=== PATIENT | male | born 1955 | race Caucasian/White ===

== ENCOUNTER 2017-12-07 13:27 | Inpatient (IN) | payer OTHER ==
[~2017-12-07] VITALS: Ht 175.3 cm; Wt 84.4 kg
[~2017-12-07 13:27] MED LIST changes: -ASCO500T2 PO; -INSU100I11 SQ; -INSU100I13 SQ; -MULT1TAB90 PO; -OXYC5TAB95 PO; -PANT20TA2 PO
[2017-12-07 15:00] VITALS: BP 117/64
[2017-12-07] MEDS ORDERED: traMADol 50 MG TABLET PO PRN (15:15)
[2017-12-07] MEDS ORDERED: PROCHLORPERAZINE 10 MG/2 ML VIAL. IV PRN (15:15)
[2017-12-07] MEDS ORDERED: ACETAMINOPHEN 325 MG TABLET. PO PRN (15:15)
[2017-12-07] MEDS ORDERED: MAG HYDROX/ALUMINUM HYD/SIMETH 30 ML ORAL.SUSP PO PRN (15:15)
[2017-12-07] MEDS ORDERED: DEXTROSE 50% 25 GM / 50ML DISP.SYRIN. IV PRN (15:15)
[2017-12-07] MEDS ORDERED: fentaNYL PF VIAL 100 MCG/2 ML VIAL IV PRN (15:15)
[2017-12-07] MEDS ORDERED: CALCIUM CARBONATE 500 MG TAB.CHEW PO PRN (15:15)
[2017-12-07] MEDS ORDERED: PROCHLORPERAZINE 25 MG SUPP.RECT. PR PRN (15:15)
[2017-12-07] MEDS ORDERED: ONDANSETRON PF 4 MG/2 ML VIAL. IV PRN (15:15)
[2017-12-07] MEDS ORDERED: LACTULOSE 20 GM/30 ML SOLUTION. PO PRN (15:15)
[2017-12-07] MEDS ORDERED: MAGNESIUM HYDROXIDE 2,400 MG/30 ML ORAL.SUSP. PO PRN (15:15)
[2017-12-07] MEDS ORDERED: IBUPROFEN 400 MG TABLET. PO PRN (15:15)
--- NOTE | 2017-12-07 15:28 | PDOC2 ---
CONSULT Date of Consult Date of Consult DATE: 12/07/17 TIME: 15:10 Reason for Consult Reason for Consult: Infected diabetic foot ulcer Referring Physician Referring Physician: Basim Source Source: Patient History of Present Illness Reason for Visit: Pt was sent here by PCP and wound care center for right heel infected diabetic foot ulcer. He just recently arrived on floor as direct admit with little information in chart. The wound has been present for about a year, however became more painful and odorous about 2 weeks ago. He has been seeing wound care for this. He denies pain currently. He has a significant cardiac history with history of CABG. We were asked to evaluate to the patient for potential surgical debridement. He has a history of right 2nd and 5th toe amputations for infection in the past. He denies hx of PAD. Past Medical History Cardiovascular: CAD, HTN, Hyperlipidemia, Other GI: GERD Endocrine: Diabetes Past Surgical History Past Surgical History Right 2nd and 5th toe amputations. Past Surgical History: CABG Family History Family History: Heart Disease, Hypertension Social History ALCOHOL: none Drugs: None Lives: with Family Current Medications Current Medications Active Scripts Active Reported Ranexa (Ranolazine) 500 Mg Tab.er.12h 1 Tab PO BID Isosorbide Mononitrate Er (Isosorbide Mononitrate) 60 Mg Tab.er.24h 1 Tab PO DAILY Clopidogrel (Clopidogrel Bisulfate) 75 Mg Tablet 1 Tab PO DAILY Metoprolol Tartrate 50 Mg Tablet 100 Mg PO BID NEXT DOSE: 01/19/15 PM Aspir 81 (Aspirin) 81 Mg Tablet.dr 81 Mg PO DAILY NEXT DOSE: 01/20/15 AM Omeprazole 40 Mg Capsule.dr 40 Mg PO DAILY NEXT DOSE: 01/20/15 AM Allopurinol 300 Mg Tablet 300 Mg PO DAILY NEXT DOSE: 01/20/15 AM Lisinopril 40 Mg Tablet 40 Mg PO DAILY NEXT DOSE: 01/20/15 AM Allergies Allergies: Coded Allergies: morphine (Verified Allergy, Intermediate, Hives, itching, 07/29/15) ROS General: No: Chills, Other (fever) HEENT: No: Heacaches Hematological and Lymphatic: No: Bleeding Problems, Blood Clots ENDOCRINE: YES: Skin Changes Respiratory: No: Cough, Shortness of breath Cardiovascular: No Chest Pain Gastrointestinal: No Nausea, No Vomiting, No Diarrhea Musculoskeletal: Yes Gait Disturbance Physical Exam General: Alert, Oriented X3, Cooperative HEENT: Atraumatic Lungs: Normal air movement Heart: Regular rate Extremities: Other (BL mild edema, left worse than right. Unable to appreciate pedal pulses on either foot, likely due to swelling. Left foot with several scabbed punctate areas ) Skin: Other (Ulcer to right heel with necrotic tissue surrounding. No pustular drainage. Ulcer does have some tracking proximally a few cm with necrotic tissue covered by intact epithelial layer. ) Neuro: Normal speech, Normal tone Psych/Mental Status: Mental status NL, Mood NL Labs Labs Laboratory Tests Test 12/07/17 14:42 Glucose (Fingerstick) 177 mg/dL (70-99) Laboratory Tests Test 12/07/17 14:42 Glucose (Fingerstick) 177 mg/dL (70-99) Assessment/Plan Assessment/Plan Pt with infected diabetic ulcer to right heel reportedly with osteomyelitis from xray at previous location. He will benefit from surgical debridement, however will get arterial US first to better assess right leg circulation. Pt is stable otherwise and surgical debridement is non-emergent. 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 They exhibited understanding and agreed to said plan. All questions were answered to satisfaction. We will review arterial study tomorrow and determine appropriate timing for surgery. We recommend initiate abx per ID and wound care in the meantime. Also pt is to be non-weight bearing on right heel. Will order Prafo boot for pt to use post operatively. JANN CASILLAS Dec 07, 2017 15:28
[2017-12-07] MEDS ORDERED: LABETALOL 20 MG/4 ML DISP.SYRIN. IVP PRN (15:30)
--- NOTE | 2017-12-07 15:43 | PDOC1 ---
History and Physical Date of Admission Date of Admission DATE: 12/07/17 TIME: 15:39 Identification/Chief Complaint Chief Complaint Sent in by wound care clinic for right heel wound in a diabetic Source Source: Caregiver, Chart review, Patient History of Present Illness History of Present Illness 62-year-old male, diabetic type I for the past 43 years,hemoglobin a1C is 13 some 2 months ago, sent in by wound care clinic because of right heel wound and need for IV antibiotics. No fevers at home, sister at bedside says patient is stubborn, there was some oozing or drainage earlier this week and was advised to come earlier but pt did not want to. He has history of CAD with CABG 2016 here at [facility], COPD. Nonsmoker nondrinker. Also history of hypertension, dyslipidemia. Right heel is tender to touch but currently dry, he can bear weight on it if needed. Admitted and is being followed by vascular surgery hence wound care recommends vasc surgery and infectious disease consults. I ordered a sedimentation rate. Hemoglobin A1c, basic labs. He takes 50 units Lantus in the morning and 25 units at night he told the RN. But he told me 40 units at night. No fast acting insulin during mealtimes. We'll do some sliding scale. Past Medical History Cardiovascular: CAD, HTN, Hyperlipidemia, Other GI: GERD Endocrine: Diabetes Past Surgical History Past Surgical History: CABG Family History Family History: Heart Disease, Hypertension Social History Smoke: No ALCOHOL: none Drugs: None Current Medications Current Medications Current Medications Ondansetron HCl (Zofran) 4 mg PRN Q6HRS PRN IV NAUSEA/VOMITING; Start at 15:15 Prochlorperazine Edisylate (Compazine) 10 mg PRN Q6HRS PRN IV NAUSEA/VOMITING; Start 12/07/17 at 15:15 Prochlorperazine (Compazine) 25 mg PRN Q12HR PRN VA NAUSEA/VOMITING; Start at 15:15 Al Hydroxide/Mg Hydroxide (Mylanta Plus Xs) 30 ml PRN Q3HRS PRN PO HEARTBURN / GAS; Start 12/07/17 at 15:15 Calcium Carbonate/ Glycine (Tums) 500 mg PRN Q3HRS PRN PO UPSET STOMACH; Start 12/07/17 at 15:15 Zolpidem Tartrate (Ambien) 5 mg PRN QHS PRN PO INSOMNIA, MAY REPEAT IN 1HR; Start 12/07/17 at 15:15 Oxycodone HCl (Roxicodone) 5 mg PRN Q3HRS PRN PO BREAKTHROUGH PAIN; Start at 15:15 Acetaminophen (Tylenol) 650 mg PRN Q6HRS PRN PO Headaches, Temp > 101.5F; Start 12/07/17 at 15:15 Ibuprofen (Motrin) 400 mg PRN Q6HRS PRN PO MILD PAIN; Start 12/07/17 at 15:15 Magnesium Hydroxide (Milk Of Magnesia) 2,400 mg PRN Q12HR PRN PO CONSTIPATION; Start 12/07/17 at 15:15 Lactulose (Lactulose) 20 gm PRN Q12HR PRN PO CONSTIPATION; Start 12/07/17 at 15:15 Insulin Human Lispro (HumaLOG) 0-9 UNITS TIDWMEALS SQ ; Start 12/07/17 at 17:00 Dextrose (Dextrose 50%-Water Syringe) 12.5 gm PRN Q15MIN PRN IV SEE COMMENTS; Start 12/07/17 at 15:15 Fentanyl Citrate (Fentanyl 2ml Vial) 50 mcg PRN Q2HR PRN IV PAIN; Start at 15:15 Tramadol HCl (Ultram) 50 mg PRN Q6HRS PRN PO MILD PAIN; Start 12/07/17 at 15: 15 Allopurinol (Zyloprim) 300 mg DAILY PO ; Start 12/07/17 at 16:00 Lisinopril (Prinivil) 40 mg DAILY PO ; Start 12/07/17 at 16:00 Metoprolol Tartrate (Lopressor) 100 mg BID PO ; Start 12/07/17 at 21:00 Ranolazine (Ranexa) 500 mg BID PO ; Start 12/07/17 at 21:00 Isosorbide Mononitrate (Imdur) 60 mg DAILY PO ; Start 12/08/17 at 09:00 Pantoprazole Sodium (Protonix) 40 mg DAILYAC PO ; Start 12/07/17 at 16:30 Labetalol HCl (Normodyne Iv Push) 10 mg PRN Q2HR PRN IVP HYPERTENSION, SEE COMMENTS; Start 12/07/17 at 15:30 Active Scripts Active Reported Ranexa (Ranolazine) 500 Mg Tab.er.12h 1 Tab PO BID Isosorbide Mononitrate Er (Isosorbide Mononitrate) 60 Mg Tab.er.24h 1 Tab PO DAILY Clopidogrel (Clopidogrel Bisulfate) 75 Mg Tablet 1 Tab PO DAILY Metoprolol Tartrate 50 Mg Tablet 100 Mg PO BID NEXT DOSE: 01/19/15 PM Aspir 81 (Aspirin) 81 Mg Tablet.dr 81 Mg PO DAILY NEXT DOSE: 01/20/15 AM Omeprazole 40 Mg Capsule.dr 40 Mg PO DAILY NEXT DOSE: 01/20/15 AM Allopurinol 300 Mg Tablet 300 Mg PO DAILY NEXT DOSE: 01/20/15 AM Lisinopril 40 Mg Tablet 40 Mg PO DAILY NEXT DOSE: 01/20/15 AM Allergies Allergies: Coded Allergies: morphine (Verified Allergy, Intermediate, Hives, itching, 07/29/15) ROS Review of System As per history of present illness, the rest of ROS 14 point negative Physical Exam General: Alert, Oriented X3, Cooperative, No acute distress HEENT: Atraumatic, PERRLA, EOMI Lungs: Clear to auscultation, Normal air movement Heart: S1S2, RRR, no thrills, no rubs, no gallops, no murmurs Cardiovascular: S1, S2 Abdomen: Normal bowel sounds, Soft, No tenderness, No hepatosplenomegaly, No masses Male Genitals Exam: normal genitalia, normal prostate Extremities: No clubbing, No cyanosis, Normal pulses Skin: Other (rt heel wound, dry, some redness around the area, tender to touch , no oozing currently) Neuro: Normal gait, Normal speech, Strength at 5/5 X4 ext, Normal tone, Sensation intact, Cranial nerves 3-12 NL, Reflexes 2+ Labs Labs Laboratory Tests Test 12/07/17 14:42 Glucose (Fingerstick) 177 mg/dL (70-99) Laboratory Tests Test 12/07/17 14:42 Glucose (Fingerstick) 177 mg/dL (70-99) VTE Prophylaxis Ordered VTE Prophylaxis Devices: Yes VTE Pharmacological Prophylaxi: Yes Assessment/Plan Assessment/Plan Right heel wound in a diabetic Diabetes type 1, hemoglobin A1c is 13 some 2 months ago Hypertension, CAD, CABG 2016, dyslipidemia-chronic stable Plan: Vascular surgery and ID consults Check hemoglobin A1c CBC BMP sedimentation rate Resume home regimen insulin and sliding scale insulin Local wound care and wound care consult Discussed with sister at bedside and RN 2 MN admit SHAD CARRANZA MD Dec 07, 2017 15:43
[2017-12-07] MEDS: ALLOPURINOL 300 MG TABLET. PO SCH (16:00)
[2017-12-07] MEDS: LISINOPRIL 20 MG TABLET PO SCH (16:00)
[2017-12-07 16:15] LABS: BASO % 0 % (0-3); EOS # 0.1 x10^3/uL (0.0-0.7); EOS % 1 % (0-3); HEMATOCRIT 34.1 % (39.0-53.0); LYMPH # 1.3 x10^3/uL (1.0-4.8); LYMPH % 13 % (24-48); MEAN CORPUSCULAR HEMOGLOBIN 34 pg (25-35); MEAN CORPUSCULAR HGB CONC 35 g/dL (31-37); MEAN CORPUSCULAR VOLUME 95 fL (79-100); MONO # 0.9 x10^3/uL (0.0-1.1); MONO % 9 % (0-9); NEUT # 7.7 x10^3uL (1.8-7.7); NEUT % 77 % (31-73); PLATELET COUNT 348 x10^3/uL (140-400); RED BLOOD COUNT 3.59 x10^6/uL (4.30-5.70)
[2017-12-07 16:20] LABS: PROTHROMBIN TIME PATIENT 14.2 SEC (11.7-14.0)
[2017-12-07] MEDS: PANTOPRAZOLE 40 MG TABLET.DR. PO SCH (16:30)
[2017-12-07 16:33] LABS: ALBUMIN 3.1 g/dL (3.4-5.0); ALBUMIN/GLOBULIN RATIO 0.7 (1.0-1.7); CALCIUM 9.5 mg/dL (8.5-10.1); CREATININE 1.2 mg/dL (0.7-1.3); GFR 61.8; POTASSIUM 4.5 mmol/L (3.5-5.1); TOTAL BILIRUBIN 0.6 mg/dL (0.2-1.0); TOTAL PROTEIN 7.7 g/dL (6.4-8.2)
[2017-12-07] MEDS ORDERED: INSULIN LISPRO 300 UNITS/3 ML INSULN.PEN. SQ SCH (17:00)
[2017-12-07 19:00] VITALS: BP 98/44
[2017-12-07] MEDS: METOPROLOL TART IMMED RELEASE 50 MG TABLET. PO SCH (21:00)
[2017-12-07] MEDS ORDERED: INSULIN GLARGINE 300 UNITS/3 ML INSULN.PEN. SQ SCH ×2 (21:00)
[2017-12-07] MEDS ORDERED: IV NORMAL SALINE 1000ML BAG 1,000 ML IV ONE (21:30)
[2017-12-07] MEDS: RANOLAZINE 500 MG TAB.ER.12H PO SCH (21:31)
[2017-12-07] MEDS: IV NORMAL SALINE 1000ML BAG 1,000 ML IV SCH (21:37)
[2017-12-07 23:00] VITALS: BP 101/50
[2017-12-08 00:11] LABS: HEMOGLOBIN A1C 13.1 % (4.8-5.6)
[2017-12-08 03:00] VITALS: BP 105/49
[2017-12-08 05:06] LABS: BASO % 0 % (0-3); EOS # 0.1 x10^3/uL (0.0-0.7); EOS % 1 % (0-3); HEMATOCRIT 30.7 % (39.0-53.0); HEMOGLOBIN 10.8 g/dL (13.0-17.5); LYMPH # 1.4 x10^3/uL (1.0-4.8); LYMPH % 17 % (24-48); MEAN CORPUSCULAR HEMOGLOBIN 33 pg (25-35); MEAN CORPUSCULAR HGB CONC 35 g/dL (31-37); MEAN CORPUSCULAR VOLUME 94 fL (79-100); MONO # 0.7 x10^3/uL (0.0-1.1); MONO % 9 % (0-9); NEUT # 5.9 x10^3uL (1.8-7.7); NEUT % 73 % (31-73); PLATELET COUNT 314 x10^3/uL (140-400); RED BLOOD COUNT 3.26 x10^6/uL (4.30-5.70); RED CELL DISTRIBUTION WIDTH 14.5 % (11.5-14.5); WHITE BLOOD COUNT 8.1 x10^3/uL (4.0-11.0)
[2017-12-08 05:16] LABS: CALCIUM 8.9 mg/dL (8.5-10.1); CREATININE 1.3 mg/dL (0.7-1.3); GFR 56.3; POTASSIUM 4.1 mmol/L (3.5-5.1)
[2017-12-08 07:00] VITALS: BP 111/70
[2017-12-08] MEDS ORDERED: DEXTROSE 50% 25 GM / 50ML DISP.SYRIN. IV PRN (08:30)
[2017-12-08] MEDS ORDERED: INSULIN GLARGINE 300 UNITS/3 ML INSULN.PEN. SQ SCH (09:00)
[2017-12-08] MEDS: IV NORMAL SALINE 1000ML BAG 1,000 ML IV SCH ×2 (09:16→19:16)
[2017-12-08] MEDS: RANOLAZINE 500 MG TAB.ER.12H PO SCH ×2 (09:17→20:44)
[2017-12-08] MEDS: ISOSORBIDE MONONITRATE ER 30 MG TAB.ER.24H PO SCH (09:18)
[2017-12-08] MEDS: LISINOPRIL 20 MG TABLET PO SCH (09:18)
[2017-12-08] MEDS: METOPROLOL TART IMMED RELEASE 50 MG TABLET. PO SCH ×2 (09:19→20:44)
[2017-12-08] MEDS: ALLOPURINOL 300 MG TABLET. PO SCH (09:19)
[2017-12-08] MEDS: PANTOPRAZOLE 40 MG TABLET.DR. PO SCH (09:19)
[2017-12-08] MEDS: INSULIN NPH/REG INSULIN 70/30 300 UNITS/3 ML INSULN.PEN. SQ SCH ×2 (09:26→16:23)
--- NOTE | 2017-12-08 09:59 | RAD ---
Examination: ARTERIAL STUDY LOWER EXT RIGHT History: NON HEALING RT HEEL WOUND, DIABETIC

REACTIVE LYMPH NODES IN RT GROIN, LARGEST 3.5 X 3.4 X 1.5 CM
MILD TO MOD PLAQUE THROUGHOUT LEG - NO ELEVATED VELOCITIES
CALF ARTS MONO FLOW Comparison/Correlation: None Findings: Right lower extremity arterial ultrasound exam was performed. Grayscale, color Doppler Doppler, and spectral Doppler imaging was performed. Mild to moderate plaque is noted throughout the right direction of the arterial vasculature. No significant stenotic lesion identified. Triphasic waveforms identified involving the common femoral artery and superficial femoral artery. Peak systolic velocities of the right lower extremity arterial vasculature were obtained. Right proximal common femoral artery velocity of 114 cm/s is seen. Superficial femoral artery velocity of 88 cm/s noted proximally, 89 cm/s at the midportion, and 80 cm/s the distal aspect. Deep femoral artery velocity of 77 cm/s identified. Biphasic waveform. Popliteal artery has 60 cm/s velocity with biphasic waveform. Proximal posterior tibial artery velocity of 62 cm/s is present with monophasic waveform. More distally, velocity 76 cm/s. Peroneal artery is not identified. Proximal anterior tibial artery has 41 cm/s velocity with biphasic waveform. The dorsalis pedis artery has 31 cm/s velocity and monophasic waveform. Right groin lymph nodes are present and presumably reactive with the largest of these measuring 2.5 cm x 1.5 cm. Impression: No evidence of significant right lower extremity arterial stenosis. Electronically signed by: Jose Fierro MD (12/08/2017 9:56 AM) [facility]
--- NOTE | 2017-12-08 10:07 | PDOC ---
PROGRESS NOTES Chief Complaint Chief Complaint Right heel wound in a diabetic Diabetes type 1, hemoglobin A1c is 13 Hypertension, CAD, CABG 2016, dyslipidemia-chronic stable History of Present Illness History of Present Illness He has no complaints ESR is 105 Blood sugars are running high Now we're able to clarify that he is on intermediate acting insulin NPH 70/30, and in the morning and 40 units at night Tentative plans for possible I&D by vascular surgery on Sunday Plan: Add sliding scale insulin high-dose before meals at bedtime Hemoglobin A1c is 13 Continue IV antibiotic for ID Continue local wound care He was a direct admit from wound care clinic Dr[facility] Nothing by mouth post midnight on Sunday for tentative plans of I and D by vascular surgery Vitals Vitals Vital Signs Date Time Temp Pulse Resp B/P (MAP) Pulse Ox O2 Delivery O2 Flow Rate FiO2 12/08/17 09:19 109 111/70 12/08/17 07:00 97.7 18 99 Room Air 97.7 Physical Exam General: Alert, Oriented X3, Cooperative, No acute distress Heart: Regular rate, Normal S1, Normal S2 Lungs: Clear Abdomen: Normal bowel sounds, Soft, No tenderness, No hepatosplenomegaly, No masses Extremities: No clubbing, No cyanosis, Normal pulses Skin: Other (rt heel wound, dry, some redness around the area, tender to touch , no oozing currently) Labs LABS Laboratory Tests Test 12/07/17 14:42 12/07/17 15:50 12/07/17 17:30 12/07/17 20:54 Glucose (Fingerstick) 177 mg/dL (70-99) 222 mg/dL (70-99) 220 mg/dL (70-99) White Blood Count 10.0 x10^3/uL (4.0-11.0) Red Blood Count 3.59 x10^6/uL (4.30-5.70) Hemoglobin 12.0 g/dL (13.0-17.5) Hematocrit 34.1 % (39.0-53.0) Mean Corpuscular Volume 95 fL (79-100) Mean Corpuscular Hemoglobin 34 pg (25-35) Mean Corpuscular Hemoglobin Concent 35 g/dL (31-37) Red Cell Distribution Width 14.0 % (11.5-14.5) Platelet Count 348 x10^3/uL (140-400) Neutrophils (%) (Auto) 77 % (31-73) Lymphocytes (%) (Auto) 13 % (24-48) Monocytes (%) (Auto) 9 % (0-9) Eosinophils (%) (Auto) 1 % (0-3) Basophils (%) (Auto) 0 % (0-3) Neutrophils # (Auto) 7.7 x10^3uL (1.8-7.7) Lymphocytes # (Auto) 1.3 x10^3/uL (1.0-4.8) Monocytes # (Auto) 0.9 x10^3/uL (0.0-1.1) Eosinophils # (Auto) 0.1 x10^3/uL (0.0-0.7) Basophils # (Auto) 0.0 x10^3/uL (0.0-0.2) Erythrocyte Sedimentation Rate 105 (0-15) Prothrombin Time 14.2 SEC (11.7-14.0) Prothromb Time International Ratio 1.2 (0.8-1.1) Sodium Level 136 mmol/L (136-145) Potassium Level 4.5 mmol/L (3.5-5.1) Chloride Level 98 mmol/L (98-107) Carbon Dioxide Level 28 mmol/L (21-32) Anion Gap 10 (6-14) Blood Urea Nitrogen 17 mg/dL (8-26) Creatinine 1.2 mg/dL (0.7-1.3) Estimated GFR (Cockcroft-Gault) 61.8 BUN/Creatinine Ratio 14 (6-20) Glucose Level 226 mg/dL (70-99) Hemoglobin A1c 13.1 % (4.8-5.6) Calcium Level 9.5 mg/dL (8.5-10.1) Total Bilirubin 0.6 mg/dL (0.2-1.0) Aspartate Amino Transf (AST/SGOT) 13 U/L (15-37) Alanine Aminotransferase (ALT/SGPT) 19 U/L (16-63) Alkaline Phosphatase 94 U/L (46-116) Total Protein 7.7 g/dL (6.4-8.2) Albumin 3.1 g/dL (3.4-5.0) Albumin/Globulin Ratio 0.7 (1.0-1.7) Test 10/27/18 03:30 12/08/17 08:24 White Blood Count 8.1 x10^3/uL (4.0-11.0) Red Blood Count 3.26 x10^6/uL (4.30-5.70) Hemoglobin 10.8 g/dL (13.0-17.5) Hematocrit 30.7 % (39.0-53.0) Mean Corpuscular Volume 94 fL (79-100) Mean Corpuscular Hemoglobin 33 pg (25-35) Mean Corpuscular Hemoglobin Concent 35 g/dL (31-37) Red Cell Distribution Width 14.5 % (11.5-14.5) Platelet Count 314 x10^3/uL (140-400) Neutrophils (%) (Auto) 73 % (31-73) Lymphocytes (%) (Auto) 17 % (24-48) Monocytes (%) (Auto) 9 % (0-9) Eosinophils (%) (Auto) 1 % (0-3) Basophils (%) (Auto) 0 % (0-3) Neutrophils # (Auto) 5.9 x10^3uL (1.8-7.7) Lymphocytes # (Auto) 1.4 x10^3/uL (1.0-4.8) Monocytes # (Auto) 0.7 x10^3/uL (0.0-1.1) Eosinophils # (Auto) 0.1 x10^3/uL (0.0-0.7) Basophils # (Auto) 0.0 x10^3/uL (0.0-0.2) Sodium Level 137 mmol/L (136-145) Potassium Level 4.1 mmol/L (3.5-5.1) Chloride Level 102 mmol/L (98-107) Carbon Dioxide Level 25 mmol/L (21-32) Anion Gap 10 (6-14) Blood Urea Nitrogen 18 mg/dL (8-26) Creatinine 1.3 mg/dL (0.7-1.3) Estimated GFR (Cockcroft-Gault) 56.3 Glucose Level 244 mg/dL (70-99) Calcium Level 8.9 mg/dL (8.5-10.1) Glucose (Fingerstick) 355 mg/dL (70-99) Review of Systems Review of Systems A 14 point ROS was completed with the following noted as positive: Other systems reviewed and negative. \CONSTITUTIONAL: No fever or chills EYES: No recent changes SKIN: No rash or itching CARDIOVASCULAR: No chest pain, syncope, palpitations, or edema RESPIRATORY: No SOB or cough GASTROINTESTINAL: No nausea, vomiting or abdominal pain NEUROLOGICAL: No headaches or weakness ENDOCRINE: No cold or heat intolerance GENITOURINARY: No urgency or frequency of urination MUSCULOSKELETAL: No back pain or joint pain LYMPHATICS: No enlarged lymph nodes PSYCHIATRIC: No anxiety or depression Comment Review of Relevant I have reviewed the following items joana (where applicable) has been applied. Labs Laboratory Tests Test 12/07/17 14:42 12/07/17 15:50 12/07/17 17:30 12/07/17 20:54 Glucose (Fingerstick) 177 mg/dL (70-99) 222 mg/dL (70-99) 220 mg/dL (70-99) White Blood Count 10.0 x10^3/uL (4.0-11.0) Red Blood Count 3.59 x10^6/uL (4.30-5.70) Hemoglobin 12.0 g/dL (13.0-17.5) Hematocrit 34.1 % (39.0-53.0) Mean Corpuscular Volume 95 fL (79-100) Mean Corpuscular Hemoglobin 34 pg (25-35) Mean Corpuscular Hemoglobin Concent 35 g/dL (31-37) Red Cell Distribution Width 14.0 % (11.5-14.5) Platelet Count 348 x10^3/uL (140-400) Neutrophils (%) (Auto) 77 % (31-73) Lymphocytes (%) (Auto) 13 % (24-48) Monocytes (%) (Auto) 9 % (0-9) Eosinophils (%) (Auto) 1 % (0-3) Basophils (%) (Auto) 0 % (0-3) Neutrophils # (Auto) 7.7 x10^3uL (1.8-7.7) Lymphocytes # (Auto) 1.3 x10^3/uL (1.0-4.8) Monocytes # (Auto) 0.9 x10^3/uL (0.0-1.1) Eosinophils # (Auto) 0.1 x10^3/uL (0.0-0.7) Basophils # (Auto) 0.0 x10^3/uL (0.0-0.2) Erythrocyte Sedimentation Rate 105 (0-15) Prothrombin Time 14.2 SEC (11.7-14.0) Prothromb Time International Ratio 1.2 (0.8-1.1) Sodium Level 136 mmol/L (136-145) Potassium Level 4.5 mmol/L (3.5-5.1) Chloride Level 98 mmol/L (98-107) Carbon Dioxide Level 28 mmol/L (21-32) Anion Gap 10 (6-14) Blood Urea Nitrogen 17 mg/dL (8-26) Creatinine 1.2 mg/dL (0.7-1.3) Estimated GFR (Cockcroft-Gault) 61.8 BUN/Creatinine Ratio 14 (6-20) Glucose Level 226 mg/dL (70-99) Hemoglobin A1c 13.1 % (4.8-5.6) Calcium Level 9.5 mg/dL (8.5-10.1) Total Bilirubin 0.6 mg/dL (0.2-1.0) Aspartate Amino Transf (AST/SGOT) 13 U/L (15-37) Alanine Aminotransferase (ALT/SGPT) 19 U/L (16-63) Alkaline Phosphatase 94 U/L (46-116) Total Protein 7.7 g/dL (6.4-8.2) Albumin 3.1 g/dL (3.4-5.0) Albumin/Globulin Ratio 0.7 (1.0-1.7) Test 12/08/17 03:30 12/08/17 08:24 White Blood Count 8.1 x10^3/uL (4.0-11.0) Red Blood Count 3.26 x10^6/uL (4.30-5.70) Hemoglobin 10.8 g/dL (13.0-17.5) Hematocrit 30.7 % (39.0-53.0) Mean Corpuscular Volume 94 fL (79-100) Mean Corpuscular Hemoglobin 33 pg (25-35) Mean Corpuscular Hemoglobin Concent 35 g/dL (31-37) Red Cell Distribution Width 14.5 % (11.5-14.5) Platelet Count 314 x10^3/uL (140-400) Neutrophils (%) (Auto) 73 % (31-73) Lymphocytes (%) (Auto) 17 % (24-48) Monocytes (%) (Auto) 9 % (0-9) Eosinophils (%) (Auto) 1 % (0-3) Basophils (%) (Auto) 0 % (0-3) Neutrophils # (Auto) 5.9 x10^3uL (1.8-7.7) Lymphocytes # (Auto) 1.4 x10^3/uL (1.0-4.8) Monocytes # (Auto) 0.7 x10^3/uL (0.0-1.1) Eosinophils # (Auto) 0.1 x10^3/uL (0.0-0.7) Basophils # (Auto) 0.0 x10^3/uL (0.0-0.2) Sodium Level 137 mmol/L (136-145) Potassium Level 4.1 mmol/L (3.5-5.1) Chloride Level 102 mmol/L (98-107) Carbon Dioxide Level 25 mmol/L (21-32) Anion Gap 10 (6-14) Blood Urea Nitrogen 18 mg/dL (8-26) Creatinine 1.3 mg/dL (0.7-1.3) Estimated GFR (Cockcroft-Gault) 56.3 Glucose Level 244 mg/dL (70-99) Calcium Level 8.9 mg/dL (8.5-10.1) Glucose (Fingerstick) 355 mg/dL (70-99) Laboratory Tests Test 12/07/17 14:42 12/07/17 15:50 12/07/17 17:30 12/07/17 20:54 Glucose (Fingerstick) 177 mg/dL (70-99) 222 mg/dL (70-99) 220 mg/dL (70-99) White Blood Count 10.0 x10^3/uL (4.0-11.0) Red Blood Count 3.59 x10^6/uL (4.30-5.70) Hemoglobin 12.0 g/dL (13.0-17.5) Hematocrit 34.1 % (39.0-53.0) Mean Corpuscular Volume 95 fL (79-100) Mean Corpuscular Hemoglobin 34 pg (25-35) Mean Corpuscular Hemoglobin Concent 35 g/dL (31-37) Red Cell Distribution Width 14.0 % (11.5-14.5) Platelet Count 348 x10^3/uL (140-400) Neutrophils (%) (Auto) 77 % (31-73) Lymphocytes (%) (Auto) 13 % (24-48) Monocytes (%) (Auto) 9 % (0-9) Eosinophils (%) (Auto) 1 % (0-3) Basophils (%) (Auto) 0 % (0-3) Neutrophils # (Auto) 7.7 x10^3uL (1.8-7.7) Lymphocytes # (Auto) 1.3 x10^3/uL (1.0-4.8) Monocytes # (Auto) 0.9 x10^3/uL (0.0-1.1) Eosinophils # (Auto) 0.1 x10^3/uL (0.0-0.7) Basophils # (Auto) 0.0 x10^3/uL (0.0-0.2) Erythrocyte Sedimentation Rate 105 (0-15) Prothrombin Time 14.2 SEC (11.7-14.0) Prothromb Time International Ratio 1.2 (0.8-1.1) Sodium Level 136 mmol/L (136-145) Potassium Level 4.5 mmol/L (3.5-5.1) Chloride Level 98 mmol/L (98-107) Carbon Dioxide Level 28 mmol/L (21-32) Anion Gap 10 (6-14) Blood Urea Nitrogen 17 mg/dL (8-26) Creatinine 1.2 mg/dL (0.7-1.3) Estimated GFR (Cockcroft-Gault) 61.8 BUN/Creatinine Ratio 14 (6-20) Glucose Level 226 mg/dL (70-99) Hemoglobin A1c 13.1 % (4.8-5.6) Calcium Level 9.5 mg/dL (8.5-10.1) Total Bilirubin 0.6 mg/dL (0.2-1.0) Aspartate Amino Transf (AST/SGOT) 13 U/L (15-37) Alanine Aminotransferase (ALT/SGPT) 19 U/L (16-63) Alkaline Phosphatase 94 U/L (46-116) Total Protein 7.7 g/dL (6.4-8.2) Albumin 3.1 g/dL (3.4-5.0) Albumin/Globulin Ratio 0.7 (1.0-1.7) Test 12/08/17 03:30 12/08/17 08:24 White Blood Count 8.1 x10^3/uL (4.0-11.0) Red Blood Count 3.26 x10^6/uL (4.30-5.70) Hemoglobin 10.8 g/dL (13.0-17.5) Hematocrit 30.7 % (39.0-53.0) Mean Corpuscular Volume 94 fL (79-100) Mean Corpuscular Hemoglobin 33 pg (25-35) Mean Corpuscular Hemoglobin Concent 35 g/dL (31-37) Red Cell Distribution Width 14.5 % (11.5-14.5) Platelet Count 314 x10^3/uL (140-400) Neutrophils (%) (Auto) 73 % (31-73) Lymphocytes (%) (Auto) 17 % (24-48) Monocytes (%) (Auto) 9 % (0-9) Eosinophils (%) (Auto) 1 % (0-3) Basophils (%) (Auto) 0 % (0-3) Neutrophils # (Auto) 5.9 x10^3uL (1.8-7.7) Lymphocytes # (Auto) 1.4 x10^3/uL (1.0-4.8) Monocytes # (Auto) 0.7 x10^3/uL (0.0-1.1) Eosinophils # (Auto) 0.1 x10^3/uL (0.0-0.7) Basophils # (Auto) 0.0 x10^3/uL (0.0-0.2) Sodium Level 137 mmol/L (136-145) Potassium Level 4.1 mmol/L (3.5-5.1) Chloride Level 102 mmol/L (98-107) Carbon Dioxide Level 25 mmol/L (21-32) Anion Gap 10 (6-14) Blood Urea Nitrogen 18 mg/dL (8-26) Creatinine 1.3 mg/dL (0.7-1.3) Estimated GFR (Cockcroft-Gault) 56.3 Glucose Level 244 mg/dL (70-99) Calcium Level 8.9 mg/dL (8.5-10.1) Glucose (Fingerstick) 355 mg/dL (70-99) Medications Current Medications Ondansetron HCl (Zofran) 4 mg PRN Q6HRS PRN IV NAUSEA/VOMITING; Start at 15:15 Prochlorperazine Edisylate (Compazine) 10 mg PRN Q6HRS PRN IV NAUSEA/VOMITING; Start 12/07/17 at 15:15 Prochlorperazine (Compazine) 25 mg PRN Q12HR PRN MD NAUSEA/VOMITING; Start at 15:15 Al Hydroxide/Mg Hydroxide (Mylanta Plus Xs) 30 ml PRN Q3HRS PRN PO HEARTBURN / GAS; Start 12/07/17 at 15:15 Calcium Carbonate/ Glycine (Tums) 500 mg PRN Q3HRS PRN PO UPSET STOMACH; Start 12/07/17 at 15:15 Zolpidem Tartrate (Ambien) 5 mg PRN QHS PRN PO INSOMNIA, MAY REPEAT IN 1HR; Start 12/07/17 at 15:15 Oxycodone HCl (Roxicodone) 5 mg PRN Q3HRS PRN PO BREAKTHROUGH PAIN; Start at 15:15 Acetaminophen (Tylenol) 650 mg PRN Q6HRS PRN PO Headaches, Temp > 101.5F; Start 12/07/17 at 15:15 Ibuprofen (Motrin) 400 mg PRN Q6HRS PRN PO MILD PAIN; Start 12/07/17 at 15:15 Magnesium Hydroxide (Milk Of Magnesia) 2,400 mg PRN Q12HR PRN PO CONSTIPATION; Start 12/07/17 at 15:15 Lactulose (Lactulose) 20 gm PRN Q12HR PRN PO CONSTIPATION; Start 12/07/17 at 15:15 Insulin Human Lispro (HumaLOG) 0-9 UNITS TIDWMEALS SQ ; Start 12/07/17 at 17:00 ; Stop 12/07/17 at 18:50; Status DC Dextrose (Dextrose 50%-Water Syringe) 12.5 gm PRN Q15MIN PRN IV SEE COMMENTS; Start 12/07/17 at 15:15 Fentanyl Citrate (Fentanyl 2ml Vial) 50 mcg PRN Q2HR PRN IV PAIN; Start at 15:15 Tramadol HCl (Ultram) 50 mg PRN Q6HRS PRN PO MILD PAIN; Start 12/07/17 at 15: 15 Allopurinol (Zyloprim) 300 mg DAILY PO Last administered on 12/08/17at 09:19; Start 12/07/17 at 16:00 Lisinopril (Prinivil) 40 mg DAILY PO Last administered on 12/08/17at 09:18; Start 12/07/17 at 16:00 Metoprolol Tartrate (Lopressor) 100 mg BID PO Last administered on 12/08/17at 09:19; Start 12/07/17 at 21:00 Ranolazine (Ranexa) 500 mg BID PO Last administered on 12/08/17at 09:17; Start 12/07/17 at 21:00 Isosorbide Mononitrate (Imdur) 60 mg DAILY PO Last administered on 12/08/17at 09:18; Start 12/08/17 at 09:00 Pantoprazole Sodium (Protonix) 40 mg DAILYAC PO Last administered on at 09:19; Start 12/07/17 at 16:30 Labetalol HCl (Normodyne Iv Push) 10 mg PRN Q2HR PRN IVP HYPERTENSION, SEE COMMENTS; Start 12/07/17 at 15:30 Insulin Glargine (Lantus) 25 units QHS SQ ; Start 12/07/17 at 21:00; Stop at 21:00; Status DC Insulin Glargine (Lantus) 50 units DAILY SQ ; Start 12/08/17 at 09:00; Status Cancel Insulin Glargine (Lantus) 40 units QHS SQ ; Start 12/07/17 at 21:00; Status Cancel Insulin Human Isoph/Insulin Regular (HumuLIN 70/30) 50 units DAILY07 SQ Last administered on 12/08/17at 09:26; Start 12/08/17 at 07:00 Insulin Human Isoph/Insulin Regular (HumuLIN 70/30) 40 units DAILY16 SQ ; Start 12/08/17 at 16:00 Sodium Chloride 1,000 ml @ 1,000 mls/hr 1X ONCE IV Last administered on 12/07at 21:36; Start 12/07/17 at 21:30; Stop 12/07/17 at 22:29; Status DC Sodium Chloride 1,000 ml @ 100 mls/hr Q10H IV Last administered on 12/08/17at 09:16; Start 12/07/17 at 22:30 Insulin Human Lispro (HumaLOG) 0-9 UNITS TIDWMEALS SQ ; Start 12/08/17 at 12:00 Dextrose (Dextrose 50%-Water Syringe) 12.5 gm PRN Q15MIN PRN IV SEE COMMENTS; Start 12/08/17 at 08:30; Status UNV Active Scripts Active Reported Ranexa (Ranolazine) 500 Mg Tab.er.12h 1 Tab PO BID Isosorbide Mononitrate Er (Isosorbide Mononitrate) 60 Mg Tab.er.24h 1 Tab PO DAILY Clopidogrel (Clopidogrel Bisulfate) 75 Mg Tablet 1 Tab PO DAILY Metoprolol Tartrate 50 Mg Tablet 100 Mg PO BID NEXT DOSE: 01/19/15 PM Aspir 81 (Aspirin) 81 Mg Tablet.dr 81 Mg PO DAILY NEXT DOSE: 01/20/15 AM Omeprazole 40 Mg Capsule.dr 40 Mg PO DAILY NEXT DOSE: 01/20/15 AM Allopurinol 300 Mg Tablet 300 Mg PO DAILY NEXT DOSE: 01/20/15 AM Lisinopril 40 Mg Tablet 40 Mg PO DAILY NEXT DOSE: 01/20/15 AM Vitals/I & O Vital Sign - Last 24 Hours 12/07/17 12/07/17 12/07/17 12/07/17 15:00 19:00 21:00 21:31 Temp 99.0 98.4 99.0 98.4 Pulse 95 80 99 99 Resp 20 18 B/P (MAP) 117/64 (81) 98/44 (62) 96/43 96/43 Pulse Ox 99 93 O2 Delivery Room Air Room Air 12/07/17 12/08/17 12/08/17 12/08/17 23:00 03:00 07:00 09:17 Temp 98.1 98.0 97.7 98.1 98.0 97.7 Pulse 73 69 109 109 Resp 18 18 18 B/P (MAP) 101/50 (67) 105/49 (67) 111/70 (84) 111/70 Pulse Ox 98 97 99 O2 Delivery Room Air Room Air Room Air 12/08/17 12/08/17 12/08/17 09:18 09:18 09:19 Pulse 109 109 109 B/P (MAP) 111/70 111/70 111/70 Intake and Output 12/07/17 12/07/17 12/08/17 15:00 23:00 07:00 Intake Total 860 ml 230 ml Output Total 100 ml Balance 860 ml 130 ml SHAD CARRANZA MD Dec 08, 2017 10:07
[2017-12-08 11:00] VITALS: BP 89/50
[2017-12-08] MEDS: INSULIN LISPRO 300 UNITS/3 ML INSULN.PEN. SQ SCH ×2 (12:09→17:27)
--- NOTE | 2017-12-08 13:56 | PDOC ---
Infectious Disease Note Vital Sign Vital Signs Vital Signs Date Time Temp Pulse Resp B/P (MAP) Pulse Ox O2 Delivery O2 Flow Rate FiO2 12/08/17 11:00 98.5 88 18 89/50 (63) 97 Room Air 98.5 Labs Lab Laboratory Tests Test 12/07/17 14:42 12/07/17 15:50 12/07/17 17:30 12/07/17 20:54 Glucose (Fingerstick) 177 mg/dL (70-99) 222 mg/dL (70-99) 220 mg/dL (70-99) White Blood Count 10.0 x10^3/uL (4.0-11.0) Red Blood Count 3.59 x10^6/uL (4.30-5.70) Hemoglobin 12.0 g/dL (13.0-17.5) Hematocrit 34.1 % (39.0-53.0) Mean Corpuscular Volume 95 fL (79-100) Mean Corpuscular Hemoglobin 34 pg (25-35) Mean Corpuscular Hemoglobin Concent 35 g/dL (31-37) Red Cell Distribution Width 14.0 % (11.5-14.5) Platelet Count 348 x10^3/uL (140-400) Neutrophils (%) (Auto) 77 % (31-73) Lymphocytes (%) (Auto) 13 % (24-48) Monocytes (%) (Auto) 9 % (0-9) Eosinophils (%) (Auto) 1 % (0-3) Basophils (%) (Auto) 0 % (0-3) Neutrophils # (Auto) 7.7 x10^3uL (1.8-7.7) Lymphocytes # (Auto) 1.3 x10^3/uL (1.0-4.8) Monocytes # (Auto) 0.9 x10^3/uL (0.0-1.1) Eosinophils # (Auto) 0.1 x10^3/uL (0.0-0.7) Basophils # (Auto) 0.0 x10^3/uL (0.0-0.2) Erythrocyte Sedimentation Rate 105 (0-15) Prothrombin Time 14.2 SEC (11.7-14.0) Prothromb Time International Ratio 1.2 (0.8-1.1) Sodium Level 136 mmol/L (136-145) Potassium Level 4.5 mmol/L (3.5-5.1) Chloride Level 98 mmol/L (98-107) Carbon Dioxide Level 28 mmol/L (21-32) Anion Gap 10 (6-14) Blood Urea Nitrogen 17 mg/dL (8-26) Creatinine 1.2 mg/dL (0.7-1.3) Estimated GFR (Cockcroft-Gault) 61.8 BUN/Creatinine Ratio 14 (6-20) Glucose Level 226 mg/dL (70-99) Hemoglobin A1c 13.1 % (4.8-5.6) Calcium Level 9.5 mg/dL (8.5-10.1) Total Bilirubin 0.6 mg/dL (0.2-1.0) Aspartate Amino Transf (AST/SGOT) 13 U/L (15-37) Alanine Aminotransferase (ALT/SGPT) 19 U/L (16-63) Alkaline Phosphatase 94 U/L (46-116) Total Protein 7.7 g/dL (6.4-8.2) Albumin 3.1 g/dL (3.4-5.0) Albumin/Globulin Ratio 0.7 (1.0-1.7) Test 12/08/17 03:30 12/08/17 08:24 12/08/17 11:56 White Blood Count 8.1 x10^3/uL (4.0-11.0) Red Blood Count 3.26 x10^6/uL (4.30-5.70) Hemoglobin 10.8 g/dL (13.0-17.5) Hematocrit 30.7 % (39.0-53.0) Mean Corpuscular Volume 94 fL (79-100) Mean Corpuscular Hemoglobin 33 pg (25-35) Mean Corpuscular Hemoglobin Concent 35 g/dL (31-37) Red Cell Distribution Width 14.5 % (11.5-14.5) Platelet Count 314 x10^3/uL (140-400) Neutrophils (%) (Auto) 73 % (31-73) Lymphocytes (%) (Auto) 17 % (24-48) Monocytes (%) (Auto) 9 % (0-9) Eosinophils (%) (Auto) 1 % (0-3) Basophils (%) (Auto) 0 % (0-3) Neutrophils # (Auto) 5.9 x10^3uL (1.8-7.7) Lymphocytes # (Auto) 1.4 x10^3/uL (1.0-4.8) Monocytes # (Auto) 0.7 x10^3/uL (0.0-1.1) Eosinophils # (Auto) 0.1 x10^3/uL (0.0-0.7) Basophils # (Auto) 0.0 x10^3/uL (0.0-0.2) Sodium Level 137 mmol/L (136-145) Potassium Level 4.1 mmol/L (3.5-5.1) Chloride Level 102 mmol/L (98-107) Carbon Dioxide Level 25 mmol/L (21-32) Anion Gap 10 (6-14) Blood Urea Nitrogen 18 mg/dL (8-26) Creatinine 1.3 mg/dL (0.7-1.3) Estimated GFR (Cockcroft-Gault) 56.3 Glucose Level 244 mg/dL (70-99) Calcium Level 8.9 mg/dL (8.5-10.1) Glucose (Fingerstick) 355 mg/dL (70-99) 333 mg/dL (70-99) Objective Assessment Necrotic diabetic ulcer right heel Diabetes with neuropathy, poorly controlled CAD h/o MSSA toes s/p amp Plan Plan of Care Needs debridement, awaiting vascular eval MRI BC Anaerobic/aerobic culture right heel Dose vanc and Zosyn Monitor labs/temp/renal function closely Glycemic control D/w sister D/w RN D/w Dr. Adair Thank you [phone] Patient seen and examined. Chart reviewed in detail. Case discussed with [employer] EDGE OPERATOR> Agree with above plan. STELLA DALAL APRN Dec 08, 2017 13:56 ROHINI ADAIR MD Dec 08, 2017 22:59
[2017-12-08] MEDS: PIPERACILLIN/TAZOBACTAM 3.375 GM in IV NORMAL SALINE 50ML 50 ML IV SCH ×3 (14:26→22:58)
[2017-12-08] MEDS ORDERED: VANCOMYCIN 2 GM in IV NORMAL SALINE 500ML BAG 500 ML IV ONE (14:30)
[2017-12-08 15:00] VITALS: BP 110/65
--- NOTE | 2017-12-08 15:12 | PDOC ---
Provider Note Provider Note Please see my addendum to the original Vasc consult left yesterday. Would recommend debridement of the right heel wound. Procedure planned in the OR tomorrow due to tenderness on the foot. Will also get an MRI of the foot to better determine if there is underlying osteomyelitis. If so, he will need prolonged abx coverage. RASHEL SHARMA MD Dec 08, 2017 15:12
[2017-12-08] MEDS: VANCOMYCIN PER PHARMACY MC PRN (17:18)
[2017-12-08] MEDS: oxyCODONE IR 5 MG TABLET PO PRN (17:20)
--- NOTE | 2017-12-08 17:59 | RAD ---
History: Screening for orbital foreign body. Pre-MRI. Comparison: None. Findings: Vargas view of the orbits were obtained with gaze up and gaze down. Left lateral radiographs of the orbits were obtained with gaze up and gaze down. 4 total images. No metallic foreign body is seen projecting over either orbit. Visualized paranasal sinuses appear clear. Patient is edentulous. Impression: No evidence of orbital metallic foreign body. Orbits are clear for MRI. Electronically signed by: Luis Alberto Patel MD (12/08/2017 5:56 PM) [facility]
[2017-12-08] MEDS ORDERED: PIPERACILLIN/TAZOBACTAM 3.375 GM in IV NORMAL SALINE 50ML 50 ML IV SCH (18:00)
[2017-12-08 19:40] VITALS: BP 126/71
[2017-12-08] MEDS: ZOLPIDEM 5 MG TABLET. PO PRN (20:44)
[2017-12-08 23:35] VITALS: BP 121/66
[2017-12-09] MEDS: VANCOMYCIN 1.25 GM in IV NORMAL SALINE 250ML 250 ML IV SCH ×2 (02:15→16:06)
[2017-12-09] MEDS: IV NORMAL SALINE 1000ML BAG 1,000 ML IV SCH (02:16)
[2017-12-09 03:45] VITALS: BP 121/69
[2017-12-09 04:26] VITALS: BP 121/69
[2017-12-09] MEDS: PIPERACILLIN/TAZOBACTAM 3.375 GM in IV NORMAL SALINE 50ML 50 ML IV SCH ×4 (05:10→23:04)
[2017-12-09 05:37] LABS: CALCIUM 8.1 mg/dL (8.5-10.1); CREATININE 1.3 mg/dL (0.7-1.3); GFR 56.3; POTASSIUM 3.6 mmol/L (3.5-5.1)
[2017-12-09] MEDS ORDERED: silver sulfADIAZINE 1% CREAM 25GM TUBE. TP ONE (06:11)
[2017-12-09] MEDS ORDERED: LIDOCAINE 1% 20 ML VIAL. ONE (06:11)
--- NOTE | 2017-12-09 06:11 | CONS ---
DATE OF CONSULTATION: 12/08/2017 REFERRING PHYSICIAN: Mateo Mosse MD REASON FOR CONSULTATION: Infected diabetic foot ulcer with probable gangrene. HISTORY OF PRESENT ILLNESS: This patient is a 62-year-old male with a 47-year history of diabetes, poorly controlled with an A1c of 13.1. For about a year now, he has had an ulcer on his right heel. He says it started out as a small hole that would open and close. However, over the last several weeks, the hole has remained open, increased in size with development of redness, odor and drainage. He denies self-treatments with [id number] or home remedies. He denies antibiotic use within the last several months. He has a history of previous Staph infections involving two of his right toes requiring amputation. He has loss of sensation from his mid calves down. He normally wears boots to walk in. He denies fevers, chills, sweats or body aches. PAST MEDICAL HISTORY: MSSA infection of second right toe. Diabetes mellitus, poorly controlled. Peripheral neuropathy, coronary artery disease, chronic obstructive pulmonary disease, hypertension, hyperlipidemia, gastroesophageal reflux, diabetic vascular disease. PAST SURGICAL HISTORY: Amputation, right second and fifth toe, coronary artery bypass graft. FAMILY HISTORY: Positive for heart disease and hypertension. SOCIAL HISTORY: The patient lives at home. Nonsmoker. ALLERGIES: MORPHINE. MEDICATIONS: Reviewed on the APR. He is currently not on any antibiotics. REVIEW OF SYSTEMS: Per HPI, otherwise all other review of systems are negative. PHYSICAL EXAMINATION: GENERAL: The patient is sitting on the side of the bed, alert, smiling. VITAL SIGNS: Temperature is 98.5, blood pressure 89/50, heart rate 88, respiratory rate 18, pulse oximetry is 97% on room air. BMI 27. HEENT: Normal conjunctivae. Oral cavity: Pharynx pink. SKIN: No lesions. NECK: Supple. LUNGS: Clear to auscultation. HEART: S1 and S2. ABDOMEN: Nondistended. Bowel sounds active, soft, nontender. EXTREMITIES: Unremarkable except right lower extremity 1+ edema. He has a necrotic-appearing ulcer, right heel, with strong malodor and drainage along with undermining. Depth undetermined. SKIN: Warm without rash. NEUROLOGIC: Alert and oriented times 3. LABORATORY DATA: Today's WBC 8.1, hemoglobin 10.8, platelet count 314,000. Sed rate 105. Electrolytes are unremarkable. Creatinine 1.3, BUN 18, glucose 244, total bilirubin 0.6, AST 13, ALT 19, albumin 3.1. IMAGING DATA: Lower extremity ultrasound done showed no evidence of significant right lower extremity arterial stenosis. Right groin lymph nodes present and presumably reactive with the largest of these measuring 2.5 cm x 1.5 cm. IMPRESSION: 1. Necrotic diabetic ulcer of right heel. 2. Diabetes with neuropathy, poorly controlled. 3. Coronary artery disease. 4. History of Methicillin-sensitive Staphylococcus infection. PLAN: The patient will need debridement. Awaiting vascular evaluation. Meanwhile, we will obtain an MRI to rule out osteomyelitis. Also, we will obtain a set of blood cultures and an anaerobic/aerobic culture of the right heel. Infected diabetic ulcers are usually polymicrobial. We will dose with vancomycin and Zosyn. Further antibiotic modifications pending culture results. Continue to monitor laboratory values, temperature, and renal function closely. Needs glycemic control and routine foot care. Discussed with his sister. Thank you, Dr. Moses, for asking us to participate in this patient's care. Should you have further questions or concerns, please call. ROHINI MCCULLOUGH MD DR: JUDSON/ortega JOB#: [id number] / [id number] SHERRIE
[2017-12-09] MEDS: INSULIN NPH/REG INSULIN 70/30 300 UNITS/3 ML INSULN.PEN. SQ SCH ×2 (07:00→16:15)
[2017-12-09] MEDS: INSULIN LISPRO 300 UNITS/3 ML INSULN.PEN. SQ SCH ×3 (08:00→17:44)
--- NOTE | 2017-12-09 08:00 | PDOC ---
Provider Note Provider Note No changes overnight. Plan right foot debridement. RASHEL SHARMA MD Dec 09, 2017 07:59
[2017-12-09] MEDS ORDERED: LIDOCAINE 2% PF Vial for OR 5 ML VIAL. ONE (08:23)
[2017-12-09] MEDS ORDERED: PROPOFOL 20 ML IV ONE (08:23)
[2017-12-09] MEDS ORDERED: SEVOFLURANE 31 TO 60 MINUTES. IH ONE (08:23)
[2017-12-09] MEDS ORDERED: PHENYLEPHRINE in 0.9% NACL PF 1 MG/10 ML SYRINGE. IV ONE (08:23)
[2017-12-09] MEDS ORDERED: ONDANSETRON PF 4 MG/2 ML VIAL. ONE (08:23)
[2017-12-09] MEDS ORDERED: DEXAMETHASONE SOD PHOS 20 MG/5 ML VIAL. ONE (08:23)
--- NOTE | 2017-12-09 08:42 | PDOC ---
BRIEF OPERATIVE NOTE Pre-Op Diagnosis Right heel abscess DM Peripheral neuropathy Post-Op Diagnosis same Procedure Performed Excisional debridement of the right posterior heel wound Surgeon Ronni Anesthesia Type: General Specimens Obtained Culture right heel Findings Wound debrided to viable tissue Complications none RASHEL SHARMA MD Dec 09, 2017 08:41
--- NOTE | 2017-12-09 08:45 | RAD ---
Examination: LOWER EXT NON JOINT WO RT History: NECROTIC ULCER RT HEEL R/O OSTEO. DIFFICULTY HOLDING STILL DUE TO PAIN Comparison/Correlation: 07/29/2013 right foot 3 view x-ray exam Findings: Multiplanar, collections images of the right foot were obtained without contrast. Motion is noted on multiple series limiting evaluation. There is edema at the posterior calcaneal region is present with soft tissue wound defect. High signal intensity of the adjacent calcaneus is evident. Advanced degenerative changes of first metatarsophalangeal joint are present. Edema at the dorsal aspect of the foot is noted. Flexor and extensor tendons about the foot are unremarkable. Impression: Wound defect involving the posterior calcaneal region soft tissues with signal irregularity of the calcaneus. 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 No abscess collection. Subcutaneous edema the dorsal aspect of the forefoot. Electronically signed by: Jose Fierro MD (12/09/2017 8:41 AM) [facility]
[2017-12-09] MEDS ORDERED: INSULIN LISPRO 100 UNIT/ML 3ML VIAL. SQ ONE ×2 (09:00→09:30)
[2017-12-09] MEDS: ISOSORBIDE MONONITRATE ER 30 MG TAB.ER.24H PO SCH (09:00)
--- NOTE | 2017-12-09 09:31 | OP ---
DATE OF SURGERY: 12/09/2017 PREOPERATIVE DIAGNOSES: 1. Right posterior heel abscess. 2. Diabetes. 3. Coronary artery disease. 4. Hypertension. 5. Hyperlipidemia. 6. Peripheral neuropathy. POSTOPERATIVE DIAGNOSES: 1. Right posterior heel abscess. 2. Diabetes. 3. Coronary artery disease. 4. Hypertension. 5. Hyperlipidemia. 6. Peripheral neuropathy. PROCEDURE: Excisional debridement of right heel wound including skin and subcutaneous tissue (approximately 10 square cm). SURGEON: Олег Sharma MD ANESTHESIA: General. INDICATIONS: The patient is a 62-year-old male with diabetes and peripheral neuropathy, who presents with an abscess on his right posterior heel. He presents for surgical debridement. FINDINGS: There are gangrenous changes in the right heel with sloughing skin. This was completely unroofed. The underlying tissue had significant huffman pallor consistent with soft tissue infection. Cultures were taken from the tissue, as well as swab. This did not appear to extend all the way down to the bone. The wound was extensively debrided with surface area measuring approximately 5 cm x 2 cm x 1 cm depth. DESCRIPTION OF PROCEDURE: The patient was taken to the operating room and placed on the hospital bed. He underwent general anesthetic. His right foot and lower leg were prepped and draped in normal sterile fashion. Sharp dissection using forceps and scissors were used to unroof the area of necrotic skin. A scalpel and forceps were then used to excise all nonviable tissue. There was some almost purulent appearance to the subcutaneous tissue, but no obvious pocket of pus. After cultures were obtained and wound debrided, the wound was copiously irrigated with saline irrigation. Moistened Aquacel Ag was placed into the wound followed by 4 x 4s, Kerlix, and an Jonathan wrap. The patient tolerated procedure well and there were no complications. ESTIMATED BLOOD LOSS: 1 mL. SPECIMEN: Culture. ОЛЕГ SHARMA MD DR: JYOTHI/ortega JOB#: [id number] / [id number] MD, VERRA MD
--- NOTE | 2017-12-09 09:55 | PDOC ---
PROGRESS NOTES Chief Complaint Chief Complaint Right heel wound in a diabetic Diabetes type 1, hemoglobin A1c is 13 Hypertension, CAD, CABG 2016, dyslipidemia-chronic stable History of Present Illness History of Present Illness He has no complaints ESR is 105 Blood sugars are better since my adjustments of insulin Sunday Now having I and D by vascular surgery Plan: Continue current insulin regimen Hemoglobin A1c is 13 Continue IV antibiotic for ID Continue local wound care Follow Postop course/labs He was a direct admit from wound care clinic Dr[facility] Vitals Vitals Vital Signs Date Time Temp Pulse Resp B/P (MAP) Pulse Ox O2 Delivery O2 Flow Rate FiO2 12/09/17 09:15 99.6 96 16 130/70 99 Room Air 99.6 12/09/17 08:45 10 Physical Exam General: Alert, Oriented X3, Cooperative, No acute distress Heart: Regular rate, Normal S1, Normal S2 Lungs: Clear Abdomen: Normal bowel sounds, Soft, No tenderness, No hepatosplenomegaly, No masses Extremities: No clubbing, No cyanosis, Normal pulses Skin: Other (rt heel wound, dry, some redness around the area, tender to touch , no oozing currently) Labs LABS Laboratory Tests Test 12/08/17 11:56 12/08/17 16:20 12/08/17 17:14 12/08/17 22:05 Glucose (Fingerstick) 333 mg/dL (70-99) 192 mg/dL (70-99) 145 mg/dL (70-99) 80 mg/dL (70-99) Test 12/09/17 04:30 12/09/17 08:52 Sodium Level 140 mmol/L (136-145) Potassium Level 3.6 mmol/L (3.5-5.1) Chloride Level 105 mmol/L (98-107) Carbon Dioxide Level 24 mmol/L (21-32) Anion Gap 11 (6-14) Blood Urea Nitrogen 16 mg/dL (8-26) Creatinine 1.3 mg/dL (0.7-1.3) Estimated GFR (Cockcroft-Gault) 56.3 Glucose Level 117 mg/dL (70-99) Calcium Level 8.1 mg/dL (8.5-10.1) Glucose (Fingerstick) 231 mg/dL (70-99) Review of Systems Review of Systems Out having I and D by vascular surgery Comment Review of Relevant I have reviewed the following items joana (where applicable) has been applied. Labs Laboratory Tests Test 12/07/17 14:42 12/07/17 15:50 12/07/17 17:30 12/07/17 20:54 Glucose (Fingerstick) 177 mg/dL (70-99) 222 mg/dL (70-99) 220 mg/dL (70-99) White Blood Count 10.0 x10^3/uL (4.0-11.0) Red Blood Count 3.59 x10^6/uL (4.30-5.70) Hemoglobin 12.0 g/dL (13.0-17.5) Hematocrit 34.1 % (39.0-53.0) Mean Corpuscular Volume 95 fL (79-100) Mean Corpuscular Hemoglobin 34 pg (25-35) Mean Corpuscular Hemoglobin Concent 35 g/dL (31-37) Red Cell Distribution Width 14.0 % (11.5-14.5) Platelet Count 348 x10^3/uL (140-400) Neutrophils (%) (Auto) 77 % (31-73) Lymphocytes (%) (Auto) 13 % (24-48) Monocytes (%) (Auto) 9 % (0-9) Eosinophils (%) (Auto) 1 % (0-3) Basophils (%) (Auto) 0 % (0-3) Neutrophils # (Auto) 7.7 x10^3uL (1.8-7.7) Lymphocytes # (Auto) 1.3 x10^3/uL (1.0-4.8) Monocytes # (Auto) 0.9 x10^3/uL (0.0-1.1) Eosinophils # (Auto) 0.1 x10^3/uL (0.0-0.7) Basophils # (Auto) 0.0 x10^3/uL (0.0-0.2) Erythrocyte Sedimentation Rate 105 (0-15) Prothrombin Time 14.2 SEC (11.7-14.0) Prothromb Time International Ratio 1.2 (0.8-1.1) Sodium Level 136 mmol/L (136-145) Potassium Level 4.5 mmol/L (3.5-5.1) Chloride Level 98 mmol/L (98-107) Carbon Dioxide Level 28 mmol/L (21-32) Anion Gap 10 (6-14) Blood Urea Nitrogen 17 mg/dL (8-26) Creatinine 1.2 mg/dL (0.7-1.3) Estimated GFR (Cockcroft-Gault) 61.8 BUN/Creatinine Ratio 14 (6-20) Glucose Level 226 mg/dL (70-99) Hemoglobin A1c 13.1 % (4.8-5.6) Calcium Level 9.5 mg/dL (8.5-10.1) Total Bilirubin 0.6 mg/dL (0.2-1.0) Aspartate Amino Transf (AST/SGOT) 13 U/L (15-37) Alanine Aminotransferase (ALT/SGPT) 19 U/L (16-63) Alkaline Phosphatase 94 U/L (46-116) Total Protein 7.7 g/dL (6.4-8.2) Albumin 3.1 g/dL (3.4-5.0) Albumin/Globulin Ratio 0.7 (1.0-1.7) Test 12/08/17 03:30 12/08/17 08:24 12/08/17 11:56 12/08/17 16:20 White Blood Count 8.1 x10^3/uL (4.0-11.0) Red Blood Count 3.26 x10^6/uL (4.30-5.70) Hemoglobin 10.8 g/dL (13.0-17.5) Hematocrit 30.7 % (39.0-53.0) Mean Corpuscular Volume 94 fL (79-100) Mean Corpuscular Hemoglobin 33 pg (25-35) Mean Corpuscular Hemoglobin Concent 35 g/dL (31-37) Red Cell Distribution Width 14.5 % (11.5-14.5) Platelet Count 314 x10^3/uL (140-400) Neutrophils (%) (Auto) 73 % (31-73) Lymphocytes (%) (Auto) 17 % (24-48) Monocytes (%) (Auto) 9 % (0-9) Eosinophils (%) (Auto) 1 % (0-3) Basophils (%) (Auto) 0 % (0-3) Neutrophils # (Auto) 5.9 x10^3uL (1.8-7.7) Lymphocytes # (Auto) 1.4 x10^3/uL (1.0-4.8) Monocytes # (Auto) 0.7 x10^3/uL (0.0-1.1) Eosinophils # (Auto) 0.1 x10^3/uL (0.0-0.7) Basophils # (Auto) 0.0 x10^3/uL (0.0-0.2) Sodium Level 137 mmol/L (136-145) Potassium Level 4.1 mmol/L (3.5-5.1) Chloride Level 102 mmol/L (98-107) Carbon Dioxide Level 25 mmol/L (21-32) Anion Gap 10 (6-14) Blood Urea Nitrogen 18 mg/dL (8-26) Creatinine 1.3 mg/dL (0.7-1.3) Estimated GFR (Cockcroft-Gault) 56.3 Glucose Level 244 mg/dL (70-99) Calcium Level 8.9 mg/dL (8.5-10.1) Glucose (Fingerstick) 355 mg/dL (70-99) 333 mg/dL (70-99) 192 mg/dL (70-99) Test 12/08/17 17:14 12/08/17 22:05 12/09/17 04:30 12/09/17 08:52 Glucose (Fingerstick) 145 mg/dL (70-99) 80 mg/dL (70-99) 231 mg/dL (70-99) Sodium Level 140 mmol/L (136-145) Potassium Level 3.6 mmol/L (3.5-5.1) Chloride Level 105 mmol/L (98-107) Carbon Dioxide Level 24 mmol/L (21-32) Anion Gap 11 (6-14) Blood Urea Nitrogen 16 mg/dL (8-26) Creatinine 1.3 mg/dL (0.7-1.3) Estimated GFR (Cockcroft-Gault) 56.3 Glucose Level 117 mg/dL (70-99) Calcium Level 8.1 mg/dL (8.5-10.1) Laboratory Tests Test 12/08/17 11:56 12/08/17 16:20 12/08/17 17:14 12/08/17 22:05 Glucose (Fingerstick) 333 mg/dL (70-99) 192 mg/dL (70-99) 145 mg/dL (70-99) 80 mg/dL (70-99) Test 12/09/17 04:30 12/09/17 08:52 Sodium Level 140 mmol/L (136-145) Potassium Level 3.6 mmol/L (3.5-5.1) Chloride Level 105 mmol/L (98-107) Carbon Dioxide Level 24 mmol/L (21-32) Anion Gap 11 (6-14) Blood Urea Nitrogen 16 mg/dL (8-26) Creatinine 1.3 mg/dL (0.7-1.3) Estimated GFR (Cockcroft-Gault) 56.3 Glucose Level 117 mg/dL (70-99) Calcium Level 8.1 mg/dL (8.5-10.1) Glucose (Fingerstick) 231 mg/dL (70-99) Medications Current Medications Ondansetron HCl (Zofran) 4 mg PRN Q6HRS PRN IV NAUSEA/VOMITING; Start at 15:15 Prochlorperazine Edisylate (Compazine) 10 mg PRN Q6HRS PRN IV NAUSEA/VOMITING; Start 12/07/17 at 15:15 Prochlorperazine (Compazine) 25 mg PRN Q12HR PRN [place] NAUSEA/VOMITING; Start at 15:15 Al Hydroxide/Mg Hydroxide (Mylanta Plus Xs) 30 ml PRN Q3HRS PRN PO HEARTBURN / GAS; Start 12/07/17 at 15:15 Calcium Carbonate/ Glycine (Tums) 500 mg PRN Q3HRS PRN PO UPSET STOMACH; Start 12/07/17 at 15:15 Zolpidem Tartrate (Ambien) 5 mg PRN QHS PRN PO INSOMNIA, MAY REPEAT IN 1HR Last administered on 12/08/17at 20:44; Start 12/07/17 at 15:15 Oxycodone HCl (Roxicodone) 5 mg PRN Q3HRS PRN PO BREAKTHROUGH PAIN Last administered on 12/08/17at 17:20; Start 12/07/17 at 15:15 Acetaminophen (Tylenol) 650 mg PRN Q6HRS PRN PO Headaches, Temp > 101.5F; Start 12/07/17 at 15:15 Ibuprofen (Motrin) 400 mg PRN Q6HRS PRN PO MILD PAIN; Start 12/07/17 at 15:15 Magnesium Hydroxide (Milk Of Magnesia) 2,400 mg PRN Q12HR PRN PO CONSTIPATION; Start 12/07/17 at 15:15 Lactulose (Lactulose) 20 gm PRN Q12HR PRN PO CONSTIPATION; Start 12/07/17 at 15:15 Insulin Human Lispro (HumaLOG) 0-9 UNITS TIDWMEALS SQ ; Start 12/07/17 at 17:00 ; Stop 12/07/17 at 18:50; Status DC Dextrose (Dextrose 50%-Water Syringe) 12.5 gm PRN Q15MIN PRN IV SEE COMMENTS; Start 12/07/17 at 15:15 Fentanyl Citrate (Fentanyl 2ml Vial) 50 mcg PRN Q2HR PRN IV PAIN; Start at 15:15 Tramadol HCl (Ultram) 50 mg PRN Q6HRS PRN PO MILD PAIN; Start 12/07/17 at 15: 15 Allopurinol (Zyloprim) 300 mg DAILY PO Last administered on 12/08/17at 09:19; Start 12/07/17 at 16:00 Lisinopril (Prinivil) 40 mg DAILY PO Last administered on 12/08/17at 09:18; Start 12/07/17 at 16:00 Metoprolol Tartrate (Lopressor) 100 mg BID PO Last administered on 12/08/17at 20:44; Start 12/07/17 at 21:00 Ranolazine (Ranexa) 500 mg BID PO Last administered on 12/08/17at 20:44; Start 12/07/17 at 21:00 Isosorbide Mononitrate (Imdur) 60 mg DAILY PO Last administered on 12/08/17at 09:18; Start 12/08/17 at 09:00 Pantoprazole Sodium (Protonix) 40 mg DAILYAC PO Last administered on at 09:19; Start 12/07/17 at 16:30 Labetalol HCl (Normodyne Iv Push) 10 mg PRN Q2HR PRN IVP HYPERTENSION, SEE COMMENTS; Start 12/07/17 at 15:30 Insulin Glargine (Lantus) 25 units QHS SQ ; Start 12/07/17 at 21:00; Stop at 21:00; Status DC Insulin Glargine (Lantus) 50 units DAILY SQ ; Start 12/08/17 at 09:00; Status Cancel Insulin Glargine (Lantus) 40 units QHS SQ ; Start 12/07/17 at 21:00; Status Cancel Insulin Human Isoph/Insulin Regular (HumuLIN 70/30) 50 units DAILY07 SQ Last administered on 12/08/17at 09:26; Start 12/08/17 at 07:00 Insulin Human Isoph/Insulin Regular (HumuLIN 70/30) 40 units DAILY16 SQ Last administered on 12/08/17at 16:23; Start 12/08/17 at 16:00 Sodium Chloride 1,000 ml @ 1,000 mls/hr 1X ONCE IV Last administered on 12/07at 21:36; Start 12/07/17 at 21:30; Stop 12/07/17 at 22:29; Status DC Sodium Chloride 1,000 ml @ 100 mls/hr Q10H IV Last administered on 12/09/17at 02:16; Start 12/07/17 at 22:30; Stop 12/09/17 at 08:18; Status DC Insulin Human Lispro (HumaLOG) 0-9 UNITS TIDWMEALS SQ Last administered on at 17:27; Start 12/08/17 at 12:00 Dextrose (Dextrose 50%-Water Syringe) 12.5 gm PRN Q15MIN PRN IV SEE COMMENTS; Start 12/08/17 at 08:30; Status UNV Vancomycin HCl (Vanco Per Pharmacy) 1 each PRN DAILY PRN MC SEE COMMENTS Last administered on 12/08/17at 17:18; Start 12/08/17 at 13:45 Piperacillin Sod/ Tazobactam Sod 3.375 gm/Sodium Chloride 50 ml @ 100 mls/hr Q6HRS IV ; Start 12/08/17 at 18:00; Status UNV Piperacillin Sod/ Tazobactam Sod 3.375 gm/Sodium Chloride 50 ml @ 100 mls/hr Q6HRS IV Last administered on 12/09/17at 05:10; Start 12/08/17 at 14:00 Vancomycin HCl 2 gm/Sodium Chloride 500 ml @ 250 mls/hr 1X ONCE IV Last administered on 12/08/17at 15:30; Start 12/08/17 at 14:30; Stop 12/08/17 at 16 :29; Status DC Vancomycin HCl 1.25 gm/Sodium Chloride 250 ml @ 167 mls/hr Q12H IV Last administered on 12/09/17at 02:15; Start 12/09/17 at 03:30 Vancomycin HCl (Vancomycin Trough Level) 1 each 1X ONCE MC ; Start 12/10/17 at 03:00; Stop 12/10/17 at 03:01 Lidocaine HCl 20 ml STK-MED ONCE .ROUTE ; Start 12/09/17 at 06:11; Stop at 07:11; Status DC Silver Sulfadiazine (Silvadene) 25 deb STK-MED ONCE TP ; Start 12/09/17 at 06: 11; Stop 12/09/17 at 07:11; Status DC Phenylephrine HCl (PHENYLEPHRINE in 0.9% NACL PF) 1 mg STK-MED ONCE IV ; Start 12/09/17 at 08:23; Stop 12/09/17 at 08:24; Status DC Dexamethasone Sodium Phosphate (Decadron) 20 mg STK-MED ONCE .ROUTE ; Start at 08:23; Stop 12/09/17 at 08:24; Status DC Ondansetron HCl (Zofran) 4 mg STK-MED ONCE .ROUTE ; Start 12/09/17 at 08:23; Stop 12/09/17 at 08:24; Status DC Lidocaine HCl (Lidocaine Pf 2% Vial) 5 ml STK-MED ONCE .ROUTE ; Start 12/09/17 at 08:23; Stop 12/09/17 at 08:24; Status DC Propofol 20 ml @ As Directed STK-MED ONCE IV ; Start 12/09/17 at 08:23; Stop 12/09/17 at 08:24; Status DC Sevoflurane (Ultane) 30 ml STK-MED ONCE IH ; Start 12/09/17 at 08:23; Stop at 08:24; Status DC Insulin Human Lispro (HumaLOG VIAL) 6 unit 1X ONCE SQ ; Start 12/09/17 at 09: 00; Stop 12/09/17 at 09:01; Status Cancel Insulin Human Lispro (HumaLOG VIAL) 4 unit 1X ONCE SQ Last administered on at 09:25; Start 12/09/17 at 09:30; Stop 12/09/17 at 09:31; Status DC Active Scripts Active Reported Ranexa (Ranolazine) 500 Mg Tab.er.12h 1 Tab PO BID Isosorbide Mononitrate Er (Isosorbide Mononitrate) 60 Mg Tab.er.24h 1 Tab PO DAILY Clopidogrel (Clopidogrel Bisulfate) 75 Mg Tablet 1 Tab PO DAILY Metoprolol Tartrate 50 Mg Tablet 100 Mg PO BID NEXT DOSE: 01/19/15 PM Aspir 81 (Aspirin) 81 Mg Tablet.dr 81 Mg PO DAILY NEXT DOSE: 01/20/15 AM Omeprazole 40 Mg Capsule.dr 40 Mg PO DAILY NEXT DOSE: 01/20/15 AM Allopurinol 300 Mg Tablet 300 Mg PO DAILY NEXT DOSE: 01/20/15 AM Lisinopril 40 Mg Tablet 40 Mg PO DAILY NEXT DOSE: 01/20/15 AM Vitals/I & O Vital Sign - Last 24 Hours 12/08/17 12/08/17 12/08/17 12/08/17 11:00 15:00 17:20 18:20 Temp 98.5 98.9 98.5 98.9 Pulse 88 99 Resp 18 18 18 18 B/P (MAP) 89/50 (63) 110/65 (80) Pulse Ox 97 97 97 97 O2 Delivery Room Air Room Air Room Air Room Air 12/08/17 12/08/17 12/08/17 12/08/17 19:40 20:00 20:44 20:44 Temp 98.9 98.9 Pulse 101 101 101 Resp 20 B/P (MAP) 126/71 (89) 126/71 126/71 Pulse Ox 98 O2 Delivery Room Air Room Air 12/08/17 12/09/17 12/09/17 12/09/17 23:35 03:45 08:45 09:00 Temp 98.5 98.1 100.9 98.5 98.1 100.9 Pulse 79 96 96 100 Resp 18 20 16 16 B/P (MAP) 121/66 (84) 121/69 (86) 108/62 124/68 Pulse Ox 98 95 100 94 O2 Delivery Room Air Room Air Simple Mask Room Air O2 Flow Rate 12/09/17 09:15 Temp 99.6 99.6 Pulse 96 Resp 16 B/P (MAP) 130/70 Pulse Ox 99 O2 Delivery Room Air Intake and Output 12/08/17 12/08/17 12/09/17 15:00 23:00 07:00 Intake Total 250 ml 150 ml Balance 250 ml 150 ml SHAD CARRANZA MD Dec 09, 2017 09:55
--- NOTE | 2017-12-09 10:21 | PDOC ---
Infectious Disease Note Subjective Subjective Just returned from surgery Some pain Denies N/V/SOA Fever 100.9 ROS ROS per HPI otherwise neg Vital Sign Vital Signs Vital Signs Date Time Temp Pulse Resp B/P (MAP) Pulse Ox O2 Delivery O2 Flow Rate FiO2 12/09/17 09:15 99.6 96 16 130/70 99 Room Air 99.6 12/09/17 08:45 10 Physical Exam PHYSICAL EXAM GENERAL: Propped up in bed, smiling, joking HEENT: Oral cavity: Pharynx pink. NECK: Supple. LUNGS: Clear to auscultation. HEART: S1 and S2. ABDOMEN: Nondistended. Bowel sounds active, soft, nontender. EXTREMITIES: Post-op dressing right foot dry. BLE edema. No cyanosis SKIN: Warm without rash. NEUROLOGIC: Alert and oriented times 3. Labs Lab Laboratory Tests Test 12/08/17 11:56 12/08/17 16:20 12/08/17 17:14 12/08/17 22:05 Glucose (Fingerstick) 333 mg/dL (70-99) 192 mg/dL (70-99) 145 mg/dL (70-99) 80 mg/dL (70-99) Test 12/09/17 04:30 12/09/17 08:52 Sodium Level 140 mmol/L (136-145) Potassium Level 3.6 mmol/L (3.5-5.1) Chloride Level 105 mmol/L (98-107) Carbon Dioxide Level 24 mmol/L (21-32) Anion Gap 11 (6-14) Blood Urea Nitrogen 16 mg/dL (8-26) Creatinine 1.3 mg/dL (0.7-1.3) Estimated GFR (Cockcroft-Gault) 56.3 Glucose Level 117 mg/dL (70-99) Calcium Level 8.1 mg/dL (8.5-10.1) Glucose (Fingerstick) 231 mg/dL (70-99) MRI Impression: Wound defect involving the posterior calcaneal region soft tissues with signal irregularity of the calcaneus. 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 No abscess collection. Subcutaneous edema the dorsal aspect of the forefoot. Objective Assessment Fever Necrotic diabetic ulcer right heel. MRI + osteo. s/p debridement 12/[address] Rudolph. Intra-op cultures pending -ESR 105. Diabetes with neuropathy, poorly controlled CAD h/o MSSA toes s/p amp Plan Plan of Care BC in process Anaerobic/aerobic culture right heel - pending Continue vanc and Zosyn Monitor labs/temp/renal function closely Glycemic control D/w sister D/w RN Patient seen and examined. Chart reviewed in detail. Case discussed with HEAVY EQUIPMENT TECHNICIAN. Agree with above Plan. STELLA DALAL APRN Dec 09, 2017 10:21 ROHINI MCCULLOUGH MD Dec 09, 2017 19:26
[2017-12-09 10:31] VITALS: BP 145/86
[2017-12-09] MEDS: VANCOMYCIN PER PHARMACY MC PRN (10:48)
[2017-12-09] MEDS: PANTOPRAZOLE 40 MG TABLET.DR. PO SCH (12:47)
[2017-12-09] MEDS: RANOLAZINE 500 MG TAB.ER.12H PO SCH ×2 (12:47→21:22)
[2017-12-09] MEDS: LISINOPRIL 20 MG TABLET PO SCH (12:48)
[2017-12-09] MEDS: METOPROLOL TART IMMED RELEASE 50 MG TABLET. PO SCH ×2 (12:49→21:23)
[2017-12-09] MEDS: ALLOPURINOL 300 MG TABLET. PO SCH (12:50)
[2017-12-09 15:13] VITALS: BP 122/60
[2017-12-09] MEDS ORDERED: INSULIN LISPRO 300 UNITS/3 ML INSULN.PEN. SQ ONE (18:00)
[2017-12-09 19:00] VITALS: BP 138/75
[2017-12-09] MEDS: LACTOBACILLUS RHAMNOSUS GG 1 CAPSULE. PO SCH (21:32)
[2017-12-09 23:00] VITALS: BP 120/68
[2017-12-10 03:00] VITALS: BP 136/75
[2017-12-10 04:04] LABS: BASO % 0 % (0-3); EOS % 0 % (0-3); HEMATOCRIT 31.5 % (39.0-53.0); HEMOGLOBIN 11.1 g/dL (13.0-17.5); LYMPH # 0.9 x10^3/uL (1.0-4.8); LYMPH % 11 % (24-48); MEAN CORPUSCULAR HEMOGLOBIN 34 pg (25-35); MEAN CORPUSCULAR HGB CONC 35 g/dL (31-37); MEAN CORPUSCULAR VOLUME 95 fL (79-100); MONO # 0.6 x10^3/uL (0.0-1.1); MONO % 7 % (0-9); NEUT # 7.3 x10^3uL (1.8-7.7); NEUT % 83 % (31-73); PLATELET COUNT 345 x10^3/uL (140-400); RED BLOOD COUNT 3.31 x10^6/uL (4.30-5.70); RED CELL DISTRIBUTION WIDTH 14.4 % (11.5-14.5); WHITE BLOOD COUNT 8.8 x10^3/uL (4.0-11.0)
[2017-12-10 04:28] LABS: CREATININE 1.1 mg/dL (0.7-1.3); GFR 68.3
[2017-12-10 04:35] LABS: VANC TR 20.2 mcg/mL (10.0-20.0)
[2017-12-10] MEDS: PIPERACILLIN/TAZOBACTAM 3.375 GM in IV NORMAL SALINE 50ML 50 ML IV SCH ×4 (04:53→23:27)
[2017-12-10] MEDS: VANCOMYCIN 1 GM in IV NORMAL SALINE 250ML 250 ML IV SCH ×2 (04:54→16:59)
[2017-12-10] MEDS: VANCOMYCIN PER PHARMACY MC PRN ×2 (04:56→13:52)
[2017-12-10 07:00] VITALS: BP 115/63
[2017-12-10] MEDS: INSULIN LISPRO 300 UNITS/3 ML INSULN.PEN. SQ SCH ×3 (08:00→17:00)
[2017-12-10] MEDS: ALLOPURINOL 300 MG TABLET. PO SCH (08:48)
[2017-12-10] MEDS: RANOLAZINE 500 MG TAB.ER.12H PO SCH ×2 (08:49→20:17)
[2017-12-10] MEDS: LISINOPRIL 20 MG TABLET PO SCH (08:50)
[2017-12-10] MEDS: PANTOPRAZOLE 40 MG TABLET.DR. PO SCH (08:50)
[2017-12-10] MEDS: LACTOBACILLUS RHAMNOSUS GG 1 CAPSULE. PO SCH ×2 (08:51→20:16)
[2017-12-10] MEDS: ISOSORBIDE MONONITRATE ER 30 MG TAB.ER.24H PO SCH (09:00)
[2017-12-10] MEDS: INSULIN NPH/REG INSULIN 70/30 300 UNITS/3 ML INSULN.PEN. SQ SCH ×2 (09:01→16:00)
[2017-12-10 11:00] VITALS: BP 140/85
--- NOTE | 2017-12-10 12:14 | PDOC ---
Infectious Disease Note Subjective: Subjective Pt says is ok Some pain but is under control Denies N/V/SOA no fevers ROS: ROS Negative except for above. Vital Signs: Vital Signs Vital Signs Date Time Temp Pulse Resp B/P (MAP) Pulse Ox O2 Delivery O2 Flow Rate FiO2 12/10/17 11:00 97.6 83 18 140/85 (103) 98 Room Air 97.6 12/09/17 08:45 10 Physical Exam: PHYSICAL EXAM GENERAL: Propped up in bed, smiling, joking HEENT: Oral cavity: Pharynx pink. NECK: Supple. LUNGS: Clear to auscultation. HEART: S1 and S2. ABDOMEN: Nondistended. Bowel sounds active, soft, nontender. EXTREMITIES: Post-op dressing right foot dry. BLE edema. No cyanosis SKIN: Warm without rash. NEUROLOGIC: Alert and oriented times 3. Medications: Inpatient Meds: Current Medications Medications (Trade) Dose Ordered Sig/Inna Start Time Stop Time Status Last Admin Dose Admin Acetaminophen (Tylenol) 650 mg PRN Q6HRS PRN 12/07/17 15:15 Al Hydroxide/Mg Hydroxide (Mylanta Plus Xs) 30 ml PRN Q3HRS PRN 12/07/17 15:15 Allopurinol (Zyloprim) 300 mg DAILY 12/07/17 16:00 12/10/17 08:48 300 MG Calcium Carbonate/ Glycine (Tums) 500 mg PRN Q3HRS PRN 12/07/17 15:15 Dexamethasone Sodium Phosphate (Decadron) 20 mg STK-MED ONCE 12/09/17 08:23 12/09/17 08:24 DC Dextrose (Dextrose 50%-Water Syringe) 12.5 gm PRN Q15MIN PRN 12/08/17 08:30 UNV Fentanyl Citrate (Fentanyl 2ml Vial) 50 mcg PRN Q2HR PRN 12/07/17 15:15 Ibuprofen (Motrin) 400 mg PRN Q6HRS PRN 12/07/17 15:15 Insulin Glargine (Lantus) 40 units QHS 12/07/17 21:00 Cancel Insulin Human Isoph/Insulin Regular (HumuLIN 70/30) 50 units DAILYWBKFT 12/10/17 08:00 12/10/17 09:01 50 UNITS Insulin Human Lispro (HumaLOG VIAL) 4 unit 1X ONCE 12/09/17 09:30 12/09/17 09:31 DC 12/09/17 09:25 4 UNIT Insulin Human Lispro (HumaLOG) 6 units 1X ONCE 12/09/17 18:00 12/09/17 18:20 DC 12/09/17 18:43 6 UNITS Isosorbide Mononitrate (Imdur) 60 mg DAILY 12/08/17 09:00 12/08/17 09:18 60 MG Labetalol HCl (Normodyne Iv Push) 10 mg PRN Q2HR PRN 12/07/17 15:30 Lactobacillus Rhamnosus (Culturelle) 1 cap BID 12/09/17 21:00 12/10/17 08:51 1 CAP Lactulose (Lactulose) 20 gm PRN Q12HR PRN 12/07/17 15:15 Lidocaine HCl (Lidocaine Pf 2% Vial) 5 ml STK-MED ONCE 12/09/17 08:23 12/09/17 08:24 DC Lisinopril (Prinivil) 40 mg DAILY 12/07/17 16:00 12/10/17 08:50 40 MG Magnesium Hydroxide (Milk Of Magnesia) 2,400 mg PRN Q12HR PRN 12/07/17 15:15 Metoprolol Tartrate (Lopressor) 100 mg BID 12/07/17 21:00 12/09/17 21:23 100 MG Ondansetron HCl (Zofran) 4 mg STK-MED ONCE 12/09/17 08:23 12/09/17 08:24 DC Oxycodone HCl (Roxicodone) 5 mg PRN Q3HRS PRN 12/07/17 15:15 12/08/17 17:20 5 MG Pantoprazole Sodium (Protonix) 40 mg DAILYAC 12/07/17 16:30 12/10/17 08:50 40 MG Phenylephrine HCl (PHENYLEPHRINE in 0.9% NACL PF) 1 mg STK-MED ONCE 12/09/17 08:23 12/09/17 08:24 DC Piperacillin Sod/ Tazobactam Sod 3.375 gm/Sodium Chloride 50 ml @ 100 mls/hr Q6HRS 12/08/17 14:00 12/10/17 04:53 100 MLS/HR Prochlorperazine (Compazine) 25 mg PRN Q12HR PRN 12/07/17 15:15 Prochlorperazine Edisylate (Compazine) 10 mg PRN Q6HRS PRN 12/07/17 15:15 Propofol 20 ml @ As Directed STK-MED ONCE 12/09/17 08:23 12/09/17 08:24 DC Ranolazine (Ranexa) 500 mg BID 12/07/17 21:00 12/10/17 08:49 500 MG Sevoflurane (Ultane) 30 ml STK-MED ONCE 12/09/17 08:23 12/09/17 08:24 DC Silver Sulfadiazine (Silvadene) 25 deb STK-MED ONCE 12/09/17 06:11 12/09/17 07:11 DC Sodium Chloride 1,000 ml @ 100 mls/hr Q10H 12/07/17 22:30 12/09/17 08:18 DC 12/09/17 02:16 100 MLS/HR Tramadol HCl (Ultram) 50 mg PRN Q6HRS PRN 12/07/17 15:15 Vancomycin HCl (Vanco Per Pharmacy) 1 each PRN DAILY PRN 12/08/17 13:45 12/10/17 04:56 1 EACH Vancomycin HCl (Vancomycin Trough Level) 1 each 1X ONCE 12/11/17 16:30 12/11/17 16:31 Vancomycin HCl 1.25 gm/Sodium Chloride 250 ml @ 167 mls/hr Q12H 12/09/17 03:30 12/10/17 04:45 DC 12/09/17 16:06 167 MLS/HR Vancomycin HCl 1 gm/Sodium Chloride 250 ml @ 250 mls/hr Q12H 12/10/17 05:00 12/10/17 04:54 250 MLS/HR Vancomycin HCl 2 gm/Sodium Chloride 500 ml @ 250 mls/hr 1X ONCE 12/08/17 14:30 12/08/17 16:29 DC 12/08/17 15:30 250 MLS/HR Zolpidem Tartrate (Ambien) 5 mg PRN QHS PRN 12/07/17 15:15 12/08/17 20:44 5 MG Labs: Lab Laboratory Tests Test 12/09/17 16:11 12/09/17 17:40 12/09/17 21:29 12/10/17 03:00 Glucose (Fingerstick) 401 mg/dL (70-99) 368 mg/dL (70-99) 275 mg/dL (70-99) White Blood Count 8.8 x10^3/uL (4.0-11.0) Red Blood Count 3.31 x10^6/uL (4.30-5.70) Hemoglobin 11.1 g/dL (13.0-17.5) Hematocrit 31.5 % (39.0-53.0) Mean Corpuscular Volume 95 fL (79-100) Mean Corpuscular Hemoglobin 34 pg (25-35) Mean Corpuscular Hemoglobin Concent 35 g/dL (31-37) Red Cell Distribution Width 14.4 % (11.5-14.5) Platelet Count 345 x10^3/uL (140-400) Neutrophils (%) (Auto) 83 % (31-73) Lymphocytes (%) (Auto) 11 % (24-48) Monocytes (%) (Auto) 7 % (0-9) Eosinophils (%) (Auto) 0 % (0-3) Basophils (%) (Auto) 0 % (0-3) Neutrophils # (Auto) 7.3 x10^3uL (1.8-7.7) Lymphocytes # (Auto) 0.9 x10^3/uL (1.0-4.8) Monocytes # (Auto) 0.6 x10^3/uL (0.0-1.1) Eosinophils # (Auto) 0.0 x10^3/uL (0.0-0.7) Basophils # (Auto) 0.0 x10^3/uL (0.0-0.2) Creatinine 1.1 mg/dL (0.7-1.3) Estimated GFR (Cockcroft-Gault) 68.3 Vancomycin Level Trough 20.2 mcg/mL (10.0-20.0) Vancomycin Last Dose Date Vancomycin Last Dose Time Test 12/10/17 07:55 12/10/17 11:02 Glucose (Fingerstick) 134 mg/dL (70-99) 147 mg/dL (70-99) Objective: Assessment: Fever improving Necrotic diabetic ulcer right heel. MRI + osteo. s/p debridement 12/[address] Ronni. -Intra-op culturesGNR,GPC,ID and ELISABETH pending -ESR 105. Diabetes with neuropathy, poorly controlled CAD h/o MSSA toes s/p amputation Plan: Plan of Care BC in process vanc dose dec to 1 gm iv q12 as vanc trough 20.2 Anaerobic/aerobic culture right heel - pending Continue vanc and Zosyn Monitor labs/temp/renal function closely f/u cults ANA YANG MD Dec 10, 2017 12:14
[2017-12-10] MEDS: METOPROLOL TART IMMED RELEASE 50 MG TABLET. PO SCH ×2 (12:45→20:16)
--- NOTE | 2017-12-10 14:59 | PDOC ---
PROGRESS NOTES Subjective Subjective Patient seen and examined in room. Patient without complaints. at bedside Objective Objective Vital Signs Date Time Temp Pulse Resp B/P (MAP) Pulse Ox O2 Delivery O2 Flow Rate FiO2 12/10/17 12:45 83 140/85 12/10/17 11:00 97.6 18 98 Room Air 97.6 12/09/17 08:45 10 Intake and Output 12/10/17 07:00 Intake Total 4300 ml Output Total 1200 ml Balance 3100 ml Intake Oral 2900 ml IV Total 1400 ml Output Urine Total 1200 ml Physical Exam Physical Exam Awake and alert right heel dressing removed, wound bed with slough, no drainage, less swelling and erythema Assessment Assessment Right heel ulcer. Postop day 1 right heel debridement. 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 Plan Plan of Care Continue with wound VAC therapy. Continue antibiotic therapy, cultures pending. Continue to offload heel with [place] splint. We'll Patient may be toe touch for transfers discuss results of MRI with Dr. Aquino and make additional recommendations as needed. Comment Review of Relevant I have reviewed the following items joana (where applicable) has been applied. Labs Laboratory Tests Test 12/08/17 16:20 12/08/17 17:14 12/08/17 22:05 12/09/17 04:30 Glucose (Fingerstick) 192 mg/dL (70-99) 145 mg/dL (70-99) 80 mg/dL (70-99) Sodium Level 140 mmol/L (136-145) Potassium Level 3.6 mmol/L (3.5-5.1) Chloride Level 105 mmol/L (98-107) Carbon Dioxide Level 24 mmol/L (21-32) Anion Gap 11 (6-14) Blood Urea Nitrogen 16 mg/dL (8-26) Creatinine 1.3 mg/dL (0.7-1.3) Estimated GFR (Cockcroft-Gault) 56.3 Glucose Level 117 mg/dL (70-99) Calcium Level 8.1 mg/dL (8.5-10.1) Test 12/09/17 08:52 12/09/17 11:32 12/09/17 16:11 12/09/17 17:40 Glucose (Fingerstick) 231 mg/dL (70-99) 189 mg/dL (70-99) 401 mg/dL (70-99) 368 mg/dL (70-99) Test 12/09/17 21:29 12/10/17 03:00 12/10/17 07:55 12/10/17 11:02 Glucose (Fingerstick) 275 mg/dL (70-99) 134 mg/dL (70-99) 147 mg/dL (70-99) White Blood Count 8.8 x10^3/uL (4.0-11.0) Red Blood Count 3.31 x10^6/uL (4.30-5.70) Hemoglobin 11.1 g/dL (13.0-17.5) Hematocrit 31.5 % (39.0-53.0) Mean Corpuscular Volume 95 fL (79-100) Mean Corpuscular Hemoglobin 34 pg (25-35) Mean Corpuscular Hemoglobin Concent 35 g/dL (31-37) Red Cell Distribution Width 14.4 % (11.5-14.5) Platelet Count 345 x10^3/uL (140-400) Neutrophils (%) (Auto) 83 % (31-73) Lymphocytes (%) (Auto) 11 % (24-48) Monocytes (%) (Auto) 7 % (0-9) Eosinophils (%) (Auto) 0 % (0-3) Basophils (%) (Auto) 0 % (0-3) Neutrophils # (Auto) 7.3 x10^3uL (1.8-7.7) Lymphocytes # (Auto) 0.9 x10^3/uL (1.0-4.8) Monocytes # (Auto) 0.6 x10^3/uL (0.0-1.1) Eosinophils # (Auto) 0.0 x10^3/uL (0.0-0.7) Basophils # (Auto) 0.0 x10^3/uL (0.0-0.2) Creatinine 1.1 mg/dL (0.7-1.3) Estimated GFR (Cockcroft-Gault) 68.3 Vancomycin Level Trough 20.2 mcg/mL (10.0-20.0) Vancomycin Last Dose Date Vancomycin Last Dose Time Laboratory Tests Test 12/09/17 16:11 12/09/17 17:40 12/09/17 21:29 12/10/17 03:00 Glucose (Fingerstick) 401 mg/dL (70-99) 368 mg/dL (70-99) 275 mg/dL (70-99) White Blood Count 8.8 x10^3/uL (4.0-11.0) Red Blood Count 3.31 x10^6/uL (4.30-5.70) Hemoglobin 11.1 g/dL (13.0-17.5) Hematocrit 31.5 % (39.0-53.0) Mean Corpuscular Volume 95 fL (79-100) Mean Corpuscular Hemoglobin 34 pg (25-35) Mean Corpuscular Hemoglobin Concent 35 g/dL (31-37) Red Cell Distribution Width 14.4 % (11.5-14.5) Platelet Count 345 x10^3/uL (140-400) Neutrophils (%) (Auto) 83 % (31-73) Lymphocytes (%) (Auto) 11 % (24-48) Monocytes (%) (Auto) 7 % (0-9) Eosinophils (%) (Auto) 0 % (0-3) Basophils (%) (Auto) 0 % (0-3) Neutrophils # (Auto) 7.3 x10^3uL (1.8-7.7) Lymphocytes # (Auto) 0.9 x10^3/uL (1.0-4.8) Monocytes # (Auto) 0.6 x10^3/uL (0.0-1.1) Eosinophils # (Auto) 0.0 x10^3/uL (0.0-0.7) Basophils # (Auto) 0.0 x10^3/uL (0.0-0.2) Creatinine 1.1 mg/dL (0.7-1.3) Estimated GFR (Cockcroft-Gault) 68.3 Vancomycin Level Trough 20.2 mcg/mL (10.0-20.0) Vancomycin Last Dose Date Vancomycin Last Dose Time Test 12/10/17 07:55 12/10/17 11:02 Glucose (Fingerstick) 134 mg/dL (70-99) 147 mg/dL (70-99) Microbiology 12/08/17 Blood Culture - Preliminary, Resulted NO GROWTH AFTER 1 DAY 12/09/17 Anaerobic/Aerobic Culture, Resulted Pending 12/09/17 Anaerobic Culture Result 1 (ELISABETH), Resulted Pending 12/09/17 Aerobic Culture, Resulted Pending 12/09/17 Aerobic Culture Result 1 (ELISABETH), Resulted Pending 12/09/17 Gram Stain - Final, Resulted 12/09/17 Gram Stain Result 1 (ELISABETH) - Final, Resulted 12/09/17 Gram Stain Result 2 (ELISABETH) - Final, Resulted 12/09/17 Gram Stain Result 3 (ELISABETH) - Final, Resulted Medications Current Medications Ondansetron HCl (Zofran) 4 mg PRN Q6HRS PRN IV NAUSEA/VOMITING; Start at 15:15 Prochlorperazine Edisylate (Compazine) 10 mg PRN Q6HRS PRN IV NAUSEA/VOMITING; Start 12/07/17 at 15:15 Prochlorperazine (Compazine) 25 mg PRN Q12HR PRN SC NAUSEA/VOMITING; Start at 15:15 Al Hydroxide/Mg Hydroxide (Mylanta Plus Xs) 30 ml PRN Q3HRS PRN PO HEARTBURN / GAS; Start 12/07/17 at 15:15 Calcium Carbonate/ Glycine (Tums) 500 mg PRN Q3HRS PRN PO UPSET STOMACH; Start 12/07/17 at 15:15 Zolpidem Tartrate (Ambien) 5 mg PRN QHS PRN PO INSOMNIA, MAY REPEAT IN 1HR Last administered on 12/08/17at 20:44; Start 12/07/17 at 15:15 Oxycodone HCl (Roxicodone) 5 mg PRN Q3HRS PRN PO BREAKTHROUGH PAIN Last administered on 12/08/17at 17:20; Start 12/07/17 at 15:15 Acetaminophen (Tylenol) 650 mg PRN Q6HRS PRN PO Headaches, Temp > 101.5F; Start 12/07/17 at 15:15 Ibuprofen (Motrin) 400 mg PRN Q6HRS PRN PO MILD PAIN; Start 12/07/17 at 15:15 Magnesium Hydroxide (Milk Of Magnesia) 2,400 mg PRN Q12HR PRN PO CONSTIPATION; Start 12/07/17 at 15:15 Lactulose (Lactulose) 20 gm PRN Q12HR PRN PO CONSTIPATION; Start 12/07/17 at 15:15 Insulin Human Lispro (HumaLOG) 0-9 UNITS TIDWMEALS SQ ; Start 12/07/17 at 17:00 ; Stop 12/07/17 at 18:50; Status DC Dextrose (Dextrose 50%-Water Syringe) 12.5 gm PRN Q15MIN PRN IV SEE COMMENTS; Start 12/07/17 at 15:15 Fentanyl Citrate (Fentanyl 2ml Vial) 50 mcg PRN Q2HR PRN IV PAIN; Start at 15:15 Tramadol HCl (Ultram) 50 mg PRN Q6HRS PRN PO MOD TO SEVERE PAIN; Start at 15:15 Allopurinol (Zyloprim) 300 mg DAILY PO Last administered on 12/10/17at 08:48; Start 12/07/17 at 16:00 Lisinopril (Prinivil) 40 mg DAILY PO Last administered on 12/10/17at 08:50; Start 12/07/17 at 16:00 Metoprolol Tartrate (Lopressor) 100 mg BID PO Last administered on 12/10/17at 12:45; Start 12/07/17 at 21:00 Ranolazine (Ranexa) 500 mg BID PO Last administered on 12/10/17at 08:49; Start 12/07/17 at 21:00 Isosorbide Mononitrate (Imdur) 60 mg DAILY PO Last administered on 12/08/17at 09:18; Start 12/08/17 at 09:00 Pantoprazole Sodium (Protonix) 40 mg DAILYAC PO Last administered on at 08:50; Start 12/07/17 at 16:30 Labetalol HCl (Normodyne Iv Push) 10 mg PRN Q2HR PRN IVP HYPERTENSION, SEE COMMENTS; Start 12/07/17 at 15:30 Insulin Glargine (Lantus) 25 units QHS SQ ; Start 12/07/17 at 21:00; Stop at 21:00; Status DC Insulin Glargine (Lantus) 50 units DAILY SQ ; Start 12/08/17 at 09:00; Status Cancel Insulin Glargine (Lantus) 40 units QHS SQ ; Start 12/07/17 at 21:00; Status Cancel Insulin Human Isoph/Insulin Regular (HumuLIN 70/30) 50 units DAILY07 SQ Last administered on 12/08/17at 09:26; Start 12/08/17 at 07:00; Stop 12/10/17 at 04 :59; Status DC Insulin Human Isoph/Insulin Regular (HumuLIN 70/30) 40 units DAILY16 SQ Last administered on 12/09/17at 16:15; Start 12/08/17 at 16:00; Stop 12/09/17 at 18 :00; Status DC Sodium Chloride 1,000 ml @ 1,000 mls/hr 1X ONCE IV Last administered on 12/07at 21:36; Start 12/07/17 at 21:30; Stop 12/07/17 at 22:29; Status DC Sodium Chloride 1,000 ml @ 100 mls/hr Q10H IV Last administered on 12/09/17at 02:16; Start 12/07/17 at 22:30; Stop 12/09/17 at 08:18; Status DC Insulin Human Lispro (HumaLOG) 0-9 UNITS TIDWMEALS SQ Last administered on at 17:44; Start 12/08/17 at 12:00 Dextrose (Dextrose 50%-Water Syringe) 12.5 gm PRN Q15MIN PRN IV SEE COMMENTS; Start 12/08/17 at 08:30; Status UNV Vancomycin HCl (Vanco Per Pharmacy) 1 each PRN DAILY PRN MC SEE COMMENTS Last administered on 12/10/17at 13:52; Start 12/08/17 at 13:45 Piperacillin Sod/ Tazobactam Sod 3.375 gm/Sodium Chloride 50 ml @ 100 mls/hr Q6HRS IV ; Start 12/08/17 at 18:00; Status UNV Piperacillin Sod/ Tazobactam Sod 3.375 gm/Sodium Chloride 50 ml @ 100 mls/hr Q6HRS IV Last administered on 12/10/17at 12:39; Start 12/08/17 at 14:00 Vancomycin HCl 2 gm/Sodium Chloride 500 ml @ 250 mls/hr 1X ONCE IV Last administered on 12/08/17at 15:30; Start 12/08/17 at 14:30; Stop 12/08/17 at 16 :29; Status DC Vancomycin HCl 1.25 gm/Sodium Chloride 250 ml @ 167 mls/hr Q12H IV Last administered on 12/09/17at 16:06; Start 12/09/17 at 03:30; Stop 12/10/17 at 04 :45; Status DC Vancomycin HCl (Vancomycin Trough Level) 1 each 1X ONCE MC Last administered on 12/10/17at 03:00; Start 12/10/17 at 03:00; Stop 12/10/17 at 03:01; Status DC Lidocaine HCl 20 ml STK-MED ONCE .ROUTE ; Start 12/09/17 at 06:11; Stop at 07:11; Status DC Silver Sulfadiazine (Silvadene) 25 deb STK-MED ONCE TP ; Start 12/09/17 at 06: 11; Stop 12/09/17 at 07:11; Status DC Phenylephrine HCl (PHENYLEPHRINE in 0.9% NACL PF) 1 mg STK-MED ONCE IV ; Start 12/09/17 at 08:23; Stop 12/09/17 at 08:24; Status DC Dexamethasone Sodium Phosphate (Decadron) 20 mg STK-MED ONCE .ROUTE ; Start at 08:23; Stop 12/09/17 at 08:24; Status DC Ondansetron HCl (Zofran) 4 mg STK-MED ONCE .ROUTE ; Start 12/09/17 at 08:23; Stop 12/09/17 at 08:24; Status DC Lidocaine HCl (Lidocaine Pf 2% Vial) 5 ml STK-MED ONCE .ROUTE ; Start 12/09/17 at 08:23; Stop 12/09/17 at 08:24; Status DC Propofol 20 ml @ As Directed STK-MED ONCE IV ; Start 12/09/17 at 08:23; Stop 12/09/17 at 08:24; Status DC Sevoflurane (Ultane) 30 ml STK-MED ONCE IH ; Start 12/09/17 at 08:23; Stop at 08:24; Status DC Insulin Human Lispro (HumaLOG VIAL) 6 unit 1X ONCE SQ ; Start 12/09/17 at 09: 00; Stop 12/09/17 at 09:01; Status Cancel Insulin Human Lispro (HumaLOG VIAL) 4 unit 1X ONCE SQ Last administered on at 09:25; Start 12/09/17 at 09:30; Stop 12/09/17 at 09:31; Status DC Lactobacillus Rhamnosus (Culturelle) 1 cap BID PO Last administered on at 08:51; Start 12/09/17 at 21:00 Insulin Human Isoph/Insulin Regular (HumuLIN 70/30) 50 units DAILY16 SQ ; Start 12/10/17 at 16:00 Insulin Human Lispro (HumaLOG) 6 units 1X ONCE SQ Last administered on at 18:43; Start 12/09/17 at 18:00; Stop 12/09/17 at 18:20; Status DC Vancomycin HCl 1 gm/Sodium Chloride 250 ml @ 250 mls/hr Q12H IV Last administered on 12/10/17at 04:54; Start 12/10/17 at 05:00 Vancomycin HCl (Vancomycin Trough Level) 1 each 1X ONCE MC ; Start 12/11/17 at 16:30; Stop 12/11/17 at 16:31 Insulin Human Isoph/Insulin Regular (HumuLIN 70/30) 50 units DAILYWBKFT SQ Last administered on 12/10/17at 09:01; Start 12/10/17 at 08:00 Active Scripts Active Reported Ranexa (Ranolazine) 500 Mg Tab.er.12h 1 Tab PO BID Isosorbide Mononitrate Er (Isosorbide Mononitrate) 60 Mg Tab.er.24h 1 Tab PO DAILY Clopidogrel (Clopidogrel Bisulfate) 75 Mg Tablet 1 Tab PO DAILY Metoprolol Tartrate 50 Mg Tablet 100 Mg PO BID NEXT DOSE: 01/19/15 PM Aspir 81 (Aspirin) 81 Mg Tablet.dr 81 Mg PO DAILY NEXT DOSE: 01/20/15 AM Omeprazole 40 Mg Capsule.dr 40 Mg PO DAILY NEXT DOSE: 01/20/15 AM Allopurinol 300 Mg Tablet 300 Mg PO DAILY NEXT DOSE: 01/20/15 AM Lisinopril 40 Mg Tablet 40 Mg PO DAILY NEXT DOSE: 01/20/15 AM Vitals/I & O Vital Sign - Last 24 Hours 12/09/17 12/09/17 12/09/17 12/09/17 15:13 19:00 20:00 21:22 Temp 98.7 96.9 98.7 96.9 Pulse 97 90 97 Resp 18 18 B/P (MAP) 122/60 (80) 138/75 (96) 122/60 Pulse Ox 97 97 O2 Delivery Room Air Room Air Room Air 12/09/17 12/09/17 12/10/17 12/10/17 21:23 23:00 03:00 07:00 Temp 98.3 97.9 98.1 98.3 97.9 98.1 Pulse 97 87 84 66 Resp 18 18 20 B/P (MAP) 122/60 120/68 (85) 136/75 (95) 115/63 (80) Pulse Ox 98 94 96 O2 Delivery Room Air Room Air Room Air 12/10/17 12/10/17 12/10/17 12/10/17 08:00 08:49 08:50 11:00 Temp 97.6 97.6 Pulse 65 65 83 Resp 18 B/P (MAP) 115/63 115/63 140/85 (103) Pulse Ox 98 O2 Delivery Room Air Room Air 12/10/17 12:45 Pulse 83 B/P (MAP) 140/85 Intake and Output 12/09/17 12/09/17 12/10/17 15:00 23:00 07:00 Intake Total 50 ml 3100 ml 1150 ml Output Total 1200 ml Balance 50 ml 3100 ml -50 ml OLEG FUNES APRN Dec 10, 2017 14:59
[2017-12-10 15:00] VITALS: BP 123/77
--- NOTE | 2017-12-10 15:31 | PDOC ---
PROGRESS NOTES Chief Complaint Chief Complaint Right heel wound in a diabetic s/p i and d on 12/07 wound vac Diabetes type 1, hemoglobin A1c is 13 Hypertension, h/o CAD, CABG 2016, dyslipidemia-chronic stable plan: fu with id, vascular to see if need more sx now on wound vac cont brenda jones, fu wound cx now gram + and neg colt on NPH insulin bid, ssi dvt ppx add vitc, multiple vitamin for wound care talked to sister at bedside. History of Present Illness History of Present Illness He has no complaints ESR is 105 Blood sugars are better since adjustments of insulin Sunday Now having I and D by vascular surgery Vitals Vitals Vital Signs Date Time Temp Pulse Resp B/P (MAP) Pulse Ox O2 Delivery O2 Flow Rate FiO2 12/10/17 12:45 83 140/85 12/10/17 11:00 97.6 18 98 Room Air 97.6 12/09/17 08:45 10 Physical Exam Physical Exam GENERAL: Propped up in bed, smiling, joking HEENT: Oral cavity: Pharynx pink. NECK: Supple. LUNGS: Clear to auscultation. HEART: S1 and S2. ABDOMEN: Nondistended. Bowel sounds active, soft, nontender. EXTREMITIES: Post-op dressing right foot dry. BLE edema. No cyanosis SKIN: Warm without rash. NEUROLOGIC: Alert and oriented times 3. General: Alert, Oriented X3, Cooperative, No acute distress Heart: Regular rate, Normal S1, Normal S2 Lungs: Clear Abdomen: Normal bowel sounds, Soft, No tenderness, No hepatosplenomegaly, No masses Extremities: No clubbing, No cyanosis, Normal pulses Skin: Other (rt heel wound, dry, some redness around the area, tender to touch , no oozing currently) Labs LABS Laboratory Tests Test 12/09/17 16:11 12/09/17 17:40 12/09/17 21:29 12/10/17 03:00 Glucose (Fingerstick) 401 mg/dL (70-99) 368 mg/dL (70-99) 275 mg/dL (70-99) White Blood Count 8.8 x10^3/uL (4.0-11.0) Red Blood Count 3.31 x10^6/uL (4.30-5.70) Hemoglobin 11.1 g/dL (13.0-17.5) Hematocrit 31.5 % (39.0-53.0) Mean Corpuscular Volume 95 fL (79-100) Mean Corpuscular Hemoglobin 34 pg (25-35) Mean Corpuscular Hemoglobin Concent 35 g/dL (31-37) Red Cell Distribution Width 14.4 % (11.5-14.5) Platelet Count 345 x10^3/uL (140-400) Neutrophils (%) (Auto) 83 % (31-73) Lymphocytes (%) (Auto) 11 % (24-48) Monocytes (%) (Auto) 7 % (0-9) Eosinophils (%) (Auto) 0 % (0-3) Basophils (%) (Auto) 0 % (0-3) Neutrophils # (Auto) 7.3 x10^3uL (1.8-7.7) Lymphocytes # (Auto) 0.9 x10^3/uL (1.0-4.8) Monocytes # (Auto) 0.6 x10^3/uL (0.0-1.1) Eosinophils # (Auto) 0.0 x10^3/uL (0.0-0.7) Basophils # (Auto) 0.0 x10^3/uL (0.0-0.2) Creatinine 1.1 mg/dL (0.7-1.3) Estimated GFR (Cockcroft-Gault) 68.3 Vancomycin Level Trough 20.2 mcg/mL (10.0-20.0) Vancomycin Last Dose Date Vancomycin Last Dose Time Test 12/10/17 07:55 12/10/17 11:02 Glucose (Fingerstick) 134 mg/dL (70-99) 147 mg/dL (70-99) Comment Review of Relevant I have reviewed the following items joana (where applicable) has been applied. Labs Laboratory Tests Test 12/08/17 16:20 12/08/17 17:14 12/08/17 22:05 12/09/17 04:30 Glucose (Fingerstick) 192 mg/dL (70-99) 145 mg/dL (70-99) 80 mg/dL (70-99) Sodium Level 140 mmol/L (136-145) Potassium Level 3.6 mmol/L (3.5-5.1) Chloride Level 105 mmol/L (98-107) Carbon Dioxide Level 24 mmol/L (21-32) Anion Gap 11 (6-14) Blood Urea Nitrogen 16 mg/dL (8-26) Creatinine 1.3 mg/dL (0.7-1.3) Estimated GFR (Cockcroft-Gault) 56.3 Glucose Level 117 mg/dL (70-99) Calcium Level 8.1 mg/dL (8.5-10.1) Test 12/09/17 08:52 12/09/17 11:32 12/09/17 16:11 12/09/17 17:40 Glucose (Fingerstick) 231 mg/dL (70-99) 189 mg/dL (70-99) 401 mg/dL (70-99) 368 mg/dL (70-99) Test 12/09/17 21:29 12/10/17 03:00 12/10/17 07:55 12/10/17 11:02 Glucose (Fingerstick) 275 mg/dL (70-99) 134 mg/dL (70-99) 147 mg/dL (70-99) White Blood Count 8.8 x10^3/uL (4.0-11.0) Red Blood Count 3.31 x10^6/uL (4.30-5.70) Hemoglobin 11.1 g/dL (13.0-17.5) Hematocrit 31.5 % (39.0-53.0) Mean Corpuscular Volume 95 fL (79-100) Mean Corpuscular Hemoglobin 34 pg (25-35) Mean Corpuscular Hemoglobin Concent 35 g/dL (31-37) Red Cell Distribution Width 14.4 % (11.5-14.5) Platelet Count 345 x10^3/uL (140-400) Neutrophils (%) (Auto) 83 % (31-73) Lymphocytes (%) (Auto) 11 % (24-48) Monocytes (%) (Auto) 7 % (0-9) Eosinophils (%) (Auto) 0 % (0-3) Basophils (%) (Auto) 0 % (0-3) Neutrophils # (Auto) 7.3 x10^3uL (1.8-7.7) Lymphocytes # (Auto) 0.9 x10^3/uL (1.0-4.8) Monocytes # (Auto) 0.6 x10^3/uL (0.0-1.1) Eosinophils # (Auto) 0.0 x10^3/uL (0.0-0.7) Basophils # (Auto) 0.0 x10^3/uL (0.0-0.2) Creatinine 1.1 mg/dL (0.7-1.3) Estimated GFR (Cockcroft-Gault) 68.3 Vancomycin Level Trough 20.2 mcg/mL (10.0-20.0) Vancomycin Last Dose Date Vancomycin Last Dose Time Laboratory Tests Test 12/09/17 16:11 12/09/17 17:40 12/09/17 21:29 12/10/17 03:00 Glucose (Fingerstick) 401 mg/dL (70-99) 368 mg/dL (70-99) 275 mg/dL (70-99) White Blood Count 8.8 x10^3/uL (4.0-11.0) Red Blood Count 3.31 x10^6/uL (4.30-5.70) Hemoglobin 11.1 g/dL (13.0-17.5) Hematocrit 31.5 % (39.0-53.0) Mean Corpuscular Volume 95 fL (79-100) Mean Corpuscular Hemoglobin 34 pg (25-35) Mean Corpuscular Hemoglobin Concent 35 g/dL (31-37) Red Cell Distribution Width 14.4 % (11.5-14.5) Platelet Count 345 x10^3/uL (140-400) Neutrophils (%) (Auto) 83 % (31-73) Lymphocytes (%) (Auto) 11 % (24-48) Monocytes (%) (Auto) 7 % (0-9) Eosinophils (%) (Auto) 0 % (0-3) Basophils (%) (Auto) 0 % (0-3) Neutrophils # (Auto) 7.3 x10^3uL (1.8-7.7) Lymphocytes # (Auto) 0.9 x10^3/uL (1.0-4.8) Monocytes # (Auto) 0.6 x10^3/uL (0.0-1.1) Eosinophils # (Auto) 0.0 x10^3/uL (0.0-0.7) Basophils # (Auto) 0.0 x10^3/uL (0.0-0.2) Creatinine 1.1 mg/dL (0.7-1.3) Estimated GFR (Cockcroft-Gault) 68.3 Vancomycin Level Trough 20.2 mcg/mL (10.0-20.0) Vancomycin Last Dose Date Vancomycin Last Dose Time Test 12/10/17 07:55 12/10/17 11:02 Glucose (Fingerstick) 134 mg/dL (70-99) 147 mg/dL (70-99) Microbiology 12/08/17 Blood Culture - Preliminary, Resulted NO GROWTH AFTER 2 DAYS 12/09/17 Anaerobic/Aerobic Culture, Resulted Pending 12/09/17 Anaerobic Culture Result 1 (ELISABETH), Resulted Pending 12/09/17 Aerobic Culture, Resulted Pending 12/09/17 Aerobic Culture Result 1 (ELISABETH), Resulted Pending 12/09/17 Gram Stain - Final, Resulted 12/09/17 Gram Stain Result 1 (ELISABETH) - Final, Resulted 12/09/17 Gram Stain Result 2 (ELISABETH) - Final, Resulted 12/09/17 Gram Stain Result 3 (ELISABETH) - Final, Resulted Medications Current Medications Ondansetron HCl (Zofran) 4 mg PRN Q6HRS PRN IV NAUSEA/VOMITING; Start at 15:15 Prochlorperazine Edisylate (Compazine) 10 mg PRN Q6HRS PRN IV NAUSEA/VOMITING; Start 12/07/17 at 15:15 Prochlorperazine (Compazine) 25 mg PRN Q12HR PRN [place] NAUSEA/VOMITING; Start at 15:15 Al Hydroxide/Mg Hydroxide (Mylanta Plus Xs) 30 ml PRN Q3HRS PRN PO HEARTBURN / GAS; Start 12/07/17 at 15:15 Calcium Carbonate/ Glycine (Tums) 500 mg PRN Q3HRS PRN PO UPSET STOMACH; Start 12/07/17 at 15:15 Zolpidem Tartrate (Ambien) 5 mg PRN QHS PRN PO INSOMNIA, MAY REPEAT IN 1HR Last administered on 12/08/17at 20:44; Start 12/07/17 at 15:15 Oxycodone HCl (Roxicodone) 5 mg PRN Q3HRS PRN PO BREAKTHROUGH PAIN Last administered on 12/08/17at 17:20; Start 12/07/17 at 15:15 Acetaminophen (Tylenol) 650 mg PRN Q6HRS PRN PO Headaches, Temp > 101.5F; Start 12/07/17 at 15:15 Ibuprofen (Motrin) 400 mg PRN Q6HRS PRN PO MILD PAIN; Start 12/07/17 at 15:15 Magnesium Hydroxide (Milk Of Magnesia) 2,400 mg PRN Q12HR PRN PO CONSTIPATION; Start 12/07/17 at 15:15 Lactulose (Lactulose) 20 gm PRN Q12HR PRN PO CONSTIPATION; Start 12/07/17 at 15:15 Insulin Human Lispro (HumaLOG) 0-9 UNITS TIDWMEALS SQ ; Start 12/07/17 at 17:00 ; Stop 12/07/17 at 18:50; Status DC Dextrose (Dextrose 50%-Water Syringe) 12.5 gm PRN Q15MIN PRN IV SEE COMMENTS; Start 12/07/17 at 15:15 Fentanyl Citrate (Fentanyl 2ml Vial) 50 mcg PRN Q2HR PRN IV PAIN; Start at 15:15 Tramadol HCl (Ultram) 50 mg PRN Q6HRS PRN PO MOD TO SEVERE PAIN; Start at 15:15 Allopurinol (Zyloprim) 300 mg DAILY PO Last administered on 12/10/17at 08:48; Start 12/07/17 at 16:00 Lisinopril (Prinivil) 40 mg DAILY PO Last administered on 12/10/17at 08:50; Start 12/07/17 at 16:00 Metoprolol Tartrate (Lopressor) 100 mg BID PO Last administered on 12/10/17at 12:45; Start 12/07/17 at 21:00 Ranolazine (Ranexa) 500 mg BID PO Last administered on 12/10/17at 08:49; Start 12/07/17 at 21:00 Isosorbide Mononitrate (Imdur) 60 mg DAILY PO Last administered on 12/08/17at 09:18; Start 12/08/17 at 09:00 Pantoprazole Sodium (Protonix) 40 mg DAILYAC PO Last administered on at 08:50; Start 12/07/17 at 16:30 Labetalol HCl (Normodyne Iv Push) 10 mg PRN Q2HR PRN IVP HYPERTENSION, SEE COMMENTS; Start 12/07/17 at 15:30 Insulin Glargine (Lantus) 25 units QHS SQ ; Start 12/07/17 at 21:00; Stop at 21:00; Status DC Insulin Glargine (Lantus) 50 units DAILY SQ ; Start 12/08/17 at 09:00; Status Cancel Insulin Glargine (Lantus) 40 units QHS SQ ; Start 12/07/17 at 21:00; Status Cancel Insulin Human Isoph/Insulin Regular (HumuLIN 70/30) 50 units DAILY07 SQ Last administered on 12/08/17at 09:26; Start 12/08/17 at 07:00; Stop 12/10/17 at 04 :59; Status DC Insulin Human Isoph/Insulin Regular (HumuLIN 70/30) 40 units DAILY16 SQ Last administered on 12/09/17at 16:15; Start 12/08/17 at 16:00; Stop 12/09/17 at 18 :00; Status DC Sodium Chloride 1,000 ml @ 1,000 mls/hr 1X ONCE IV Last administered on 12/07at 21:36; Start 12/07/17 at 21:30; Stop 12/07/17 at 22:29; Status DC Sodium Chloride 1,000 ml @ 100 mls/hr Q10H IV Last administered on 12/09/17at 02:16; Start 12/07/17 at 22:30; Stop 12/09/17 at 08:18; Status DC Insulin Human Lispro (HumaLOG) 0-9 UNITS TIDWMEALS SQ Last administered on at 17:44; Start 12/08/17 at 12:00 Dextrose (Dextrose 50%-Water Syringe) 12.5 gm PRN Q15MIN PRN IV SEE COMMENTS; Start 12/08/17 at 08:30; Status UNV Vancomycin HCl (Vanco Per Pharmacy) 1 each PRN DAILY PRN MC SEE COMMENTS Last administered on 12/10/17at 13:52; Start 12/08/17 at 13:45 Piperacillin Sod/ Tazobactam Sod 3.375 gm/Sodium Chloride 50 ml @ 100 mls/hr Q6HRS IV ; Start 12/08/17 at 18:00; Status UNV Piperacillin Sod/ Tazobactam Sod 3.375 gm/Sodium Chloride 50 ml @ 100 mls/hr Q6HRS IV Last administered on 12/10/17at 12:39; Start 12/08/17 at 14:00 Vancomycin HCl 2 gm/Sodium Chloride 500 ml @ 250 mls/hr 1X ONCE IV Last administered on 12/08/17at 15:30; Start 12/08/17 at 14:30; Stop 12/08/17 at 16 :29; Status DC Vancomycin HCl 1.25 gm/Sodium Chloride 250 ml @ 167 mls/hr Q12H IV Last administered on 12/09/17at 16:06; Start 12/09/17 at 03:30; Stop 12/10/17 at 04 :45; Status DC Vancomycin HCl (Vancomycin Trough Level) 1 each 1X ONCE MC Last administered on 12/10/17at 03:00; Start 12/10/17 at 03:00; Stop 12/10/17 at 03:01; Status DC Lidocaine HCl 20 ml STK-MED ONCE .ROUTE ; Start 12/09/17 at 06:11; Stop at 07:11; Status DC Silver Sulfadiazine (Silvadene) 25 deb STK-MED ONCE TP ; Start 12/09/17 at 06: 11; Stop 12/09/17 at 07:11; Status DC Phenylephrine HCl (PHENYLEPHRINE in 0.9% NACL PF) 1 mg STK-MED ONCE IV ; Start 12/09/17 at 08:23; Stop 12/09/17 at 08:24; Status DC Dexamethasone Sodium Phosphate (Decadron) 20 mg STK-MED ONCE .ROUTE ; Start at 08:23; Stop 12/09/17 at 08:24; Status DC Ondansetron HCl (Zofran) 4 mg STK-MED ONCE .ROUTE ; Start 12/09/17 at 08:23; Stop 12/09/17 at 08:24; Status DC Lidocaine HCl (Lidocaine Pf 2% Vial) 5 ml STK-MED ONCE .ROUTE ; Start 12/09/17 at 08:23; Stop 12/09/17 at 08:24; Status DC Propofol 20 ml @ As Directed STK-MED ONCE IV ; Start 12/09/17 at 08:23; Stop 12/09/17 at 08:24; Status DC Sevoflurane (Ultane) 30 ml STK-MED ONCE IH ; Start 12/09/17 at 08:23; Stop at 08:24; Status DC Insulin Human Lispro (HumaLOG VIAL) 6 unit 1X ONCE SQ ; Start 12/09/17 at 09: 00; Stop 12/09/17 at 09:01; Status Cancel Insulin Human Lispro (HumaLOG VIAL) 4 unit 1X ONCE SQ Last administered on at 09:25; Start 12/09/17 at 09:30; Stop 12/09/17 at 09:31; Status DC Lactobacillus Rhamnosus (Culturelle) 1 cap BID PO Last administered on at 08:51; Start 12/09/17 at 21:00 Insulin Human Isoph/Insulin Regular (HumuLIN 70/30) 50 units DAILY16 SQ ; Start 12/10/17 at 16:00 Insulin Human Lispro (HumaLOG) 6 units 1X ONCE SQ Last administered on at 18:43; Start 12/09/17 at 18:00; Stop 12/09/17 at 18:20; Status DC Vancomycin HCl 1 gm/Sodium Chloride 250 ml @ 250 mls/hr Q12H IV Last administered on 12/10/17at 04:54; Start 12/10/17 at 05:00 Vancomycin HCl (Vancomycin Trough Level) 1 each 1X ONCE MC ; Start 12/11/17 at 16:30; Stop 12/11/17 at 16:31 Insulin Human Isoph/Insulin Regular (HumuLIN 70/30) 50 units [id number] SQ Last administered on 12/10/17at 09:01; Start 12/10/17 at 08:00 Active Scripts Active Reported Ranexa (Ranolazine) 500 Mg Tab.er.12h 1 Tab PO BID Isosorbide Mononitrate Er (Isosorbide Mononitrate) 60 Mg Tab.er.24h 1 Tab PO DAILY Clopidogrel (Clopidogrel Bisulfate) 75 Mg Tablet 1 Tab PO DAILY Metoprolol Tartrate 50 Mg Tablet 100 Mg PO BID NEXT DOSE: 01/19/15 PM Aspir 81 (Aspirin) 81 Mg Tablet.dr 81 Mg PO DAILY NEXT DOSE: 01/20/15 AM Omeprazole 40 Mg Capsule.dr 40 Mg PO DAILY NEXT DOSE: 01/20/15 AM Allopurinol 300 Mg Tablet 300 Mg PO DAILY NEXT DOSE: 01/20/15 AM Lisinopril 40 Mg Tablet 40 Mg PO DAILY NEXT DOSE: 01/20/15 AM Vitals/I & O Vital Sign - Last 24 Hours 12/09/17 12/09/17 12/09/17 12/09/17 19:00 20:00 21:22 21:23 Temp 96.9 96.9 Pulse 90 97 97 Resp 18 B/P (MAP) 138/75 (96) 122/60 122/60 Pulse Ox 97 O2 Delivery Room Air Room Air 12/09/17 12/10/17 12/10/17 12/10/17 23:00 03:00 07:00 08:00 Temp 98.3 97.9 98.1 98.3 97.9 98.1 Pulse 87 84 66 Resp 18 18 20 B/P (MAP) 120/68 (85) 136/75 (95) 115/63 (80) Pulse Ox 98 94 96 O2 Delivery Room Air Room Air Room Air Room Air 12/10/17 12/10/17 12/10/17 12/10/17 08:49 08:50 11:00 12:45 Temp 97.6 97.6 Pulse 65 65 83 83 Resp 18 B/P (MAP) 115/63 115/63 140/85 (103) 140/85 Pulse Ox 98 O2 Delivery Room Air Intake and Output 12/09/17 12/09/17 12/10/17 15:00 23:00 07:00 Intake Total 50 ml 3100 ml 1150 ml Output Total 1200 ml Balance 50 ml 3100 ml -50 ml CARLOS MANUEL MARTINES MD Dec 10, 2017 15:31
[2017-12-10 19:00] VITALS: BP 137/80
[2017-12-10 23:00] VITALS: BP 140/79
[2017-12-11 03:00] VITALS: BP 135/81
[2017-12-11 04:46] LABS: BASO % 0 % (0-3); EOS # 0.2 x10^3/uL (0.0-0.7); EOS % 3 % (0-3); HEMATOCRIT 31.3 % (39.0-53.0); HEMOGLOBIN 10.8 g/dL (13.0-17.5); LYMPH # 1.5 x10^3/uL (1.0-4.8); LYMPH % 19 % (24-48); MEAN CORPUSCULAR HEMOGLOBIN 33 pg (25-35); MEAN CORPUSCULAR HGB CONC 35 g/dL (31-37); MEAN CORPUSCULAR VOLUME 95 fL (79-100); MONO # 0.5 x10^3/uL (0.0-1.1); MONO % 7 % (0-9); NEUT # 5.6 x10^3uL (1.8-7.7); NEUT % 72 % (31-73); PLATELET COUNT 349 x10^3/uL (140-400); RED BLOOD COUNT 3.28 x10^6/uL (4.30-5.70); RED CELL DISTRIBUTION WIDTH 14.7 % (11.5-14.5); WHITE BLOOD COUNT 7.8 x10^3/uL (4.0-11.0)
[2017-12-11 04:54] LABS: CALCIUM 8.7 mg/dL (8.5-10.1); CREATININE 1.1 mg/dL (0.7-1.3); GFR 68.3; POTASSIUM 4.1 mmol/L (3.5-5.1)
[2017-12-11] MEDS: VANCOMYCIN 1 GM in IV NORMAL SALINE 250ML 250 ML IV SCH ×2 (05:08→17:59)
[2017-12-11] MEDS: PIPERACILLIN/TAZOBACTAM 3.375 GM in IV NORMAL SALINE 50ML 50 ML IV SCH ×4 (05:08→22:48)
[2017-12-11 07:00] VITALS: BP 141/84
[2017-12-11] MEDS: ISOSORBIDE MONONITRATE ER 30 MG TAB.ER.24H PO SCH (09:14)
[2017-12-11] MEDS: LISINOPRIL 20 MG TABLET PO SCH (09:15)
[2017-12-11] MEDS: METOPROLOL TART IMMED RELEASE 50 MG TABLET. PO SCH ×2 (09:15→20:40)
[2017-12-11] MEDS: PANTOPRAZOLE 40 MG TABLET.DR. PO SCH ×2 (09:16→11:05)
[2017-12-11] MEDS: RANOLAZINE 500 MG TAB.ER.12H PO SCH ×2 (09:16→20:44)
[2017-12-11] MEDS: ASCORBIC ACID 500 MG TABLET PO SCH ×2 (09:17→11:06)
[2017-12-11] MEDS: LACTOBACILLUS RHAMNOSUS GG 1 CAPSULE. PO SCH ×3 (09:17→20:41)
[2017-12-11] MEDS: MULTIVITAMIN with MINERAL TABLET. PO SCH ×2 (09:17→11:06)
[2017-12-11] MEDS: ALLOPURINOL 300 MG TABLET. PO SCH ×2 (09:17→11:06)
[2017-12-11] MEDS: INSULIN NPH/REG INSULIN 70/30 300 UNITS/3 ML INSULN.PEN. SQ SCH ×3 (09:18→17:21)
[2017-12-11] MEDS: INSULIN LISPRO 300 UNITS/3 ML INSULN.PEN. SQ SCH ×3 (09:26→16:57)
--- NOTE | 2017-12-11 09:52 | PDOC ---
PROGRESS NOTES Subjective Subjective "My foot doesn't hurt but I really can't feel them anyway." Objective Objective Vascular Surgery - POD#2 Excisional debridement of right heel wound including skin and subcutaneous tissue (approximately 10 square cm). O: Sitting comfortably in bed. Right Foot: Wound vac dressing intact to right heel. Surrounding tissue continues to have erythema and warmth. Heel is rounded. No drainage present in wound vac collection chamber. Examination: LOWER EXT NON JOINT WO RT History: NECROTIC ULCER RT HEEL R/O OSTEO. DIFFICULTY HOLDING STILL DUE TO PAIN Findings: There is edema at the posterior calcaneal region is present with soft tissue wound defect. High signal intensity of the adjacent calcaneus is evident. Edema at the dorsal aspect of the foot is noted. Flexor and extensor tendons about the foot are unremarkable. Impression: Wound defect involving the posterior calcaneal region soft tissues with signal irregularity of the calcaneus. 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 No abscess collection. Subcutaneous edema the dorsal aspect of the forefoot. Assessment Right heel ulcer. Postop day #2 right heel debridement. Wound vac dressing intact. 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 Right heel continues to have erythema and warmth. Plan Plan of Care Continue with wound VAC therapy. Continue antibiotic therapy, cultures appear to have both Gram + and - bacteria ? Antibiotic selection per ID. WBC's normal. Continue to offload heel with [place] splint. Patient may be toe touch for transfers. Patient has been scheduled for further right heel debridement tomorrow in the OR to include calcaneal debridement. OR at [address] Rudolph. Preop orders completed. I have spoke with the patient and his sister, Nakita, regarding this plan and their questions have been answered. Vital Signs Date Time Temp Pulse Resp B/P (MAP) Pulse Ox O2 Delivery O2 Flow Rate FiO2 12/11/17 09:16 83 141/84 12/11/17 07:00 98.1 20 96 Room Air 98.1 12/09/17 08:45 10 Intake and Output 12/11/17 07:00 Intake Total 1080 ml Output Total 1200 ml Balance -120 ml Intake Oral 1080 ml Output Urine Total 1200 ml Comment Review of Relevant I have reviewed the following items joana (where applicable) has been applied. Labs Laboratory Tests Test 12/09/17 11:32 12/09/17 16:11 12/09/17 17:40 12/09/17 21:29 Glucose (Fingerstick) 189 mg/dL (70-99) 401 mg/dL (70-99) 368 mg/dL (70-99) 275 mg/dL (70-99) Test 12/10/17 03:00 12/10/17 07:55 12/10/17 11:02 12/10/17 17:04 White Blood Count 8.8 x10^3/uL (4.0-11.0) Red Blood Count 3.31 x10^6/uL (4.30-5.70) Hemoglobin 11.1 g/dL (13.0-17.5) Hematocrit 31.5 % (39.0-53.0) Mean Corpuscular Volume 95 fL (79-100) Mean Corpuscular Hemoglobin 34 pg (25-35) Mean Corpuscular Hemoglobin Concent 35 g/dL (31-37) Red Cell Distribution Width 14.4 % (11.5-14.5) Platelet Count 345 x10^3/uL (140-400) Neutrophils (%) (Auto) 83 % (31-73) Lymphocytes (%) (Auto) 11 % (24-48) Monocytes (%) (Auto) 7 % (0-9) Eosinophils (%) (Auto) 0 % (0-3) Basophils (%) (Auto) 0 % (0-3) Neutrophils # (Auto) 7.3 x10^3uL (1.8-7.7) Lymphocytes # (Auto) 0.9 x10^3/uL (1.0-4.8) Monocytes # (Auto) 0.6 x10^3/uL (0.0-1.1) Eosinophils # (Auto) 0.0 x10^3/uL (0.0-0.7) Basophils # (Auto) 0.0 x10^3/uL (0.0-0.2) Creatinine 1.1 mg/dL (0.7-1.3) Estimated GFR (Cockcroft-Gault) 68.3 Vancomycin Level Trough 20.2 mcg/mL (10.0-20.0) Vancomycin Last Dose Date Vancomycin Last Dose Time Glucose (Fingerstick) 134 mg/dL (70-99) 147 mg/dL (70-99) 112 mg/dL (70-99) Test 12/10/17 19:59 12/11/17 03:40 12/11/17 07:55 Glucose (Fingerstick) 145 mg/dL (70-99) 289 mg/dL (70-99) White Blood Count 7.8 x10^3/uL (4.0-11.0) Red Blood Count 3.28 x10^6/uL (4.30-5.70) Hemoglobin 10.8 g/dL (13.0-17.5) Hematocrit 31.3 % (39.0-53.0) Mean Corpuscular Volume 95 fL (79-100) Mean Corpuscular Hemoglobin 33 pg (25-35) Mean Corpuscular Hemoglobin Concent 35 g/dL (31-37) Red Cell Distribution Width 14.7 % (11.5-14.5) Platelet Count 349 x10^3/uL (140-400) Neutrophils (%) (Auto) 72 % (31-73) Lymphocytes (%) (Auto) 19 % (24-48) Monocytes (%) (Auto) 7 % (0-9) Eosinophils (%) (Auto) 3 % (0-3) Basophils (%) (Auto) 0 % (0-3) Neutrophils # (Auto) 5.6 x10^3uL (1.8-7.7) Lymphocytes # (Auto) 1.5 x10^3/uL (1.0-4.8) Monocytes # (Auto) 0.5 x10^3/uL (0.0-1.1) Eosinophils # (Auto) 0.2 x10^3/uL (0.0-0.7) Basophils # (Auto) 0.0 x10^3/uL (0.0-0.2) Sodium Level 139 mmol/L (136-145) Potassium Level 4.1 mmol/L (3.5-5.1) Chloride Level 105 mmol/L (98-107) Carbon Dioxide Level 25 mmol/L (21-32) Anion Gap 9 (6-14) Blood Urea Nitrogen 14 mg/dL (8-26) Creatinine 1.1 mg/dL (0.7-1.3) Estimated GFR (Cockcroft-Gault) 68.3 Glucose Level 225 mg/dL (70-99) Calcium Level 8.7 mg/dL (8.5-10.1) Laboratory Tests Test 12/10/17 11:02 12/10/17 17:04 12/10/17 19:59 12/11/17 03:40 Glucose (Fingerstick) 147 mg/dL (70-99) 112 mg/dL (70-99) 145 mg/dL (70-99) White Blood Count 7.8 x10^3/uL (4.0-11.0) Red Blood Count 3.28 x10^6/uL (4.30-5.70) Hemoglobin 10.8 g/dL (13.0-17.5) Hematocrit 31.3 % (39.0-53.0) Mean Corpuscular Volume 95 fL (79-100) Mean Corpuscular Hemoglobin 33 pg (25-35) Mean Corpuscular Hemoglobin Concent 35 g/dL (31-37) Red Cell Distribution Width 14.7 % (11.5-14.5) Platelet Count 349 x10^3/uL (140-400) Neutrophils (%) (Auto) 72 % (31-73) Lymphocytes (%) (Auto) 19 % (24-48) Monocytes (%) (Auto) 7 % (0-9) Eosinophils (%) (Auto) 3 % (0-3) Basophils (%) (Auto) 0 % (0-3) Neutrophils # (Auto) 5.6 x10^3uL (1.8-7.7) Lymphocytes # (Auto) 1.5 x10^3/uL (1.0-4.8) Monocytes # (Auto) 0.5 x10^3/uL (0.0-1.1) Eosinophils # (Auto) 0.2 x10^3/uL (0.0-0.7) Basophils # (Auto) 0.0 x10^3/uL (0.0-0.2) Sodium Level 139 mmol/L (136-145) Potassium Level 4.1 mmol/L (3.5-5.1) Chloride Level 105 mmol/L (98-107) Carbon Dioxide Level 25 mmol/L (21-32) Anion Gap 9 (6-14) Blood Urea Nitrogen 14 mg/dL (8-26) Creatinine 1.1 mg/dL (0.7-1.3) Estimated GFR (Cockcroft-Gault) 68.3 Glucose Level 225 mg/dL (70-99) Calcium Level 8.7 mg/dL (8.5-10.1) Test 12/11/17 07:55 Glucose (Fingerstick) 289 mg/dL (70-99) Microbiology 12/08/17 Blood Culture - Preliminary, Resulted NO GROWTH AFTER 2 DAYS 12/09/17 Anaerobic/Aerobic Culture, Resulted Pending 12/09/17 Anaerobic Culture Result 1 (ELISABETH), Resulted Pending 12/09/17 Aerobic Culture, Resulted Pending 12/09/17 Aerobic Culture Result 1 (ELISABETH), Resulted Pending 12/09/17 Gram Stain - Final, Resulted 12/09/17 Gram Stain Result 1 (ELISABETH) - Final, Resulted 12/09/17 Gram Stain Result 2 (ELISABETH) - Final, Resulted 12/09/17 Gram Stain Result 3 (ELISABETH) - Final, Resulted Medications Current Medications Ondansetron HCl (Zofran) 4 mg PRN Q6HRS PRN IV NAUSEA/VOMITING, 1ST CHOICE; Start 12/07/17 at 15:15 Prochlorperazine Edisylate (Compazine) 10 mg PRN Q6HRS PRN IV NAUSEA/VOMITING, 2ND CHOICE; Start 12/07/17 at 15:15 Prochlorperazine (Compazine) 25 mg PRN Q12HR PRN [place] NAUSEA/VOMITING; Start at 15:15 Al Hydroxide/Mg Hydroxide (Mylanta Plus Xs) 30 ml PRN Q3HRS PRN PO HEARTBURN / GAS; Start 12/07/17 at 15:15 Calcium Carbonate/ Glycine (Tums) 500 mg PRN Q3HRS PRN PO UPSET STOMACH; Start 12/07/17 at 15:15 Zolpidem Tartrate (Ambien) 5 mg PRN QHS PRN PO INSOMNIA, MAY REPEAT IN 1HR Last administered on 12/08/17at 20:44; Start 12/07/17 at 15:15 Oxycodone HCl (Roxicodone) 5 mg PRN Q3HRS PRN PO BREAKTHROUGH PAIN Last administered on 12/08/17at 17:20; Start 12/07/17 at 15:15 Acetaminophen (Tylenol) 650 mg PRN Q6HRS PRN PO Headaches, Temp > 101.5F; Start 12/07/17 at 15:15 Ibuprofen (Motrin) 400 mg PRN Q6HRS PRN PO MILD PAIN; Start 12/07/17 at 15:15 Magnesium Hydroxide (Milk Of Magnesia) 2,400 mg PRN Q12HR PRN PO CONSTIPATION, 1ST CHOICE; Start 12/07/17 at 15:15 Lactulose (Lactulose) 20 gm PRN Q12HR PRN PO CONSTIPATION, 2ND CHOICE; Start 12/07/17 at 15:15 Insulin Human Lispro (HumaLOG) 0-9 UNITS TIDWMEALS SQ ; Start 12/07/17 at 17:00 ; Stop 12/07/17 at 18:50; Status DC Dextrose (Dextrose 50%-Water Syringe) 12.5 gm PRN Q15MIN PRN IV SEE COMMENTS; Start 12/07/17 at 15:15 Fentanyl Citrate (Fentanyl 2ml Vial) 50 mcg PRN Q2HR PRN IV PAIN; Start at 15:15 Tramadol HCl (Ultram) 50 mg PRN Q6HRS PRN PO MOD TO SEVERE PAIN; Start at 15:15 Allopurinol (Zyloprim) 300 mg DAILY PO Last administered on 12/10/17at 08:48; Start 12/07/17 at 16:00 Lisinopril (Prinivil) 40 mg DAILY PO Last administered on 12/11/17at 09:15; Start 12/07/17 at 16:00 Metoprolol Tartrate (Lopressor) 100 mg BID PO Last administered on 12/11/17at 09:15; Start 12/07/17 at 21:00 Ranolazine (Ranexa) 500 mg BID PO Last administered on 12/11/17at 09:16; Start 12/07/17 at 21:00 Isosorbide Mononitrate (Imdur) 60 mg DAILY PO Last administered on 12/11/17at 09:14; Start 12/08/17 at 09:00 Pantoprazole Sodium (Protonix) 40 mg DAILYAC PO Last administered on at 08:50; Start 12/07/17 at 16:30 Labetalol HCl (Normodyne Iv Push) 10 mg PRN Q2HR PRN IVP HYPERTENSION, SEE COMMENTS; Start 12/07/17 at 15:30 Insulin Glargine (Lantus) 25 units QHS SQ ; Start 12/07/17 at 21:00; Stop at 21:00; Status DC Insulin Glargine (Lantus) 50 units DAILY SQ ; Start 12/08/17 at 09:00; Status Cancel Insulin Glargine (Lantus) 40 units QHS SQ ; Start 12/07/17 at 21:00; Status Cancel Insulin Human Isoph/Insulin Regular (HumuLIN 70/30) 50 units DAILY07 SQ Last administered on 12/08/17at 09:26; Start 12/08/17 at 07:00; Stop 12/10/17 at 04 :59; Status DC Insulin Human Isoph/Insulin Regular (HumuLIN 70/30) 40 units DAILY16 SQ Last administered on 12/09/17at 16:15; Start 12/08/17 at 16:00; Stop 12/09/17 at 18 :00; Status DC Sodium Chloride 1,000 ml @ 1,000 mls/hr 1X ONCE IV Last administered on 12/07at 21:36; Start 12/07/17 at 21:30; Stop 12/07/17 at 22:29; Status DC Sodium Chloride 1,000 ml @ 100 mls/hr Q10H IV Last administered on 12/09/17at 02:16; Start 12/07/17 at 22:30; Stop 12/09/17 at 08:18; Status DC Insulin Human Lispro (HumaLOG) 0-9 UNITS TIDWMEALS SQ Last administered on at 09:26; Start 12/08/17 at 12:00 Dextrose (Dextrose 50%-Water Syringe) 12.5 gm PRN Q15MIN PRN IV SEE COMMENTS; Start 12/08/17 at 08:30; Status UNV Vancomycin HCl (Vanco Per Pharmacy) 1 each PRN DAILY PRN MC SEE COMMENTS Last administered on 12/10/17at 13:52; Start 12/08/17 at 13:45 Piperacillin Sod/ Tazobactam Sod 3.375 gm/Sodium Chloride 50 ml @ 100 mls/hr Q6HRS IV ; Start 12/08/17 at 18:00; Status UNV Piperacillin Sod/ Tazobactam Sod 3.375 gm/Sodium Chloride 50 ml @ 100 mls/hr Q6HRS IV Last administered on 12/11/17at 05:08; Start 12/08/17 at 14:00 Vancomycin HCl 2 gm/Sodium Chloride 500 ml @ 250 mls/hr 1X ONCE IV Last administered on 12/08/17at 15:30; Start 12/08/17 at 14:30; Stop 12/08/17 at 16 :29; Status DC Vancomycin HCl 1.25 gm/Sodium Chloride 250 ml @ 167 mls/hr Q12H IV Last administered on 12/09/17at 16:06; Start 12/09/17 at 03:30; Stop 12/10/17 at 04 :45; Status DC Vancomycin HCl (Vancomycin Trough Level) 1 each 1X ONCE MC Last administered on 12/10/17at 03:00; Start 12/10/17 at 03:00; Stop 12/10/17 at 03:01; Status DC Lidocaine HCl 20 ml STK-MED ONCE .ROUTE ; Start 12/09/17 at 06:11; Stop at 07:11; Status DC Silver Sulfadiazine (Silvadene) 25 deb STK-MED ONCE TP ; Start 12/09/17 at 06: 11; Stop 12/09/17 at 07:11; Status DC Phenylephrine HCl (PHENYLEPHRINE in 0.9% NACL PF) 1 mg STK-MED ONCE IV ; Start 12/09/17 at 08:23; Stop 12/09/17 at 08:24; Status DC Dexamethasone Sodium Phosphate (Decadron) 20 mg STK-MED ONCE .ROUTE ; Start at 08:23; Stop 12/09/17 at 08:24; Status DC Ondansetron HCl (Zofran) 4 mg STK-MED ONCE .ROUTE ; Start 12/09/17 at 08:23; Stop 12/09/17 at 08:24; Status DC Lidocaine HCl (Lidocaine Pf 2% Vial) 5 ml STK-MED ONCE .ROUTE ; Start 12/09/17 at 08:23; Stop 12/09/17 at 08:24; Status DC Propofol 20 ml @ As Directed STK-MED ONCE IV ; Start 12/09/17 at 08:23; Stop 12/09/17 at 08:24; Status DC Sevoflurane (Ultane) 30 ml STK-MED ONCE IH ; Start 12/09/17 at 08:23; Stop at 08:24; Status DC Insulin Human Lispro (HumaLOG VIAL) 6 unit 1X ONCE SQ ; Start 12/09/17 at 09: 00; Stop 12/09/17 at 09:01; Status Cancel Insulin Human Lispro (HumaLOG VIAL) 4 unit 1X ONCE SQ Last administered on at 09:25; Start 12/09/17 at 09:30; Stop 12/09/17 at 09:31; Status DC Lactobacillus Rhamnosus (Culturelle) 1 cap BID PO Last administered on at 20:16; Start 12/09/17 at 21:00 Insulin Human Isoph/Insulin Regular (HumuLIN 70/30) 50 units DAILY16 SQ ; Start 12/10/17 at 16:00 Insulin Human Lispro (HumaLOG) 6 units 1X ONCE SQ Last administered on at 18:43; Start 12/09/17 at 18:00; Stop 12/09/17 at 18:20; Status DC Vancomycin HCl 1 gm/Sodium Chloride 250 ml @ 250 mls/hr Q12H IV Last administered on 12/11/17at 05:08; Start 12/10/17 at 05:00 Vancomycin HCl (Vancomycin Trough Level) 1 each 1X ONCE MC ; Start 12/11/17 at 16:30; Stop 12/11/17 at 16:31 Insulin Human Isoph/Insulin Regular (HumuLIN 70/30) 50 units DAILYWBKFT SQ Last administered on 12/10/17at 09:01; Start 12/10/17 at 08:00 Ascorbic Acid (Vitamin C) 500 mg DAILY PO ; Start 12/11/17 at 09:00 Multivitamins (Thera M Plus) 1 tab DAILY PO ; Start 12/11/17 at 09:00 Active Scripts Active Reported Ranexa (Ranolazine) 500 Mg Tab.er.12h 1 Tab PO BID Isosorbide Mononitrate Er (Isosorbide Mononitrate) 60 Mg Tab.er.24h 1 Tab PO DAILY Clopidogrel (Clopidogrel Bisulfate) 75 Mg Tablet 1 Tab PO DAILY Metoprolol Tartrate 50 Mg Tablet 100 Mg PO BID NEXT DOSE: 01/19/15 PM Aspir 81 (Aspirin) 81 Mg Tablet.dr 81 Mg PO DAILY NEXT DOSE: 01/20/15 AM Omeprazole 40 Mg Capsule.dr 40 Mg PO DAILY NEXT DOSE: 01/20/15 AM Allopurinol 300 Mg Tablet 300 Mg PO DAILY NEXT DOSE: 01/20/15 AM Lisinopril 40 Mg Tablet 40 Mg PO DAILY NEXT DOSE: 01/20/15 AM Vitals/I & O Vital Sign - Last 24 Hours 12/10/17 12/10/17 12/10/17 12/10/17 11:00 12:45 15:00 19:00 Temp 97.6 97.5 98.4 97.6 97.5 98.4 Pulse 83 83 89 85 Resp 18 20 18 B/P (MAP) 140/85 (103) 140/85 123/77 (92) 137/80 (99) Pulse Ox 98 96 95 O2 Delivery Room Air Room Air Room Air 12/10/17 12/10/17 12/10/17 12/10/17 20:00 20:16 20:17 23:00 Temp 97.9 97.9 Pulse 88 88 79 Resp 18 B/P (MAP) 133/69 133/69 140/79 (99) Pulse Ox 93 O2 Delivery Room Air Room Air 12/11/17 12/11/17 12/11/17 12/11/17 03:00 07:00 09:14 09:15 Temp 98.2 98.1 98.2 98.1 Pulse 81 83 83 83 Resp 18 20 B/P (MAP) 135/81 (99) 141/84 (103) 141/84 141/84 Pulse Ox 93 96 O2 Delivery Room Air Room Air 12/11/17 12/11/17 09:15 09:16 Pulse 83 83 B/P (MAP) 141/84 141/84 Intake and Output 12/10/17 12/10/17 12/11/17 15:00 23:00 07:00 Intake Total 480 ml 600 ml Output Total 400 ml 800 ml Balance 80 ml -200 ml CUONG PALACIOS APRN Dec 11, 2017 09:52
--- NOTE | 2017-12-11 10:21 | PDOC ---
Infectious Disease Note Subjective: Subjective Pt says is ok Some pain but is under control Denies N/V/SOA no fevers ROS: ROS Negative except for above. Vital Signs: Vital Signs Vital Signs Date Time Temp Pulse Resp B/P (MAP) Pulse Ox O2 Delivery O2 Flow Rate FiO2 12/11/17 09:16 83 141/84 12/11/17 07:00 98.1 20 96 Room Air 98.1 Physical Exam: PHYSICAL EXAM GENERAL: Propped up in bed, smiling, joking HEENT: Oral cavity: Pharynx pink. NECK: Supple. LUNGS: Clear to auscultation. HEART: S1 and S2. ABDOMEN: Nondistended. Bowel sounds active, soft, nontender. EXTREMITIES: wound vac in place rt foot some erythema around wound, BLE edema. No cyanosis SKIN: Warm without rash. NEUROLOGIC: Alert and oriented times 3. Medications: Inpatient Meds: Current Medications Medications (Trade) Dose Ordered Sig/Inna Start Time Stop Time Status Last Admin Dose Admin Acetaminophen (Tylenol) 650 mg PRN Q6HRS PRN 12/07/17 15:15 Al Hydroxide/Mg Hydroxide (Mylanta Plus Xs) 30 ml PRN Q3HRS PRN 12/07/17 15:15 Allopurinol (Zyloprim) 300 mg DAILY 12/07/17 16:00 12/10/17 08:48 300 MG Ascorbic Acid (Vitamin C) 500 mg DAILY 12/11/17 09:00 Calcium Carbonate/ Glycine (Tums) 500 mg PRN Q3HRS PRN 12/07/17 15:15 Dexamethasone Sodium Phosphate (Decadron) 20 mg STK-MED ONCE 12/09/17 08:23 12/09/17 08:24 DC Dextrose (Dextrose 50%-Water Syringe) 12.5 gm PRN Q15MIN PRN 12/08/17 08:30 UNV Fentanyl Citrate (Fentanyl 2ml Vial) 50 mcg PRN Q2HR PRN 12/07/17 15:15 Ibuprofen (Motrin) 400 mg PRN Q6HRS PRN 12/07/17 15:15 Insulin Glargine (Lantus) 40 units QHS 12/07/17 21:00 Cancel Insulin Human Isoph/Insulin Regular (HumuLIN 70/30) 50 units DAILYWBKFT 12/10/17 08:00 12/11/17 09:57 50 UNITS Insulin Human Lispro (HumaLOG VIAL) 4 unit 1X ONCE 12/09/17 09:30 12/09/17 09:31 DC 12/09/17 09:25 4 UNIT Insulin Human Lispro (HumaLOG) 6 units 1X ONCE 12/09/17 18:00 12/09/17 18:20 DC 12/09/17 18:43 6 UNITS Isosorbide Mononitrate (Imdur) 60 mg DAILY 12/08/17 09:00 12/11/17 09:14 60 MG Labetalol HCl (Normodyne Iv Push) 10 mg PRN Q2HR PRN 12/07/17 15:30 Lactobacillus Rhamnosus (Culturelle) 1 cap BID 12/09/17 21:00 12/10/17 20:16 1 CAP Lactulose (Lactulose) 20 gm PRN Q12HR PRN 12/07/17 15:15 Lidocaine HCl (Lidocaine Pf 2% Vial) 5 ml STK-MED ONCE 12/09/17 08:23 12/09/17 08:24 DC Lisinopril (Prinivil) 40 mg DAILY 12/07/17 16:00 12/11/17 09:15 40 MG Magnesium Hydroxide (Milk Of Magnesia) 2,400 mg PRN Q12HR PRN 12/07/17 15:15 Metoprolol Tartrate (Lopressor) 100 mg BID 12/07/17 21:00 12/11/17 09:15 100 MG Multivitamins (Thera M Plus) 1 tab DAILY 12/11/17 09:00 Ondansetron HCl (Zofran) 4 mg STK-MED ONCE 12/09/17 08:23 12/09/17 08:24 DC Oxycodone HCl (Roxicodone) 5 mg PRN Q3HRS PRN 12/07/17 15:15 12/08/17 17:20 5 MG Pantoprazole Sodium (Protonix) 40 mg DAILYAC 12/07/17 16:30 12/10/17 08:50 40 MG Phenylephrine HCl (PHENYLEPHRINE in 0.9% NACL PF) 1 mg STK-MED ONCE 12/09/17 08:23 12/09/17 08:24 DC Piperacillin Sod/ Tazobactam Sod 3.375 gm/Sodium Chloride 50 ml @ 100 mls/hr Q6HRS 12/08/17 14:00 12/11/17 05:08 100 MLS/HR Prochlorperazine (Compazine) 25 mg PRN Q12HR PRN 12/07/17 15:15 Prochlorperazine Edisylate (Compazine) 10 mg PRN Q6HRS PRN 12/07/17 15:15 Propofol 20 ml @ As Directed STK-MED ONCE 12/09/17 08:23 12/09/17 08:24 DC Ranolazine (Ranexa) 500 mg BID 12/07/17 21:00 12/11/17 09:16 500 MG Sevoflurane (Ultane) 30 ml STK-MED ONCE 12/09/17 08:23 12/09/17 08:24 DC Silver Sulfadiazine (Silvadene) 25 deb STK-MED ONCE 12/09/17 06:11 12/09/17 07:11 DC Sodium Chloride 1,000 ml @ 100 mls/hr Q10H 12/07/17 22:30 12/09/17 08:18 DC 12/09/17 02:16 100 MLS/HR Tramadol HCl (Ultram) 50 mg PRN Q6HRS PRN 12/07/17 15:15 Vancomycin HCl (Vanco Per Pharmacy) 1 each PRN DAILY PRN 12/08/17 13:45 12/10/17 13:52 1 EACH Vancomycin HCl (Vancomycin Trough Level) 1 each 1X ONCE 12/11/17 16:30 12/11/17 16:31 Vancomycin HCl 1.25 gm/Sodium Chloride 250 ml @ 167 mls/hr Q12H 12/09/17 03:30 12/10/17 04:45 DC 12/09/17 16:06 167 MLS/HR Vancomycin HCl 1 gm/Sodium Chloride 250 ml @ 250 mls/hr Q12H 12/10/17 05:00 12/11/17 05:08 250 MLS/HR Vancomycin HCl 2 gm/Sodium Chloride 500 ml @ 250 mls/hr 1X ONCE 12/08/17 14:30 12/08/17 16:29 DC 12/08/17 15:30 250 MLS/HR Zolpidem Tartrate (Ambien) 5 mg PRN QHS PRN 12/07/17 15:15 12/08/17 20:44 5 MG Labs: Lab Laboratory Tests Test 12/10/17 11:02 12/10/17 17:04 12/10/17 19:59 12/11/17 03:40 Glucose (Fingerstick) 147 mg/dL (70-99) 112 mg/dL (70-99) 145 mg/dL (70-99) White Blood Count 7.8 x10^3/uL (4.0-11.0) Red Blood Count 3.28 x10^6/uL (4.30-5.70) Hemoglobin 10.8 g/dL (13.0-17.5) Hematocrit 31.3 % (39.0-53.0) Mean Corpuscular Volume 95 fL (79-100) Mean Corpuscular Hemoglobin 33 pg (25-35) Mean Corpuscular Hemoglobin Concent 35 g/dL (31-37) Red Cell Distribution Width 14.7 % (11.5-14.5) Platelet Count 349 x10^3/uL (140-400) Neutrophils (%) (Auto) 72 % (31-73) Lymphocytes (%) (Auto) 19 % (24-48) Monocytes (%) (Auto) 7 % (0-9) Eosinophils (%) (Auto) 3 % (0-3) Basophils (%) (Auto) 0 % (0-3) Neutrophils # (Auto) 5.6 x10^3uL (1.8-7.7) Lymphocytes # (Auto) 1.5 x10^3/uL (1.0-4.8) Monocytes # (Auto) 0.5 x10^3/uL (0.0-1.1) Eosinophils # (Auto) 0.2 x10^3/uL (0.0-0.7) Basophils # (Auto) 0.0 x10^3/uL (0.0-0.2) Sodium Level 139 mmol/L (136-145) Potassium Level 4.1 mmol/L (3.5-5.1) Chloride Level 105 mmol/L (98-107) Carbon Dioxide Level 25 mmol/L (21-32) Anion Gap 9 (6-14) Blood Urea Nitrogen 14 mg/dL (8-26) Creatinine 1.1 mg/dL (0.7-1.3) Estimated GFR (Cockcroft-Gault) 68.3 Glucose Level 225 mg/dL (70-99) Calcium Level 8.7 mg/dL (8.5-10.1) Test 12/11/17 07:55 Glucose (Fingerstick) 289 mg/dL (70-99) Micro RUN DATE: 12/10/17 PAGE 1 RUN TIME: 612 [facility] [address] [place] [address] Arian Donato M.D., [employer] PATIENT: FACUNDO GRIFFIN ACCT: [id number] LOC: [address] [place] [address] U : [id number] AGE/SX: 62/M ROOM: [facility] REG : 12/07/[address]: SHAD CARRANZA MD : [id number] BED: 1 DIS : STATUS: ADM IN TLOC: SPEC #: [id number] ADDY: 12/09/17 STATUS: RES REQ #: [id number] RECD: 12/09/[address]: SHAD CARRANZA MD SOURCE: FOOT ENTR: 12/09/[address]: RICARDO ESCALANTE MD [facility]: ESTEFANÍA MAXWELL MD, JAROD J PA ORDERED: ANAER/AERCRISTINA/VINAY Procedure Result ANAEROBIC-AEROBIC CULTURE PENDING ANAEROBIC RES 1 PENDING AEROBIC CULT PENDING AEROBIC RES 1 PENDING GRAM STAIN Final Final report GRAM STAIN RES 1 Final Comment No white blood cells seen. GRAM STAIN RES 2 Final Comment Gram positive cocci in pairs and chains. Moderate seen GRAM STAIN RES 3 Final Comment Rare gram negative rods. Performed at: - [facility] [address] [place] [address] [address], [place], [place] [id number] [employer] Operator: LAINA Han MD, Phone: [phone] Objective: Assessment: Fever resolved Necrotic diabetic ulcer right heel. - MRI + osteo. - s/p debridement 12/[address] Rudolph. -Intra-op culturesGNR,GPC,ID and ELISABETH pending -ESR 105. Rt foot cellulitis Diabetes with neuropathy, poorly controlled CAD h/o MSSA toes s/p amputation Plan: Plan of Care Continue vanc and Zosyn Monitor labs/temp/renal function closely f/u cults vanc dose dec to 1 gm iv q12 as vanc trough 20.2 Anaerobic/aerobic culture right heel - pending cont local wound care with wound vac awaiting repeat I and D tomorrow ANA YANG MD Dec 11, 2017 10:21
[2017-12-11 11:00] VITALS: BP 126/77
--- NOTE | 2017-12-11 13:54 | PDOC ---
PROGRESS NOTES Chief Complaint Chief Complaint Right heel wound in a diabetic s/p i and d on 12/07 wound vac Diabetes type 1, hemoglobin A1c is 13 Hypertension, h/o CAD, CABG 2016, dyslipidemia-chronic stable plan: fu with id, vascular another i and tmr now on wound vac cont zosyn, vanco, fu wound cx now gram + and neg colt on NPH insulin bid, ssi dvt ppx add vitc, multiple vitamin for wound care talked to sister at bedside. History of Present Illness History of Present Illness He has no complaints ESR is 105 Blood sugars are better since adjustments of insulin Sunday I and D 12/10, 12/12 Vitals Vitals Vital Signs Date Time Temp Pulse Resp B/P (MAP) Pulse Ox O2 Delivery O2 Flow Rate FiO2 12/11/17 11:00 98.1 73 20 126/77 (93) 94 Room Air 98.1 Physical Exam Physical Exam GENERAL: Propped up in bed, smiling, joking HEENT: Oral cavity: Pharynx pink. NECK: Supple. LUNGS: Clear to auscultation. HEART: S1 and S2. ABDOMEN: Nondistended. Bowel sounds active, soft, nontender. EXTREMITIES: wound vac in place rt foot some erythema around wound, BLE edema. No cyanosis SKIN: Warm without rash. NEUROLOGIC: Alert and oriented times 3. General: Alert, Oriented X3, Cooperative, No acute distress Heart: Regular rate, Normal S1, Normal S2 Lungs: Clear Abdomen: Normal bowel sounds, Soft, No tenderness, No hepatosplenomegaly, No masses Extremities: No clubbing, No cyanosis, Normal pulses Skin: Other (rt heel wound, dry, some redness around the area, tender to touch , no oozing currently) Labs LABS Laboratory Tests Test 12/10/17 17:04 12/10/17 19:59 12/11/17 03:40 12/11/17 07:55 Glucose (Fingerstick) 112 mg/dL (70-99) 145 mg/dL (70-99) 289 mg/dL (70-99) White Blood Count 7.8 x10^3/uL (4.0-11.0) Red Blood Count 3.28 x10^6/uL (4.30-5.70) Hemoglobin 10.8 g/dL (13.0-17.5) Hematocrit 31.3 % (39.0-53.0) Mean Corpuscular Volume 95 fL (79-100) Mean Corpuscular Hemoglobin 33 pg (25-35) Mean Corpuscular Hemoglobin Concent 35 g/dL (31-37) Red Cell Distribution Width 14.7 % (11.5-14.5) Platelet Count 349 x10^3/uL (140-400) Neutrophils (%) (Auto) 72 % (31-73) Lymphocytes (%) (Auto) 19 % (24-48) Monocytes (%) (Auto) 7 % (0-9) Eosinophils (%) (Auto) 3 % (0-3) Basophils (%) (Auto) 0 % (0-3) Neutrophils # (Auto) 5.6 x10^3uL (1.8-7.7) Lymphocytes # (Auto) 1.5 x10^3/uL (1.0-4.8) Monocytes # (Auto) 0.5 x10^3/uL (0.0-1.1) Eosinophils # (Auto) 0.2 x10^3/uL (0.0-0.7) Basophils # (Auto) 0.0 x10^3/uL (0.0-0.2) Sodium Level 139 mmol/L (136-145) Potassium Level 4.1 mmol/L (3.5-5.1) Chloride Level 105 mmol/L (98-107) Carbon Dioxide Level 25 mmol/L (21-32) Anion Gap 9 (6-14) Blood Urea Nitrogen 14 mg/dL (8-26) Creatinine 1.1 mg/dL (0.7-1.3) Estimated GFR (Cockcroft-Gault) 68.3 Glucose Level 225 mg/dL (70-99) Calcium Level 8.7 mg/dL (8.5-10.1) Test 12/11/17 12:02 Glucose (Fingerstick) 230 mg/dL (70-99) Comment Review of Relevant I have reviewed the following items joana (where applicable) has been applied. Labs Laboratory Tests Test 12/09/17 16:11 12/09/17 17:40 12/09/17 21:29 12/10/17 03:00 Glucose (Fingerstick) 401 mg/dL (70-99) 368 mg/dL (70-99) 275 mg/dL (70-99) White Blood Count 8.8 x10^3/uL (4.0-11.0) Red Blood Count 3.31 x10^6/uL (4.30-5.70) Hemoglobin 11.1 g/dL (13.0-17.5) Hematocrit 31.5 % (39.0-53.0) Mean Corpuscular Volume 95 fL (79-100) Mean Corpuscular Hemoglobin 34 pg (25-35) Mean Corpuscular Hemoglobin Concent 35 g/dL (31-37) Red Cell Distribution Width 14.4 % (11.5-14.5) Platelet Count 345 x10^3/uL (140-400) Neutrophils (%) (Auto) 83 % (31-73) Lymphocytes (%) (Auto) 11 % (24-48) Monocytes (%) (Auto) 7 % (0-9) Eosinophils (%) (Auto) 0 % (0-3) Basophils (%) (Auto) 0 % (0-3) Neutrophils # (Auto) 7.3 x10^3uL (1.8-7.7) Lymphocytes # (Auto) 0.9 x10^3/uL (1.0-4.8) Monocytes # (Auto) 0.6 x10^3/uL (0.0-1.1) Eosinophils # (Auto) 0.0 x10^3/uL (0.0-0.7) Basophils # (Auto) 0.0 x10^3/uL (0.0-0.2) Creatinine 1.1 mg/dL (0.7-1.3) Estimated GFR (Cockcroft-Gault) 68.3 Vancomycin Level Trough 20.2 mcg/mL (10.0-20.0) Vancomycin Last Dose Date Vancomycin Last Dose Time Test 12/10/17 07:55 12/10/17 11:02 12/10/17 17:04 12/10/17 19:59 Glucose (Fingerstick) 134 mg/dL (70-99) 147 mg/dL (70-99) 112 mg/dL (70-99) 145 mg/dL (70-99) Test 12/11/17 03:40 12/11/17 07:55 12/11/17 12:02 White Blood Count 7.8 x10^3/uL (4.0-11.0) Red Blood Count 3.28 x10^6/uL (4.30-5.70) Hemoglobin 10.8 g/dL (13.0-17.5) Hematocrit 31.3 % (39.0-53.0) Mean Corpuscular Volume 95 fL (79-100) Mean Corpuscular Hemoglobin 33 pg (25-35) Mean Corpuscular Hemoglobin Concent 35 g/dL (31-37) Red Cell Distribution Width 14.7 % (11.5-14.5) Platelet Count 349 x10^3/uL (140-400) Neutrophils (%) (Auto) 72 % (31-73) Lymphocytes (%) (Auto) 19 % (24-48) Monocytes (%) (Auto) 7 % (0-9) Eosinophils (%) (Auto) 3 % (0-3) Basophils (%) (Auto) 0 % (0-3) Neutrophils # (Auto) 5.6 x10^3uL (1.8-7.7) Lymphocytes # (Auto) 1.5 x10^3/uL (1.0-4.8) Monocytes # (Auto) 0.5 x10^3/uL (0.0-1.1) Eosinophils # (Auto) 0.2 x10^3/uL (0.0-0.7) Basophils # (Auto) 0.0 x10^3/uL (0.0-0.2) Sodium Level 139 mmol/L (136-145) Potassium Level 4.1 mmol/L (3.5-5.1) Chloride Level 105 mmol/L (98-107) Carbon Dioxide Level 25 mmol/L (21-32) Anion Gap 9 (6-14) Blood Urea Nitrogen 14 mg/dL (8-26) Creatinine 1.1 mg/dL (0.7-1.3) Estimated GFR (Cockcroft-Gault) 68.3 Glucose Level 225 mg/dL (70-99) Calcium Level 8.7 mg/dL (8.5-10.1) Glucose (Fingerstick) 289 mg/dL (70-99) 230 mg/dL (70-99) Laboratory Tests Test 12/10/17 17:04 12/10/17 19:59 12/11/17 03:40 12/11/17 07:55 Glucose (Fingerstick) 112 mg/dL (70-99) 145 mg/dL (70-99) 289 mg/dL (70-99) White Blood Count 7.8 x10^3/uL (4.0-11.0) Red Blood Count 3.28 x10^6/uL (4.30-5.70) Hemoglobin 10.8 g/dL (13.0-17.5) Hematocrit 31.3 % (39.0-53.0) Mean Corpuscular Volume 95 fL (79-100) Mean Corpuscular Hemoglobin 33 pg (25-35) Mean Corpuscular Hemoglobin Concent 35 g/dL (31-37) Red Cell Distribution Width 14.7 % (11.5-14.5) Platelet Count 349 x10^3/uL (140-400) Neutrophils (%) (Auto) 72 % (31-73) Lymphocytes (%) (Auto) 19 % (24-48) Monocytes (%) (Auto) 7 % (0-9) Eosinophils (%) (Auto) 3 % (0-3) Basophils (%) (Auto) 0 % (0-3) Neutrophils # (Auto) 5.6 x10^3uL (1.8-7.7) Lymphocytes # (Auto) 1.5 x10^3/uL (1.0-4.8) Monocytes # (Auto) 0.5 x10^3/uL (0.0-1.1) Eosinophils # (Auto) 0.2 x10^3/uL (0.0-0.7) Basophils # (Auto) 0.0 x10^3/uL (0.0-0.2) Sodium Level 139 mmol/L (136-145) Potassium Level 4.1 mmol/L (3.5-5.1) Chloride Level 105 mmol/L (98-107) Carbon Dioxide Level 25 mmol/L (21-32) Anion Gap 9 (6-14) Blood Urea Nitrogen 14 mg/dL (8-26) Creatinine 1.1 mg/dL (0.7-1.3) Estimated GFR (Cockcroft-Gault) 68.3 Glucose Level 225 mg/dL (70-99) Calcium Level 8.7 mg/dL (8.5-10.1) Test 12/11/17 12:02 Glucose (Fingerstick) 230 mg/dL (70-99) Microbiology 12/08/17 Blood Culture - Preliminary, Resulted NO GROWTH AFTER 2 DAYS 12/09/17 Anaerobic/Aerobic Culture - Preliminary, Resulted 12/09/17 Anaerobic Culture Result 1 (ELISABETH) - Preliminary, Resulted 12/09/17 Aerobic Culture, Resulted Pending 12/09/17 Aerobic Culture Result 1 (ELISABETH), Resulted Pending 12/09/17 Gram Stain - Final, Resulted 12/09/17 Gram Stain Result 1 (ELISABETH) - Final, Resulted 12/09/17 Gram Stain Result 2 (ELISABETH) - Final, Resulted 12/09/17 Gram Stain Result 3 (ELISABETH) - Final, Resulted Medications Current Medications Ondansetron HCl (Zofran) 4 mg PRN Q6HRS PRN IV NAUSEA/VOMITING, 1ST CHOICE; Start 12/07/17 at 15:15 Prochlorperazine Edisylate (Compazine) 10 mg PRN Q6HRS PRN IV NAUSEA/VOMITING, 2ND CHOICE; Start 12/07/17 at 15:15 Prochlorperazine (Compazine) 25 mg PRN Q12HR PRN VT NAUSEA/VOMITING; Start at 15:15 Al Hydroxide/Mg Hydroxide (Mylanta Plus Xs) 30 ml PRN Q3HRS PRN PO HEARTBURN / GAS; Start 12/07/17 at 15:15 Calcium Carbonate/ Glycine (Tums) 500 mg PRN Q3HRS PRN PO UPSET STOMACH; Start 12/07/17 at 15:15 Zolpidem Tartrate (Ambien) 5 mg PRN QHS PRN PO INSOMNIA, MAY REPEAT IN 1HR Last administered on 12/08/17at 20:44; Start 12/07/17 at 15:15 Oxycodone HCl (Roxicodone) 5 mg PRN Q3HRS PRN PO BREAKTHROUGH PAIN Last administered on 12/08/17at 17:20; Start 12/07/17 at 15:15 Acetaminophen (Tylenol) 650 mg PRN Q6HRS PRN PO Headaches, Temp > 101.5F; Start 12/07/17 at 15:15 Ibuprofen (Motrin) 400 mg PRN Q6HRS PRN PO MILD PAIN; Start 12/07/17 at 15:15 Magnesium Hydroxide (Milk Of Magnesia) 2,400 mg PRN Q12HR PRN PO CONSTIPATION, 1ST CHOICE; Start 12/07/17 at 15:15 Lactulose (Lactulose) 20 gm PRN Q12HR PRN PO CONSTIPATION, 2ND CHOICE; Start 12/07/17 at 15:15 Insulin Human Lispro (HumaLOG) 0-9 UNITS TIDWMEALS SQ ; Start 12/07/17 at 17:00 ; Stop 12/07/17 at 18:50; Status DC Dextrose (Dextrose 50%-Water Syringe) 12.5 gm PRN Q15MIN PRN IV SEE COMMENTS; Start 12/07/17 at 15:15 Fentanyl Citrate (Fentanyl 2ml Vial) 50 mcg PRN Q2HR PRN IV PAIN; Start at 15:15 Tramadol HCl (Ultram) 50 mg PRN Q6HRS PRN PO MOD TO SEVERE PAIN; Start at 15:15 Allopurinol (Zyloprim) 300 mg DAILY PO Last administered on 12/11/17at 11:06; Start 12/07/17 at 16:00 Lisinopril (Prinivil) 40 mg DAILY PO Last administered on 12/11/17at 09:15; Start 12/07/17 at 16:00 Metoprolol Tartrate (Lopressor) 100 mg BID PO Last administered on 12/11/17at 09:15; Start 12/07/17 at 21:00 Ranolazine (Ranexa) 500 mg BID PO Last administered on 12/11/17at 09:16; Start 12/07/17 at 21:00 Isosorbide Mononitrate (Imdur) 60 mg DAILY PO Last administered on 12/11/17at 09:14; Start 12/08/17 at 09:00 Pantoprazole Sodium (Protonix) 40 mg DAILYAC PO Last administered on at 11:05; Start 12/07/17 at 16:30 Labetalol HCl (Normodyne Iv Push) 10 mg PRN Q2HR PRN IVP HYPERTENSION, SEE COMMENTS; Start 12/07/17 at 15:30 Insulin Glargine (Lantus) 25 units QHS SQ ; Start 12/07/17 at 21:00; Stop at 21:00; Status DC Insulin Glargine (Lantus) 50 units DAILY SQ ; Start 12/08/17 at 09:00; Status Cancel Insulin Glargine (Lantus) 40 units QHS SQ ; Start 12/07/17 at 21:00; Status Cancel Insulin Human Isoph/Insulin Regular (HumuLIN 70/30) 50 units DAILY07 SQ Last administered on 12/08/17at 09:26; Start 12/08/17 at 07:00; Stop 12/10/17 at 04 :59; Status DC Insulin Human Isoph/Insulin Regular (HumuLIN 70/30) 40 units DAILY16 SQ Last administered on 12/09/17at 16:15; Start 12/08/17 at 16:00; Stop 12/09/17 at 18 :00; Status DC Sodium Chloride 1,000 ml @ 1,000 mls/hr 1X ONCE IV Last administered on 12/07at 21:36; Start 12/07/17 at 21:30; Stop 12/07/17 at 22:29; Status DC Sodium Chloride 1,000 ml @ 100 mls/hr Q10H IV Last administered on 12/09/17at 02:16; Start 12/07/17 at 22:30; Stop 12/09/17 at 08:18; Status DC Insulin Human Lispro (HumaLOG) 0-9 UNITS TIDWMEALS SQ Last administered on at 12:14; Start 12/08/17 at 12:00 Dextrose (Dextrose 50%-Water Syringe) 12.5 gm PRN Q15MIN PRN IV SEE COMMENTS; Start 12/08/17 at 08:30; Status UNV Vancomycin HCl (Vanco Per Pharmacy) 1 each PRN DAILY PRN MC SEE COMMENTS Last administered on 12/10/17at 13:52; Start 12/08/17 at 13:45 Piperacillin Sod/ Tazobactam Sod 3.375 gm/Sodium Chloride 50 ml @ 100 mls/hr Q6HRS IV ; Start 12/08/17 at 18:00; Status UNV Piperacillin Sod/ Tazobactam Sod 3.375 gm/Sodium Chloride 50 ml @ 100 mls/hr Q6HRS IV Last administered on 12/11/17at 11:07; Start 12/08/17 at 14:00 Vancomycin HCl 2 gm/Sodium Chloride 500 ml @ 250 mls/hr 1X ONCE IV Last administered on 12/08/17at 15:30; Start 12/08/17 at 14:30; Stop 12/08/17 at 16 :29; Status DC Vancomycin HCl 1.25 gm/Sodium Chloride 250 ml @ 167 mls/hr Q12H IV Last administered on 12/09/17at 16:06; Start 12/09/17 at 03:30; Stop 12/10/17 at 04 :45; Status DC Vancomycin HCl (Vancomycin Trough Level) 1 each 1X ONCE MC Last administered on 12/10/17at 03:00; Start 12/10/17 at 03:00; Stop 12/10/17 at 03:01; Status DC Lidocaine HCl 20 ml STK-MED ONCE .ROUTE ; Start 12/09/17 at 06:11; Stop at 07:11; Status DC Silver Sulfadiazine (Silvadene) 25 deb STK-MED ONCE TP ; Start 12/09/17 at 06: 11; Stop 12/09/17 at 07:11; Status DC Phenylephrine HCl (PHENYLEPHRINE in 0.9% NACL PF) 1 mg STK-MED ONCE IV ; Start 12/09/17 at 08:23; Stop 12/09/17 at 08:24; Status DC Dexamethasone Sodium Phosphate (Decadron) 20 mg STK-MED ONCE .ROUTE ; Start at 08:23; Stop 12/09/17 at 08:24; Status DC Ondansetron HCl (Zofran) 4 mg STK-MED ONCE .ROUTE ; Start 12/09/17 at 08:23; Stop 12/09/17 at 08:24; Status DC Lidocaine HCl (Lidocaine Pf 2% Vial) 5 ml STK-MED ONCE .ROUTE ; Start 12/09/17 at 08:23; Stop 12/09/17 at 08:24; Status DC Propofol 20 ml @ As Directed STK-MED ONCE IV ; Start 12/09/17 at 08:23; Stop 12/09/17 at 08:24; Status DC Sevoflurane (Ultane) 30 ml STK-MED ONCE IH ; Start 12/09/17 at 08:23; Stop at 08:24; Status DC Insulin Human Lispro (HumaLOG VIAL) 6 unit 1X ONCE SQ ; Start 12/09/17 at 09: 00; Stop 12/09/17 at 09:01; Status Cancel Insulin Human Lispro (HumaLOG VIAL) 4 unit 1X ONCE SQ Last administered on at 09:25; Start 12/09/17 at 09:30; Stop 12/09/17 at 09:31; Status DC Lactobacillus Rhamnosus (Culturelle) 1 cap BID PO Last administered on at 11:05; Start 12/09/17 at 21:00 Insulin Human Isoph/Insulin Regular (HumuLIN 70/30) 50 units DAILY16 SQ ; Start 12/10/17 at 16:00 Insulin Human Lispro (HumaLOG) 6 units 1X ONCE SQ Last administered on at 18:43; Start 12/09/17 at 18:00; Stop 12/09/17 at 18:20; Status DC Vancomycin HCl 1 gm/Sodium Chloride 250 ml @ 250 mls/hr Q12H IV Last administered on 12/11/17at 05:08; Start 12/10/17 at 05:00 Vancomycin HCl (Vancomycin Trough Level) 1 each 1X ONCE MC ; Start 12/11/17 at 16:30; Stop 12/11/17 at 16:31 Insulin Human Isoph/Insulin Regular (HumuLIN 70/30) 50 units DAILYWBKFT SQ Last administered on 12/11/17at 09:57; Start 12/10/17 at 08:00 Ascorbic Acid (Vitamin C) 500 mg DAILY PO Last administered on 12/11/17at 11:06 ; Start 12/11/17 at 09:00 Multivitamins (Thera M Plus) 1 tab DAILY PO Last administered on 12/11/17at 11: 06; Start 12/11/17 at 09:00 Active Scripts Active Reported Ranexa (Ranolazine) 500 Mg Tab.er.12h 1 Tab PO BID Isosorbide Mononitrate Er (Isosorbide Mononitrate) 60 Mg Tab.er.24h 1 Tab PO DAILY Clopidogrel (Clopidogrel Bisulfate) 75 Mg Tablet 1 Tab PO DAILY Metoprolol Tartrate 50 Mg Tablet 100 Mg PO BID NEXT DOSE: 01/19/15 PM Aspir 81 (Aspirin) 81 Mg Tablet.dr 81 Mg PO DAILY NEXT DOSE: 01/20/15 AM Omeprazole 40 Mg Capsule.dr 40 Mg PO DAILY NEXT DOSE: 01/20/15 AM Allopurinol 300 Mg Tablet 300 Mg PO DAILY NEXT DOSE: 01/20/15 AM Lisinopril 40 Mg Tablet 40 Mg PO DAILY NEXT DOSE: 01/20/15 AM Vitals/I & O Vital Sign - Last 24 Hours 12/10/17 12/10/17 12/10/17 12/10/17 15:00 19:00 20:00 20:16 Temp 97.5 98.4 97.5 98.4 Pulse 89 85 88 Resp 20 18 B/P (MAP) 123/77 (92) 137/80 (99) 133/69 Pulse Ox 96 95 O2 Delivery Room Air Room Air Room Air 12/10/17 12/10/17 12/11/17 12/11/17 20:17 23:00 03:00 07:00 Temp 97.9 98.2 98.1 97.9 98.2 98.1 Pulse 88 79 81 83 Resp 18 18 20 B/P (MAP) 133/69 140/79 (99) 135/81 (99) 141/84 (103) Pulse Ox 93 93 96 O2 Delivery Room Air Room Air Room Air 12/11/17 12/11/17 12/11/17 12/11/17 09:14 09:15 09:15 09:16 Pulse 83 83 83 83 B/P (MAP) 141/84 141/84 141/84 141/84 12/11/17 11:00 Temp 98.1 98.1 Pulse 73 Resp 20 B/P (MAP) 126/77 (93) Pulse Ox 94 O2 Delivery Room Air Intake and Output 12/10/17 12/10/17 12/11/17 15:00 23:00 07:00 Intake Total 480 ml 600 ml Output Total 400 ml 800 ml Balance 80 ml -200 ml CARLOS MANUEL MARTINES MD Dec 11, 2017 13:54
[2017-12-11 15:00] VITALS: BP 101/54
[2017-12-11 16:55] LABS: VANC TR 19.2 mcg/mL (10.0-20.0)
[2017-12-11 19:00] VITALS: BP 135/80
[2017-12-11] MEDS: VANCOMYCIN PER PHARMACY MC PRN (19:09)
[2017-12-11] MEDS: ZOLPIDEM 5 MG TABLET. PO PRN (20:40)
[2017-12-11] MEDS: oxyCODONE IR 5 MG TABLET PO PRN (20:41)
[2017-12-11 23:00] VITALS: BP 102/56
[2017-12-12] VITALS (10 sets, daily range): BP systolic 107–149; BP diastolic 59–89
[2017-12-12] MEDS: VANCOMYCIN 1 GM in IV NORMAL SALINE 250ML 250 ML IV SCH (04:17)
[2017-12-12] MEDS: PIPERACILLIN/TAZOBACTAM 3.375 GM in IV NORMAL SALINE 50ML 50 ML IV SCH ×3 (05:30→18:06)
[2017-12-12 06:18] LABS: BASO % 0 % (0-3); EOS # 0.2 x10^3/uL (0.0-0.7); EOS % 2 % (0-3); HEMATOCRIT 30.9 % (39.0-53.0); HEMOGLOBIN 10.7 g/dL (13.0-17.5); LYMPH # 1.2 x10^3/uL (1.0-4.8); LYMPH % 14 % (24-48); MEAN CORPUSCULAR HEMOGLOBIN 33 pg (25-35); MEAN CORPUSCULAR HGB CONC 35 g/dL (31-37); MEAN CORPUSCULAR VOLUME 95 fL (79-100); MONO # 0.7 x10^3/uL (0.0-1.1); MONO % 8 % (0-9); NEUT # 6.4 x10^3uL (1.8-7.7); NEUT % 75 % (31-73); PLATELET COUNT 355 x10^3/uL (140-400); RED BLOOD COUNT 3.25 x10^6/uL (4.30-5.70); RED CELL DISTRIBUTION WIDTH 14.4 % (11.5-14.5); WHITE BLOOD COUNT 8.5 x10^3/uL (4.0-11.0)
[2017-12-12 06:35] LABS: CALCIUM 8.5 mg/dL (8.5-10.1); CREATININE 1.4 mg/dL (0.7-1.3); GFR 51.7
[2017-12-12] MEDS ORDERED: LIDOCAINE 1% PF 2 ML VIAL. ID PRN (07:00)
[2017-12-12] MEDS ORDERED: fentaNYL PF VIAL 100 MCG/2 ML VIAL IV PRN ×2 (07:00)
[2017-12-12] MEDS ORDERED: PROCHLORPERAZINE 10 MG/2 ML VIAL. IV PRN (07:00)
[2017-12-12] MEDS ORDERED: ONDANSETRON PF 4 MG/2 ML VIAL. IV PRN (07:00)
[2017-12-12] MEDS ORDERED: IV RINGERS,LACTATED 1000ML 1,000 ML IV SCH (07:00)
[2017-12-12] MEDS: PANTOPRAZOLE 40 MG TABLET.DR. PO SCH (07:30)
[2017-12-12] MEDS: INSULIN NPH/REG INSULIN 70/30 300 UNITS/3 ML INSULN.PEN. SQ SCH ×2 (08:00→18:16)
[2017-12-12] MEDS: LACTOBACILLUS RHAMNOSUS GG 1 CAPSULE. PO SCH ×2 (08:36→21:42)
[2017-12-12] MEDS: ASCORBIC ACID 500 MG TABLET PO SCH (08:36)
[2017-12-12] MEDS: MULTIVITAMIN with MINERAL TABLET. PO SCH (08:36)
[2017-12-12] MEDS: ALLOPURINOL 300 MG TABLET. PO SCH (08:37)
[2017-12-12] MEDS: ISOSORBIDE MONONITRATE ER 30 MG TAB.ER.24H PO SCH (08:39)
[2017-12-12] MEDS: METOPROLOL TART IMMED RELEASE 50 MG TABLET. PO SCH ×2 (08:40→21:43)
[2017-12-12] MEDS: LISINOPRIL 20 MG TABLET PO SCH (08:41)
[2017-12-12] MEDS: RANOLAZINE 500 MG TAB.ER.12H PO SCH ×2 (08:42→21:42)
[2017-12-12] MEDS: INSULIN LISPRO 300 UNITS/3 ML INSULN.PEN. SQ SCH ×3 (08:50→18:17)
--- NOTE | 2017-12-12 10:26 | PDOC ---
Infectious Disease Note Subjective: Subjective Pt says is ok has more redness of the RT heel area today awaiting repeat I and D Some pain but is under control Denies N/V/SOA/D no fevers ROS: ROS Negative except for above. Vital Signs: Vital Signs Vital Signs Date Time Temp Pulse Resp B/P (MAP) Pulse Ox O2 Delivery O2 Flow Rate FiO2 12/12/17 08:42 89 125/76 12/12/17 07:00 98.8 20 96 Room Air 98.8 12/11/17 21:43 10.0 Physical Exam: PHYSICAL EXAM GENERAL: Propped up in bed, smiling, joking HEENT: Oral cavity: Pharynx pink. NECK: Supple. LUNGS: Clear to auscultation. HEART: S1 and S2. ABDOMEN: Nondistended. Bowel sounds active, soft, nontender. EXTREMITIES: wound vac in place rt foot some erythema around wound, BLE edema. No cyanosis SKIN: Warm without rash. NEUROLOGIC: Alert and oriented times 3. Medications: Inpatient Meds: Current Medications Medications (Trade) Dose Ordered Sig/Inna Start Time Stop Time Status Last Admin Dose Admin Acetaminophen (Tylenol) 650 mg PRN Q6HRS PRN 12/07/17 15:15 Al Hydroxide/Mg Hydroxide (Mylanta Plus Xs) 30 ml PRN Q3HRS PRN 12/07/17 15:15 Allopurinol (Zyloprim) 300 mg DAILY 12/07/17 16:00 12/11/17 11:06 300 MG Ascorbic Acid (Vitamin C) 500 mg DAILY 12/11/17 09:00 12/11/17 11:06 500 MG Calcium Carbonate/ Glycine (Tums) 500 mg PRN Q3HRS PRN 12/07/17 15:15 Dexamethasone Sodium Phosphate (Decadron) 20 mg STK-MED ONCE 12/09/17 08:23 12/09/17 08:24 DC Dextrose (Dextrose 50%-Water Syringe) 12.5 gm PRN Q15MIN PRN 12/08/17 08:30 UNV Fentanyl Citrate (Fentanyl 2ml Vial) 50 mcg PRN Q5MIN PRN 12/12/17 07:00 12/13/17 06:59 Ibuprofen (Motrin) 400 mg PRN Q6HRS PRN 12/07/17 15:15 Insulin Glargine (Lantus) 40 units QHS 10/26/18 21:00 Cancel Insulin Human Isoph/Insulin Regular (HumuLIN 70/30) 50 units DAILYWBKFT 12/10/17 08:00 12/11/17 09:57 50 UNITS Insulin Human Lispro (HumaLOG VIAL) 4 unit 1X ONCE 12/09/17 09:30 12/09/17 09:31 DC 12/09/17 09:25 4 UNIT Insulin Human Lispro (HumaLOG) 6 units 1X ONCE 12/09/17 18:00 12/09/17 18:20 DC 12/09/17 18:43 6 UNITS Isosorbide Mononitrate (Imdur) 60 mg DAILY 12/08/17 09:00 12/12/17 08:39 60 MG Labetalol HCl (Normodyne Iv Push) 10 mg PRN Q2HR PRN 12/07/17 15:30 Lactobacillus Rhamnosus (Culturelle) 1 cap BID 12/09/17 21:00 12/11/17 20:41 1 CAP Lactulose (Lactulose) 20 gm PRN Q12HR PRN 12/07/17 15:15 Lidocaine HCl (Lidocaine Pf 2% Vial) 5 ml STK-MED ONCE 12/09/17 08:23 12/09/17 08:24 DC Lidocaine HCl (Xylocaine-Mpf 1% 2ml Vial) 2 ml PRN 1X PRN 12/12/17 07:00 12/13/17 06:59 Lisinopril (Prinivil) 40 mg DAILY 12/07/17 16:00 12/12/17 08:41 40 MG Magnesium Hydroxide (Milk Of Magnesia) 2,400 mg PRN Q12HR PRN 12/07/17 15:15 Metoprolol Tartrate (Lopressor) 100 mg BID 12/07/17 21:00 12/12/17 08:40 100 MG Multivitamins (Thera M Plus) 1 tab DAILY 12/11/17 09:00 12/11/17 11:06 1 TAB Ondansetron HCl (Zofran) 4 mg PRN Q6HRS PRN 12/12/17 07:00 12/13/17 06:59 Oxycodone HCl (Roxicodone) 5 mg PRN Q3HRS PRN 12/07/17 15:15 12/11/17 20:41 5 MG Pantoprazole Sodium (Protonix) 40 mg DAILYAC 12/07/17 16:30 12/11/17 11:05 40 MG Phenylephrine HCl (PHENYLEPHRINE in 0.9% NACL PF) 1 mg STK-MED ONCE 12/09/17 08:23 12/09/17 08:24 DC Piperacillin Sod/ Tazobactam Sod 3.375 gm/Sodium Chloride 50 ml @ 100 mls/hr Q6HRS 12/08/17 14:00 12/12/17 05:30 100 MLS/HR Prochlorperazine (Compazine) 25 mg PRN Q12HR PRN 12/07/17 15:15 Prochlorperazine Edisylate (Compazine) 5 mg PACU PRN PRN 12/12/17 07:00 12/13/17 06:59 Propofol 20 ml @ As Directed STK-MED ONCE 12/09/17 08:23 12/09/17 08:24 DC Ranolazine (Ranexa) 500 mg BID 12/07/17 21:00 12/12/17 08:42 500 MG Ringer's Solution 1,000 ml @ 30 mls/hr Q24H 12/12/17 07:00 12/12/17 18:59 Sevoflurane (Ultane) 30 ml STK-MED ONCE 12/09/17 08:23 12/09/17 08:24 DC Silver Sulfadiazine (Silvadene) 25 deb STK-MED ONCE 12/09/17 06:11 12/09/17 07:11 DC Sodium Chloride 1,000 ml @ 100 mls/hr Q10H 12/07/17 22:30 12/09/17 08:18 DC 12/09/17 02:16 100 MLS/HR Tramadol HCl (Ultram) 50 mg PRN Q6HRS PRN 12/07/17 15:15 Vancomycin HCl (Vanco Per Pharmacy) 1 each PRN DAILY PRN 12/08/17 13:45 12/11/17 19:09 1 EACH Vancomycin HCl (Vancomycin Trough Level) 1 each 1X ONCE 12/11/17 16:30 12/11/17 16:31 DC Vancomycin HCl 1.25 gm/Sodium Chloride 250 ml @ 167 mls/hr Q12H 12/09/17 03:30 12/10/17 04:45 DC 12/09/17 16:06 167 MLS/HR Vancomycin HCl 1 gm/Sodium Chloride 250 ml @ 250 mls/hr Q12H 12/10/17 05:00 12/12/17 04:17 250 MLS/HR Vancomycin HCl 2 gm/Sodium Chloride 500 ml @ 250 mls/hr 1X ONCE 12/08/17 14:30 12/08/17 16:29 DC 12/08/17 15:30 250 MLS/HR Zolpidem Tartrate (Ambien) 5 mg PRN QHS PRN 12/07/17 15:15 12/11/17 20:40 5 MG Labs: Lab Laboratory Tests Test 12/11/17 12:02 12/11/17 16:25 12/11/17 16:47 12/11/17 20:46 Glucose (Fingerstick) 230 mg/dL (70-99) 128 mg/dL (70-99) 68 mg/dL (70-99) Vancomycin Level Trough 19.2 mcg/mL (10.0-20.0) Vancomycin Last Dose Date 12/11/17 Vancomycin Last Dose Time 0500 Test 12/11/17 22:03 12/12/17 05:00 12/12/17 08:37 Glucose (Fingerstick) 106 mg/dL (70-99) 255 mg/dL (70-99) White Blood Count 8.5 x10^3/uL (4.0-11.0) Red Blood Count 3.25 x10^6/uL (4.30-5.70) Hemoglobin 10.7 g/dL (13.0-17.5) Hematocrit 30.9 % (39.0-53.0) Mean Corpuscular Volume 95 fL (79-100) Mean Corpuscular Hemoglobin 33 pg (25-35) Mean Corpuscular Hemoglobin Concent 35 g/dL (31-37) Red Cell Distribution Width 14.4 % (11.5-14.5) Platelet Count 355 x10^3/uL (140-400) Neutrophils (%) (Auto) 75 % (31-73) Lymphocytes (%) (Auto) 14 % (24-48) Monocytes (%) (Auto) 8 % (0-9) Eosinophils (%) (Auto) 2 % (0-3) Basophils (%) (Auto) 0 % (0-3) Neutrophils # (Auto) 6.4 x10^3uL (1.8-7.7) Lymphocytes # (Auto) 1.2 x10^3/uL (1.0-4.8) Monocytes # (Auto) 0.7 x10^3/uL (0.0-1.1) Eosinophils # (Auto) 0.2 x10^3/uL (0.0-0.7) Basophils # (Auto) 0.0 x10^3/uL (0.0-0.2) Sodium Level 142 mmol/L (136-145) Potassium Level 4.0 mmol/L (3.5-5.1) Chloride Level 106 mmol/L (98-107) Carbon Dioxide Level 26 mmol/L (21-32) Anion Gap 10 (6-14) Blood Urea Nitrogen 16 mg/dL (8-26) Creatinine 1.4 mg/dL (0.7-1.3) Estimated GFR (Cockcroft-Gault) 51.7 Glucose Level 168 mg/dL (70-99) Calcium Level 8.5 mg/dL (8.5-10.1) Micro RUN DATE: 12/12/17 PAGE 1 RUN TIME: 928 [facility] [address] [place] [address] Arian Donato M.D., [employer] PATIENT: FACUNDO GRIFFIN ACCT: [id number] LOC: [address] [place] [address] U : [id number] AGE/SX: 62/M ROOM: 519 REG : 12/07/[address]: SHAD CARRANZA MD : 1955 BED: 1 DIS : STATUS: ADM IN TLOC: SPEC #: [id number] ADDY: 12/09/17 STATUS: RES REQ #: [id number] RECD: 12/09/[address] [facility] [address]: SHAD CARRANZA MD SOURCE: FOOT ENTR: 12/09/[address] [facility] [address]: RICARDO ESCALANTE MD [facility]: ESTEFANÍA MAXWELL MD, JAROD J PA ORDERED: ANAER/AEROB/GS Procedure Result ANAEROBIC-AEROBIC CULTURE Preliminary Preliminary report ANAEROBIC RES 1 Preliminary Comment No anaerobes recovered in 24 hours. AEROBIC CULT Final Final report AEROBIC RES 1 Final Klebsiella pneumoniae 4+ REFER SENSITIVITY FROM [phone] AEROBIC RES 2 Final Enterococcus faecalis 4+ AEROBIC RES 3 Final Escherichia coli 4+ GRAM STAIN Final Final report GRAM STAIN RES 1 Final Comment No white blood cells seen. CONTINUED ON NEXT PAGE RUN DATE: 12/12/17 PAGE 2 RUN TIME: 928 [facility] [address] [place] [address] Arian Donato M.D., [employer] SPEC: [id number] PATIENT: FACUNDO GRIFFIN [id number] ( Continued) Procedure Result GRAM STAIN RES 2 Final Comment Gram positive cocci in pairs and chains. Moderate seen GRAM STAIN RES 3 Final Comment Rare gram negative rods. Performed at: - [address], [place], [place] [id number] [employer] Instructor: LAINA Han MD, Phone: [phone] RUN DATE: 12/12/17 PAGE 1 RUN TIME: 928 [facility] [address] [place] [address] Arian Donato M.D., [employer] PATIENT: FACUNDO GRIFFIN ACCT: [id number] LOC: [address] [place] [address] U : [id number] AGE/SX: 62/M ROOM: [facility] REG : 12/07/[address]: SHAD CARRANZA MD : 1955 BED: 1 DIS : STATUS: ADM IN TLOC: SPEC #: [id number] ADDY: 12/08/17 STATUS: RES REQ #: [id number] RECD: 12/08/[address]: STELLA DALAL APRN SOURCE: FOOT ENTR: 12/08/[address]: RICARDO ESCALANTE MD [facility]: ESTEFANÍA RENNER MD, JAROD J PA TERMULO, CHERRIE Y MD ORDERED: ANAER/AERCRISTINA/GS Procedure Result ANAEROBIC-AEROBIC CULTURE Preliminary Preliminary report ANAEROBIC RES 1 Preliminary Comment No anaerobes recovered in 24 hours. AEROBIC CULT Final Final report AEROBIC RES 1 Final Klebsiella pneumoniae 4+ AEROBIC RES 2 Final Enterococcus faecalis 4+ AEROBIC RES 3 Final Escherichia coli 4+ Susceptibility profile is consistent with a probable ESBL. ANTIMICROBIAL SUSCEPTIBILITY Final Comment S = Susceptible; I = Intermediate; R = Resistant P = Positive; N = Negative MICS are expressed in micrograms per mL Antibiotic RSLT#1 RSLT#2 RSLT#3 RSLT#4 Amoxicillin/Clavulanic Acid S<=2 S<=2 Ampicillin R>=32 S =4 Cefepime S<=0.12 I =4 CONTINUED ON NEXT PAGE RUN DATE: 12/12/17 PAGE 2 RUN TIME: 928 [facility] [address] [place] [address] Arian Donato M.D., [employer] SPEC: [id number] PATIENT: FACUNDO GRIFFIN [id number] ( Continued) Procedure Result ANTIMICROBIAL SUSCEPTIBILITY Final (continued) Ceftriaxone S<=0.25 R =8 Cefuroxime S =2 S =4 Ciprofloxacin S<=0.25 S<=0.25 Ertapenem S<=0.12 Gentamicin S<=1 S<=1 Imipenem S<=0.25 S<=0.25 Levofloxacin S<=0.12 S =0.5 Meropenem S<=0.25 S =1 Penicillin S =2 Piperacillin/Tazobactam S<=4 S<=4 Tetracycline S<=1 S<=1 Tobramycin S<=1 S<=1 Trimethoprim/Sulfa S<=20 S<=20 Vancomycin S =1 GRAM STAIN Final Final report GRAM STAIN RES 1 Final Comment No white blood cells seen. GRAM STAIN RES 2 Final Comment Many gram positive cocci in pairs GRAM STAIN RES 3 Final Comment Rare gram negative rods. Performed at: - [facility], [place], [place] [id number] [employer] In[employer]: LAINA Han MD, Phone: [phone] Objective: Assessment: Fever resolved Necrotic diabetic ulcer right heel. - MRI + osteo. - s/p debridement 12/[address] Rudolph. -Intra-op cultures e coli, klebsiella, enterococcus amp sensitive -ESR 105. Rt foot cellulitis Diabetes with neuropathy, poorly controlled CAD h/o MSSA toes s/p amputation THERESA creat is 1.4 today,Vanc trough 19 Plan: Plan of Care Concern is for erythema around foot nerissa the heel Continue Zosyn DC IV Vanc Zyvox for a couple of days Monitor labs/temp/renal function closely awaiting I and D today cont local wound care with wound vac Heel OM are ususally difficult to treat, d/w pt D/W Sister at bedside ANA YANG MD Dec 12, 2017 10:26
[2017-12-12] MEDS ORDERED: silver sulfADIAZINE 1% CREAM 25GM TUBE. TP ONE (12:09)
[2017-12-12] MEDS ORDERED: LIDOCAINE 1% 20 ML VIAL. ONE (12:09)
--- NOTE | 2017-12-12 13:22 | PDOC ---
Provider Note Provider Note He has persistent erythema of the right heel with open ulcer. Plan to return to the OR today for further debridement including possible debridement of the calcaneous. Discussed risks and benefits with him. He acknowledged and elects to proceed. RASHEL SHARMA MD Dec 12, 2017 13:22
[2017-12-12] MEDS ORDERED: PROPOFOL 20 ML IV ONE (13:35)
[2017-12-12] MEDS ORDERED: fentaNYL PF VIAL 100 MCG/2 ML VIAL ONE (13:36)
[2017-12-12] MEDS ORDERED: MIDAZOLAM HCL/PF 2 MG/2 ML VIAL. ONE (13:36)
[2017-12-12] MEDS ORDERED: KETAMINE HCL 50 MG/5 ML SYRINGE ONE (13:36)
--- NOTE | 2017-12-12 14:03 | PDOC ---
PROGRESS NOTES Chief Complaint Chief Complaint Right heel wound in a diabetic s/p i and d on 12/07 wound vac. i and d 12/12 Diabetes type 1, hemoglobin A1c is 13 Hypertension, h/o CAD, CABG 2016, dyslipidemia-chronic stable plan: fu with id, vascular another i and D today now on wound vac cont zosyn, dc vanco, on zyvox today fu wound cx + multiple bacteria on NPH insulin bid, ssi dvt ppx add vitc, multiple vitamin for wound care talked to sister at bedside. History of Present Illness History of Present Illness He has no complaints ESR is 105 Blood sugars are better since adjustments of insulin Sunday I and D 12/10, 12/12. more redness today around the heel wound Vitals Vitals Vital Signs Date Time Temp Pulse Resp B/P (MAP) Pulse Ox O2 Delivery O2 Flow Rate FiO2 12/12/17 12:46 98.5 82 15 143/76 95 Room Air 98.5 12/11/17 21:43 10.0 Physical Exam Physical Exam GENERAL: Propped up in bed, smiling, joking HEENT: Oral cavity: Pharynx pink. NECK: Supple. LUNGS: Clear to auscultation. HEART: S1 and S2. ABDOMEN: Nondistended. Bowel sounds active, soft, nontender. EXTREMITIES: wound vac in place rt foot some erythema around wound, BLE edema. No cyanosis SKIN: Warm without rash. NEUROLOGIC: Alert and oriented times 3. General: Alert, Oriented X3, Cooperative, No acute distress Heart: Regular rate, Normal S1, Normal S2 Lungs: Clear Abdomen: Normal bowel sounds, Soft, No tenderness, No hepatosplenomegaly, No masses Extremities: No clubbing, No cyanosis, Normal pulses Skin: Other (rt heel wound, dry, some redness around the area, tender to touch , no oozing currently) Labs LABS Laboratory Tests Test 12/11/17 16:25 12/11/17 16:47 12/11/17 20:46 12/11/17 22:03 Vancomycin Level Trough 19.2 mcg/mL (10.0-20.0) Vancomycin Last Dose Date 12/11/17 Vancomycin Last Dose Time 0500 Glucose (Fingerstick) 128 mg/dL (70-99) 68 mg/dL (70-99) 106 mg/dL (70-99) Test 12/12/17 05:00 12/12/17 08:37 12/12/17 10:59 White Blood Count 8.5 x10^3/uL (4.0-11.0) Red Blood Count 3.25 x10^6/uL (4.30-5.70) Hemoglobin 10.7 g/dL (13.0-17.5) Hematocrit 30.9 % (39.0-53.0) Mean Corpuscular Volume 95 fL (79-100) Mean Corpuscular Hemoglobin 33 pg (25-35) Mean Corpuscular Hemoglobin Concent 35 g/dL (31-37) Red Cell Distribution Width 14.4 % (11.5-14.5) Platelet Count 355 x10^3/uL (140-400) Neutrophils (%) (Auto) 75 % (31-73) Lymphocytes (%) (Auto) 14 % (24-48) Monocytes (%) (Auto) 8 % (0-9) Eosinophils (%) (Auto) 2 % (0-3) Basophils (%) (Auto) 0 % (0-3) Neutrophils # (Auto) 6.4 x10^3uL (1.8-7.7) Lymphocytes # (Auto) 1.2 x10^3/uL (1.0-4.8) Monocytes # (Auto) 0.7 x10^3/uL (0.0-1.1) Eosinophils # (Auto) 0.2 x10^3/uL (0.0-0.7) Basophils # (Auto) 0.0 x10^3/uL (0.0-0.2) Sodium Level 142 mmol/L (136-145) Potassium Level 4.0 mmol/L (3.5-5.1) Chloride Level 106 mmol/L (98-107) Carbon Dioxide Level 26 mmol/L (21-32) Anion Gap 10 (6-14) Blood Urea Nitrogen 16 mg/dL (8-26) Creatinine 1.4 mg/dL (0.7-1.3) Estimated GFR (Cockcroft-Gault) 51.7 Glucose Level 168 mg/dL (70-99) Calcium Level 8.5 mg/dL (8.5-10.1) Glucose (Fingerstick) 255 mg/dL (70-99) 230 mg/dL (70-99) Comment Review of Relevant I have reviewed the following items joana (where applicable) has been applied. Labs Laboratory Tests Test 12/10/17 17:04 12/10/17 19:59 12/11/17 03:40 12/11/17 07:55 Glucose (Fingerstick) 112 mg/dL (70-99) 145 mg/dL (70-99) 289 mg/dL (70-99) White Blood Count 7.8 x10^3/uL (4.0-11.0) Red Blood Count 3.28 x10^6/uL (4.30-5.70) Hemoglobin 10.8 g/dL (13.0-17.5) Hematocrit 31.3 % (39.0-53.0) Mean Corpuscular Volume 95 fL (79-100) Mean Corpuscular Hemoglobin 33 pg (25-35) Mean Corpuscular Hemoglobin Concent 35 g/dL (31-37) Red Cell Distribution Width 14.7 % (11.5-14.5) Platelet Count 349 x10^3/uL (140-400) Neutrophils (%) (Auto) 72 % (31-73) Lymphocytes (%) (Auto) 19 % (24-48) Monocytes (%) (Auto) 7 % (0-9) Eosinophils (%) (Auto) 3 % (0-3) Basophils (%) (Auto) 0 % (0-3) Neutrophils # (Auto) 5.6 x10^3uL (1.8-7.7) Lymphocytes # (Auto) 1.5 x10^3/uL (1.0-4.8) Monocytes # (Auto) 0.5 x10^3/uL (0.0-1.1) Eosinophils # (Auto) 0.2 x10^3/uL (0.0-0.7) Basophils # (Auto) 0.0 x10^3/uL (0.0-0.2) Sodium Level 139 mmol/L (136-145) Potassium Level 4.1 mmol/L (3.5-5.1) Chloride Level 105 mmol/L (98-107) Carbon Dioxide Level 25 mmol/L (21-32) Anion Gap 9 (6-14) Blood Urea Nitrogen 14 mg/dL (8-26) Creatinine 1.1 mg/dL (0.7-1.3) Estimated GFR (Cockcroft-Gault) 68.3 Glucose Level 225 mg/dL (70-99) Calcium Level 8.7 mg/dL (8.5-10.1) Test 12/11/17 12:02 12/11/17 16:25 12/11/17 16:47 12/11/17 20:46 Glucose (Fingerstick) 230 mg/dL (70-99) 128 mg/dL (70-99) 68 mg/dL (70-99) Vancomycin Level Trough 19.2 mcg/mL (10.0-20.0) Vancomycin Last Dose Date 12/11/17 Vancomycin Last Dose Time 0500 Test 12/11/17 22:03 12/12/17 05:00 12/12/17 08:37 12/12/17 10:59 Glucose (Fingerstick) 106 mg/dL (70-99) 255 mg/dL (70-99) 230 mg/dL (70-99) White Blood Count 8.5 x10^3/uL (4.0-11.0) Red Blood Count 3.25 x10^6/uL (4.30-5.70) Hemoglobin 10.7 g/dL (13.0-17.5) Hematocrit 30.9 % (39.0-53.0) Mean Corpuscular Volume 95 fL (79-100) Mean Corpuscular Hemoglobin 33 pg (25-35) Mean Corpuscular Hemoglobin Concent 35 g/dL (31-37) Red Cell Distribution Width 14.4 % (11.5-14.5) Platelet Count 355 x10^3/uL (140-400) Neutrophils (%) (Auto) 75 % (31-73) Lymphocytes (%) (Auto) 14 % (24-48) Monocytes (%) (Auto) 8 % (0-9) Eosinophils (%) (Auto) 2 % (0-3) Basophils (%) (Auto) 0 % (0-3) Neutrophils # (Auto) 6.4 x10^3uL (1.8-7.7) Lymphocytes # (Auto) 1.2 x10^3/uL (1.0-4.8) Monocytes # (Auto) 0.7 x10^3/uL (0.0-1.1) Eosinophils # (Auto) 0.2 x10^3/uL (0.0-0.7) Basophils # (Auto) 0.0 x10^3/uL (0.0-0.2) Sodium Level 142 mmol/L (136-145) Potassium Level 4.0 mmol/L (3.5-5.1) Chloride Level 106 mmol/L (98-107) Carbon Dioxide Level 26 mmol/L (21-32) Anion Gap 10 (6-14) Blood Urea Nitrogen 16 mg/dL (8-26) Creatinine 1.4 mg/dL (0.7-1.3) Estimated GFR (Cockcroft-Gault) 51.7 Glucose Level 168 mg/dL (70-99) Calcium Level 8.5 mg/dL (8.5-10.1) Laboratory Tests Test 12/11/17 16:25 12/11/17 16:47 12/11/17 20:46 12/11/17 22:03 Vancomycin Level Trough 19.2 mcg/mL (10.0-20.0) Vancomycin Last Dose Date 12/11/17 Vancomycin Last Dose Time 0500 Glucose (Fingerstick) 128 mg/dL (70-99) 68 mg/dL (70-99) 106 mg/dL (70-99) Test 12/12/17 05:00 12/12/17 08:37 12/12/17 10:59 White Blood Count 8.5 x10^3/uL (4.0-11.0) Red Blood Count 3.25 x10^6/uL (4.30-5.70) Hemoglobin 10.7 g/dL (13.0-17.5) Hematocrit 30.9 % (39.0-53.0) Mean Corpuscular Volume 95 fL (79-100) Mean Corpuscular Hemoglobin 33 pg (25-35) Mean Corpuscular Hemoglobin Concent 35 g/dL (31-37) Red Cell Distribution Width 14.4 % (11.5-14.5) Platelet Count 355 x10^3/uL (140-400) Neutrophils (%) (Auto) 75 % (31-73) Lymphocytes (%) (Auto) 14 % (24-48) Monocytes (%) (Auto) 8 % (0-9) Eosinophils (%) (Auto) 2 % (0-3) Basophils (%) (Auto) 0 % (0-3) Neutrophils # (Auto) 6.4 x10^3uL (1.8-7.7) Lymphocytes # (Auto) 1.2 x10^3/uL (1.0-4.8) Monocytes # (Auto) 0.7 x10^3/uL (0.0-1.1) Eosinophils # (Auto) 0.2 x10^3/uL (0.0-0.7) Basophils # (Auto) 0.0 x10^3/uL (0.0-0.2) Sodium Level 142 mmol/L (136-145) Potassium Level 4.0 mmol/L (3.5-5.1) Chloride Level 106 mmol/L (98-107) Carbon Dioxide Level 26 mmol/L (21-32) Anion Gap 10 (6-14) Blood Urea Nitrogen 16 mg/dL (8-26) Creatinine 1.4 mg/dL (0.7-1.3) Estimated GFR (Cockcroft-Gault) 51.7 Glucose Level 168 mg/dL (70-99) Calcium Level 8.5 mg/dL (8.5-10.1) Glucose (Fingerstick) 255 mg/dL (70-99) 230 mg/dL (70-99) Microbiology 12/08/17 Blood Culture - Preliminary, Resulted NO GROWTH AFTER 3 DAYS 12/09/17 Anaerobic/Aerobic Culture - Preliminary, Resulted 12/09/17 Anaerobic Culture Result 1 (ELISABETH) - Preliminary, Resulted 12/09/17 Aerobic Culture - Final, Resulted 12/09/17 Aerobic Culture Result 1 (ELISABETH) - Final, Resulted 12/09/17 Aerobic Culture Result 2 (ELISABETH) - Final, Resulted 12/09/17 Aerobic Culture Result 3 (ELISABETH) - Final, Resulted 12/09/17 Gram Stain - Final, Resulted 12/09/17 Gram Stain Result 1 (ELISABETH) - Final, Resulted 12/09/17 Gram Stain Result 2 (ELISABETH) - Final, Resulted 12/09/17 Gram Stain Result 3 (ELISABETH) - Final, Resulted Medications Current Medications Ondansetron HCl (Zofran) 4 mg PRN Q6HRS PRN IV NAUSEA/VOMITING, 1ST CHOICE; Start 12/07/17 at 15:15 Prochlorperazine Edisylate (Compazine) 10 mg PRN Q6HRS PRN IV NAUSEA/VOMITING, 2ND CHOICE; Start 12/07/17 at 15:15 Prochlorperazine (Compazine) 25 mg PRN Q12HR PRN NC NAUSEA/VOMITING; Start at 15:15 Al Hydroxide/Mg Hydroxide (Mylanta Plus Xs) 30 ml PRN Q3HRS PRN PO HEARTBURN / GAS; Start 12/07/17 at 15:15 Calcium Carbonate/ Glycine (Tums) 500 mg PRN Q3HRS PRN PO UPSET STOMACH; Start 12/07/17 at 15:15 Zolpidem Tartrate (Ambien) 5 mg PRN QHS PRN PO INSOMNIA, MAY REPEAT IN 1HR Last administered on 12/11/17at 20:40; Start 12/07/17 at 15:15 Oxycodone HCl (Roxicodone) 5 mg PRN Q3HRS PRN PO BREAKTHROUGH PAIN Last administered on 12/11/17at 20:41; Start 12/07/17 at 15:15 Acetaminophen (Tylenol) 650 mg PRN Q6HRS PRN PO Headaches, Temp > 101.5F; Start 12/07/17 at 15:15 Ibuprofen (Motrin) 400 mg PRN Q6HRS PRN PO MILD PAIN; Start 12/07/17 at 15:15 Magnesium Hydroxide (Milk Of Magnesia) 2,400 mg PRN Q12HR PRN PO CONSTIPATION, 1ST CHOICE; Start 12/07/17 at 15:15 Lactulose (Lactulose) 20 gm PRN Q12HR PRN PO CONSTIPATION, 2ND CHOICE; Start 12/07/17 at 15:15 Insulin Human Lispro (HumaLOG) 0-9 UNITS TIDWMEALS SQ ; Start 12/07/17 at 17:00 ; Stop 12/07/17 at 18:50; Status DC Dextrose (Dextrose 50%-Water Syringe) 12.5 gm PRN Q15MIN PRN IV SEE COMMENTS; Start 12/07/17 at 15:15 Fentanyl Citrate (Fentanyl 2ml Vial) 50 mcg PRN Q2HR PRN IV PAIN; Start at 15:15 Tramadol HCl (Ultram) 50 mg PRN Q6HRS PRN PO MOD TO SEVERE PAIN; Start at 15:15 Allopurinol (Zyloprim) 300 mg DAILY PO Last administered on 12/11/17at 11:06; Start 12/07/17 at 16:00 Lisinopril (Prinivil) 40 mg DAILY PO Last administered on 12/12/17at 08:41; Start 12/07/17 at 16:00 Metoprolol Tartrate (Lopressor) 100 mg BID PO Last administered on 12/12/17at 08:40; Start 12/07/17 at 21:00 Ranolazine (Ranexa) 500 mg BID PO Last administered on 12/12/17at 08:42; Start 12/07/17 at 21:00 Isosorbide Mononitrate (Imdur) 60 mg DAILY PO Last administered on 12/12/17at 08:39; Start 12/08/17 at 09:00 Pantoprazole Sodium (Protonix) 40 mg DAILYAC PO Last administered on at 11:05; Start 12/07/17 at 16:30 Labetalol HCl (Normodyne Iv Push) 10 mg PRN Q2HR PRN IVP HYPERTENSION, SEE COMMENTS; Start 12/07/17 at 15:30 Insulin Glargine (Lantus) 25 units QHS SQ ; Start 12/07/17 at 21:00; Stop at 21:00; Status DC Insulin Glargine (Lantus) 50 units DAILY SQ ; Start 12/08/17 at 09:00; Status Cancel Insulin Glargine (Lantus) 40 units QHS SQ ; Start 12/07/17 at 21:00; Status Cancel Insulin Human Isoph/Insulin Regular (HumuLIN 70/30) 50 units DAILY07 SQ Last administered on 12/08/17at 09:26; Start 12/08/17 at 07:00; Stop 12/10/17 at 04 :59; Status DC Insulin Human Isoph/Insulin Regular (HumuLIN 70/30) 40 units DAILY16 SQ Last administered on 12/09/17at 16:15; Start 12/08/17 at 16:00; Stop 12/09/17 at 18 :00; Status DC Sodium Chloride 1,000 ml @ 1,000 mls/hr 1X ONCE IV Last administered on 12/07at 21:36; Start 12/07/17 at 21:30; Stop 12/07/17 at 22:29; Status DC Sodium Chloride 1,000 ml @ 100 mls/hr Q10H IV Last administered on 12/09/17at 02:16; Start 12/07/17 at 22:30; Stop 12/09/17 at 08:18; Status DC Insulin Human Lispro (HumaLOG) 0-9 UNITS TIDWMEALS SQ Last administered on at 08:50; Start 12/08/17 at 12:00 Dextrose (Dextrose 50%-Water Syringe) 12.5 gm PRN Q15MIN PRN IV SEE COMMENTS; Start 12/08/17 at 08:30; Status UNV Vancomycin HCl (Vanco Per Pharmacy) 1 each PRN DAILY PRN MC SEE COMMENTS Last administered on 12/11/17at 19:09; Start 12/08/17 at 13:45; Stop 12/12/17 at 10 :58; Status DC Piperacillin Sod/ Tazobactam Sod 3.375 gm/Sodium Chloride 50 ml @ 100 mls/hr Q6HRS IV ; Start 12/08/17 at 18:00; Status UNV Piperacillin Sod/ Tazobactam Sod 3.375 gm/Sodium Chloride 50 ml @ 100 mls/hr Q6HRS IV Last administered on 12/12/17at 11:29; Start 12/08/17 at 14:00 Vancomycin HCl 2 gm/Sodium Chloride 500 ml @ 250 mls/hr 1X ONCE IV Last administered on 12/08/17at 15:30; Start 12/08/17 at 14:30; Stop 12/08/17 at 16 :29; Status DC Vancomycin HCl 1.25 gm/Sodium Chloride 250 ml @ 167 mls/hr Q12H IV Last administered on 12/09/17at 16:06; Start 12/09/17 at 03:30; Stop 12/10/17 at 04 :45; Status DC Vancomycin HCl (Vancomycin Trough Level) 1 each 1X ONCE MC Last administered on 12/10/17at 03:00; Start 12/10/17 at 03:00; Stop 12/10/17 at 03:01; Status DC Lidocaine HCl 20 ml STK-MED ONCE .ROUTE ; Start 12/09/17 at 06:11; Stop at 07:11; Status DC Silver Sulfadiazine (Silvadene) 25 deb STK-MED ONCE TP ; Start 12/09/17 at 06: 11; Stop 12/09/17 at 07:11; Status DC Phenylephrine HCl (PHENYLEPHRINE in 0.9% NACL PF) 1 mg STK-MED ONCE IV ; Start 12/09/17 at 08:23; Stop 12/09/17 at 08:24; Status DC Dexamethasone Sodium Phosphate (Decadron) 20 mg STK-MED ONCE .ROUTE ; Start at 08:23; Stop 12/09/17 at 08:24; Status DC Ondansetron HCl (Zofran) 4 mg STK-MED ONCE .ROUTE ; Start 12/09/17 at 08:23; Stop 12/09/17 at 08:24; Status DC Lidocaine HCl (Lidocaine Pf 2% Vial) 5 ml STK-MED ONCE .ROUTE ; Start 12/09/17 at 08:23; Stop 12/09/17 at 08:24; Status DC Propofol 20 ml @ As Directed STK-MED ONCE IV ; Start 12/09/17 at 08:23; Stop 12/09/17 at 08:24; Status DC Sevoflurane (Ultane) 30 ml STK-MED ONCE IH ; Start 12/09/17 at 08:23; Stop at 08:24; Status DC Insulin Human Lispro (HumaLOG VIAL) 6 unit 1X ONCE SQ ; Start 12/09/17 at 09: 00; Stop 12/09/17 at 09:01; Status Cancel Insulin Human Lispro (HumaLOG VIAL) 4 unit 1X ONCE SQ Last administered on at 09:25; Start 12/09/17 at 09:30; Stop 12/09/17 at 09:31; Status DC Lactobacillus Rhamnosus (Culturelle) 1 cap BID PO Last administered on at 20:41; Start 12/09/17 at 21:00 Insulin Human Isoph/Insulin Regular (HumuLIN 70/30) 50 units DAILY16 SQ Last administered on 12/11/17at 17:21; Start 12/10/17 at 16:00 Insulin Human Lispro (HumaLOG) 6 units 1X ONCE SQ Last administered on at 18:43; Start 12/09/17 at 18:00; Stop 12/09/17 at 18:20; Status DC Vancomycin HCl 1 gm/Sodium Chloride 250 ml @ 250 mls/hr Q12H IV Last administered on 12/12/17at 04:17; Start 12/10/17 at 05:00; Stop 12/12/17 at 10 :58; Status DC Vancomycin HCl (Vancomycin Trough Level) 1 each 1X ONCE MC ; Start 12/11/17 at 16:30; Stop 12/11/17 at 16:31; Status DC Insulin Human Isoph/Insulin Regular (HumuLIN 70/30) 50 units DAILYWBKFT SQ Last administered on 12/11/17at 09:57; Start 12/10/17 at 08:00 Ascorbic Acid (Vitamin C) 500 mg DAILY PO Last administered on 12/11/17at 11:06 ; Start 12/11/17 at 09:00 Multivitamins (Thera M Plus) 1 tab DAILY PO Last administered on 12/11/17at 11: 06; Start 12/11/17 at 09:00 Ondansetron HCl (Zofran) 4 mg PRN Q6HRS PRN IV NAUSEA/VOMITING; Start at 07:00; Stop 12/13/17 at 06:59 Fentanyl Citrate (Fentanyl 2ml Vial) 25 mcg PRN Q5MIN PRN IV MILD PAIN; Start 12/12/17 at 07:00; Stop 12/13/17 at 06:59 Fentanyl Citrate (Fentanyl 2ml Vial) 50 mcg PRN Q5MIN PRN IV MODERATE TO SEVERE PAIN; Start 12/12/17 at 07:00; Stop 12/13/17 at 06:59 Ringer's Solution 1,000 ml @ 30 mls/hr Q24H IV Last administered on at 12:51; Start 12/12/17 at 07:00; Stop 12/12/17 at 18:59 Lidocaine HCl (Xylocaine-Mpf 1% 2ml Vial) 2 ml PRN 1X PRN ID PRIOR TO IV START ; Start 12/12/17 at 07:00; Stop 12/13/17 at 06:59 Prochlorperazine Edisylate (Compazine) 5 mg PACU PRN PRN IV NAUSEA, MRX1; Start 12/12/17 at 07:00; Stop 12/13/17 at 06:59 Linezolid/Dextrose 300 ml @ 300 mls/hr Q12HR IV Last administered on at 12:00; Start 12/12/17 at 12:00 Lidocaine HCl 20 ml STK-MED ONCE .ROUTE ; Start 12/12/17 at 12:09; Stop at 13:10; Status DC Silver Sulfadiazine (Silvadene) 25 deb STK-MED ONCE TP ; Start 12/12/17 at 12: 09; Stop 12/12/17 at 13:10; Status DC Propofol 20 ml @ As Directed STK-MED ONCE IV ; Start 12/12/17 at 13:35; Stop 12/12/17 at 13:36; Status DC Ketamine HCl (Ketamine) 50 mg STK-MED ONCE .ROUTE ; Start 12/12/17 at 13:36; Stop 12/12/17 at 13:37; Status DC Fentanyl Citrate (Fentanyl 2ml Vial) 100 mcg STK-MED ONCE .ROUTE ; Start at 13:36; Stop 12/12/17 at 13:37; Status DC Midazolam HCl (Versed) 2 mg STK-MED ONCE .ROUTE ; Start 12/12/17 at 13:36; Stop 12/12/17 at 13:37; Status DC Active Scripts Active Reported Ranexa (Ranolazine) 500 Mg Tab.er.12h 1 Tab PO BID Isosorbide Mononitrate Er (Isosorbide Mononitrate) 60 Mg Tab.er.24h 1 Tab PO DAILY Clopidogrel (Clopidogrel Bisulfate) 75 Mg Tablet 1 Tab PO DAILY Metoprolol Tartrate 50 Mg Tablet 100 Mg PO BID NEXT DOSE: 01/19/15 PM Aspir 81 (Aspirin) 81 Mg Tablet.dr 81 Mg PO DAILY NEXT DOSE: 01/20/15 AM Omeprazole 40 Mg Capsule.dr 40 Mg PO DAILY NEXT DOSE: 01/20/15 AM Allopurinol 300 Mg Tablet 300 Mg PO DAILY NEXT DOSE: 01/20/15 AM Lisinopril 40 Mg Tablet 40 Mg PO DAILY NEXT DOSE: 01/20/15 AM Vitals/I & O Vital Sign - Last 24 Hours 12/11/17 12/11/17 12/11/17 12/11/17 15:00 19:00 19:50 20:40 Temp 98.5 98.4 98.5 98.4 Pulse 83 92 80 Resp 20 20 B/P (MAP) 101/54 (70) 135/80 (98) 131/63 Pulse Ox 97 95 O2 Delivery Room Air Room Air Room Air 12/11/17 12/11/17 12/11/17 12/11/17 20:41 20:44 21:43 23:00 Temp 98.4 98.4 Pulse 80 93 Resp 18 18 20 B/P (MAP) 131/63 102/56 (71) Pulse Ox 97 97 96 O2 Delivery Room Air Room Air Room Air O2 Flow Rate 10.0 10.0 12/12/17 12/12/17 12/12/17 12/12/17 03:00 07:00 08:39 08:40 Temp 98.4 98.8 98.4 98.8 Pulse 78 89 89 89 Resp 20 20 B/P (MAP) 107/59 (75) 125/70 (88) 125/76 125/76 Pulse Ox 98 96 O2 Delivery Room Air Room Air 12/12/17 12/12/17 12/12/17 12/12/17 08:41 08:42 11:00 12:46 Temp 98.5 98.5 98.5 98.5 Pulse 89 89 89 82 Resp 20 15 B/P (MAP) 125/76 125/76 149/85 (106) 143/76 Pulse Ox 97 95 O2 Delivery Room Air Room Air Intake and Output 12/11/17 12/11/17 12/12/17 15:00 23:00 07:00 Intake Total 0 ml 1040 ml 360 ml Output Total 400 ml 800 ml Balance 0 ml 640 ml -440 ml CARLOS MANUEL MARTINES MD Dec 12, 2017 14:03
--- NOTE | 2017-12-12 14:27 | PDOC ---
BRIEF OPERATIVE NOTE Pre-Op Diagnosis Right heel wound Osteomyelitis DM Post-Op Diagnosis same Procedure Performed Right heel debridement including skin, subcut, and bone Wound Vac placement Surgeon Ronni Anesthesia Type: MAC Findings 4.5cm x 2cm x 1.5cm depth right heel wound extending to calcaneus maceration of the surrounding skin (unclear if it was due to Veraflow Vac or underlying disease (conventional vac applied) Complications none RASHEL SHARMA MD Dec 12, 2017 14:27
[2017-12-12] MEDS ORDERED: INSULIN LISPRO 100 UNIT/ML 3ML VIAL. SQ ONE (14:45)
--- NOTE | 2017-12-12 14:56 | OP ---
DATE OF SURGERY: 12/12/2017 PREOPERATIVE DIAGNOSES: 1. Right posterior heel ulcer. 2. Osteomyelitis of the calcaneus. 3. Diabetes. 4. Peripheral neuropathy. POSTOPERATIVE DIAGNOSES: 1. Right posterior heel ulcer. 2. Osteomyelitis of the calcaneus. 3. Diabetes. 4. Peripheral neuropathy. PROCEDURE: 1. Right heel debridement including skin, subcutaneous tissue and bone. 2. Wound VAC placement to the right heel. SURGEON: Олег Sharma MD ANESTHESIA: Monitored anesthesia care. INDICATIONS: The patient presents with right posterior heel abscess. This was surgically drained 4 days ago. He presents back to the operating room for further debridement. MRI showed evidence of osteomyelitis involving the calcaneus. FINDINGS: There was maceration of the surrounding skin as well as significant necrotic tissue in the base of the right foot wound. All necrotic tissue was excised. The bone was also sized at this level. There was good bleeding from the underlying bone tissue. The patient previously had a dressing in place; however, this was changed to a conventional VAC using Silver GranuFoam. The wound measured 4.5 cm x 2 cm x 1.5 cm depth. DESCRIPTION OF OPERATION: The patient was taken to the operating room and placed in left lateral decubitus and on the hospital bed. He was given IV sedation. His right foot and lower leg were prepped and draped in normal sterile fashion. Forceps and scissors were used to excise the nonviable skin as well as nonviable subcutaneous tissue. This extended down to the fascia over the calcaneus. There is some compressibility of the calcaneus. A rongeur was used to remove the calcaneus back to relatively healthy feeling bone. The wound was irrigated and a new wound VAC was applied using Silver GranuFoam only. This was placed to 125 mmHg continuous suction. This patient tolerated the procedure well and there were no complications. ESTIMATED BLOOD LOSS: 2 mL. SPECIMEN: None. ОЛЕГ SHARMA MD DR: [email or web address] JOB#: [id number] / [id number]
[2017-12-13] MEDS: PIPERACILLIN/TAZOBACTAM 3.375 GM in IV NORMAL SALINE 50ML 50 ML IV SCH ×4 (00:05→17:46)
[2017-12-13 03:00] VITALS: BP 128/80
[2017-12-13 06:00] LABS: EOS % 2 % (0-3); HEMATOCRIT 29.3 % (39.0-53.0); HEMOGLOBIN 10.2 g/dL (13.0-17.5); LYMPH % 18 % (24-48); MEAN CORPUSCULAR HEMOGLOBIN 33 pg (25-35); MEAN CORPUSCULAR HGB CONC 35 g/dL (31-37); MEAN CORPUSCULAR VOLUME 95 fL (79-100); MONO % 8 % (0-9); NEUT % 72 % (31-73); PLATELET COUNT 355 x10^3/uL (140-400); RED BLOOD COUNT 3.07 x10^6/uL (4.30-5.70); RED CELL DISTRIBUTION WIDTH 14.8 % (11.5-14.5); WHITE BLOOD COUNT 8.5 x10^3/uL (4.0-11.0)
[2017-12-13 06:01] LABS: BASO % 0 % (0-3); EOS # 0.2 x10^3/uL (0.0-0.7); LYMPH # 1.5 x10^3/uL (1.0-4.8); MONO # 0.7 x10^3/uL (0.0-1.1); NEUT # 6.1 x10^3uL (1.8-7.7)
[2017-12-13 06:05] LABS: CALCIUM 8.2 mg/dL (8.5-10.1); CREATININE 1.1 mg/dL (0.7-1.3); GFR 68.3; POTASSIUM 3.4 mmol/L (3.5-5.1)
[2017-12-13 07:00] VITALS: BP 152/83
[2017-12-13] MEDS: PANTOPRAZOLE 40 MG TABLET.DR. PO SCH (07:44)
[2017-12-13] MEDS: INSULIN LISPRO 300 UNITS/3 ML INSULN.PEN. SQ SCH ×3 (08:00→17:00)
--- NOTE | 2017-12-13 08:05 | PDOC ---
PROGRESS NOTES Chief Complaint Chief Complaint Right heel wound in a diabetic s/p i and d on 12/07 wound vac. i and d 12/12 Diabetes type 1, hemoglobin A1c is 13 Hypertension, h/o CAD, CABG 2015, dyslipidemia-chronic stable History of Present Illness History of Present Illness Admitted with cellulitic right heel wound s/p I&D with bone biopsy and wound vac. I and D 12/10, 12/12. more redness today around the heel wound He has no complaints, worried a little about the cold hands and feet he always experiences. Blood sugars are better since adjustments of insulin Sunday Wound is polymicrobial, enterococcus is ampicillin sensitive. Zyvox added by ID. A/p: Right heel wound in a diabetic s/p i and d on 12/07 wound vac. i and d 12/12 Diabetes type 1, hemoglobin A1c is 13 Hypertension, h/o CAD, CABG 2015, dyslipidemia-chronic stable plan: fu with id, vascular another i and D today now on wound vac cont elvin jones vanco, on zyvox today fu wound cx + multiple bacteria on NPH insulin bid, ssi dvt ppx add vitc, multiple vitamin for wound care talked to sister at bedside about plan to d/c with wound center follow up, will d/w surgery and ID in the next day Vitals Vitals Vital Signs Date Time Temp Pulse Resp B/P (MAP) Pulse Ox O2 Delivery O2 Flow Rate FiO2 12/13/17 03:00 98.2 89 18 128/80 (96) 95 Room Air 98.2 12/12/17 23:00 10.0 Physical Exam Physical Exam GENERAL: Propped up in bed, smiling, joking HEENT: Oral cavity: Pharynx pink. NECK: Supple. LUNGS: Clear to auscultation. HEART: S1 and S2. ABDOMEN: Nondistended. Bowel sounds active, soft, nontender. EXTREMITIES: wound vac in place rt foot some erythema around wound, BLE edema. No cyanosis SKIN: Warm without rash. NEUROLOGIC: Alert and oriented times 3. General: Alert, Oriented X3, Cooperative, No acute distress Heart: Regular rate, Normal S1, Normal S2 Lungs: Clear Abdomen: Normal bowel sounds, Soft, No tenderness, No hepatosplenomegaly, No masses Extremities: No clubbing, No cyanosis, Normal pulses Skin: Other (rt heel wound, dry, some redness around the area, tender to touch , no oozing currently) Labs LABS Laboratory Tests Test 12/12/17 08:37 12/12/17 10:59 12/12/17 14:36 12/12/17 16:49 Glucose (Fingerstick) 255 mg/dL (70-99) 230 mg/dL (70-99) 310 mg/dL (70-99) 220 mg/dL (70-99) Test 12/13/17 04:25 12/13/17 07:42 White Blood Count 8.5 x10^3/uL (4.0-11.0) Red Blood Count 3.07 x10^6/uL (4.30-5.70) Hemoglobin 10.2 g/dL (13.0-17.5) Hematocrit 29.3 % (39.0-53.0) Mean Corpuscular Volume 95 fL (79-100) Mean Corpuscular Hemoglobin 33 pg (25-35) Mean Corpuscular Hemoglobin Concent 35 g/dL (31-37) Red Cell Distribution Width 14.8 % (11.5-14.5) Platelet Count 355 x10^3/uL (140-400) Neutrophils (%) (Auto) 72 % (31-73) Lymphocytes (%) (Auto) 18 % (24-48) Monocytes (%) (Auto) 8 % (0-9) Eosinophils (%) (Auto) 2 % (0-3) Basophils (%) (Auto) 0 % (0-3) Neutrophils # (Auto) 6.1 x10^3uL (1.8-7.7) Lymphocytes # (Auto) 1.5 x10^3/uL (1.0-4.8) Monocytes # (Auto) 0.7 x10^3/uL (0.0-1.1) Eosinophils # (Auto) 0.2 x10^3/uL (0.0-0.7) Basophils # (Auto) 0.0 x10^3/uL (0.0-0.2) Sodium Level 142 mmol/L (136-145) Potassium Level 3.4 mmol/L (3.5-5.1) Chloride Level 105 mmol/L (98-107) Carbon Dioxide Level 26 mmol/L (21-32) Anion Gap 11 (6-14) Blood Urea Nitrogen 14 mg/dL (8-26) Creatinine 1.1 mg/dL (0.7-1.3) Estimated GFR (Cockcroft-Gault) 68.3 Glucose Level 54 mg/dL (70-99) Calcium Level 8.2 mg/dL (8.5-10.1) Glucose (Fingerstick) 81 mg/dL (70-99) Comment Review of Relevant I have reviewed the following items joana (where applicable) has been applied. Labs Laboratory Tests Test 12/11/17 12:02 12/11/17 16:25 12/11/17 16:47 12/11/17 20:46 Glucose (Fingerstick) 230 mg/dL (70-99) 128 mg/dL (70-99) 68 mg/dL (70-99) Vancomycin Level Trough 19.2 mcg/mL (10.0-20.0) Vancomycin Last Dose Date 12/11/17 Vancomycin Last Dose Time 0500 Test 12/11/17 22:03 12/12/17 05:00 12/12/17 08:37 12/12/17 10:59 Glucose (Fingerstick) 106 mg/dL (70-99) 255 mg/dL (70-99) 230 mg/dL (70-99) White Blood Count 8.5 x10^3/uL (4.0-11.0) Red Blood Count 3.25 x10^6/uL (4.30-5.70) Hemoglobin 10.7 g/dL (13.0-17.5) Hematocrit 30.9 % (39.0-53.0) Mean Corpuscular Volume 95 fL (79-100) Mean Corpuscular Hemoglobin 33 pg (25-35) Mean Corpuscular Hemoglobin Concent 35 g/dL (31-37) Red Cell Distribution Width 14.4 % (11.5-14.5) Platelet Count 355 x10^3/uL (140-400) Neutrophils (%) (Auto) 75 % (31-73) Lymphocytes (%) (Auto) 14 % (24-48) Monocytes (%) (Auto) 8 % (0-9) Eosinophils (%) (Auto) 2 % (0-3) Basophils (%) (Auto) 0 % (0-3) Neutrophils # (Auto) 6.4 x10^3uL (1.8-7.7) Lymphocytes # (Auto) 1.2 x10^3/uL (1.0-4.8) Monocytes # (Auto) 0.7 x10^3/uL (0.0-1.1) Eosinophils # (Auto) 0.2 x10^3/uL (0.0-0.7) Basophils # (Auto) 0.0 x10^3/uL (0.0-0.2) Sodium Level 142 mmol/L (136-145) Potassium Level 4.0 mmol/L (3.5-5.1) Chloride Level 106 mmol/L (98-107) Carbon Dioxide Level 26 mmol/L (21-32) Anion Gap 10 (6-14) Blood Urea Nitrogen 16 mg/dL (8-26) Creatinine 1.4 mg/dL (0.7-1.3) Estimated GFR (Cockcroft-Gault) 51.7 Glucose Level 168 mg/dL (70-99) Calcium Level 8.5 mg/dL (8.5-10.1) Test 12/12/17 14:36 12/12/17 16:49 12/13/17 04:25 12/13/17 07:42 Glucose (Fingerstick) 310 mg/dL (70-99) 220 mg/dL (70-99) 81 mg/dL (70-99) White Blood Count 8.5 x10^3/uL (4.0-11.0) Red Blood Count 3.07 x10^6/uL (4.30-5.70) Hemoglobin 10.2 g/dL (13.0-17.5) Hematocrit 29.3 % (39.0-53.0) Mean Corpuscular Volume 95 fL (79-100) Mean Corpuscular Hemoglobin 33 pg (25-35) Mean Corpuscular Hemoglobin Concent 35 g/dL (31-37) Red Cell Distribution Width 14.8 % (11.5-14.5) Platelet Count 355 x10^3/uL (140-400) Neutrophils (%) (Auto) 72 % (31-73) Lymphocytes (%) (Auto) 18 % (24-48) Monocytes (%) (Auto) 8 % (0-9) Eosinophils (%) (Auto) 2 % (0-3) Basophils (%) (Auto) 0 % (0-3) Neutrophils # (Auto) 6.1 x10^3uL (1.8-7.7) Lymphocytes # (Auto) 1.5 x10^3/uL (1.0-4.8) Monocytes # (Auto) 0.7 x10^3/uL (0.0-1.1) Eosinophils # (Auto) 0.2 x10^3/uL (0.0-0.7) Basophils # (Auto) 0.0 x10^3/uL (0.0-0.2) Sodium Level 142 mmol/L (136-145) Potassium Level 3.4 mmol/L (3.5-5.1) Chloride Level 105 mmol/L (98-107) Carbon Dioxide Level 26 mmol/L (21-32) Anion Gap 11 (6-14) Blood Urea Nitrogen 14 mg/dL (8-26) Creatinine 1.1 mg/dL (0.7-1.3) Estimated GFR (Cockcroft-Gault) 68.3 Glucose Level 54 mg/dL (70-99) Calcium Level 8.2 mg/dL (8.5-10.1) Laboratory Tests Test 12/12/17 08:37 12/12/17 10:59 12/12/17 14:36 12/12/17 16:49 Glucose (Fingerstick) 255 mg/dL (70-99) 230 mg/dL (70-99) 310 mg/dL (70-99) 220 mg/dL (70-99) Test 12/13/17 04:25 12/13/17 07:42 White Blood Count 8.5 x10^3/uL (4.0-11.0) Red Blood Count 3.07 x10^6/uL (4.30-5.70) Hemoglobin 10.2 g/dL (13.0-17.5) Hematocrit 29.3 % (39.0-53.0) Mean Corpuscular Volume 95 fL (79-100) Mean Corpuscular Hemoglobin 33 pg (25-35) Mean Corpuscular Hemoglobin Concent 35 g/dL (31-37) Red Cell Distribution Width 14.8 % (11.5-14.5) Platelet Count 355 x10^3/uL (140-400) Neutrophils (%) (Auto) 72 % (31-73) Lymphocytes (%) (Auto) 18 % (24-48) Monocytes (%) (Auto) 8 % (0-9) Eosinophils (%) (Auto) 2 % (0-3) Basophils (%) (Auto) 0 % (0-3) Neutrophils # (Auto) 6.1 x10^3uL (1.8-7.7) Lymphocytes # (Auto) 1.5 x10^3/uL (1.0-4.8) Monocytes # (Auto) 0.7 x10^3/uL (0.0-1.1) Eosinophils # (Auto) 0.2 x10^3/uL (0.0-0.7) Basophils # (Auto) 0.0 x10^3/uL (0.0-0.2) Sodium Level 142 mmol/L (136-145) Potassium Level 3.4 mmol/L (3.5-5.1) Chloride Level 105 mmol/L (98-107) Carbon Dioxide Level 26 mmol/L (21-32) Anion Gap 11 (6-14) Blood Urea Nitrogen 14 mg/dL (8-26) Creatinine 1.1 mg/dL (0.7-1.3) Estimated GFR (Cockcroft-Gault) 68.3 Glucose Level 54 mg/dL (70-99) Calcium Level 8.2 mg/dL (8.5-10.1) Glucose (Fingerstick) 81 mg/dL (70-99) Microbiology 12/08/17 Blood Culture - Preliminary, Resulted NO GROWTH AFTER 4 DAYS 12/09/17 Anaerobic/Aerobic Culture - Preliminary, Resulted 12/09/17 Anaerobic Culture Result 1 (ELISABETH) - Preliminary, Resulted 12/09/17 Aerobic Culture - Final, Resulted 12/09/17 Aerobic Culture Result 1 (ELISABETH) - Final, Resulted 12/09/17 Aerobic Culture Result 2 (ELISABETH) - Final, Resulted 12/09/17 Aerobic Culture Result 3 (ELISABETH) - Final, Resulted 12/09/17 Gram Stain - Final, Resulted 12/09/17 Gram Stain Result 1 (ELISABETH) - Final, Resulted 12/09/17 Gram Stain Result 2 (ELISABETH) - Final, Resulted 12/09/17 Gram Stain Result 3 (ELISABETH) - Final, Resulted Medications Current Medications Ondansetron HCl (Zofran) 4 mg PRN Q6HRS PRN IV NAUSEA/VOMITING, 1ST CHOICE; Start 12/07/17 at 15:15 Prochlorperazine Edisylate (Compazine) 10 mg PRN Q6HRS PRN IV NAUSEA/VOMITING, 2ND CHOICE; Start 12/07/17 at 15:15 Prochlorperazine (Compazine) 25 mg PRN Q12HR PRN SC NAUSEA/VOMITING; Start at 15:15 Al Hydroxide/Mg Hydroxide (Mylanta Plus Xs) 30 ml PRN Q3HRS PRN PO HEARTBURN / GAS; Start 12/07/17 at 15:15 Calcium Carbonate/ Glycine (Tums) 500 mg PRN Q3HRS PRN PO UPSET STOMACH; Start 12/07/17 at 15:15 Zolpidem Tartrate (Ambien) 5 mg PRN QHS PRN PO INSOMNIA, MAY REPEAT IN 1HR Last administered on 12/11/17at 20:40; Start 12/07/17 at 15:15 Oxycodone HCl (Roxicodone) 5 mg PRN Q3HRS PRN PO BREAKTHROUGH PAIN Last administered on 12/11/17at 20:41; Start 12/07/17 at 15:15 Acetaminophen (Tylenol) 650 mg PRN Q6HRS PRN PO Headaches, Temp > 101.5F; Start 12/07/17 at 15:15 Ibuprofen (Motrin) 400 mg PRN Q6HRS PRN PO MILD PAIN; Start 12/07/17 at 15:15 Magnesium Hydroxide (Milk Of Magnesia) 2,400 mg PRN Q12HR PRN PO CONSTIPATION, 1ST CHOICE; Start 12/07/17 at 15:15 Lactulose (Lactulose) 20 gm PRN Q12HR PRN PO CONSTIPATION, 2ND CHOICE; Start 12/07/17 at 15:15 Insulin Human Lispro (HumaLOG) 0-9 UNITS TIDWMEALS SQ ; Start 12/07/17 at 17:00 ; Stop 12/07/17 at 18:50; Status DC Dextrose (Dextrose 50%-Water Syringe) 12.5 gm PRN Q15MIN PRN IV SEE COMMENTS; Start 12/07/17 at 15:15 Fentanyl Citrate (Fentanyl 2ml Vial) 50 mcg PRN Q2HR PRN IV PAIN; Start at 15:15 Tramadol HCl (Ultram) 50 mg PRN Q6HRS PRN PO MOD TO SEVERE PAIN; Start at 15:15 Allopurinol (Zyloprim) 300 mg DAILY PO Last administered on 12/11/17at 11:06; Start 12/07/17 at 16:00 Lisinopril (Prinivil) 40 mg DAILY PO Last administered on 12/12/17at 08:41; Start 12/07/17 at 16:00 Metoprolol Tartrate (Lopressor) 100 mg BID PO Last administered on 12/12/17at 21:43; Start 12/07/17 at 21:00 Ranolazine (Ranexa) 500 mg BID PO Last administered on 12/12/17at 21:42; Start 12/07/17 at 21:00 Isosorbide Mononitrate (Imdur) 60 mg DAILY PO Last administered on 12/12/17at 08:39; Start 12/08/17 at 09:00 Pantoprazole Sodium (Protonix) 40 mg DAILYAC PO Last administered on 12/13/17at 07:44; Start 12/07/17 at 16:30 Labetalol HCl (Normodyne Iv Push) 10 mg PRN Q2HR PRN IVP HYPERTENSION, SEE COMMENTS; Start 12/07/17 at 15:30 Insulin Glargine (Lantus) 25 units QHS SQ ; Start 12/07/17 at 21:00; Stop at 21:00; Status DC Insulin Glargine (Lantus) 50 units DAILY SQ ; Start 12/08/17 at 09:00; Status Cancel Insulin Glargine (Lantus) 40 units QHS SQ ; Start 12/07/17 at 21:00; Status Cancel Insulin Human Isoph/Insulin Regular (HumuLIN 70/30) 50 units DAILY07 SQ Last administered on 12/08/17at 09:26; Start 12/08/17 at 07:00; Stop 12/10/17 at 04 :59; Status DC Insulin Human Isoph/Insulin Regular (HumuLIN 70/30) 40 units DAILY16 SQ Last administered on 12/09/17at 16:15; Start 12/08/17 at 16:00; Stop 12/09/17 at 18 :00; Status DC Sodium Chloride 1,000 ml @ 1,000 mls/hr 1X ONCE IV Last administered on 12/07at 21:36; Start 12/07/17 at 21:30; Stop 12/07/17 at 22:29; Status DC Sodium Chloride 1,000 ml @ 100 mls/hr Q10H IV Last administered on 12/09/17at 02:16; Start 12/07/17 at 22:30; Stop 12/09/17 at 08:18; Status DC Insulin Human Lispro (HumaLOG) 0-9 UNITS TIDWMEALS SQ Last administered on at 18:17; Start 12/08/17 at 12:00 Dextrose (Dextrose 50%-Water Syringe) 12.5 gm PRN Q15MIN PRN IV SEE COMMENTS; Start 12/08/17 at 08:30; Status UNV Vancomycin HCl (Vanco Per Pharmacy) 1 each PRN DAILY PRN MC SEE COMMENTS Last administered on 12/11/17at 19:09; Start 12/08/17 at 13:45; Stop 12/12/17 at 10 :58; Status DC Piperacillin Sod/ Tazobactam Sod 3.375 gm/Sodium Chloride 50 ml @ 100 mls/hr Q6HRS IV ; Start 12/08/17 at 18:00; Status UNV Piperacillin Sod/ Tazobactam Sod 3.375 gm/Sodium Chloride 50 ml @ 100 mls/hr Q6HRS IV Last administered on 12/13/17at 06:04; Start 12/08/17 at 14:00 Vancomycin HCl 2 gm/Sodium Chloride 500 ml @ 250 mls/hr 1X ONCE IV Last administered on 12/08/17at 15:30; Start 12/08/17 at 14:30; Stop 12/08/17 at 16 :29; Status DC Vancomycin HCl 1.25 gm/Sodium Chloride 250 ml @ 167 mls/hr Q12H IV Last administered on 12/09/17at 16:06; Start 12/09/17 at 03:30; Stop 12/10/17 at 04 :45; Status DC Vancomycin HCl (Vancomycin Trough Level) 1 each 1X ONCE MC Last administered on 12/10/17at 03:00; Start 12/10/17 at 03:00; Stop 12/10/17 at 03:01; Status DC Lidocaine HCl 20 ml STK-MED ONCE .ROUTE ; Start 12/09/17 at 06:11; Stop at 07:11; Status DC Silver Sulfadiazine (Silvadene) 25 deb STK-MED ONCE TP ; Start 12/09/17 at 06: 11; Stop 12/09/17 at 07:11; Status DC Phenylephrine HCl (PHENYLEPHRINE in 0.9% NACL PF) 1 mg STK-MED ONCE IV ; Start 12/09/17 at 08:23; Stop 12/09/17 at 08:24; Status DC Dexamethasone Sodium Phosphate (Decadron) 20 mg STK-MED ONCE .ROUTE ; Start at 08:23; Stop 12/09/17 at 08:24; Status DC Ondansetron HCl (Zofran) 4 mg STK-MED ONCE .ROUTE ; Start 12/09/17 at 08:23; Stop 12/09/17 at 08:24; Status DC Lidocaine HCl (Lidocaine Pf 2% Vial) 5 ml STK-MED ONCE .ROUTE ; Start 12/09/17 at 08:23; Stop 12/09/17 at 08:24; Status DC Propofol 20 ml @ As Directed STK-MED ONCE IV ; Start 12/09/17 at 08:23; Stop 12/09/17 at 08:24; Status DC Sevoflurane (Ultane) 30 ml STK-MED ONCE IH ; Start 12/09/17 at 08:23; Stop at 08:24; Status DC Insulin Human Lispro (HumaLOG VIAL) 6 unit 1X ONCE SQ ; Start 12/09/17 at 09: 00; Stop 12/09/17 at 09:01; Status Cancel Insulin Human Lispro (HumaLOG VIAL) 4 unit 1X ONCE SQ Last administered on at 09:25; Start 12/09/17 at 09:30; Stop 12/09/17 at 09:31; Status DC Lactobacillus Rhamnosus (Culturelle) 1 cap BID PO Last administered on at 21:42; Start 12/09/17 at 21:00 Insulin Human Isoph/Insulin Regular (HumuLIN 70/30) 50 units DAILY16 SQ Last administered on 12/12/17at 18:16; Start 12/10/17 at 16:00 Insulin Human Lispro (HumaLOG) 6 units 1X ONCE SQ Last administered on at 18:43; Start 12/09/17 at 18:00; Stop 12/09/17 at 18:20; Status DC Vancomycin HCl 1 gm/Sodium Chloride 250 ml @ 250 mls/hr Q12H IV Last administered on 12/12/17at 04:17; Start 12/10/17 at 05:00; Stop 12/12/17 at 10 :58; Status DC Vancomycin HCl (Vancomycin Trough Level) 1 each 1X ONCE MC ; Start 12/11/17 at 16:30; Stop 12/11/17 at 16:31; Status DC Insulin Human Isoph/Insulin Regular (HumuLIN 70/30) 50 units DAILYWBKFT SQ Last administered on 12/11/17at 09:57; Start 12/10/17 at 08:00 Ascorbic Acid (Vitamin C) 500 mg DAILY PO Last administered on 12/11/17at 11:06 ; Start 12/11/17 at 09:00 Multivitamins (Thera M Plus) 1 tab DAILY PO Last administered on 12/11/17at 11: 06; Start 12/11/17 at 09:00 Ondansetron HCl (Zofran) 4 mg PRN Q6HRS PRN IV NAUSEA/VOMITING; Start at 07:00; Stop 12/13/17 at 06:59; Status DC Fentanyl Citrate (Fentanyl 2ml Vial) 25 mcg PRN Q5MIN PRN IV MILD PAIN; Start 12/12/17 at 07:00; Stop 12/13/17 at 06:59; Status DC Fentanyl Citrate (Fentanyl 2ml Vial) 50 mcg PRN Q5MIN PRN IV MODERATE TO SEVERE PAIN; Start 12/12/17 at 07:00; Stop 12/13/17 at 06:59; Status DC Ringer's Solution 1,000 ml @ 30 mls/hr Q24H IV Last administered on at 12:51; Start 12/12/17 at 07:00; Stop 12/12/17 at 18:59; Status DC Lidocaine HCl (Xylocaine-Mpf 1% 2ml Vial) 2 ml PRN 1X PRN ID PRIOR TO IV START ; Start 12/12/17 at 07:00; Stop 12/13/17 at 06:59; Status DC Prochlorperazine Edisylate (Compazine) 5 mg PACU PRN PRN IV NAUSEA, MRX1; Start 12/12/17 at 07:00; Stop 12/13/17 at 06:59; Status DC Linezolid/Dextrose 300 ml @ 300 mls/hr Q12HR IV Last administered on at 21:44; Start 12/12/17 at 12:00 Lidocaine HCl 20 ml STK-MED ONCE .ROUTE ; Start 12/12/17 at 12:09; Stop at 13:10; Status DC Silver Sulfadiazine (Silvadene) 25 deb STK-MED ONCE TP ; Start 12/12/17 at 12: 09; Stop 12/12/17 at 13:10; Status DC Propofol 20 ml @ As Directed STK-MED ONCE IV ; Start 12/12/17 at 13:35; Stop 12/12/17 at 13:36; Status DC Ketamine HCl (Ketamine) 50 mg STK-MED ONCE .ROUTE ; Start 12/12/17 at 13:36; Stop 12/12/17 at 13:37; Status DC Fentanyl Citrate (Fentanyl 2ml Vial) 100 mcg STK-MED ONCE .ROUTE ; Start at 13:36; Stop 12/12/17 at 13:37; Status DC Midazolam HCl (Versed) 2 mg STK-MED ONCE .ROUTE ; Start 12/12/17 at 13:36; Stop 12/12/17 at 13:37; Status DC Insulin Human Lispro (HumaLOG VIAL) 10 unit 1X ONCE SQ Last administered on at 14:44; Start 12/12/17 at 14:45; Stop 12/12/17 at 14:46; Status DC Active Scripts Active Reported Ranexa (Ranolazine) 500 Mg Tab.er.12h 1 Tab PO BID Isosorbide Mononitrate Er (Isosorbide Mononitrate) 60 Mg Tab.er.24h 1 Tab PO DAILY Clopidogrel (Clopidogrel Bisulfate) 75 Mg Tablet 1 Tab PO DAILY Metoprolol Tartrate 50 Mg Tablet 100 Mg PO BID NEXT DOSE: 01/19/15 PM Aspir 81 (Aspirin) 81 Mg Tablet.dr 81 Mg PO DAILY NEXT DOSE: 01/20/15 AM Omeprazole 40 Mg Capsule.dr 40 Mg PO DAILY NEXT DOSE: 01/20/15 AM Allopurinol 300 Mg Tablet 300 Mg PO DAILY NEXT DOSE: 01/20/15 AM Lisinopril 40 Mg Tablet 40 Mg PO DAILY NEXT DOSE: 01/20/15 AM Vitals/I & O Vital Sign - Last 24 Hours 12/12/17 12/12/17 12/12/17 12/12/17 08:39 08:40 08:41 08:42 Pulse 89 89 89 89 B/P (MAP) 125/76 125/76 125/76 125/76 12/12/17 12/12/17 12/12/17 12/12/17 11:00 12:46 14:24 14:24 Temp 98.5 98.5 98.5 98.5 98.5 98.5 Pulse 89 82 82 Resp 20 15 15 B/P (MAP) 149/85 (106) 143/76 105/51 Pulse Ox 97 95 100 O2 Delivery Room Air Room Air Room Air Simple Mask O2 Flow Rate 10.0 10.0 12/12/17 12/12/17 12/12/17 12/12/17 14:39 14:54 15:09 15:24 Temp 98.5 98.5 98.5 98.5 98.5 98.5 98.5 98.5 Pulse 82 82 82 84 Resp 15 15 15 15 B/P (MAP) 135/74 148/81 143/82 136/76 Pulse Ox 100 100 95 95 O2 Delivery Simple Mask Simple Mask Room Air Room Air O2 Flow Rate 10.0 10.0 12/12/17 12/12/17 12/12/17 12/12/17 15:40 15:55 16:10 16:25 Temp 98.4 98.4 Pulse 83 81 84 83 Resp 20 B/P (MAP) 142/83 (102) 132/77 (95) 130/85 (100) 148/89 (108) Pulse Ox 97 O2 Delivery Room Air 12/12/17 12/12/17 12/12/17 12/12/17 16:40 19:00 20:00 21:42 Temp 98.3 98.3 Pulse 82 92 82 Resp 18 B/P (MAP) 118/73 (88) 118/76 (90) 118/73 Pulse Ox 95 O2 Delivery Room Air Room Air 10/12/12/17 12/13/17 21:43 23:00 03:00 Temp 98.4 98.2 98.4 98.2 Pulse 82 96 89 Resp 20 18 B/P (MAP) 118/73 109/66 (80) 128/80 (96) Pulse Ox 99 95 O2 Delivery Room Air Room Air O2 Flow Rate 10.0 Intake and Output 12/12/17 12/12/17 12/13/17 15:00 23:00 07:00 Intake Total 1100 ml Output Total 5 ml 0 ml Balance 1095 ml 0 ml KATARINA KIRBY MD Dec 13, 2017 08:05
[2017-12-13] MEDS: INSULIN NPH/REG INSULIN 70/30 300 UNITS/3 ML INSULN.PEN. SQ SCH ×3 (08:08→17:51)
[2017-12-13] MEDS ORDERED: POTASSIUM CHLORIDE 20 MEQ TABLET.ER. PO ONE (08:30)
[2017-12-13] MEDS: ISOSORBIDE MONONITRATE ER 30 MG TAB.ER.24H PO SCH (08:53)
[2017-12-13] MEDS: ASCORBIC ACID 500 MG TABLET PO SCH (08:54)
[2017-12-13] MEDS: LACTOBACILLUS RHAMNOSUS GG 1 CAPSULE. PO SCH ×2 (08:54→20:26)
[2017-12-13] MEDS: LISINOPRIL 20 MG TABLET PO SCH (08:55)
[2017-12-13] MEDS: METOPROLOL TART IMMED RELEASE 50 MG TABLET. PO SCH ×2 (08:56→20:26)
[2017-12-13] MEDS: MULTIVITAMIN with MINERAL TABLET. PO SCH (08:56)
[2017-12-13] MEDS: ALLOPURINOL 300 MG TABLET. PO SCH (08:57)
[2017-12-13] MEDS: RANOLAZINE 500 MG TAB.ER.12H PO SCH ×2 (08:57→20:26)
--- NOTE | 2017-12-13 10:20 | PDOC ---
Provider Note Provider Note S: pt without complaints post op right heel debridement and wound vac placement O: vss, afebrile wound vac in place right heel A: stable post above procedure P: cont. wound care, off load heel; f/u at wound care center at [facility] ALEXANDER GARNER II, MD Dec 13, 2017 10:20
[2017-12-13 11:00] VITALS: BP 132/79
--- NOTE | 2017-12-13 13:01 | PDOC ---
Infectious Disease Note Subjective Subjective Feeling alright Appetite ok Denies pain/FC/N/V/D ROS ROS per HPI otherwise neg Vital Sign Vital Signs Vital Signs Date Time Temp Pulse Resp B/P (MAP) Pulse Ox O2 Delivery O2 Flow Rate FiO2 12/13/17 11:00 98.1 89 18 132/79 (96) 96 Room Air 98.1 12/12/17 23:00 10.0 Physical Exam PHYSICAL EXAM GENERAL: Propped up in bed, smiling, eating HEENT: Oral cavity: Pharynx pink. NECK: Supple. LUNGS: Clear to auscultation. HEART: S1 and S2. ABDOMEN: Nondistended. Bowel sounds active, soft, nontender. EXTREMITIES: wound vac in place rt foot,some erythema around wound, BLE edema. No cyanosis SKIN: Warm without rash. NEUROLOGIC: Alert and oriented times 3. PIV Labs Lab Laboratory Tests Test 12/12/17 14:36 12/12/17 16:49 12/13/17 04:25 12/13/17 07:42 Glucose (Fingerstick) 310 mg/dL (70-99) 220 mg/dL (70-99) 81 mg/dL (70-99) White Blood Count 8.5 x10^3/uL (4.0-11.0) Red Blood Count 3.07 x10^6/uL (4.30-5.70) Hemoglobin 10.2 g/dL (13.0-17.5) Hematocrit 29.3 % (39.0-53.0) Mean Corpuscular Volume 95 fL (79-100) Mean Corpuscular Hemoglobin 33 pg (25-35) Mean Corpuscular Hemoglobin Concent 35 g/dL (31-37) Red Cell Distribution Width 14.8 % (11.5-14.5) Platelet Count 355 x10^3/uL (140-400) Neutrophils (%) (Auto) 72 % (31-73) Lymphocytes (%) (Auto) 18 % (24-48) Monocytes (%) (Auto) 8 % (0-9) Eosinophils (%) (Auto) 2 % (0-3) Basophils (%) (Auto) 0 % (0-3) Neutrophils # (Auto) 6.1 x10^3uL (1.8-7.7) Lymphocytes # (Auto) 1.5 x10^3/uL (1.0-4.8) Monocytes # (Auto) 0.7 x10^3/uL (0.0-1.1) Eosinophils # (Auto) 0.2 x10^3/uL (0.0-0.7) Basophils # (Auto) 0.0 x10^3/uL (0.0-0.2) Sodium Level 142 mmol/L (136-145) Potassium Level 3.4 mmol/L (3.5-5.1) Chloride Level 105 mmol/L (98-107) Carbon Dioxide Level 26 mmol/L (21-32) Anion Gap 11 (6-14) Blood Urea Nitrogen 14 mg/dL (8-26) Creatinine 1.1 mg/dL (0.7-1.3) Estimated GFR (Cockcroft-Gault) 68.3 Glucose Level 54 mg/dL (70-99) Calcium Level 8.2 mg/dL (8.5-10.1) Test 12/13/17 11:16 Glucose (Fingerstick) 137 mg/dL (70-99) Micro Reviewed Objective Assessment Fever resolved Necrotic diabetic ulcer right heel. - MRI + osteo. - s/p debridement 12/[address] Rudolph -Intra-op cultures E coli, klebsiella, enterococcus amp sensitive, 12/09. -ESR 105. Right foot cellulitis Diabetes with neuropathy, poorly controlled CAD h/o MSSA toes s/p amputation THERESA creat is 1.4, Vanc trough 19 - better Plan Plan of Care Concern is for erythema around foot nerissa the heel Continue Zosyn Zyvox (12/12) for a couple of days Monitor labs/temp/renal function closely cont local wound care with wound vac Heel OM are usually difficult to treat D/W Sister at bedside Attending Co-Sign Attending Co-Sign The patient was seen and interviewed as well as examined at the bedside. The chart was reviewed. The case was discussed. Agree with the plan of care. STELLA DALAL APRN Dec 13, 2017 13:01 EVNITA KATE MD Dec 14, 2017 16:33
[2017-12-13 15:00] VITALS: BP 126/77
[2017-12-13 19:00] VITALS: BP 107/62
[2017-12-13 23:00] VITALS: BP 117/67
[2017-12-14] MEDS: PIPERACILLIN/TAZOBACTAM 3.375 GM in IV NORMAL SALINE 50ML 50 ML IV SCH ×5 (00:17→23:34)
[2017-12-14 03:00] VITALS: BP 101/60
[2017-12-14 07:00] VITALS: BP 115/76
[2017-12-14] MEDS: INSULIN NPH/REG INSULIN 70/30 300 UNITS/3 ML INSULN.PEN. SQ SCH ×2 (08:00→16:56)
[2017-12-14] MEDS: INSULIN LISPRO 300 UNITS/3 ML INSULN.PEN. SQ SCH ×3 (08:00→17:03)
--- NOTE | 2017-12-14 08:08 | PDOC ---
PROGRESS NOTES Chief Complaint Chief Complaint Right heel wound in a diabetic s/p i and d on 12/07 wound vac. i and d 12/12 Diabetes type 1, hemoglobin A1c is 13 Hypertension, h/o CAD, CABG 2016, dyslipidemia-chronic stable History of Present Illness History of Present Illness Admitted with cellulitic right heel wound s/p I&D with bone biopsy and wound vac. I and D 12/10, 12/12. more redness today around the heel wound He has no complaints, worried a little about the cold hands and feet he always experiences. His sister is bedside. Wound vac changed today. Blood sugars are better since adjustments of insulin Sunday Wound is polymicrobial, enterococcus is ampicillin sensitive. Zyvox added by ID , with bone involvement have d/w ID need for PICC and 6 weeks antibiotic therapy. A/p: Right heel wound in a diabetic s/p i and d on 12/07 wound vac. i and d 12/12 - wound vac change today. polymicrobial. cont zosyn, elvin vanco, on zyvox today fu wound cx. fu with id, vascular Diabetes type 1, hemoglobin A1c is 13 - on NPH insulin bid, ssi Hypertension - will add prns h/o CAD, CABG 2015 - stable dyslipidemia-chronic stable dvt ppx FULL CODE talked to sister at bedside about plan to d/c with wound center follow up, d/w surgery and ID today Vitals Vitals Vital Signs Date Time Temp Pulse Resp B/P (MAP) Pulse Ox O2 Delivery O2 Flow Rate FiO2 12/14/17 03:00 97.9 70 18 101/60 (74) 96 Room Air 97.9 12/13/17 20:00 10.0 Physical Exam Physical Exam GENERAL: Propped up in bed, smiling, eating HEENT: Oral cavity: Pharynx pink. NECK: Supple. LUNGS: Clear to auscultation. HEART: S1 and S2. ABDOMEN: Nondistended. Bowel sounds active, soft, nontender. EXTREMITIES: wound vac in place rt foot,some erythema around wound, BLE edema. No cyanosis SKIN: Warm without rash. NEUROLOGIC: Alert and oriented times 3. PIV General: Alert, Oriented X3, Cooperative, No acute distress Heart: Regular rate, Normal S1, Normal S2 Lungs: Clear Abdomen: Normal bowel sounds, Soft, No tenderness, No hepatosplenomegaly, No masses Extremities: No clubbing, No cyanosis, Normal pulses Skin: Other (rt heel wound, dry, some redness around the area, tender to touch , no oozing currently) Labs LABS Laboratory Tests Test 12/13/17 11:16 12/13/17 16:39 12/13/17 21:14 12/14/17 07:36 Glucose (Fingerstick) 137 mg/dL (70-99) 80 mg/dL (70-99) 191 mg/dL (70-99) 107 mg/dL (70-99) Comment Review of Relevant I have reviewed the following items joana (where applicable) has been applied. Labs Laboratory Tests Test 12/12/17 08:37 12/12/17 10:59 12/12/17 14:36 12/12/17 16:49 Glucose (Fingerstick) 255 mg/dL (70-99) 230 mg/dL (70-99) 310 mg/dL (70-99) 220 mg/dL (70-99) Test 12/13/17 04:25 12/13/17 07:42 12/13/17 11:16 12/13/17 16:39 White Blood Count 8.5 x10^3/uL (4.0-11.0) Red Blood Count 3.07 x10^6/uL (4.30-5.70) Hemoglobin 10.2 g/dL (13.0-17.5) Hematocrit 29.3 % (39.0-53.0) Mean Corpuscular Volume 95 fL (79-100) Mean Corpuscular Hemoglobin 33 pg (25-35) Mean Corpuscular Hemoglobin Concent 35 g/dL (31-37) Red Cell Distribution Width 14.8 % (11.5-14.5) Platelet Count 355 x10^3/uL (140-400) Neutrophils (%) (Auto) 72 % (31-73) Lymphocytes (%) (Auto) 18 % (24-48) Monocytes (%) (Auto) 8 % (0-9) Eosinophils (%) (Auto) 2 % (0-3) Basophils (%) (Auto) 0 % (0-3) Neutrophils # (Auto) 6.1 x10^3uL (1.8-7.7) Lymphocytes # (Auto) 1.5 x10^3/uL (1.0-4.8) Monocytes # (Auto) 0.7 x10^3/uL (0.0-1.1) Eosinophils # (Auto) 0.2 x10^3/uL (0.0-0.7) Basophils # (Auto) 0.0 x10^3/uL (0.0-0.2) Sodium Level 142 mmol/L (136-145) Potassium Level 3.4 mmol/L (3.5-5.1) Chloride Level 105 mmol/L (98-107) Carbon Dioxide Level 26 mmol/L (21-32) Anion Gap 11 (6-14) Blood Urea Nitrogen 14 mg/dL (8-26) Creatinine 1.1 mg/dL (0.7-1.3) Estimated GFR (Cockcroft-Gault) 68.3 Glucose Level 54 mg/dL (70-99) Calcium Level 8.2 mg/dL (8.5-10.1) Glucose (Fingerstick) 81 mg/dL (70-99) 137 mg/dL (70-99) 80 mg/dL (70-99) Test 12/13/17 21:14 12/14/17 07:36 Glucose (Fingerstick) 191 mg/dL (70-99) 107 mg/dL (70-99) Laboratory Tests Test 12/13/17 11:16 12/13/17 16:39 12/13/17 21:14 12/14/17 07:36 Glucose (Fingerstick) 137 mg/dL (70-99) 80 mg/dL (70-99) 191 mg/dL (70-99) 107 mg/dL (70-99) Microbiology 12/08/17 Blood Culture - Final, Complete NO GROWTH AFTER 5 DAYS 12/09/17 Anaerobic/Aerobic Culture - Final, Complete 12/09/17 Anaerobic Culture Result 1 (ELISABETH) - Final, Complete 12/09/17 Aerobic Culture - Final, Complete 12/09/17 Aerobic Culture Result 1 (ELISABETH) - Final, Complete 12/09/17 Aerobic Culture Result 2 (ELISABETH) - Final, Complete 12/09/17 Aerobic Culture Result 3 (ELISABETH) - Final, Complete 12/09/17 Gram Stain - Final, Complete 12/09/17 Gram Stain Result 1 (ELISABETH) - Final, Complete 12/09/17 Gram Stain Result 2 (ELISABETH) - Final, Complete 12/09/17 Gram Stain Result 3 (ELISABETH) - Final, Complete Medications Current Medications Ondansetron HCl (Zofran) 4 mg PRN Q6HRS PRN IV NAUSEA/VOMITING, 1ST CHOICE; Start 12/07/17 at 15:15 Prochlorperazine Edisylate (Compazine) 10 mg PRN Q6HRS PRN IV NAUSEA/VOMITING, 2ND CHOICE; Start 12/07/17 at 15:15 Prochlorperazine (Compazine) 25 mg PRN Q12HR PRN IN NAUSEA/VOMITING; Start at 15:15 Al Hydroxide/Mg Hydroxide (Mylanta Plus Xs) 30 ml PRN Q3HRS PRN PO HEARTBURN / GAS; Start 12/07/17 at 15:15 Calcium Carbonate/ Glycine (Tums) 500 mg PRN Q3HRS PRN PO UPSET STOMACH; Start 12/07/17 at 15:15 Zolpidem Tartrate (Ambien) 5 mg PRN QHS PRN PO INSOMNIA, MAY REPEAT IN 1HR Last administered on 12/11/17at 20:40; Start 12/07/17 at 15:15 Oxycodone HCl (Roxicodone) 5 mg PRN Q3HRS PRN PO BREAKTHROUGH PAIN Last administered on 12/11/17at 20:41; Start 12/07/17 at 15:15 Acetaminophen (Tylenol) 650 mg PRN Q6HRS PRN PO Headaches, Temp > 101.5F; Start 12/07/17 at 15:15 Ibuprofen (Motrin) 400 mg PRN Q6HRS PRN PO MILD PAIN; Start 12/07/17 at 15:15 Magnesium Hydroxide (Milk Of Magnesia) 2,400 mg PRN Q12HR PRN PO CONSTIPATION, 1ST CHOICE; Start 12/07/17 at 15:15 Lactulose (Lactulose) 20 gm PRN Q12HR PRN PO CONSTIPATION, 2ND CHOICE; Start 12/07/17 at 15:15 Insulin Human Lispro (HumaLOG) 0-9 UNITS TIDWMEALS SQ ; Start 12/07/17 at 17:00 ; Stop 12/07/17 at 18:50; Status DC Dextrose (Dextrose 50%-Water Syringe) 12.5 gm PRN Q15MIN PRN IV SEE COMMENTS; Start 12/07/17 at 15:15 Fentanyl Citrate (Fentanyl 2ml Vial) 50 mcg PRN Q2HR PRN IV PAIN; Start at 15:15 Tramadol HCl (Ultram) 50 mg PRN Q6HRS PRN PO MOD TO SEVERE PAIN; Start at 15:15 Allopurinol (Zyloprim) 300 mg DAILY PO Last administered on 12/13/17at 08:57; Start 12/07/17 at 16:00 Lisinopril (Prinivil) 40 mg DAILY PO Last administered on 12/13/17at 08:55; Start 12/07/17 at 16:00 Metoprolol Tartrate (Lopressor) 100 mg BID PO Last administered on 12/13/17at 20 :26; Start 12/07/17 at 21:00 Ranolazine (Ranexa) 500 mg BID PO Last administered on 12/13/17at 20:26; Start 12/07/17 at 21:00 Isosorbide Mononitrate (Imdur) 60 mg DAILY PO Last administered on 12/13/17at 08 :53; Start 12/08/17 at 09:00 Pantoprazole Sodium (Protonix) 40 mg DAILYAC PO Last administered on 12/13/17at 07:44; Start 12/07/17 at 16:30 Labetalol HCl (Normodyne Iv Push) 10 mg PRN Q2HR PRN IVP HYPERTENSION, SEE COMMENTS; Start 12/07/17 at 15:30 Insulin Glargine (Lantus) 25 units QHS SQ ; Start 12/07/17 at 21:00; Stop at 21:00; Status DC Insulin Glargine (Lantus) 50 units DAILY SQ ; Start 12/08/17 at 09:00; Status Cancel Insulin Glargine (Lantus) 40 units QHS SQ ; Start 12/07/17 at 21:00; Status Cancel Insulin Human Isoph/Insulin Regular (HumuLIN 70/30) 50 units DAILY07 SQ Last administered on 12/08/17at 09:26; Start 12/08/17 at 07:00; Stop 12/10/17 at 04 :59; Status DC Insulin Human Isoph/Insulin Regular (HumuLIN 70/30) 40 units DAILY16 SQ Last administered on 12/09/17at 16:15; Start 12/08/17 at 16:00; Stop 12/09/17 at 18 :00; Status DC Sodium Chloride 1,000 ml @ 1,000 mls/hr 1X ONCE IV Last administered on 12/07at 21:36; Start 12/07/17 at 21:30; Stop 12/07/17 at 22:29; Status DC Sodium Chloride 1,000 ml @ 100 mls/hr Q10H IV Last administered on 12/09/17at 02:16; Start 12/07/17 at 22:30; Stop 12/09/17 at 08:18; Status DC Insulin Human Lispro (HumaLOG) 0-9 UNITS TIDWMEALS SQ Last administered on at 18:17; Start 12/08/17 at 12:00 Dextrose (Dextrose 50%-Water Syringe) 12.5 gm PRN Q15MIN PRN IV SEE COMMENTS; Start 12/08/17 at 08:30; Status UNV Vancomycin HCl (Vanco Per Pharmacy) 1 each PRN DAILY PRN MC SEE COMMENTS Last administered on 12/11/17at 19:09; Start 12/08/17 at 13:45; Stop 12/12/17 at 10 :58; Status DC Piperacillin Sod/ Tazobactam Sod 3.375 gm/Sodium Chloride 50 ml @ 100 mls/hr Q6HRS IV ; Start 12/08/17 at 18:00; Status UNV Piperacillin Sod/ Tazobactam Sod 3.375 gm/Sodium Chloride 50 ml @ 100 mls/hr Q6HRS IV Last administered on 12/14/17at 06:06; Start 12/08/17 at 14:00 Vancomycin HCl 2 gm/Sodium Chloride 500 ml @ 250 mls/hr 1X ONCE IV Last administered on 12/08/17at 15:30; Start 12/08/17 at 14:30; Stop 12/08/17 at 16 :29; Status DC Vancomycin HCl 1.25 gm/Sodium Chloride 250 ml @ 167 mls/hr Q12H IV Last administered on 12/09/17at 16:06; Start 12/09/17 at 03:30; Stop 12/10/17 at 04 :45; Status DC Vancomycin HCl (Vancomycin Trough Level) 1 each 1X ONCE MC Last administered on 12/10/17at 03:00; Start 12/10/17 at 03:00; Stop 12/10/17 at 03:01; Status DC Lidocaine HCl 20 ml STK-MED ONCE .ROUTE ; Start 12/09/17 at 06:11; Stop at 07:11; Status DC Silver Sulfadiazine (Silvadene) 25 deb STK-MED ONCE TP ; Start 12/09/17 at 06: 11; Stop 12/09/17 at 07:11; Status DC Phenylephrine HCl (PHENYLEPHRINE in 0.9% NACL PF) 1 mg STK-MED ONCE IV ; Start 12/09/17 at 08:23; Stop 12/09/17 at 08:24; Status DC Dexamethasone Sodium Phosphate (Decadron) 20 mg STK-MED ONCE .ROUTE ; Start at 08:23; Stop 12/09/17 at 08:24; Status DC Ondansetron HCl (Zofran) 4 mg STK-MED ONCE .ROUTE ; Start 12/09/17 at 08:23; Stop 12/09/17 at 08:24; Status DC Lidocaine HCl (Lidocaine Pf 2% Vial) 5 ml STK-MED ONCE .ROUTE ; Start 12/09/17 at 08:23; Stop 12/09/17 at 08:24; Status DC Propofol 20 ml @ As Directed STK-MED ONCE IV ; Start 12/09/17 at 08:23; Stop 12/09/17 at 08:24; Status DC Sevoflurane (Ultane) 30 ml STK-MED ONCE IH ; Start 12/09/17 at 08:23; Stop at 08:24; Status DC Insulin Human Lispro (HumaLOG VIAL) 6 unit 1X ONCE SQ ; Start 12/09/17 at 09: 00; Stop 12/09/17 at 09:01; Status Cancel Insulin Human Lispro (HumaLOG VIAL) 4 unit 1X ONCE SQ Last administered on at 09:25; Start 12/09/17 at 09:30; Stop 12/09/17 at 09:31; Status DC Lactobacillus Rhamnosus (Culturelle) 1 cap BID PO Last administered on at 20:26; Start 12/09/17 at 21:00 Insulin Human Isoph/Insulin Regular (HumuLIN 70/30) 50 units DAILY16 SQ Last administered on 12/13/17at 17:51; Start 12/10/17 at 16:00 Insulin Human Lispro (HumaLOG) 6 units 1X ONCE SQ Last administered on at 18:43; Start 12/09/17 at 18:00; Stop 12/09/17 at 18:20; Status DC Vancomycin HCl 1 gm/Sodium Chloride 250 ml @ 250 mls/hr Q12H IV Last administered on 12/12/17at 04:17; Start 12/10/17 at 05:00; Stop 12/12/17 at 10 :58; Status DC Vancomycin HCl (Vancomycin Trough Level) 1 each 1X ONCE MC ; Start 12/11/17 at 16:30; Stop 12/11/17 at 16:31; Status DC Insulin Human Isoph/Insulin Regular (HumuLIN 70/30) 50 units DAILYWBKFT SQ Last administered on 12/13/17at 08:08; Start 12/10/17 at 08:00 Ascorbic Acid (Vitamin C) 500 mg DAILY PO Last administered on 12/13/17at 08:54 ; Start 12/11/17 at 09:00 Multivitamins (Thera M Plus) 1 tab DAILY PO Last administered on 12/13/17at 08: 56; Start 12/11/17 at 09:00 Ondansetron HCl (Zofran) 4 mg PRN Q6HRS PRN IV NAUSEA/VOMITING; Start at 07:00; Stop 12/13/17 at 06:59; Status DC Fentanyl Citrate (Fentanyl 2ml Vial) 25 mcg PRN Q5MIN PRN IV MILD PAIN; Start 12/12/17 at 07:00; Stop 12/13/17 at 06:59; Status DC Fentanyl Citrate (Fentanyl 2ml Vial) 50 mcg PRN Q5MIN PRN IV MODERATE TO SEVERE PAIN; Start 12/12/17 at 07:00; Stop 12/13/17 at 06:59; Status DC Ringer's Solution 1,000 ml @ 30 mls/hr Q24H IV Last administered on at 12:51; Start 12/12/17 at 07:00; Stop 12/12/17 at 18:59; Status DC Lidocaine HCl (Xylocaine-Mpf 1% 2ml Vial) 2 ml PRN 1X PRN ID PRIOR TO IV START ; Start 12/12/17 at 07:00; Stop 12/13/17 at 06:59; Status DC Prochlorperazine Edisylate (Compazine) 5 mg PACU PRN PRN IV NAUSEA, MRX1; Start 12/12/17 at 07:00; Stop 12/13/17 at 06:59; Status DC Linezolid/Dextrose 300 ml @ 300 mls/hr Q12HR IV Last administered on at 20:26; Start 12/12/17 at 12:00 Lidocaine HCl 20 ml STK-MED ONCE .ROUTE ; Start 12/12/17 at 12:09; Stop at 13:10; Status DC Silver Sulfadiazine (Silvadene) 25 deb STK-MED ONCE TP ; Start 12/12/17 at 12: 09; Stop 12/12/17 at 13:10; Status DC Propofol 20 ml @ As Directed STK-MED ONCE IV ; Start 12/12/17 at 13:35; Stop 12/12/17 at 13:36; Status DC Ketamine HCl (Ketamine) 50 mg STK-MED ONCE .ROUTE ; Start 12/12/17 at 13:36; Stop 12/12/17 at 13:37; Status DC Fentanyl Citrate (Fentanyl 2ml Vial) 100 mcg STK-MED ONCE .ROUTE ; Start at 13:36; Stop 12/12/17 at 13:37; Status DC Midazolam HCl (Versed) 2 mg STK-MED ONCE .ROUTE ; Start 12/12/17 at 13:36; Stop 12/12/17 at 13:37; Status DC Insulin Human Lispro (HumaLOG VIAL) 10 unit 1X ONCE SQ Last administered on at 14:44; Start 12/12/17 at 14:45; Stop 12/12/17 at 14:46; Status DC Potassium Chloride (Klor-Con) 40 meq 1X ONCE PO Last administered on at 08:52; Start 12/13/17 at 08:30; Stop 12/13/17 at 08:31; Status DC Active Scripts Active Reported Ranexa (Ranolazine) 500 Mg Tab.er.12h 1 Tab PO BID Isosorbide Mononitrate Er (Isosorbide Mononitrate) 60 Mg Tab.er.24h 1 Tab PO DAILY Clopidogrel (Clopidogrel Bisulfate) 75 Mg Tablet 1 Tab PO DAILY Metoprolol Tartrate 50 Mg Tablet 100 Mg PO BID NEXT DOSE: 01/19/15 PM Aspir 81 (Aspirin) 81 Mg Tablet.dr 81 Mg PO DAILY NEXT DOSE: 01/20/15 AM Omeprazole 40 Mg Capsule.dr 40 Mg PO DAILY NEXT DOSE: 01/20/15 AM Allopurinol 300 Mg Tablet 300 Mg PO DAILY NEXT DOSE: 01/20/15 AM Lisinopril 40 Mg Tablet 40 Mg PO DAILY NEXT DOSE: 01/20/15 AM Vitals/I & O Vital Sign - Last 24 Hours 12/13/17 12/13/17 12/13/17 12/13/17 08:53 08:55 08:56 08:57 Pulse 89 89 89 89 B/P (MAP) 152/83 152/83 152/83 152/83 12/13/17 12/13/17 12/13/17 12/13/17 11:00 15:00 19:00 20:00 Temp 98.1 98.1 99.6 98.1 98.1 99.6 Pulse 89 84 92 Resp 18 18 18 B/P (MAP) 132/79 (96) 126/77 (93) 107/62 (77) Pulse Ox 96 97 94 O2 Delivery Room Air Room Air Room Air Room Air O2 Flow Rate 10.0 12/13/17 12/13/17 12/13/17 12/14/17 20:26 20:26 23:00 03:00 Temp 97.9 97.9 97.9 97.9 Pulse 78 78 90 70 Resp 18 B/P (MAP) 129/82 129/82 117/67 (84) 101/60 (74) Pulse Ox 96 96 O2 Delivery Room Air Room Air Intake and Output 12/13/17 12/13/17 12/14/17 15:00 23:00 07:00 Intake Total 650 ml 350 ml Balance 650 ml 350 ml KATARINA KIRBY MD Dec 14, 2017 08:08
--- NOTE | 2017-12-14 08:23 | PDOC ---
Provider Note Provider Note Vascular S: pt without complaints post op right heel debridement and wound vac placement O: vss, afebrile awake and alert wound vac in place right heel A: Left heel wound with cellulitis POD #2 heel debridement and wound vac placement P: cont. wound care, off load heel; f/u at wound care center at [facility] OLEG FUNES APRN Dec 14, 2017 08:23
[2017-12-14] MEDS: ALLOPURINOL 300 MG TABLET. PO SCH (09:10)
[2017-12-14] MEDS: LACTOBACILLUS RHAMNOSUS GG 1 CAPSULE. PO SCH ×2 (09:11→20:59)
[2017-12-14] MEDS: LISINOPRIL 20 MG TABLET PO SCH (09:11)
[2017-12-14] MEDS: MULTIVITAMIN with MINERAL TABLET. PO SCH (09:12)
[2017-12-14] MEDS: METOPROLOL TART IMMED RELEASE 50 MG TABLET. PO SCH ×2 (09:12→21:00)
[2017-12-14] MEDS: ASCORBIC ACID 500 MG TABLET PO SCH (09:13)
[2017-12-14] MEDS: ISOSORBIDE MONONITRATE ER 30 MG TAB.ER.24H PO SCH (09:13)
[2017-12-14] MEDS: RANOLAZINE 500 MG TAB.ER.12H PO SCH ×2 (09:14→20:59)
[2017-12-14] MEDS: PANTOPRAZOLE 40 MG TABLET.DR. PO SCH (09:14)
[2017-12-14 11:00] VITALS: BP 136/78
--- NOTE | 2017-12-14 11:19 | PDOC ---
Infectious Disease Note Subjective Subjective Comfortable, denies pain No complaints/concerns voiced No F/C/S ROS ROS per HPI otherwise neg Vital Sign Vital Signs Vital Signs Date Time Temp Pulse Resp B/P (MAP) Pulse Ox O2 Delivery O2 Flow Rate FiO2 12/14/17 09:14 84 115/76 12/14/17 07:00 98.8 18 98 Room Air 98.8 12/13/17 20:00 10.0 Physical Exam PHYSICAL EXAM GENERAL: Propped up in bed, smiling HEENT: Oral cavity clear NECK: Supple. LUNGS: Clear to auscultation. HEART: S1 and S2. ABDOMEN: Bowel sounds active, soft, nontender. EXTREMITIES: right foot wound vac and brace in place. BLE edema. No cyanosis SKIN: Warm without rash. NEUROLOGIC: Alert and oriented times 3. PIV Labs Lab Laboratory Tests Test 12/13/17 11:16 12/13/17 16:39 12/13/17 21:14 12/14/17 07:36 Glucose (Fingerstick) 137 mg/dL (70-99) 80 mg/dL (70-99) 191 mg/dL (70-99) 107 mg/dL (70-99) Micro Objective Assessment Fever resolved Necrotic diabetic ulcer right heel. - MRI + osteo. - s/p debridement 12/[address] Rudolph -Intra-op cultures E coli, klebsiella, enterococcus amp sensitive, 12/09. -ESR 105. Right foot cellulitis Diabetes with neuropathy, poorly controlled CAD h/o MSSA toes s/p amputation THERESA creat is 1.4, Vanc trough 19 - better Plan Plan of Care Continue Zosyn for now D/c Zyvox (12/12) for a couple of days for erythema about the heel PICC line Monitor labs/temp/renal function closely local wound care/vac and offloading Heel OM are usually difficult to treat Will need minimum of 6 weeks of abx D/W Sister at bedside Attending Co-Sign Attending Co-Sign The patient was seen and interviewed as well as examined at the bedside. The chart was reviewed. The case was discussed. Agree with the plan of care. STELLA DALAL APRN Dec 14, 2017 11:19 VENITA KATE MD Dec 14, 2017 13:32
[2017-12-14 15:00] VITALS: BP 102/55
[2017-12-14 19:00] VITALS: BP 128/77
[2017-12-14 23:00] VITALS: BP 177/92
[2017-12-15 03:00] VITALS: BP 147/83
[2017-12-15] MEDS: PIPERACILLIN/TAZOBACTAM 3.375 GM in IV NORMAL SALINE 50ML 50 ML IV SCH ×3 (05:54→17:13)
[2017-12-15 07:00] VITALS: BP 141/80
[2017-12-15] MEDS: PANTOPRAZOLE 40 MG TABLET.DR. PO SCH (07:38)
[2017-12-15] MEDS: INSULIN LISPRO 300 UNITS/3 ML INSULN.PEN. SQ SCH ×3 (08:00→17:00)
--- NOTE | 2017-12-15 08:40 | PDOC ---
PROGRESS NOTES Chief Complaint Chief Complaint Right heel wound in a diabetic s/p i and d on 12/07 wound vac. i and d 12/12 Diabetes type 1, hemoglobin A1c is 13 Hypertension, h/o CAD, CABG 2015, dyslipidemia-chronic stable History of Present Illness History of Present Illness Admitted with cellulitic right heel wound s/p I&D with bone biopsy and wound vac. I and D 12/10, 12/12. more redness today around the heel wound He has no complaints, worried a little about the cold hands and feet he always experiences. His sister is bedside. Wound vac changed today. Blood sugars are better since adjustments of insulin Sunday Wound is polymicrobial, enterococcus is ampicillin sensitive. Zyvox added by ID , with bone involvement have d/w ID need for PICC and 6 weeks antibiotic therapy. S/p PICC, feeling ok. Overnight had a glucose of 47 A/p: Right heel wound in a diabetic s/p i and d on 12/07 wound vac. i and d 12/12 - wound vac change today. polymicrobial. cont angelinesyn, elvin vanco, on zyvox today fu wound cx. fu with id, vascular Diabetes type 1, hemoglobin A1c is 13 - on NPH insulin bid, ssi Hypoglycemia - will reduce his 50 units of NPH to 40 tonight Hypertension - will add prns h/o CAD, CABG 2015 - stable dyslipidemia-chronic stable dvt ppx FULL CODE talked to sister at bedside about plan to d/c with wound center follow up, d/w surgery and ID today Vitals Vitals Vital Signs Date Time Temp Pulse Resp B/P (MAP) Pulse Ox O2 Delivery O2 Flow Rate FiO2 12/15/17 03:00 97.5 80 18 147/83 (104) 96 Room Air 97.5 12/14/17 20:00 10.0 Physical Exam Physical Exam GENERAL: Propped up in bed, smiling HEENT: Oral cavity clear NECK: Supple. LUNGS: Clear to auscultation. HEART: S1 and S2. ABDOMEN: Bowel sounds active, soft, nontender. EXTREMITIES: right foot wound vac and brace in place. BLE edema. No cyanosis SKIN: Warm without rash. NEUROLOGIC: Alert and oriented times 3. PIV General: Alert, Oriented X3, Cooperative, No acute distress Heart: Regular rate, Normal S1, Normal S2 Lungs: Clear Abdomen: Normal bowel sounds, Soft, No tenderness, No hepatosplenomegaly, No masses Extremities: No clubbing, No cyanosis, Normal pulses Skin: Other (rt heel wound, dry, some redness around the area, tender to touch , no oozing currently) Labs LABS Laboratory Tests Test 12/14/17 11:11 12/14/17 16:46 12/14/17 20:19 12/14/17 23:37 Glucose (Fingerstick) 213 mg/dL (70-99) 137 mg/dL (70-99) 81 mg/dL (70-99) 47 mg/dL (70-99) Test 12/14/17 23:57 Glucose (Fingerstick) 157 mg/dL (70-99) Comment Review of Relevant I have reviewed the following items joana (where applicable) has been applied. Labs Laboratory Tests Test 12/13/17 11:16 12/13/17 16:39 12/13/17 21:14 12/14/17 07:36 Glucose (Fingerstick) 137 mg/dL (70-99) 80 mg/dL (70-99) 191 mg/dL (70-99) 107 mg/dL (70-99) Test 12/14/17 11:11 12/14/17 16:46 12/14/17 20:19 12/14/17 23:37 Glucose (Fingerstick) 213 mg/dL (70-99) 137 mg/dL (70-99) 81 mg/dL (70-99) 47 mg/dL (70-99) Test 12/14/17 23:57 Glucose (Fingerstick) 157 mg/dL (70-99) Laboratory Tests Test 12/14/17 11:11 12/14/17 16:46 12/14/17 20:19 12/14/17 23:37 Glucose (Fingerstick) 213 mg/dL (70-99) 137 mg/dL (70-99) 81 mg/dL (70-99) 47 mg/dL (70-99) Test 12/14/17 23:57 Glucose (Fingerstick) 157 mg/dL (70-99) Microbiology 12/08/17 Blood Culture - Final, Complete NO GROWTH AFTER 5 DAYS 12/09/17 Anaerobic/Aerobic Culture - Final, Complete 12/09/17 Anaerobic Culture Result 1 (ELISABETH) - Final, Complete 12/09/17 Aerobic Culture - Final, Complete 12/09/17 Aerobic Culture Result 1 (ELISABETH) - Final, Complete 12/09/17 Aerobic Culture Result 2 (ELISABETH) - Final, Complete 12/09/17 Aerobic Culture Result 3 (ELISABETH) - Final, Complete 12/09/17 Gram Stain - Final, Complete 12/09/17 Gram Stain Result 1 (ELISABETH) - Final, Complete 12/09/17 Gram Stain Result 2 (ELISABETH) - Final, Complete 12/09/17 Gram Stain Result 3 (ELISABETH) - Final, Complete Medications Current Medications Ondansetron HCl (Zofran) 4 mg PRN Q6HRS PRN IV NAUSEA/VOMITING, 1ST CHOICE; Start 12/07/17 at 15:15 Prochlorperazine Edisylate (Compazine) 10 mg PRN Q6HRS PRN IV NAUSEA/VOMITING, 2ND CHOICE; Start 12/07/17 at 15:15 Prochlorperazine (Compazine) 25 mg PRN Q12HR PRN RI NAUSEA/VOMITING; Start at 15:15 Al Hydroxide/Mg Hydroxide (Mylanta Plus Xs) 30 ml PRN Q3HRS PRN PO HEARTBURN / GAS; Start 12/07/17 at 15:15 Calcium Carbonate/ Glycine (Tums) 500 mg PRN Q3HRS PRN PO UPSET STOMACH; Start 12/07/17 at 15:15 Zolpidem Tartrate (Ambien) 5 mg PRN QHS PRN PO INSOMNIA, MAY REPEAT IN 1HR Last administered on 12/11/17at 20:40; Start 12/07/17 at 15:15 Oxycodone HCl (Roxicodone) 5 mg PRN Q3HRS PRN PO SEVERE PAIN Last administered on 12/11/17at 20:41; Start 12/07/17 at 15:15 Acetaminophen (Tylenol) 650 mg PRN Q6HRS PRN PO Headaches, Temp > 101.5F; Start 12/07/17 at 15:15 Ibuprofen (Motrin) 400 mg PRN Q6HRS PRN PO MILD PAIN; Start 12/07/17 at 15:15 Magnesium Hydroxide (Milk Of Magnesia) 2,400 mg PRN Q12HR PRN PO CONSTIPATION, 1ST CHOICE; Start 12/07/17 at 15:15 Lactulose (Lactulose) 20 gm PRN Q12HR PRN PO CONSTIPATION, 2ND CHOICE; Start 12/07/17 at 15:15 Insulin Human Lispro (HumaLOG) 0-9 UNITS TIDWMEALS SQ ; Start 12/07/17 at 17:00 ; Stop 12/07/17 at 18:50; Status DC Dextrose (Dextrose 50%-Water Syringe) 12.5 gm PRN Q15MIN PRN IV SEE COMMENTS; Start 12/07/17 at 15:15 Fentanyl Citrate (Fentanyl 2ml Vial) 50 mcg PRN Q2HR PRN IV PAIN; Start at 15:15 Tramadol HCl (Ultram) 50 mg PRN Q6HRS PRN PO MODERATE PAIN; Start 12/07/17 at 15:15 Allopurinol (Zyloprim) 300 mg DAILY PO Last administered on 12/14/17at 09:10; Start 12/07/17 at 16:00 Lisinopril (Prinivil) 40 mg DAILY PO Last administered on 12/14/17at 09:11; Start 12/07/17 at 16:00 Metoprolol Tartrate (Lopressor) 100 mg BID PO Last administered on 12/14/17at 21 :00; Start 12/07/17 at 21:00 Ranolazine (Ranexa) 500 mg BID PO Last administered on 12/14/17at 20:59; Start 12/07/17 at 21:00 Isosorbide Mononitrate (Imdur) 60 mg DAILY PO Last administered on 12/14/17at 09 :13; Start 12/08/17 at 09:00 Pantoprazole Sodium (Protonix) 40 mg DAILYAC PO Last administered on 12/15/17at 07:38; Start 12/07/17 at 16:30 Labetalol HCl (Normodyne Iv Push) 10 mg PRN Q2HR PRN IVP HYPERTENSION, SEE COMMENTS; Start 12/07/17 at 15:30 Insulin Glargine (Lantus) 25 units QHS SQ ; Start 12/07/17 at 21:00; Stop at 21:00; Status DC Insulin Glargine (Lantus) 50 units DAILY SQ ; Start 12/08/17 at 09:00; Status Cancel Insulin Glargine (Lantus) 40 units QHS SQ ; Start 12/07/17 at 21:00; Status Cancel Insulin Human Isoph/Insulin Regular (HumuLIN 70/30) 50 units DAILY07 SQ Last administered on 12/08/17at 09:26; Start 12/08/17 at 07:00; Stop 12/10/17 at 04 :59; Status DC Insulin Human Isoph/Insulin Regular (HumuLIN 70/30) 40 units DAILY16 SQ Last administered on 12/09/17at 16:15; Start 12/08/17 at 16:00; Stop 12/09/17 at 18 :00; Status DC Sodium Chloride 1,000 ml @ 1,000 mls/hr 1X ONCE IV Last administered on 12/07at 21:36; Start 12/07/17 at 21:30; Stop 12/07/17 at 22:29; Status DC Sodium Chloride 1,000 ml @ 100 mls/hr Q10H IV Last administered on 12/09/17at 02:16; Start 12/07/17 at 22:30; Stop 12/09/17 at 08:18; Status DC Insulin Human Lispro (HumaLOG) 0-9 UNITS TIDWMEALS SQ Last administered on 12/14at 12:54; Start 12/08/17 at 12:00 Dextrose (Dextrose 50%-Water Syringe) 12.5 gm PRN Q15MIN PRN IV SEE COMMENTS; Start 12/08/17 at 08:30; Status UNV Vancomycin HCl (Vanco Per Pharmacy) 1 each PRN DAILY PRN MC SEE COMMENTS Last administered on 12/11/17at 19:09; Start 12/08/17 at 13:45; Stop 12/12/17 at 10 :58; Status DC Piperacillin Sod/ Tazobactam Sod 3.375 gm/Sodium Chloride 50 ml @ 100 mls/hr Q6HRS IV ; Start 12/08/17 at 18:00; Status UNV Piperacillin Sod/ Tazobactam Sod 3.375 gm/Sodium Chloride 50 ml @ 100 mls/hr Q6HRS IV Last administered on 12/15/17at 05:54; Start 12/08/17 at 14:00 Vancomycin HCl 2 gm/Sodium Chloride 500 ml @ 250 mls/hr 1X ONCE IV Last administered on 12/08/17at 15:30; Start 12/08/17 at 14:30; Stop 12/08/17 at 16 :29; Status DC Vancomycin HCl 1.25 gm/Sodium Chloride 250 ml @ 167 mls/hr Q12H IV Last administered on 12/09/17at 16:06; Start 12/09/17 at 03:30; Stop 12/10/17 at 04 :45; Status DC Vancomycin HCl (Vancomycin Trough Level) 1 each 1X ONCE MC Last administered on 12/10/17at 03:00; Start 12/10/17 at 03:00; Stop 12/10/17 at 03:01; Status DC Lidocaine HCl 20 ml STK-MED ONCE .ROUTE ; Start 12/09/17 at 06:11; Stop at 07:11; Status DC Silver Sulfadiazine (Silvadene) 25 deb STK-MED ONCE TP ; Start 12/09/17 at 06: 11; Stop 12/09/17 at 07:11; Status DC Phenylephrine HCl (PHENYLEPHRINE in 0.9% NACL PF) 1 mg STK-MED ONCE IV ; Start 12/09/17 at 08:23; Stop 12/09/17 at 08:24; Status DC Dexamethasone Sodium Phosphate (Decadron) 20 mg STK-MED ONCE .ROUTE ; Start at 08:23; Stop 12/09/17 at 08:24; Status DC Ondansetron HCl (Zofran) 4 mg STK-MED ONCE .ROUTE ; Start 12/09/17 at 08:23; Stop 12/09/17 at 08:24; Status DC Lidocaine HCl (Lidocaine Pf 2% Vial) 5 ml STK-MED ONCE .ROUTE ; Start 12/09/17 at 08:23; Stop 12/09/17 at 08:24; Status DC Propofol 20 ml @ As Directed STK-MED ONCE IV ; Start 12/09/17 at 08:23; Stop 12/09/17 at 08:24; Status DC Sevoflurane (Ultane) 30 ml STK-MED ONCE IH ; Start 12/09/17 at 08:23; Stop at 08:24; Status DC Insulin Human Lispro (HumaLOG VIAL) 6 unit 1X ONCE SQ ; Start 12/09/17 at 09: 00; Stop 12/09/17 at 09:01; Status Cancel Insulin Human Lispro (HumaLOG VIAL) 4 unit 1X ONCE SQ Last administered on at 09:25; Start 12/09/17 at 09:30; Stop 12/09/17 at 09:31; Status DC Lactobacillus Rhamnosus (Culturelle) 1 cap BID PO Last administered on at 20:59; Start 12/09/17 at 21:00 Insulin Human Isoph/Insulin Regular (HumuLIN 70/30) 50 units DAILY16 SQ Last administered on 12/14/17at 16:56; Start 12/10/17 at 16:00 Insulin Human Lispro (HumaLOG) 6 units 1X ONCE SQ Last administered on at 18:43; Start 12/09/17 at 18:00; Stop 12/09/17 at 18:20; Status DC Vancomycin HCl 1 gm/Sodium Chloride 250 ml @ 250 mls/hr Q12H IV Last administered on 12/12/17at 04:17; Start 12/10/17 at 05:00; Stop 12/12/17 at 10 :58; Status DC Vancomycin HCl (Vancomycin Trough Level) 1 each 1X ONCE MC ; Start 12/11/17 at 16:30; Stop 12/11/17 at 16:31; Status DC Insulin Human Isoph/Insulin Regular (HumuLIN 70/30) 50 units DAILYWBKFT SQ Last administered on 12/13/17at 08:08; Start 12/10/17 at 08:00 Ascorbic Acid (Vitamin C) 500 mg DAILY PO Last administered on 12/14/17at 09:13 ; Start 12/11/17 at 09:00 Multivitamins (Thera M Plus) 1 tab DAILY PO Last administered on 12/14/17at 09: 12; Start 12/11/17 at 09:00 Ondansetron HCl (Zofran) 4 mg PRN Q6HRS PRN IV NAUSEA/VOMITING; Start at 07:00; Stop 12/13/17 at 06:59; Status DC Fentanyl Citrate (Fentanyl 2ml Vial) 25 mcg PRN Q5MIN PRN IV MILD PAIN; Start 12/12/17 at 07:00; Stop 12/13/17 at 06:59; Status DC Fentanyl Citrate (Fentanyl 2ml Vial) 50 mcg PRN Q5MIN PRN IV MODERATE TO SEVERE PAIN; Start 12/12/17 at 07:00; Stop 12/13/17 at 06:59; Status DC Ringer's Solution 1,000 ml @ 30 mls/hr Q24H IV Last administered on at 12:51; Start 12/12/17 at 07:00; Stop 12/12/17 at 18:59; Status DC Lidocaine HCl (Xylocaine-Mpf 1% 2ml Vial) 2 ml PRN 1X PRN ID PRIOR TO IV START ; Start 12/12/17 at 07:00; Stop 12/13/17 at 06:59; Status DC Prochlorperazine Edisylate (Compazine) 5 mg PACU PRN PRN IV NAUSEA, MRX1; Start 12/12/17 at 07:00; Stop 12/13/17 at 06:59; Status DC Linezolid/Dextrose 300 ml @ 300 mls/hr Q12HR IV Last administered on at 09:15; Start 12/12/17 at 12:00; Stop 12/14/17 at 13:31; Status DC Lidocaine HCl 20 ml STK-MED ONCE .ROUTE ; Start 12/12/17 at 12:09; Stop at 13:10; Status DC Silver Sulfadiazine (Silvadene) 25 deb STK-MED ONCE TP ; Start 12/12/17 at 12: 09; Stop 12/12/17 at 13:10; Status DC Propofol 20 ml @ As Directed STK-MED ONCE IV ; Start 12/12/17 at 13:35; Stop 12/12/17 at 13:36; Status DC Ketamine HCl (Ketamine) 50 mg STK-MED ONCE .ROUTE ; Start 12/12/17 at 13:36; Stop 12/12/17 at 13:37; Status DC Fentanyl Citrate (Fentanyl 2ml Vial) 100 mcg STK-MED ONCE .ROUTE ; Start at 13:36; Stop 12/12/17 at 13:37; Status DC Midazolam HCl (Versed) 2 mg STK-MED ONCE .ROUTE ; Start 12/12/17 at 13:36; Stop 12/12/17 at 13:37; Status DC Insulin Human Lispro (HumaLOG VIAL) 10 unit 1X ONCE SQ Last administered on at 14:44; Start 12/12/17 at 14:45; Stop 12/12/17 at 14:46; Status DC Potassium Chloride (Klor-Con) 40 meq 1X ONCE PO Last administered on at 08:52; Start 12/13/17 at 08:30; Stop 12/13/17 at 08:31; Status DC Active Scripts Active Reported Ranexa (Ranolazine) 500 Mg Tab.er.12h 1 Tab PO BID Isosorbide Mononitrate Er (Isosorbide Mononitrate) 60 Mg Tab.er.24h 1 Tab PO DAILY Clopidogrel (Clopidogrel Bisulfate) 75 Mg Tablet 1 Tab PO DAILY Metoprolol Tartrate 50 Mg Tablet 100 Mg PO BID NEXT DOSE: 01/19/15 PM Aspir 81 (Aspirin) 81 Mg Tablet.dr 81 Mg PO DAILY NEXT DOSE: 01/20/15 AM Omeprazole 40 Mg Capsule.dr 40 Mg PO DAILY NEXT DOSE: 01/20/15 AM Allopurinol 300 Mg Tablet 300 Mg PO DAILY NEXT DOSE: 01/20/15 AM Lisinopril 40 Mg Tablet 40 Mg PO DAILY NEXT DOSE: 01/20/15 AM Vitals/I & O Vital Sign - Last 24 Hours 12/14/17 12/14/17 12/14/17 12/14/17 09:11 09:12 09:13 09:14 Pulse 84 84 84 84 B/P (MAP) 115/76 115/76 115/76 115/76 12/14/17 12/14/17 12/14/17 12/14/17 11:00 15:00 19:00 20:00 Temp 98.5 98.3 97.9 98.5 98.3 97.9 Pulse 86 77 85 Resp 18 B/P (MAP) 136/78 (97) 102/55 (71) 128/77 (94) Pulse Ox 94 94 96 O2 Delivery Room Air Room Air Room Air Room Air O2 Flow Rate 10.0 12/14/17 12/14/17 12/14/17 12/15/17 20:59 21:00 23:00 03:00 Temp 97.8 97.5 97.8 97.5 Pulse 85 85 85 80 Resp 18 18 B/P (MAP) 128/77 128/77 177/92 (120) 147/83 (104) Pulse Ox 97 96 O2 Delivery Room Air Room Air Intake and Output 12/14/17 12/14/17 12/15/17 15:00 23:00 07:00 Intake Total 50 ml Balance 50 ml KATARINA KIRBY MD Dec 15, 2017 08:40
[2017-12-15] MEDS: ALLOPURINOL 300 MG TABLET. PO SCH (09:05)
[2017-12-15] MEDS: LACTOBACILLUS RHAMNOSUS GG 1 CAPSULE. PO SCH ×2 (09:06→20:30)
[2017-12-15] MEDS: METOPROLOL TART IMMED RELEASE 50 MG TABLET. PO SCH ×2 (09:06→20:31)
[2017-12-15] MEDS: MULTIVITAMIN with MINERAL TABLET. PO SCH (09:07)
[2017-12-15] MEDS: RANOLAZINE 500 MG TAB.ER.12H PO SCH ×2 (09:07→20:30)
[2017-12-15] MEDS: LISINOPRIL 20 MG TABLET PO SCH (09:09)
[2017-12-15] MEDS: ISOSORBIDE MONONITRATE ER 30 MG TAB.ER.24H PO SCH (09:11)
--- NOTE | 2017-12-15 09:13 | RAD ---
EXAM: CHEST 1 VIEW History: PICC line placement COMPARISON: 07/29/2015 TECHNIQUE: Single portable radiograph of the chest FINDINGS: The cardiac silhouette is unremarkable. The lungs are clear bilaterally. The costophrenic sulci are clear and well demarcated. Right-sided PICC line identified with the tip projecting in the SVC. IMPRESSION: 1. Right-sided PICC line in place. 2. The lungs are clear. Electronically signed by: José Miguel Enriquez MD (12/15/2017 9:10 AM) [facility]
[2017-12-15] MEDS: INSULIN NPH/REG INSULIN 70/30 300 UNITS/3 ML INSULN.PEN. SQ SCH ×2 (09:15→17:17)
[2017-12-15 11:00] VITALS: BP 126/78
[2017-12-15 11:14] LABS: ALBUMIN 2.3 g/dL (3.4-5.0); CALCIUM 8.8 mg/dL (8.5-10.1); CREATININE 1.2 mg/dL (0.7-1.3); GFR 61.8; PHOSPHORUS 2.7 mg/dL (2.6-4.7); POTASSIUM 4.2 mmol/L (3.5-5.1)
[2017-12-15] MEDS: ASCORBIC ACID 500 MG TABLET PO SCH (11:28)
--- NOTE | 2017-12-15 12:24 | PDOC ---
Infectious Disease Note Subjective Subjective s/p PICC placement earlier + diarrhea w/ urgency. @ stools so far today Denies N/V/cramps/F/C ROS ROS per HPI otherwise neg Vital Sign Vital Signs Vital Signs Date Time Temp Pulse Resp B/P (MAP) Pulse Ox O2 Delivery O2 Flow Rate FiO2 12/15/17 09:11 92 159/99 12/15/17 08:00 Room Air 12/15/17 07:00 98.7 18 96 98.7 12/14/17 20:00 10.0 Physical Exam PHYSICAL EXAM GENERAL: Propped up in bed, smiling HEENT: Oral cavity clear NECK: Supple. LUNGS: Clear to auscultation. HEART: S1 and S2. ABDOMEN: Bowel sounds active, soft, nontender. EXTREMITIES: BLE edema. right foot wound vac and brace in place. No redness or cyanosis. SKIN: Warm without rash. NEUROLOGIC: Alert and oriented times 3. RUE-PICC (12/15) clean Labs Lab Laboratory Tests Test 12/14/17 16:46 12/14/17 20:19 12/14/17 23:37 12/14/17 23:57 Glucose (Fingerstick) 137 mg/dL (70-99) 81 mg/dL (70-99) 47 mg/dL (70-99) 157 mg/dL (70-99) Test 12/15/17 10:00 Sodium Level 138 mmol/L (136-145) Potassium Level 4.2 mmol/L (3.5-5.1) Chloride Level 103 mmol/L (98-107) Carbon Dioxide Level 26 mmol/L (21-32) Anion Gap 9 (6-14) Blood Urea Nitrogen 10 mg/dL (8-26) Creatinine 1.2 mg/dL (0.7-1.3) Estimated GFR (Cockcroft-Gault) 61.8 Glucose Level 319 mg/dL (70-99) Calcium Level 8.8 mg/dL (8.5-10.1) Phosphorus Level 2.7 mg/dL (2.6-4.7) Albumin 2.3 g/dL (3.4-5.0) Micro Objective Assessment Fever resolved Necrotic diabetic ulcer right heel. - MRI + osteo. - s/p debridement 12/[address] Rudolph -Intra-op cultures E coli, klebsiella, enterococcus amp sensitive, 12/09. -ESR 105. Right foot cellulitis - improved Diabetes with neuropathy, poorly controlled CAD h/o MSSA toes s/p amputation THERESA creat is 1.4, Vanc trough 19 - better Diarrhea Plan Plan of Care Continue Zosyn for now F/u C-diff Monitor labs/temp/renal function closely local wound care/vac and offloading Heel OM are usually difficult to treat Will need minimum of 6 weeks of abx Probiotics Attending Co-Sign Attending Co-Sign The patient was seen and interviewed as well as examined at the bedside. The chart was reviewed. The case was discussed. Agree with the plan of care. STELLA DALAL APRN Dec 15, 2017 12:24 VENITA KATE MD Dec 15, 2017 13:34
[2017-12-15 15:00] VITALS: BP 149/66
[2017-12-15 19:00] VITALS: BP 110/69
[2017-12-15 23:00] VITALS: BP 90/52
[2017-12-16] MEDS: PIPERACILLIN/TAZOBACTAM 3.375 GM in IV NORMAL SALINE 50ML 50 ML IV SCH ×4 (00:10→17:14)
[2017-12-16 03:00] VITALS: BP 133/67
[2017-12-16 07:00] VITALS: BP 117/74
[2017-12-16] MEDS: PANTOPRAZOLE 40 MG TABLET.DR. PO SCH (07:14)
[2017-12-16] MEDS: INSULIN LISPRO 300 UNITS/3 ML INSULN.PEN. SQ SCH ×3 (08:00→16:43)
[2017-12-16] MEDS: RANOLAZINE 500 MG TAB.ER.12H PO SCH ×2 (08:08→20:35)
[2017-12-16] MEDS: INSULIN NPH/REG INSULIN 70/30 300 UNITS/3 ML INSULN.PEN. SQ SCH ×2 (08:08→16:46)
[2017-12-16] MEDS: MULTIVITAMIN with MINERAL TABLET. PO SCH (08:08)
[2017-12-16] MEDS: ISOSORBIDE MONONITRATE ER 30 MG TAB.ER.24H PO SCH (08:09)
[2017-12-16] MEDS: ALLOPURINOL 300 MG TABLET. PO SCH (08:09)
[2017-12-16] MEDS: ASCORBIC ACID 500 MG TABLET PO SCH (08:09)
[2017-12-16] MEDS: LACTOBACILLUS RHAMNOSUS GG 1 CAPSULE. PO SCH ×2 (08:09→20:36)
[2017-12-16] MEDS: LISINOPRIL 20 MG TABLET PO SCH (08:10)
[2017-12-16] MEDS: METOPROLOL TART IMMED RELEASE 50 MG TABLET. PO SCH ×2 (08:10→20:35)
--- NOTE | 2017-12-16 09:06 | PDOC ---
PROGRESS NOTES Chief Complaint Chief Complaint Right heel wound in a diabetic s/p i and d on 12/07 wound vac. i and d 12/12 Diabetes type 1, hemoglobin A1c is 13 Hypertension, h/o CAD, CABG 2016, dyslipidemia-chronic stable IV ZOSYN COUNSELED ON DIET History of Present Illness History of Present Illness Admitted with cellulitic right heel wound s/p I&D with bone biopsy and wound vac. I and D 12/10, 12/12. more redness today around the heel wound He has no complaints, worried a little about the cold hands and feet he always experiences. His sister is bedside. Wound vac changed today. Blood sugars are better since adjustments of insulin Sunday Wound is polymicrobial, enterococcus is ampicillin sensitive. Zyvox added by ID , with bone involvement have d/w ID need for PICC and 6 weeks antibiotic therapy. S/p PICC, feeling ok. Overnight had a glucose of 47 A/p: Right heel wound in a diabetic s/p i and d on 12/07 wound vac. i and d 12/12 - wound vac change today. polymicrobial. cont zosyn, dc vanco, on zyvox today fu wound cx. fu with id, vascular Diabetes type 1, hemoglobin A1c is 13 - on NPH insulin bid, ssi Hypoglycemia - will reduce his 50 units of NPH to 40 tonight Hypertension - will add prns h/o CAD, CABG 2015 - stable dyslipidemia-chronic stable dvt ppx FULL CODE talked to sister at bedside about plan to d/c with wound center follow up, d/w surgery and ID today Vitals Vitals Vital Signs Date Time Temp Pulse Resp B/P (MAP) Pulse Ox O2 Delivery O2 Flow Rate FiO2 12/16/17 08:10 80 117/78 12/16/17 03:00 98.4 18 96 Room Air 98.4 Physical Exam Physical Exam GENERAL: Propped up in bed, smiling HEENT: Oral cavity clear NECK: Supple. LUNGS: Clear to auscultation. HEART: S1 and S2. ABDOMEN: Bowel sounds active, soft, nontender. EXTREMITIES: BLE edema. right foot wound vac and brace in place. No redness or cyanosis. SKIN: Warm without rash. NEUROLOGIC: Alert and oriented times 3. RUE-PICC (12/15) clean General: Alert, Oriented X3, Cooperative, No acute distress Heart: Regular rate, Normal S1, Normal S2 Lungs: Clear Abdomen: Normal bowel sounds, Soft, No tenderness, No hepatosplenomegaly, No masses Extremities: No clubbing, No cyanosis, Normal pulses Skin: Other (rt heel wound, dry, , no oozing currently) Labs LABS Laboratory Tests Test 12/15/17 10:00 12/15/17 11:13 12/15/17 16:17 12/15/17 20:34 Sodium Level 138 mmol/L (136-145) Potassium Level 4.2 mmol/L (3.5-5.1) Chloride Level 103 mmol/L (98-107) Carbon Dioxide Level 26 mmol/L (21-32) Anion Gap 9 (6-14) Blood Urea Nitrogen 10 mg/dL (8-26) Creatinine 1.2 mg/dL (0.7-1.3) Estimated GFR (Cockcroft-Gault) 61.8 Glucose Level 319 mg/dL (70-99) Calcium Level 8.8 mg/dL (8.5-10.1) Phosphorus Level 2.7 mg/dL (2.6-4.7) Albumin 2.3 g/dL (3.4-5.0) Glucose (Fingerstick) 262 mg/dL (70-99) 120 mg/dL (70-99) 46 mg/dL (70-99) Test 12/15/17 20:59 12/16/17 07:58 Glucose (Fingerstick) 150 mg/dL (70-99) 237 mg/dL (70-99) Comment Review of Relevant I have reviewed the following items joana (where applicable) has been applied. Labs Laboratory Tests Test 12/14/17 11:11 12/14/17 16:46 12/14/17 20:19 12/14/17 23:37 Glucose (Fingerstick) 213 mg/dL (70-99) 137 mg/dL (70-99) 81 mg/dL (70-99) 47 mg/dL (70-99) Test 12/14/17 23:57 12/15/17 08:48 12/15/17 10:00 12/15/17 11:13 Glucose (Fingerstick) 157 mg/dL (70-99) 237 mg/dL (70-99) 262 mg/dL (70-99) Sodium Level 138 mmol/L (136-145) Potassium Level 4.2 mmol/L (3.5-5.1) Chloride Level 103 mmol/L (98-107) Carbon Dioxide Level 26 mmol/L (21-32) Anion Gap 9 (6-14) Blood Urea Nitrogen 10 mg/dL (8-26) Creatinine 1.2 mg/dL (0.7-1.3) Estimated GFR (Cockcroft-Gault) 61.8 Glucose Level 319 mg/dL (70-99) Calcium Level 8.8 mg/dL (8.5-10.1) Phosphorus Level 2.7 mg/dL (2.6-4.7) Albumin 2.3 g/dL (3.4-5.0) Test 12/15/17 16:17 12/15/17 20:34 12/15/17 20:59 12/16/17 07:58 Glucose (Fingerstick) 120 mg/dL (70-99) 46 mg/dL (70-99) 150 mg/dL (70-99) 237 mg/dL (70-99) Laboratory Tests Test 12/15/17 10:00 12/15/17 11:13 12/15/17 16:17 12/15/17 20:34 Sodium Level 138 mmol/L (136-145) Potassium Level 4.2 mmol/L (3.5-5.1) Chloride Level 103 mmol/L (98-107) Carbon Dioxide Level 26 mmol/L (21-32) Anion Gap 9 (6-14) Blood Urea Nitrogen 10 mg/dL (8-26) Creatinine 1.2 mg/dL (0.7-1.3) Estimated GFR (Cockcroft-Gault) 61.8 Glucose Level 319 mg/dL (70-99) Calcium Level 8.8 mg/dL (8.5-10.1) Phosphorus Level 2.7 mg/dL (2.6-4.7) Albumin 2.3 g/dL (3.4-5.0) Glucose (Fingerstick) 262 mg/dL (70-99) 120 mg/dL (70-99) 46 mg/dL (70-99) Test 12/15/17 20:59 12/16/17 07:58 Glucose (Fingerstick) 150 mg/dL (70-99) 237 mg/dL (70-99) Microbiology 10/27/18 Blood Culture - Final, Complete NO GROWTH AFTER 5 DAYS 12/09/17 Anaerobic/Aerobic Culture - Final, Complete 12/09/17 Anaerobic Culture Result 1 (ELISABETH) - Final, Complete 12/09/17 Aerobic Culture - Final, Complete 12/09/17 Aerobic Culture Result 1 (ELISABETH) - Final, Complete 12/09/17 Aerobic Culture Result 2 (ELISABETH) - Final, Complete 12/09/17 Aerobic Culture Result 3 (ELISABETH) - Final, Complete 12/09/17 Gram Stain - Final, Complete 12/09/17 Gram Stain Result 1 (ELISABETH) - Final, Complete 12/09/17 Gram Stain Result 2 (ELISABETH) - Final, Complete 12/09/17 Gram Stain Result 3 (ELISABETH) - Final, Complete Medications Current Medications Ondansetron HCl (Zofran) 4 mg PRN Q6HRS PRN IV NAUSEA/VOMITING, 1ST CHOICE; Start 12/07/17 at 15:15 Prochlorperazine Edisylate (Compazine) 10 mg PRN Q6HRS PRN IV NAUSEA/VOMITING, 2ND CHOICE; Start 12/07/17 at 15:15 Prochlorperazine (Compazine) 25 mg PRN Q12HR PRN NM NAUSEA/VOMITING; Start at 15:15 Al Hydroxide/Mg Hydroxide (Mylanta Plus Xs) 30 ml PRN Q3HRS PRN PO HEARTBURN / GAS; Start 12/07/17 at 15:15 Calcium Carbonate/ Glycine (Tums) 500 mg PRN Q3HRS PRN PO UPSET STOMACH; Start 12/07/17 at 15:15 Zolpidem Tartrate (Ambien) 5 mg PRN QHS PRN PO INSOMNIA, MAY REPEAT IN 1HR Last administered on 12/11/17at 20:40; Start 12/07/17 at 15:15 Oxycodone HCl (Roxicodone) 5 mg PRN Q3HRS PRN PO SEVERE PAIN Last administered on 12/11/17at 20:41; Start 12/07/17 at 15:15 Acetaminophen (Tylenol) 650 mg PRN Q6HRS PRN PO Headaches, Temp > 101.5F; Start 12/07/17 at 15:15 Ibuprofen (Motrin) 400 mg PRN Q6HRS PRN PO MILD PAIN; Start 12/07/17 at 15:15 Magnesium Hydroxide (Milk Of Magnesia) 2,400 mg PRN Q12HR PRN PO CONSTIPATION, 1ST CHOICE; Start 12/07/17 at 15:15 Lactulose (Lactulose) 20 gm PRN Q12HR PRN PO CONSTIPATION, 2ND CHOICE; Start 12/07/17 at 15:15 Insulin Human Lispro (HumaLOG) 0-9 UNITS TIDWMEALS SQ ; Start 12/07/17 at 17:00 ; Stop 12/07/17 at 18:50; Status DC Dextrose (Dextrose 50%-Water Syringe) 12.5 gm PRN Q15MIN PRN IV SEE COMMENTS Last administered on 12/15/17at 20:36; Start 12/07/17 at 15:15 Fentanyl Citrate (Fentanyl 2ml Vial) 50 mcg PRN Q2HR PRN IV PAIN; Start at 15:15 Tramadol HCl (Ultram) 50 mg PRN Q6HRS PRN PO MODERATE PAIN; Start 12/07/17 at 15:15 Allopurinol (Zyloprim) 300 mg DAILY PO Last administered on 12/16/17at 08:09; Start 12/07/17 at 16:00 Lisinopril (Prinivil) 40 mg DAILY PO Last administered on 12/16/17at 08:10; Start 12/07/17 at 16:00 Metoprolol Tartrate (Lopressor) 100 mg BID PO Last administered on 12/16/17at 08 :10; Start 12/07/17 at 21:00 Ranolazine (Ranexa) 500 mg BID PO Last administered on 12/16/17at 08:08; Start 12/07/17 at 21:00 Isosorbide Mononitrate (Imdur) 60 mg DAILY PO Last administered on 12/16/17at 08 :09; Start 12/08/17 at 09:00 Pantoprazole Sodium (Protonix) 40 mg DAILYAC PO Last administered on 12/16/17at 07:14; Start 12/07/17 at 16:30 Labetalol HCl (Normodyne Iv Push) 10 mg PRN Q2HR PRN IVP HYPERTENSION, SEE COMMENTS; Start 12/07/17 at 15:30 Insulin Glargine (Lantus) 25 units QHS SQ ; Start 12/07/17 at 21:00; Stop at 21:00; Status DC Insulin Glargine (Lantus) 50 units DAILY SQ ; Start 12/08/17 at 09:00; Status Cancel Insulin Glargine (Lantus) 40 units QHS SQ ; Start 12/07/17 at 21:00; Status Cancel Insulin Human Isoph/Insulin Regular (HumuLIN 70/30) 50 units DAILY07 SQ Last administered on 12/08/17at 09:26; Start 12/08/17 at 07:00; Stop 12/10/17 at 04 :59; Status DC Insulin Human Isoph/Insulin Regular (HumuLIN 70/30) 40 units DAILY16 SQ Last administered on 12/09/17at 16:15; Start 12/08/17 at 16:00; Stop 12/09/17 at 18 :00; Status DC Sodium Chloride 1,000 ml @ 1,000 mls/hr 1X ONCE IV Last administered on 12/07at 21:36; Start 12/07/17 at 21:30; Stop 12/07/17 at 22:29; Status DC Sodium Chloride 1,000 ml @ 100 mls/hr Q10H IV Last administered on 12/09/17at 02:16; Start 12/07/17 at 22:30; Stop 12/09/17 at 08:18; Status DC Insulin Human Lispro (HumaLOG) 0-9 UNITS TIDWMEALS SQ Last administered on 12/15at 12:16; Start 12/08/17 at 12:00 Dextrose (Dextrose 50%-Water Syringe) 12.5 gm PRN Q15MIN PRN IV SEE COMMENTS; Start 12/08/17 at 08:30; Status UNV Vancomycin HCl (Vanco Per Pharmacy) 1 each PRN DAILY PRN MC SEE COMMENTS Last administered on 12/11/17at 19:09; Start 12/08/17 at 13:45; Stop 12/12/17 at 10 :58; Status DC Piperacillin Sod/ Tazobactam Sod 3.375 gm/Sodium Chloride 50 ml @ 100 mls/hr Q6HRS IV ; Start 12/08/17 at 18:00; Status UNV Piperacillin Sod/ Tazobactam Sod 3.375 gm/Sodium Chloride 50 ml @ 100 mls/hr Q6HRS IV Last administered on 12/16/17at 05:36; Start 12/08/17 at 14:00 Vancomycin HCl 2 gm/Sodium Chloride 500 ml @ 250 mls/hr 1X ONCE IV Last administered on 12/08/17at 15:30; Start 12/08/17 at 14:30; Stop 12/08/17 at 16 :29; Status DC Vancomycin HCl 1.25 gm/Sodium Chloride 250 ml @ 167 mls/hr Q12H IV Last administered on 12/09/17at 16:06; Start 12/09/17 at 03:30; Stop 12/10/17 at 04 :45; Status DC Vancomycin HCl (Vancomycin Trough Level) 1 each 1X ONCE MC Last administered on 12/10/17at 03:00; Start 12/10/17 at 03:00; Stop 12/10/17 at 03:01; Status DC Lidocaine HCl 20 ml STK-MED ONCE .ROUTE ; Start 12/09/17 at 06:11; Stop at 07:11; Status DC Silver Sulfadiazine (Silvadene) 25 deb STK-MED ONCE TP ; Start 12/09/17 at 06: 11; Stop 12/09/17 at 07:11; Status DC Phenylephrine HCl (PHENYLEPHRINE in 0.9% NACL PF) 1 mg STK-MED ONCE IV ; Start 12/09/17 at 08:23; Stop 12/09/17 at 08:24; Status DC Dexamethasone Sodium Phosphate (Decadron) 20 mg STK-MED ONCE .ROUTE ; Start at 08:23; Stop 12/09/17 at 08:24; Status DC Ondansetron HCl (Zofran) 4 mg STK-MED ONCE .ROUTE ; Start 12/09/17 at 08:23; Stop 12/09/17 at 08:24; Status DC Lidocaine HCl (Lidocaine Pf 2% Vial) 5 ml STK-MED ONCE .ROUTE ; Start 12/09/17 at 08:23; Stop 12/09/17 at 08:24; Status DC Propofol 20 ml @ As Directed STK-MED ONCE IV ; Start 12/09/17 at 08:23; Stop 12/09/17 at 08:24; Status DC Sevoflurane (Ultane) 30 ml STK-MED ONCE IH ; Start 12/09/17 at 08:23; Stop at 08:24; Status DC Insulin Human Lispro (HumaLOG VIAL) 6 unit 1X ONCE SQ ; Start 12/09/17 at 09: 00; Stop 12/09/17 at 09:01; Status Cancel Insulin Human Lispro (HumaLOG VIAL) 4 unit 1X ONCE SQ Last administered on at 09:25; Start 12/09/17 at 09:30; Stop 12/09/17 at 09:31; Status DC Lactobacillus Rhamnosus (Culturelle) 1 cap BID PO Last administered on at 08:09; Start 12/09/17 at 21:00 Insulin Human Isoph/Insulin Regular (HumuLIN 70/30) 50 units DAILY16 SQ Last administered on 12/14/17at 16:56; Start 12/10/17 at 16:00; Stop 12/15/17 at 16: 23; Status DC Insulin Human Lispro (HumaLOG) 6 units 1X ONCE SQ Last administered on at 18:43; Start 12/09/17 at 18:00; Stop 12/09/17 at 18:20; Status DC Vancomycin HCl 1 gm/Sodium Chloride 250 ml @ 250 mls/hr Q12H IV Last administered on 12/12/17at 04:17; Start 12/10/17 at 05:00; Stop 12/12/17 at 10 :58; Status DC Vancomycin HCl (Vancomycin Trough Level) 1 each 1X ONCE MC ; Start 12/11/17 at 16:30; Stop 12/11/17 at 16:31; Status DC Insulin Human Isoph/Insulin Regular (HumuLIN 70/30) 50 units DAILYWBKFT SQ Last administered on 12/16/17at 08:08; Start 12/10/17 at 08:00 Ascorbic Acid (Vitamin C) 500 mg DAILY PO Last administered on 12/16/17at 08:09 ; Start 12/11/17 at 09:00 Multivitamins (Thera M Plus) 1 tab DAILY PO Last administered on 12/16/17at 08: 08; Start 12/11/17 at 09:00 Ondansetron HCl (Zofran) 4 mg PRN Q6HRS PRN IV NAUSEA/VOMITING; Start at 07:00; Stop 12/13/17 at 06:59; Status DC Fentanyl Citrate (Fentanyl 2ml Vial) 25 mcg PRN Q5MIN PRN IV MILD PAIN; Start 12/12/17 at 07:00; Stop 12/13/17 at 06:59; Status DC Fentanyl Citrate (Fentanyl 2ml Vial) 50 mcg PRN Q5MIN PRN IV MODERATE TO SEVERE PAIN; Start 12/12/17 at 07:00; Stop 12/13/17 at 06:59; Status DC Ringer's Solution 1,000 ml @ 30 mls/hr Q24H IV Last administered on at 12:51; Start 12/12/17 at 07:00; Stop 12/12/17 at 18:59; Status DC Lidocaine HCl (Xylocaine-Mpf 1% 2ml Vial) 2 ml PRN 1X PRN ID PRIOR TO IV START ; Start 12/12/17 at 07:00; Stop 12/13/17 at 06:59; Status DC Prochlorperazine Edisylate (Compazine) 5 mg PACU PRN PRN IV NAUSEA, MRX1; Start 12/12/17 at 07:00; Stop 12/13/17 at 06:59; Status DC Linezolid/Dextrose 300 ml @ 300 mls/hr Q12HR IV Last administered on at 09:15; Start 12/12/17 at 12:00; Stop 12/14/17 at 13:31; Status DC Lidocaine HCl 20 ml STK-MED ONCE .ROUTE ; Start 12/12/17 at 12:09; Stop at 13:10; Status DC Silver Sulfadiazine (Silvadene) 25 deb STK-MED ONCE TP ; Start 12/12/17 at 12: 09; Stop 12/12/17 at 13:10; Status DC Propofol 20 ml @ As Directed STK-MED ONCE IV ; Start 12/12/17 at 13:35; Stop 12/12/17 at 13:36; Status DC Ketamine HCl (Ketamine) 50 mg STK-MED ONCE .ROUTE ; Start 12/12/17 at 13:36; Stop 12/12/17 at 13:37; Status DC Fentanyl Citrate (Fentanyl 2ml Vial) 100 mcg STK-MED ONCE .ROUTE ; Start at 13:36; Stop 12/12/17 at 13:37; Status DC Midazolam HCl (Versed) 2 mg STK-MED ONCE .ROUTE ; Start 12/12/17 at 13:36; Stop 12/12/17 at 13:37; Status DC Insulin Human Lispro (HumaLOG VIAL) 10 unit 1X ONCE SQ Last administered on at 14:44; Start 12/12/17 at 14:45; Stop 12/12/17 at 14:46; Status DC Potassium Chloride (Klor-Con) 40 meq 1X ONCE PO Last administered on at 08:52; Start 12/13/17 at 08:30; Stop 12/13/17 at 08:31; Status DC Insulin Human Isoph/Insulin Regular (HumuLIN 70/30) 40 units DAILYBFRSUP SQ Last administered on 12/15/17at 17:17; Start 12/15/17 at 17:00 Active Scripts Active Reported Ranexa (Ranolazine) 500 Mg Tab.er.12h 1 Tab PO BID Isosorbide Mononitrate Er (Isosorbide Mononitrate) 60 Mg Tab.er.24h 1 Tab PO DAILY Clopidogrel (Clopidogrel Bisulfate) 75 Mg Tablet 1 Tab PO DAILY Metoprolol Tartrate 50 Mg Tablet 100 Mg PO BID NEXT DOSE: 01/19/15 PM Aspir 81 (Aspirin) 81 Mg Tablet.dr 81 Mg PO DAILY NEXT DOSE: 01/20/15 AM Omeprazole 40 Mg Capsule.dr 40 Mg PO DAILY NEXT DOSE: 01/20/15 AM Allopurinol 300 Mg Tablet 300 Mg PO DAILY NEXT DOSE: 01/20/15 AM Lisinopril 40 Mg Tablet 40 Mg PO DAILY NEXT DOSE: 01/20/15 AM Vitals/I & O Vital Sign - Last 24 Hours 12/15/17 12/15/17 12/15/17 12/15/17 09:07 09:09 09:11 11:00 Temp 97.7 97.7 Pulse 92 92 92 76 Resp 18 B/P (MAP) 159/99 159/99 159/99 126/78 (94) Pulse Ox 97 O2 Delivery Room Air 12/15/17 12/15/17 12/15/17 12/15/17 15:00 19:00 20:04 20:30 Temp 97.7 98.6 97.7 98.6 Pulse 72 85 85 Resp 18 20 B/P (MAP) 149/66 (93) 110/69 (83) 110/69 Pulse Ox 97 94 O2 Delivery Room Air Room Air Room Air 12/15/17 12/15/17 12/16/17 12/16/17 20:31 23:00 03:00 08:08 Temp 98.6 98.4 98.6 98.4 Pulse 85 84 85 80 Resp 18 18 B/P (MAP) 110/69 90/52 (65) 133/67 (89) 117/78 Pulse Ox 94 96 O2 Delivery Room Air Room Air 12/16/17 12/16/17 12/16/17 08:09 08:10 08:10 Pulse 80 80 80 B/P (MAP) 117/78 117/78 117/78 Intake and Output 12/15/17 12/15/17 12/16/17 15:00 23:00 07:00 Intake Total 330 ml 50 ml Output Total 100 ml 3 ml 1075 ml Balance 230 ml 47 ml -1075 ml TD NEUMANN MD Dec 16, 2017 09:06
[2017-12-16 11:00] VITALS: BP 105/66
--- NOTE | 2017-12-16 11:30 | PDOC ---
Infectious Disease Note Subjective Subjective Ongoing diarrhea, though less often Appetite remains good Denies N/V/cramps Denies F/C/S/pain ROS ROS per HPI otherwise neg Vital Sign Vital Signs Vital Signs Date Time Temp Pulse Resp B/P (MAP) Pulse Ox O2 Delivery O2 Flow Rate FiO2 12/16/17 08:10 80 117/78 12/16/17 08:00 Room Air 12/16/17 07:00 97.7 18 96 97.7 Physical Exam PHYSICAL EXAM GENERAL: In the recliner, legs elevated, alert HEENT: Oral cavity clear NECK: Supple. LUNGS: Clear to auscultation. HEART: S1 and S2. ABDOMEN: Bowel sounds active, soft, nontender. EXTREMITIES: BLE edema. right foot wound vac and brace in place. No redness or cyanosis. SKIN: Warm without rash. NEUROLOGIC: Alert and oriented times 3. RUE-PICC (12/15) clean Labs Lab Laboratory Tests Test 12/15/17 16:17 12/15/17 20:34 12/15/17 20:59 12/16/17 07:58 Glucose (Fingerstick) 120 mg/dL (70-99) 46 mg/dL (70-99) 150 mg/dL (70-99) 237 mg/dL (70-99) Micro Objective Assessment Fever resolved Necrotic diabetic ulcer right heel. - MRI + osteo. - s/p debridement 12/[address] Rudolph -Intra-op cultures E coli, klebsiella, enterococcus amp sensitive, 12/09. -ESR 105. Right foot cellulitis - improved Diabetes with neuropathy, poorly controlled CAD h/o MSSA toes s/p amputation THERESA creat is 1.4, Vanc trough 19 - better Diarrhea Plan Plan of Care Continue Zosyn for now C-diff pending Monitor labs/temp/renal function closely local wound care/vac and offloading Heel OM are usually difficult to treat Will need minimum of 6 weeks of abx Probiotics Attending Co-Sign Attending Co-Sign The patient was seen and interviewed as well as examined at the bedside. The chart was reviewed. The case was discussed. Agree with the plan of care. STELLA DALAL APRN Dec 16, 2017 11:30 VENITA KATE MD Dec 16, 2017 13:43
--- NOTE | 2017-12-16 12:17 | PDOC ---
SURGICAL PROGRESS NOTE Subjective Patient was seen and examined at the bedside today and is doing well. His right- sided wound has a VAC dressing in place. Vital Signs Vital Signs Date Time Temp Pulse Resp B/P (MAP) Pulse Ox O2 Delivery O2 Flow Rate FiO2 12/16/17 08:10 80 117/78 12/16/17 08:00 Room Air 12/16/17 07:00 97.7 18 96 97.7 I&O Intake and Output 12/16/17 07:00 Intake Total 380 ml Output Total 1178 ml Balance -798 ml Intake Oral 280 ml IV Total 100 ml Output Urine Total 1178 ml # Voids 3 # Bowel Movements 1 General: Alert, Oriented X3, Cooperative Heart: Regular rate, Normal S1, Normal S2 Skin: Other (right-sided VAC dressing is intact and there is no further cellulitis at the heel) Labs Laboratory Tests Test 12/14/17 16:46 12/14/17 20:19 12/14/17 23:37 12/14/17 23:57 Glucose (Fingerstick) 137 mg/dL (70-99) 81 mg/dL (70-99) 47 mg/dL (70-99) 157 mg/dL (70-99) Test 12/15/17 08:48 12/15/17 10:00 12/15/17 11:13 12/15/17 16:17 Glucose (Fingerstick) 237 mg/dL (70-99) 262 mg/dL (70-99) 120 mg/dL (70-99) Sodium Level 138 mmol/L (136-145) Potassium Level 4.2 mmol/L (3.5-5.1) Chloride Level 103 mmol/L (98-107) Carbon Dioxide Level 26 mmol/L (21-32) Anion Gap 9 (6-14) Blood Urea Nitrogen 10 mg/dL (8-26) Creatinine 1.2 mg/dL (0.7-1.3) Estimated GFR (Cockcroft-Gault) 61.8 Glucose Level 319 mg/dL (70-99) Calcium Level 8.8 mg/dL (8.5-10.1) Phosphorus Level 2.7 mg/dL (2.6-4.7) Albumin 2.3 g/dL (3.4-5.0) Test 12/15/17 20:34 12/15/17 20:59 12/16/17 07:58 12/16/17 11:50 Glucose (Fingerstick) 46 mg/dL (70-99) 150 mg/dL (70-99) 237 mg/dL (70-99) 221 mg/dL (70-99) Laboratory Tests Test 12/15/17 16:17 12/15/17 20:34 12/15/17 20:59 12/16/17 07:58 Glucose (Fingerstick) 120 mg/dL (70-99) 46 mg/dL (70-99) 150 mg/dL (70-99) 237 mg/dL (70-99) Test 12/16/17 11:50 Glucose (Fingerstick) 221 mg/dL (70-99) Assessment/Plan Right-sided wound--patient is status post debridement and placement of negative pressure VAC. His wound is looking good without evidence of further infection. He should continue the wound VAC and the offloading boot that he has in place. Vascular surgery will sign off at this time. JOHN TINSLEY DO Dec 16, 2017 12:17
[2017-12-16 19:00] VITALS: BP 113/70
[2017-12-16 22:43] VITALS: BP 138/82
[2017-12-17] MEDS: PIPERACILLIN/TAZOBACTAM 3.375 GM in IV NORMAL SALINE 50ML 50 ML IV SCH ×4 (00:08→17:12)
[2017-12-17 03:00] VITALS: BP 138/81
[2017-12-17 05:10] LABS: BASO % 0 % (0-3); EOS # 0.1 x10^3/uL (0.0-0.7); EOS % 2 % (0-3); HEMATOCRIT 33.2 % (39.0-53.0); HEMOGLOBIN 11.5 g/dL (13.0-17.5); LYMPH # 1.3 x10^3/uL (1.0-4.8); LYMPH % 21 % (24-48); MEAN CORPUSCULAR HEMOGLOBIN 33 pg (25-35); MEAN CORPUSCULAR HGB CONC 35 g/dL (31-37); MEAN CORPUSCULAR VOLUME 95 fL (79-100); MONO # 0.5 x10^3/uL (0.0-1.1); MONO % 8 % (0-9); NEUT # 4.3 x10^3uL (1.8-7.7); NEUT % 69 % (31-73); PLATELET COUNT 396 x10^3/uL (140-400); RED BLOOD COUNT 3.49 x10^6/uL (4.30-5.70); RED CELL DISTRIBUTION WIDTH 14.6 % (11.5-14.5); WHITE BLOOD COUNT 6.3 x10^3/uL (4.0-11.0)
[2017-12-17 05:33] LABS: ALBUMIN 2.6 g/dL (3.4-5.0); ALBUMIN/GLOBULIN RATIO 0.6 (1.0-1.7); CREATININE 1.2 mg/dL (0.7-1.3); GFR 61.8; POTASSIUM 4.8 mmol/L (3.5-5.1); TOTAL BILIRUBIN 0.5 mg/dL (0.2-1.0); TOTAL PROTEIN 7.2 g/dL (6.4-8.2)
[2017-12-17 07:10] VITALS: BP 146/88
[2017-12-17] MEDS ORDERED: INSULIN NPH/REG INSULIN 70/30 300 UNITS/3 ML INSULN.PEN. SQ SCH ×2 (08:00→17:00)
[2017-12-17] MEDS: RANOLAZINE 500 MG TAB.ER.12H PO SCH (08:14)
[2017-12-17] MEDS: ASCORBIC ACID 500 MG TABLET PO SCH (08:14)
[2017-12-17] MEDS: LACTOBACILLUS RHAMNOSUS GG 1 CAPSULE. PO SCH (08:14)
[2017-12-17] MEDS: ALLOPURINOL 300 MG TABLET. PO SCH (08:14)
[2017-12-17] MEDS: LISINOPRIL 20 MG TABLET PO SCH (08:14)
[2017-12-17] MEDS: ISOSORBIDE MONONITRATE ER 30 MG TAB.ER.24H PO SCH (08:15)
[2017-12-17] MEDS: PANTOPRAZOLE 40 MG TABLET.DR. PO SCH (08:15)
[2017-12-17] MEDS: METOPROLOL TART IMMED RELEASE 50 MG TABLET. PO SCH (08:15)
[2017-12-17] MEDS: MULTIVITAMIN with MINERAL TABLET. PO SCH (08:15)
[2017-12-17] MEDS: INSULIN LISPRO 300 UNITS/3 ML INSULN.PEN. SQ SCH ×3 (08:23→17:22)
[2017-12-17 10:46] VITALS: BP 109/69
--- NOTE | 2017-12-17 11:22 | PDOC ---
Infectious Disease Note Subjective Subjective Less diarrhea Appetite remains good Denies N/V/cramps Denies F/C/S/pain ROS ROS per HPI otherwise neg Vital Sign Vital Signs Vital Signs Date Time Temp Pulse Resp B/P (MAP) Pulse Ox O2 Delivery O2 Flow Rate FiO2 12/17/17 10:46 97.7 86 19 109/69 (82) 97 Room Air 97.7 12/16/17 20:00 10.0 Physical Exam PHYSICAL EXAM GENERAL: Propped up in bed, laughing HEENT: Oral cavity clear NECK: Supple. LUNGS: Clear to auscultation. HEART: S1 and S2. ABDOMEN: Obese, bowel sounds active, soft, nontender. EXTREMITIES: BLE edema. right foot wound vac. No redness or cyanosis. SKIN: Warm without rash. NEUROLOGIC: Alert and oriented times 3. RUE-PICC (12/15) clean Labs Lab Laboratory Tests Test 12/16/17 11:50 12/16/17 16:33 12/16/17 20:41 12/17/17 04:20 Glucose (Fingerstick) 221 mg/dL (70-99) 89 mg/dL (70-99) 214 mg/dL (70-99) White Blood Count 6.3 x10^3/uL (4.0-11.0) Red Blood Count 3.49 x10^6/uL (4.30-5.70) Hemoglobin 11.5 g/dL (13.0-17.5) Hematocrit 33.2 % (39.0-53.0) Mean Corpuscular Volume 95 fL (79-100) Mean Corpuscular Hemoglobin 33 pg (25-35) Mean Corpuscular Hemoglobin Concent 35 g/dL (31-37) Red Cell Distribution Width 14.6 % (11.5-14.5) Platelet Count 396 x10^3/uL (140-400) Neutrophils (%) (Auto) 69 % (31-73) Lymphocytes (%) (Auto) 21 % (24-48) Monocytes (%) (Auto) 8 % (0-9) Eosinophils (%) (Auto) 2 % (0-3) Basophils (%) (Auto) 0 % (0-3) Neutrophils # (Auto) 4.3 x10^3uL (1.8-7.7) Lymphocytes # (Auto) 1.3 x10^3/uL (1.0-4.8) Monocytes # (Auto) 0.5 x10^3/uL (0.0-1.1) Eosinophils # (Auto) 0.1 x10^3/uL (0.0-0.7) Basophils # (Auto) 0.0 x10^3/uL (0.0-0.2) Sodium Level 137 mmol/L (136-145) Potassium Level 4.8 mmol/L (3.5-5.1) Chloride Level 101 mmol/L (98-107) Carbon Dioxide Level 24 mmol/L (21-32) Anion Gap 12 (6-14) Blood Urea Nitrogen 15 mg/dL (8-26) Creatinine 1.2 mg/dL (0.7-1.3) Estimated GFR (Cockcroft-Gault) 61.8 BUN/Creatinine Ratio 13 (6-20) Glucose Level 363 mg/dL (70-99) Calcium Level 9.0 mg/dL (8.5-10.1) Total Bilirubin 0.5 mg/dL (0.2-1.0) Aspartate Amino Transf (AST/SGOT) 15 U/L (15-37) Alanine Aminotransferase (ALT/SGPT) 17 U/L (16-63) Alkaline Phosphatase 68 U/L (46-116) Total Protein 7.2 g/dL (6.4-8.2) Albumin 2.6 g/dL (3.4-5.0) Albumin/Globulin Ratio 0.6 (1.0-1.7) Test 12/17/17 07:22 Glucose (Fingerstick) 433 mg/dL (70-99) Micro Objective Assessment Fever resolved Necrotic diabetic ulcer right heel. - MRI + osteo. - s/p debridement 12/[address] Rudolph -Intra-op cultures E coli, klebsiella, enterococcus amp sensitive, 12/09. -ESR 105. Right foot cellulitis - improved Diabetes with neuropathy, poorly controlled CAD h/o MSSA toes s/p amputation THERESA creat is 1.4, Vanc trough 19 - better Diarrhea C. 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 The chart was reviewed. The case was discussed. Agree with the plan of care. STELLA DALAL APRN Dec 17, 2017 11:22 VENITA KATE MD Dec 17, 2017 15:09
[2017-12-17] MEDS ORDERED: OXYC5TAB95 PO (11:24)
[2017-12-17] MEDS ORDERED: ASCO500T2 PO (11:24)
[2017-12-17] MEDS ORDERED: MULT1TAB90 PO (11:24)
--- NOTE | 2017-12-17 11:25 | DISCH ---
DISCHARGE WITH HOME HEALTH DISCHARGE INFORMATION: Discharge Date: Dec 17, 2017 Condition on Discharge: Stable CODE STATUS: Code Status: Full HOME HEALTH: Face to Face: I certify this patient is under my care and that I, or a nurse practitioner or physician's assistant softball coach working with me, had a face to face encounter that meets the physician face to face encounter requirements with this patient on []. Medical Complications: DM, HTN Physical Therapy For: Evalulation/Treatment Occupational Therapy For: Evaluation/Treatment Home Health Aide For: Other (wound vac) CHEF ASSISTANT For: Community Resources Pt Meets Homebound Status: Other: (wound vac RT leg) POST DISCHARGE ORDERS: Activity Instructions for Disc: Other, see below Weight Bearing Status after Di: No restrictions Bathing Instructions: No Tub Bath until see DIET AFTER DISCHARGE: JIMMIE Wound/Incision Care: May get incision wet CHECKS AFTER DISCHARGE: Checks after discharge: Check blood press - daily, Check blood sugar, ac/hs CERTIFICATION STATEMENT: Certification Statement: Certification Statement: Based on the above finding, I certify that this patient is confined to the home and needs intermittent half-way care, physical therapy and/or speech therapy, or continues to need occupational therapy.~ This patient is under my care, and I have initiated the establishment of the plan of care.~ This patient will be followed by myself or a community physician who will periodically review the plan of care. Home Meds Active Scripts Oxycodone Hcl (OXYCODONE HCL) 5 Mg Tablet, 5 MG PO PRN Q3HRS PRN for SEVERE PAIN , #20 TAB Prov:SHAD CARRANZA MD 12/17/17 Ascorbic Acid (VITAMIN C) 500 Mg Tablet, 500 MG PO DAILY for wound MDD 1, #30 TAB Prov:SHAD CARRANZA MD 12/17/17 Multivits,Ca,Minerals/Iron/Fa (THERA-M TABLET) 1 Each Tablet, 1 TAB PO DAILY for MVI MDD 1, #30 TAB Prov:SHAD CARRANZA MD 12/17/17 Reported Medications Ranolazine (RANEXA) 500 Mg Tab.er.12h, 1 TAB PO BID, #60 TAB 3 Refills 07/29/16 Isosorbide Mononitrate (ISOSORBIDE MONONITRATE ER) 60 Mg Tab.er.24h, 1 TAB PO DAILY, #30 TAB 5 Refills 6/16/16 Clopidogrel Bisulfate (CLOPIDOGREL) 75 Mg Tablet, 1 TAB PO DAILY, #90 TAB 1 Refill 01/19/15 Metoprolol Tartrate (METOPROLOL TARTRATE) 50 Mg Tablet, 100 MG PO BID for FOR HYPERTENSION, #60 TAB 0 Refills NEXT DOSE: 01/19/15 PM 01/02/14 Aspirin (ASPIR 81) 81 Mg Tablet.dr, 81 MG PO DAILY, TAB NEXT DOSE: 01/20/15 AM 07/30/13 Omeprazole (OMEPRAZOLE) 40 Mg Capsule.dr, 40 MG PO DAILY, CAP NEXT DOSE: 01/20/15 AM 07/30/13 Allopurinol (ALLOPURINOL) 300 Mg Tablet, 300 MG PO DAILY, TAB NEXT DOSE: 01/20/15 AM 07/30/13 Lisinopril (LISINOPRIL) 40 Mg Tablet, 40 MG PO DAILY for FOR HYPERTENSION, #30 TAB 0 Refills NEXT DOSE: 01/20/15 AM 07/30/13 SHAD CARRANZA MD Dec 17, 2017 11:25
--- NOTE | 2017-12-17 11:46 | PDOC3 ---
Discharge Summary Visit Information Date of Admission: Dec 07, 2017 Date of Discharge: Dec 17, 2017 Admitting Diagnosis Comment: Right heel wound in a diabetic s/p I and D and now wound vac SEPSIS POA, no organ dysfcn Diabetes type 1, hemoglobin A1c is 13 Hypertension, CAD, CABG 2015, dyslipidemia-chronic stable Brief Hospital Course Allergies Allergies Coded Allergies Type Severity Reaction Last Updated Verified morphine Allergy Intermediate Hives, itching 07/29/15 Yes Vital Signs Vital Signs Date Time Temp Pulse Resp B/P (MAP) Pulse Ox O2 Delivery O2 Flow Rate FiO2 12/17/17 10:46 97.7 86 19 109/69 (82) 97 Room Air 97.7 12/16/17 20:00 10.0 Lab Results Laboratory Tests Test 12/15/17 16:17 12/15/17 17:00 12/15/17 20:34 12/15/17 20:59 Glucose (Fingerstick) 120 mg/dL (70-99) 46 mg/dL (70-99) 150 mg/dL (70-99) Clostridium difficile Toxin (PCR) Negative (Negative) Test 12/16/17 07:58 12/16/17 11:50 12/16/17 16:33 12/16/17 20:41 Glucose (Fingerstick) 237 mg/dL (70-99) 221 mg/dL (70-99) 89 mg/dL (70-99) 214 mg/dL (70-99) Test 12/17/17 04:20 12/17/17 07:22 White Blood Count 6.3 x10^3/uL (4.0-11.0) Red Blood Count 3.49 x10^6/uL (4.30-5.70) Hemoglobin 11.5 g/dL (13.0-17.5) Hematocrit 33.2 % (39.0-53.0) Mean Corpuscular Volume 95 fL (79-100) Mean Corpuscular Hemoglobin 33 pg (25-35) Mean Corpuscular Hemoglobin Concent 35 g/dL (31-37) Red Cell Distribution Width 14.6 % (11.5-14.5) Platelet Count 396 x10^3/uL (140-400) Neutrophils (%) (Auto) 69 % (31-73) Lymphocytes (%) (Auto) 21 % (24-48) Monocytes (%) (Auto) 8 % (0-9) Eosinophils (%) (Auto) 2 % (0-3) Basophils (%) (Auto) 0 % (0-3) Neutrophils # (Auto) 4.3 x10^3uL (1.8-7.7) Lymphocytes # (Auto) 1.3 x10^3/uL (1.0-4.8) Monocytes # (Auto) 0.5 x10^3/uL (0.0-1.1) Eosinophils # (Auto) 0.1 x10^3/uL (0.0-0.7) Basophils # (Auto) 0.0 x10^3/uL (0.0-0.2) Sodium Level 137 mmol/L (136-145) Potassium Level 4.8 mmol/L (3.5-5.1) Chloride Level 101 mmol/L (98-107) Carbon Dioxide Level 24 mmol/L (21-32) Anion Gap 12 (6-14) Blood Urea Nitrogen 15 mg/dL (8-26) Creatinine 1.2 mg/dL (0.7-1.3) Estimated GFR (Cockcroft-Gault) 61.8 BUN/Creatinine Ratio 13 (6-20) Glucose Level 363 mg/dL (70-99) Calcium Level 9.0 mg/dL (8.5-10.1) Total Bilirubin 0.5 mg/dL (0.2-1.0) Aspartate Amino Transf (AST/SGOT) 15 U/L (15-37) Alanine Aminotransferase (ALT/SGPT) 17 U/L (16-63) Alkaline Phosphatase 68 U/L (46-116) Total Protein 7.2 g/dL (6.4-8.2) Albumin 2.6 g/dL (3.4-5.0) Albumin/Globulin Ratio 0.6 (1.0-1.7) Glucose (Fingerstick) 433 mg/dL (70-99) Laboratory Tests Test 12/16/17 11:50 12/16/17 16:33 12/16/17 20:41 12/17/17 04:20 Glucose (Fingerstick) 221 mg/dL (70-99) 89 mg/dL (70-99) 214 mg/dL (70-99) White Blood Count 6.3 x10^3/uL (4.0-11.0) Red Blood Count 3.49 x10^6/uL (4.30-5.70) Hemoglobin 11.5 g/dL (13.0-17.5) Hematocrit 33.2 % (39.0-53.0) Mean Corpuscular Volume 95 fL (79-100) Mean Corpuscular Hemoglobin 33 pg (25-35) Mean Corpuscular Hemoglobin Concent 35 g/dL (31-37) Red Cell Distribution Width 14.6 % (11.5-14.5) Platelet Count 396 x10^3/uL (140-400) Neutrophils (%) (Auto) 69 % (31-73) Lymphocytes (%) (Auto) 21 % (24-48) Monocytes (%) (Auto) 8 % (0-9) Eosinophils (%) (Auto) 2 % (0-3) Basophils (%) (Auto) 0 % (0-3) Neutrophils # (Auto) 4.3 x10^3uL (1.8-7.7) Lymphocytes # (Auto) 1.3 x10^3/uL (1.0-4.8) Monocytes # (Auto) 0.5 x10^3/uL (0.0-1.1) Eosinophils # (Auto) 0.1 x10^3/uL (0.0-0.7) Basophils # (Auto) 0.0 x10^3/uL (0.0-0.2) Sodium Level 137 mmol/L (136-145) Potassium Level 4.8 mmol/L (3.5-5.1) Chloride Level 101 mmol/L (98-107) Carbon Dioxide Level 24 mmol/L (21-32) Anion Gap 12 (6-14) Blood Urea Nitrogen 15 mg/dL (8-26) Creatinine 1.2 mg/dL (0.7-1.3) Estimated GFR (Cockcroft-Gault) 61.8 BUN/Creatinine Ratio 13 (6-20) Glucose Level 363 mg/dL (70-99) Calcium Level 9.0 mg/dL (8.5-10.1) Total Bilirubin 0.5 mg/dL (0.2-1.0) Aspartate Amino Transf (AST/SGOT) 15 U/L (15-37) Alanine Aminotransferase (ALT/SGPT) 17 U/L (16-63) Alkaline Phosphatase 68 U/L (46-116) Total Protein 7.2 g/dL (6.4-8.2) Albumin 2.6 g/dL (3.4-5.0) Albumin/Globulin Ratio 0.6 (1.0-1.7) Test 12/17/17 07:22 Glucose (Fingerstick) 433 mg/dL (70-99) Brief Hospital Course Mr. Ga is a 62 old white male with diabetes, on Novolin insulin 70/30, twice a day. Was a direct admit from [facility] for a right heel wound that seems to be not getting better. He eventually underwent I and D by vascular surgery and now has indwelling wound VAC. We had some hyper and hypoglycemia episodes. Otherwise he is nontoxic appearing, [id number] on that right foot since wound VAC. We have home health arranged. Was getting IV Zosyn and will be shifted to by mouth antibodies by ID today. Cleared from vasc surgery and ID to go home today with home health. Rx on chart He will continue his Novolin 70/30 twice a day dose at home Consults performed vasc surgery, ID Procedure is performed I and D right heel with indwelling wound VAC Discharge Information Condition at Discharge: Improved, Stable Disposition/Orders: D/C to Home w/ HH Scheduled Allopurinol (Allopurinol) 300 Mg Tablet, 300 MG PO DAILY, (Reported) NEXT DOSE: 01/20/15 AM Entered as Reported by: DEBRA FREY on 07/30/13856 Last Action: Continued on 12/07/171516 by SHAD CARRANZA Ascorbic Acid (Vitamin C) 500 Mg Tablet, 500 MG PO DAILY for wound MDD 1, #30 Prescribed by: SHAD CARRANZA on 12/17/17 1124 Aspirin (Aspir 81) 81 Mg Tablet., 81 MG PO DAILY, (Reported) NEXT DOSE: 01/20/15 AM Entered as Reported by: DEBRA FREY on 07/30/13856 Last Action: HELD on 12/07/171516 by SHAD CARRANZA Clopidogrel Bisulfate (Clopidogrel) 75 Mg Tablet, 1 TAB PO DAILY, #90 Ref 1 ( Reported) Entered as Reported by: Karlee Pepper on 01/19/15 6715 Last Action: Reviewed on 12/07/171516 by SHAD CARRANZA Isosorbide Mononitrate (Isosorbide Mononitrate Er) 60 Mg Tab.er.24h, 1 TAB PO DAILY, #30 Ref 5 (Reported) Entered as Reported by: PRISCILA WALSH on 07/29/15 151 Last Action: Converted on 12/07/171516 by SHAD CARRANZA Lisinopril (Lisinopril) 40 Mg Tablet, 40 MG PO DAILY for FOR HYPERTENSION, #30 Ref 0 (Reported) NEXT DOSE: 01/20/15 AM Entered as Reported by: DEBRA FREY on 07/30/13 0857 Last Action: Continued on 12/07/171516 by SHAD CARRANZA Metoprolol Tartrate (Metoprolol Tartrate) 50 Mg Tablet, 100 MG PO BID for FOR HYPERTENSION, #60 Ref 0 (Reported) NEXT DOSE: 01/19/15 PM Entered as Reported by: DEMETRIUS LUJAN on 01/02/14 1629 Last Action: Continued on 12/07/171516 by SHAD CARRANZA Multivits,Ca,Minerals/Iron/Fa (Thera-M Tablet) 1 Each Tablet, 1 TAB PO DAILY for MVI MDD 1, #30 Prescribed by: SHAD CARRANZA on 12/17/17 1124 Omeprazole (Omeprazole) 40 Mg Capsule.dr, 40 MG PO DAILY, (Reported) NEXT DOSE: 01/20/15 AM Entered as Reported by: DEBRA FREY on 07/30/13 0857 Last Action: Converted on 12/07/171516 by SHAD CARRANZA Ranolazine (Ranexa) 500 Mg Tab.er.12h, 1 TAB PO BID, #60 Ref 3 (Reported) Entered as Reported by: IVIS HARMAN on 07/30/15 0945 Last Action: Continued on 12/07/171516 by SHAD CARRANZA Scheduled PRN Oxycodone Hcl (Oxycodone Hcl) 5 Mg Tablet, 5 MG PO PRN Q3HRS PRN for SEVERE PAIN , #20 Prescribed by: SHAD CARRANZA on 12/17/17 1124 SHAD CARRANZA MD Dec 17, 2017 11:46
[2017-12-17 15:00] VITALS: BP 105/75
[2017-12-18] MEDS ORDERED: PANT20TA2 PO (22:17)
[2017-12-18] MEDS ORDERED: INSU100I7 SQ (22:37)
[2017-12-20] MEDS ORDERED: INSU100I7 SQ ×2 (21:25)
[2017-12-24] MEDS ORDERED: INSU100I13 SQ (13:22)
[2017-12-24] MEDS ORDERED: INSU100I11 SQ (13:22)
== END 2017-12-17 18:40 | disposition home health service (06) | DRG 854 ==
LOC: 5 NORTH 13:32
PROVIDERS: ADMIT Internal Medicine; ATTEND Internal Medicine
PROC: 0JBQ0ZZ Excision of Right Foot Subcutaneous Tissue and Fascia, Open Approach (ICD-10-PCS; principal; 2017-12-09 08:00)
PROC: 0QBL0ZZ Excision of Right Tarsal, Open Approach (ICD-10-PCS; 2017-12-12)
PROC: 05H533Z Insertion of Infusion Device into Right Subclavian Vein, Percutaneous Approach (ICD-10-PCS; 2017-12-15)
DX: A41.9 Sepsis, unspecified organism (principal); E10.52 Type 1 diabetes mellitus with diabetic peripheral angiopathy with gangrene; M86.8X7 Other osteomyelitis, ankle and foot; L03.115 Cellulitis of right lower limb; L97.419 Non-pressure chronic ulcer of right heel and midfoot with unspecified severity; N17.9 Acute kidney failure, unspecified; E10.69 Type 1 diabetes mellitus with other specified complication; I25.10 Atherosclerotic heart disease of native coronary artery without angina pectoris; I10 Essential (primary) hypertension; E78.5 Hyperlipidemia, unspecified; J44.9 Chronic obstructive pulmonary disease, unspecified; K21.9 Gastro-esophageal reflux disease without esophagitis; E10.42 Type 1 diabetes mellitus with diabetic polyneuropathy; E10.621 Type 1 diabetes mellitus with foot ulcer; E10.622 Type 1 diabetes mellitus with other skin ulcer; E10.649 Type 1 diabetes mellitus with hypoglycemia without coma; Z89.429 Acquired absence of other toe(s), unspecified side; Z79.82 Long term (current) use of aspirin; Z79.4 Long term (current) use of insulin; Z95.1 Presence of aortocoronary bypass graft; Z82.49 Family history of ischemic heart disease and other diseases of the circulatory system; Z86.19 Personal history of other infectious and parasitic diseases
CPT/HCPCS: 36415; 36569; 70200; 71045; 73718; 80048; 80053; 80069; 80202; 82565; 82962; 83036; 85025; 85610; 85651; 87040; 87071; 87075; 87186; 87493; 93923; A7015; J1100; J1815; J2001; J2020; J2250; J2370; J2405; J2543; J2704; J3010; J3370; J7030; J7040; J7042; J7050; J7120; 97116; 97530; A4461

== ENCOUNTER → 2017-12-07 | Outpatient (CLI) | payer OTHER ==
[2015-07-30 12:00] VITALS: BP 112/64
[~2017-12-07] MED LIST: ACET-1574 PO; ALLO300T PO; ASCO500T2 PO; ASPI-482 PO; ATOR10TA PO; CEFA2PIG IV; CLOP75TA PO; DIPH25CA58 PO; FERR325T72 PO; FISH1CAP PO; INSU100I11 SQ; INSU100I13 SQ; INSU100I7 SQ; INSU100V3 SQ; ISOS60TA2 PO; LISI-130 PO; LOVA20TA2 PO; LOVA40TA2 PO; METO50TA6 PO; MULT1TAB90 PO; OMEP40CA5 PO; OXYC-323 PO; OXYC-328 PO; OXYC5TAB95 PO; PANT20TA2 PO; POTA10TA12 PO; RANO500T2 PO; [UNRECOGNIZED DRUG - CODE] PO; allopurinol; fish oil; lisinopril; prilosec
== END | disposition home or self-care (01) ==
LOC: PMGWOUND 11:58
PROVIDERS: ATTEND Preventive Medicine Undersea and Hyperbaric Medicine
DX: E10.621 Type 1 diabetes mellitus with foot ulcer (principal); L97.416 Non-pressure chronic ulcer of right heel and midfoot with bone involvement without evidence of necrosis; E10.42 Type 1 diabetes mellitus with diabetic polyneuropathy; E10.65 Type 1 diabetes mellitus with hyperglycemia; E10.52 Type 1 diabetes mellitus with diabetic peripheral angiopathy with gangrene; I96 Gangrene, not elsewhere classified; E10.69 Type 1 diabetes mellitus with other specified complication; M86.8X7 Other osteomyelitis, ankle and foot; I12.9 Hypertensive chronic kidney disease with stage 1 through stage 4 chronic kidney disease, or unspecified chronic kidney disease; E10.22 Type 1 diabetes mellitus with diabetic chronic kidney disease; N18.3 Chronic kidney disease, stage 3 (moderate); L84 Corns and callosities; J44.9 Chronic obstructive pulmonary disease, unspecified; M10.9 Gout, unspecified; E78.5 Hyperlipidemia, unspecified; I25.2 Old myocardial infarction; K21.9 Gastro-esophageal reflux disease without esophagitis; E78.00 Pure hypercholesterolemia, unspecified; I25.10 Atherosclerotic heart disease of native coronary artery without angina pectoris; Z68.26 Body mass index [BMI] 26.0-26.9, adult; E66.01 Morbid (severe) obesity due to excess calories; Z79.4 Long term (current) use of insulin
CPT/HCPCS: 99214; G0463

== ENCOUNTER → 2018-01-02 | Outpatient (CLI) | payer OTHER ==
[2017-12-24 15:10] VITALS: BP 121/80
[~2018-01-02] MED LIST changes: +ASCO500T2 PO; +INSU100I11 SQ; +INSU100I13 SQ; +MULT1TAB90 PO; +OXYC5TAB95 PO; +PANT20TA2 PO
== END | disposition home or self-care (01) ==
LOC: PMGWOUND 11:45
PROVIDERS: ATTEND Preventive Medicine Undersea and Hyperbaric Medicine
DX: E10.621 Type 1 diabetes mellitus with foot ulcer (principal); L97.411 Non-pressure chronic ulcer of right heel and midfoot limited to breakdown of skin; E10.649 Type 1 diabetes mellitus with hypoglycemia without coma; E10.69 Type 1 diabetes mellitus with other specified complication; M86.8X7 Other osteomyelitis, ankle and foot; E10.42 Type 1 diabetes mellitus with diabetic polyneuropathy; E10.52 Type 1 diabetes mellitus with diabetic peripheral angiopathy with gangrene; I96 Gangrene, not elsewhere classified; I13.0 Hypertensive heart and chronic kidney disease with heart failure and stage 1 through stage 4 chronic kidney disease, or unspecified chronic kidney disease; E10.22 Type 1 diabetes mellitus with diabetic chronic kidney disease; N18.9 Chronic kidney disease, unspecified; L84 Corns and callosities; M10.9 Gout, unspecified; J44.9 Chronic obstructive pulmonary disease, unspecified; E78.00 Pure hypercholesterolemia, unspecified; E78.5 Hyperlipidemia, unspecified; I25.2 Old myocardial infarction; K21.9 Gastro-esophageal reflux disease without esophagitis; I25.10 Atherosclerotic heart disease of native coronary artery without angina pectoris; E66.01 Morbid (severe) obesity due to excess calories; Z68.26 Body mass index [BMI] 26.0-26.9, adult; Z79.4 Long term (current) use of insulin
CPT/HCPCS: 97597; 97605

== ENCOUNTER → 2018-01-09 | Outpatient (CLI) | payer OTHER ==
[2017-12-24 15:10] VITALS: BP 121/80
[~2018-01-09] MED LIST changes: -OXYC-323 PO; -OXYC-328 PO; +OXYC1TAB15 PO; +OXYC1TAB22 PO; +OXYC5TAB4 PO; -OXYC5TAB95 PO
== END | disposition home or self-care (01) ==
LOC: PMGWOUND 10:49
PROVIDERS: ATTEND Preventive Medicine Undersea and Hyperbaric Medicine
DX: E10.621 Type 1 diabetes mellitus with foot ulcer (principal); L97.413 Non-pressure chronic ulcer of right heel and midfoot with necrosis of muscle; E10.42 Type 1 diabetes mellitus with diabetic polyneuropathy; E10.649 Type 1 diabetes mellitus with hypoglycemia without coma; E10.69 Type 1 diabetes mellitus with other specified complication; M86.271 Subacute osteomyelitis, right ankle and foot; E10.65 Type 1 diabetes mellitus with hyperglycemia; E10.52 Type 1 diabetes mellitus with diabetic peripheral angiopathy with gangrene; I96 Gangrene, not elsewhere classified; I13.0 Hypertensive heart and chronic kidney disease with heart failure and stage 1 through stage 4 chronic kidney disease, or unspecified chronic kidney disease; E10.22 Type 1 diabetes mellitus with diabetic chronic kidney disease; N18.3 Chronic kidney disease, stage 3 (moderate); I50.9 Heart failure, unspecified; L84 Corns and callosities; M10.9 Gout, unspecified; E78.5 Hyperlipidemia, unspecified; I25.2 Old myocardial infarction; J44.9 Chronic obstructive pulmonary disease, unspecified; K21.9 Gastro-esophageal reflux disease without esophagitis; E78.00 Pure hypercholesterolemia, unspecified; I25.10 Atherosclerotic heart disease of native coronary artery without angina pectoris; E66.01 Morbid (severe) obesity due to excess calories; Z68.26 Body mass index [BMI] 26.0-26.9, adult; Z79.4 Long term (current) use of insulin
CPT/HCPCS: 11042; 97605

== ENCOUNTER → 2018-01-16 | Outpatient (CLI) | payer OTHER ==
[2017-12-24 15:10] VITALS: BP 121/80
== END | disposition home or self-care (01) ==
LOC: PMGWOUND 11:12
PROVIDERS: ATTEND Preventive Medicine Undersea and Hyperbaric Medicine
DX: E10.621 Type 1 diabetes mellitus with foot ulcer (principal); L97.412 Non-pressure chronic ulcer of right heel and midfoot with fat layer exposed; E10.42 Type 1 diabetes mellitus with diabetic polyneuropathy; E10.69 Type 1 diabetes mellitus with other specified complication; M86.271 Subacute osteomyelitis, right ankle and foot; E10.52 Type 1 diabetes mellitus with diabetic peripheral angiopathy with gangrene; I96 Gangrene, not elsewhere classified; I13.0 Hypertensive heart and chronic kidney disease with heart failure and stage 1 through stage 4 chronic kidney disease, or unspecified chronic kidney disease; E10.22 Type 1 diabetes mellitus with diabetic chronic kidney disease; N18.3 Chronic kidney disease, stage 3 (moderate); I50.9 Heart failure, unspecified; L84 Corns and callosities; M10.9 Gout, unspecified; E78.5 Hyperlipidemia, unspecified; I25.2 Old myocardial infarction; J44.9 Chronic obstructive pulmonary disease, unspecified; K21.9 Gastro-esophageal reflux disease without esophagitis; E78.00 Pure hypercholesterolemia, unspecified; I25.10 Atherosclerotic heart disease of native coronary artery without angina pectoris; E66.01 Morbid (severe) obesity due to excess calories; Z68.26 Body mass index [BMI] 26.0-26.9, adult; Z89.421 Acquired absence of other right toe(s); Z88.6 Allergy status to analgesic agent; Z88.8 Allergy status to other drugs, medicaments and biological substances; Z95.1 Presence of aortocoronary bypass graft; Z95.5 Presence of coronary angioplasty implant and graft; Z79.4 Long term (current) use of insulin; Z79.82 Long term (current) use of aspirin
CPT/HCPCS: 11042

== ENCOUNTER → 2018-01-23 | Outpatient (CLI) | payer OTHER ==
[2017-12-24 15:10] VITALS: BP 121/80
== END | disposition home or self-care (01) ==
LOC: PMGWOUND 10:45
PROVIDERS: ATTEND Preventive Medicine Undersea and Hyperbaric Medicine
DX: E10.621 Type 1 diabetes mellitus with foot ulcer (principal); L97.412 Non-pressure chronic ulcer of right heel and midfoot with fat layer exposed; E10.69 Type 1 diabetes mellitus with other specified complication; M86.271 Subacute osteomyelitis, right ankle and foot; E10.42 Type 1 diabetes mellitus with diabetic polyneuropathy; E10.52 Type 1 diabetes mellitus with diabetic peripheral angiopathy with gangrene; I96 Gangrene, not elsewhere classified; E10.65 Type 1 diabetes mellitus with hyperglycemia; I13.0 Hypertensive heart and chronic kidney disease with heart failure and stage 1 through stage 4 chronic kidney disease, or unspecified chronic kidney disease; E10.22 Type 1 diabetes mellitus with diabetic chronic kidney disease; N18.3 Chronic kidney disease, stage 3 (moderate); I50.9 Heart failure, unspecified; L84 Corns and callosities; M10.9 Gout, unspecified; E78.5 Hyperlipidemia, unspecified; I25.2 Old myocardial infarction; E78.00 Pure hypercholesterolemia, unspecified; K21.9 Gastro-esophageal reflux disease without esophagitis; Z79.4 Long term (current) use of insulin; I25.10 Atherosclerotic heart disease of native coronary artery without angina pectoris; E66.01 Morbid (severe) obesity due to excess calories; Z68.26 Body mass index [BMI] 26.0-26.9, adult
CPT/HCPCS: 93923; 97597; 97605

== ENCOUNTER → 2018-02-01 | Outpatient (CLI) | payer OTHER ==
[2017-12-24 15:10] VITALS: BP 121/80
== END | disposition home or self-care (01) ==
LOC: PMGWOUND 10:59
PROVIDERS: ATTEND Preventive Medicine Undersea and Hyperbaric Medicine
DX: E10.621 Type 1 diabetes mellitus with foot ulcer (principal); L97.412 Non-pressure chronic ulcer of right heel and midfoot with fat layer exposed; E10.69 Type 1 diabetes mellitus with other specified complication; M86.271 Subacute osteomyelitis, right ankle and foot; E10.42 Type 1 diabetes mellitus with diabetic polyneuropathy; E10.65 Type 1 diabetes mellitus with hyperglycemia; E10.52 Type 1 diabetes mellitus with diabetic peripheral angiopathy with gangrene; I96 Gangrene, not elsewhere classified; E10.649 Type 1 diabetes mellitus with hypoglycemia without coma; I13.0 Hypertensive heart and chronic kidney disease with heart failure and stage 1 through stage 4 chronic kidney disease, or unspecified chronic kidney disease; E10.22 Type 1 diabetes mellitus with diabetic chronic kidney disease; N18.3 Chronic kidney disease, stage 3 (moderate); I50.9 Heart failure, unspecified; L84 Corns and callosities; M10.9 Gout, unspecified; E78.5 Hyperlipidemia, unspecified; E78.00 Pure hypercholesterolemia, unspecified; I25.2 Old myocardial infarction; K21.9 Gastro-esophageal reflux disease without esophagitis; J44.9 Chronic obstructive pulmonary disease, unspecified; I25.10 Atherosclerotic heart disease of native coronary artery without angina pectoris; E66.01 Morbid (severe) obesity due to excess calories; Z68.26 Body mass index [BMI] 26.0-26.9, adult; Z79.4 Long term (current) use of insulin
CPT/HCPCS: 97597

== ENCOUNTER → 2018-02-08 | Outpatient (CLI) | payer OTHER ==
[2017-12-24 15:10] VITALS: BP 121/80
[~2018-02-08] MED LIST changes: +AMLO10TA8 PO; +DOXY100T PO; +IOHEXOL 300 MG/ML 100ML VIAL. IV ONE; +IOHEXOL 300 MG/ML 100ML VIAL. ONE; +SENN-22 PO
--- NOTE | 2018-02-08 16:34 | RAD ---
CT angiography of the pelvis, and bilateral lower extremities 02/08/2018 INDICATION: Nonhealing wound, right medial heel. COMPARISON STUDY: Lower extremity arterial duplex ultrasound December 07, 2017. TECHNIQUE: Multidetector CT imaging of the pelvis and bilateral lower extremities was performed following the administration of IV contrast. Arterial phase imaging was performed. 3-D vascular reconstructions were created on an independent workstation and reviewed. FINDINGS: Visualized inferior abdominal aorta is unremarkable. Inferior mesenteric artery is patent. Right common iliac artery is patent. Right external iliac artery is patent. Right common femoral artery is patent right profunda artery is patent. Multifocal mild atherosclerotic disease is seen within the right superficial femoral artery in the proximal adductor canal, without flow-limiting stenosis. Right popliteal artery is patent. There is more pronounced calcification of smaller vessels below the knee. There is occlusion of the proximal anterior tibial artery. There appears to be reconstitution at the level of the dorsalis pedis artery at the ankle. Calcification possible moderate narrowing seen in the proximal peroneal artery. The peroneal artery appears to be otherwise patent to the ankle. There is occlusion of the proximal posterior tibial artery no significant reconstitution is identified by CT. There is a large wound overlying the right heel extending to the level the calcaneus. Bony exposure not excluded. Thickening, irregularity, and calcification involving the distal right Achilles tendon noted. Findings could represent chronic injury or tendinopathy. Subcutaneous edema is also seen. Infection is not excluded. The left common iliac, internal iliac, and external iliac arteries patent. Left common femoral artery is patent. The profunda artery is patent. Similar to the contralateral side mild atherosclerotic plaquing is seen in the left SFA with minimal areas of narrowing, nonflow limiting. The left popliteal artery is patent. There is occlusion of the proximal left posterior tibial artery. Calcification possible narrowing seen in the distal left anterior tibial artery. Areas of parenchymal calcification are seen likely areas of moderate proximal stenosis. Visualized pelvic organs demonstrate no acute abnormality. No free fluid or free air seen in the pelvis. No other acute osseous findings are identified. IMPRESSION: 1.No flow limiting aortoiliac or femoropopliteal disease is identified. 2. Severe distal atherosclerotic vascular disease. 3.On the right there is occlusion of the anterior tibial and posterior tibial arteries. Possible narrowing of the proximal peroneal artery is also seen on the right. 4. On the left there is occlusion of the posterior tibial artery. Possible moderate stenoses are noted within the anterior tibial and peroneal arteries. 5. Large wound involving the posterior right heel with possible extension to the calcaneus. Thickening and calcification involving the distal Achilles tendon noted, as described above. If there is concern for osteomyelitis and/or further evaluation of the Achilles tendon is desired, MRI may offer additional information. CT DOSING PQRS STATEMENT: One or more of the following individualized dose reduction techniques were utilized for this examination: 1. Automated exposure control 2. Adjustment of the mA and/or kV according to patient size 3. Use of iterative reconstruction technique Electronically signed by: Rosalino Solo MD (02/08/2018 4:30 PM) [id number]
== END | disposition home or self-care (01) ==
LOC: CT 11:31
PROVIDERS: ATTEND Preventive Medicine Undersea and Hyperbaric Medicine
DX: E11.621 Type 2 diabetes mellitus with foot ulcer (principal); L97.414 Non-pressure chronic ulcer of right heel and midfoot with necrosis of bone; I70.91 Generalized atherosclerosis
CPT/HCPCS: 75635; Q9967

== ENCOUNTER → 2018-02-08 | Outpatient (CLI) | payer OTHER ==
[2017-12-24 15:10] VITALS: BP 121/80
[~2018-02-08] MED LIST changes: -AMLO10TA8 PO; -DOXY100T PO; -IOHEXOL 300 MG/ML 100ML VIAL. IV ONE; -IOHEXOL 300 MG/ML 100ML VIAL. ONE; -SENN-22 PO
== END | disposition home or self-care (01) ==
LOC: PMGWOUND 09:57
PROVIDERS: ATTEND Preventive Medicine Undersea and Hyperbaric Medicine
DX: E10.621 Type 1 diabetes mellitus with foot ulcer (principal); L97.412 Non-pressure chronic ulcer of right heel and midfoot with fat layer exposed; E10.69 Type 1 diabetes mellitus with other specified complication; M86.271 Subacute osteomyelitis, right ankle and foot; M86.8X7 Other osteomyelitis, ankle and foot; E10.42 Type 1 diabetes mellitus with diabetic polyneuropathy; E10.65 Type 1 diabetes mellitus with hyperglycemia; E10.52 Type 1 diabetes mellitus with diabetic peripheral angiopathy with gangrene; I96 Gangrene, not elsewhere classified; I13.0 Hypertensive heart and chronic kidney disease with heart failure and stage 1 through stage 4 chronic kidney disease, or unspecified chronic kidney disease; E10.22 Type 1 diabetes mellitus with diabetic chronic kidney disease; N18.3 Chronic kidney disease, stage 3 (moderate); I50.9 Heart failure, unspecified; L84 Corns and callosities; M10.9 Gout, unspecified; E78.5 Hyperlipidemia, unspecified; I25.2 Old myocardial infarction; J44.9 Chronic obstructive pulmonary disease, unspecified; K21.9 Gastro-esophageal reflux disease without esophagitis; E78.00 Pure hypercholesterolemia, unspecified; I25.10 Atherosclerotic heart disease of native coronary artery without angina pectoris; E66.01 Morbid (severe) obesity due to excess calories; Z68.26 Body mass index [BMI] 26.0-26.9, adult; Z79.4 Long term (current) use of insulin
CPT/HCPCS: 97605

== ENCOUNTER → 2018-02-13 | Outpatient (CLI) | payer OTHER ==
[2017-12-24 15:10] VITALS: BP 121/80
== END | disposition home or self-care (01) ==
LOC: PMGWOUND 09:32
PROVIDERS: ATTEND Preventive Medicine Undersea and Hyperbaric Medicine
DX: E10.621 Type 1 diabetes mellitus with foot ulcer (principal); L97.412 Non-pressure chronic ulcer of right heel and midfoot with fat layer exposed; E10.52 Type 1 diabetes mellitus with diabetic peripheral angiopathy with gangrene; I96 Gangrene, not elsewhere classified; E10.69 Type 1 diabetes mellitus with other specified complication; M86.8X7 Other osteomyelitis, ankle and foot; M86.271 Subacute osteomyelitis, right ankle and foot; E10.42 Type 1 diabetes mellitus with diabetic polyneuropathy; E10.649 Type 1 diabetes mellitus with hypoglycemia without coma; I13.0 Hypertensive heart and chronic kidney disease with heart failure and stage 1 through stage 4 chronic kidney disease, or unspecified chronic kidney disease; E10.22 Type 1 diabetes mellitus with diabetic chronic kidney disease; N18.3 Chronic kidney disease, stage 3 (moderate); I50.9 Heart failure, unspecified; L84 Corns and callosities; E78.00 Pure hypercholesterolemia, unspecified; M10.9 Gout, unspecified; E78.5 Hyperlipidemia, unspecified; I25.2 Old myocardial infarction; I25.10 Atherosclerotic heart disease of native coronary artery without angina pectoris; J44.9 Chronic obstructive pulmonary disease, unspecified; K21.9 Gastro-esophageal reflux disease without esophagitis; E66.01 Morbid (severe) obesity due to excess calories; Z68.26 Body mass index [BMI] 26.0-26.9, adult; Z79.4 Long term (current) use of insulin
CPT/HCPCS: 97605

== ENCOUNTER → 2018-02-20 | Outpatient (CLI) | payer OTHER ==
[2017-12-24 15:10] VITALS: BP 121/80
== END | disposition home or self-care (01) ==
LOC: PMGWOUND 09:03
PROVIDERS: ATTEND Preventive Medicine Undersea and Hyperbaric Medicine
DX: E10.621 Type 1 diabetes mellitus with foot ulcer (principal); L97.412 Non-pressure chronic ulcer of right heel and midfoot with fat layer exposed; E10.69 Type 1 diabetes mellitus with other specified complication; M86.8X7 Other osteomyelitis, ankle and foot; M86.271 Subacute osteomyelitis, right ankle and foot; E10.42 Type 1 diabetes mellitus with diabetic polyneuropathy; E10.649 Type 1 diabetes mellitus with hypoglycemia without coma; E10.52 Type 1 diabetes mellitus with diabetic peripheral angiopathy with gangrene; I96 Gangrene, not elsewhere classified; E10.65 Type 1 diabetes mellitus with hyperglycemia; I13.0 Hypertensive heart and chronic kidney disease with heart failure and stage 1 through stage 4 chronic kidney disease, or unspecified chronic kidney disease; E10.22 Type 1 diabetes mellitus with diabetic chronic kidney disease; N18.3 Chronic kidney disease, stage 3 (moderate); I50.9 Heart failure, unspecified; L84 Corns and callosities; M10.9 Gout, unspecified; E78.5 Hyperlipidemia, unspecified; I25.2 Old myocardial infarction; J44.9 Chronic obstructive pulmonary disease, unspecified; K21.9 Gastro-esophageal reflux disease without esophagitis; E78.00 Pure hypercholesterolemia, unspecified; I25.10 Atherosclerotic heart disease of native coronary artery without angina pectoris; E66.01 Morbid (severe) obesity due to excess calories; Z68.26 Body mass index [BMI] 26.0-26.9, adult; Z79.4 Long term (current) use of insulin
CPT/HCPCS: 99214; G0463

== ENCOUNTER → 2019-09-26 | Outpatient (CLI) | payer OTHER ==
[2018-02-22 12:36] VITALS: BP 141/87
[~2019-09-26] MED LIST changes: -ACET-1574 PO; +ACET-1871 PO; +AMLO10TA8 PO; -ASCO500T2 PO; +ASCO500T4 PO; +DOXY100T PO; +OMEP40CA45 PO; -OMEP40CA5 PO; -POTA10TA12 PO; +POTASSIUM CHLO10 ME1 PO; +SENN-22 PO
--- NOTE | 2019-09-26 14:50 | RAD ---
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 Gout in left lower extremity. COMPARISON: 12/20/2018 right knee x-rays. TECHNIQUE: AP and lateral views of the left tibia and fibula and AP and lateral views of the right knee were obtained. FINDINGS: Right leg shows surgical changes from a previous below the knee amputation with subtle loss of cortical definition at the anterior margin of the tibial osteotomy. There is increased sclerosis in the underlying subchondral bone compared with the previous examination. No abnormal soft tissue gas. There is however undulation to the skin surface at this region that could reflect the patient's known nonhealing wound. Packing material previously evident in the wound is no longer present. Left leg shows mild diffuse subcutaneous edema and arteriovascular calcifications. There are surgical clips in the medial aspect of the left ankle suggesting previous vein graft harvesting. The bones are well-mineralized and show no fracture, malalignment or aggressive osseous lesions. IMPRESSION: 1. Soft tissue edema in the left leg. Otherwise negative left leg. 2. Subtle cortical loss of definition of the anterior margin of the right tibia s/p BKA is nonspecific. This is where the patient's nonhealing wound is and early changes of osteomyelitis are difficult to exclude. A bone scan could be considered in further evaluation if clinically warranted. Electronically signed by: Taylor Goldsmith MD (09/26/2019 2:47 PM) [id number]
== END | disposition home or self-care (01) ==
LOC: RAD 09:53
PROVIDERS: ATTEND Preventive Medicine Undersea and Hyperbaric Medicine
DX: S81.001D Unspecified open wound, right knee, subsequent encounter (principal); M10.072 Idiopathic gout, left ankle and foot; M79.89 Other specified soft tissue disorders; R60.0 Localized edema; X58.XXXD Exposure to other specified factors, subsequent encounter
CPT/HCPCS: 73590

== ENCOUNTER → 2019-10-10 | Outpatient (CLI) | payer OTHER ==
[2018-02-22 12:36] VITALS: BP 141/87
[~2019-10-10] MED LIST changes: +GADOTERATE 7.5 MMOL/15ML VIAL. IVP ONE
--- NOTE | 2019-10-10 14:14 | RAD ---
Examination: MRI of the right lower extremity without and with IV contrast HISTORY: History of below knee amputation, pressure wound at the distal stump COMPARISON: None available TECHNIQUE: Multiplanar, multisequence MR imaging of the right lower extremity are performed without and with IV contrast. IV contrast used was 17 cc of Dotarem FINDINGS: Changes of below knee amputation identified. There is mild increased T2 signal identified in the cortex of the proximal tibia at the site of amputation. There is no evidence of obvious cortical disruption to suggest osteomyelitis. There is increased T2 signal identified in the soft tissue lateral to the amputation site with minimal enhancement could be edema or cellulitis. The anterior cruciate ligament, posterior cruciate ligament appears intact. There is oblique signal identified in the body and posterior horn of the medial meniscus likely tear. Small knee joint effusion The extensor mechanism is intact. The medial collateral ligament, lateral collateral ligamentous complex including the fibular collateral ligament, biceps femoris tendon, popliteus tendon appear intact. Impression: 1. Changes of below knee amputation with mild increased T2 signal identified in the cortex of the proximal tibia at the site of amputation likely bone marrow reactive changes. There is no evidence of obvious cortical disruption to suggest osteomyelitis. 2. Increased T2 signal identified in the soft tissue lateral to the amputation site with minimal enhancement could be edema or cellulitis. 3. Oblique signal identified in the body and posterior horn of the medial meniscus likely tear. Electronically signed by: José Miguel Enriquez MD (10/10/2019 2:11 PM) [id number]
== END | disposition home or self-care (01) ==
LOC: MRI 10:53
PROVIDERS: ATTEND Preventive Medicine Undersea and Hyperbaric Medicine
DX: S81.801A Unspecified open wound, right lower leg, initial encounter (principal); M25.461 Effusion, right knee; X58.XXXA Exposure to other specified factors, initial encounter; Y93.89 Activity, other specified; Y92.89 Other specified places as the place of occurrence of the external cause; Y99.8 Other external cause status; Z89.511 Acquired absence of right leg below knee
CPT/HCPCS: 73720; A9575

== ENCOUNTER 2020-01-03 09:15 | Inpatient (IN) | payer OTHER ==
[~2020-01-03] VITALS: Ht 175.3 cm; Wt 79.4 kg
[~2020-01-03 09:15] MED LIST changes: +AMLO-187 PO; -AMLO10TA8 PO; -GADOTERATE 7.5 MMOL/15ML VIAL. IVP ONE
[2020-01-03] MEDS ORDERED: cefTRIAXone IV Push 1 GM VIAL. IVP ONE (09:45)
[2020-01-03] MEDS ORDERED: VANCOMYCIN 2 GM in IV NORMAL SALINE 500ML BAG 500 ML IV ONE (09:45)
[2020-01-03 09:53] LABS: BASO % 0 % (0-3); EOS # 0.2 x10^3/uL (0.0-0.7); EOS % 4 % (0-3); HEMATOCRIT 37.5 % (39.0-53.0); LYMPH % 20 % (24-48); MEAN CORPUSCULAR HEMOGLOBIN 31 pg (25-35); MEAN CORPUSCULAR HGB CONC 35 g/dL (31-37); MEAN CORPUSCULAR VOLUME 88 fL (79-100); MONO # 0.5 x10^3/uL (0.0-1.1); MONO % 10 % (0-9); NEUT # 3.4 x10^3/uL (1.8-7.7); NEUT % 67 % (31-73); PLATELET COUNT 202 x10^3/uL (140-400); RED BLOOD COUNT 4.25 x10^6/uL (4.30-5.70); WHITE BLOOD COUNT 5.1 x10^3/uL (4.0-11.0)
--- NOTE | 2020-01-03 09:57 | PHYS DOC ---
Past Medical History Past Medical History: CAD, COPD, Diabetes-Type II, GERD, High Cholesterol, Hypertension, Other Additional Past Medical Histor: gout Past Surgical History: Other Additional Past Surgical Histo: CABG, Rt toe amputation, cardiac stents Smoking Status: Never Smoker Alcohol Use: None Drug Use: None General Adult EDM: Chief Complaint: WOUND CHECK HPI: HPI: History obtained from patient and sister. Patient is a 62-year-old male with poorly controlled insulin-dependent diabetes, COPD, CAD, hypertension who presents with chief complaint of wound evaluation. He states that he does have a history of right below the knee amputation 2 years ago secondary to infections related to diabetes. He notes his left second toe has been infected over the past week. He does see wound care weekly. They do treat wounds to the stump of his right lower extremity and his left second toe. He states outpatient x-rays were performed yesterday. He was called later in the evening and told that he may have early osteomyelitis of the left second toe. He was encouraged to report to the emergency department for potential IV antibiotics and operative intervention. Denies any fevers. Denies vomiting. Does note purulent drainage from the wound. Denies any pain from the wound but states that he does not have much sensation in his feet. States his blood sugars are typically up and down. He notes that they are this way because he has a poor diet. Follows with for wound care. Review of Systems: Review of Systems: Constitutional: Denies fever or chills. [] Eyes: Denies change in visual acuity. [] HENT: Denies nasal congestion or sore throat. [] Respiratory: Denies cough or shortness of breath. [] Cardiovascular: Denies chest pain or edema. [] GI: Denies abdominal pain, nausea, vomiting, bloody stools or diarrhea. [] : Denies dysuria. [] Musculoskeletal: Denies back pain or joint pain. [] Integument: positive for chronic wounds Neurologic: Denies headache, focal weakness or sensory changes. [] Endocrine: Denies polyuria or polydipsia. [] Lymphatic: Denies swollen glands. [] Psychiatric: Denies depression or anxiety. [] Heart Score: Risk Factors: Risk Factors: DM, Current or recent (<one month) smoker, HTN, HLP, family history of CAD, obesity. Risk Scores: Score 0 - 3: 2.5% MACE over next 6 weeks - Discharge Home Score 4 - 6: 20.3% MACE over next 6 weeks - Admit for Clinical Observation Score 7 - 10: 72.7% MACE over next 6 weeks - Early Invasive Strategies Current Medications: Current Medications Medications (Trade) Dose Ordered Sig/Inna Start Time Stop Time Status Last Admin Dose Admin Ceftriaxone Sodium (Rocephin) 1 gm 1X ONCE 01/03/20 09:45 01/03/20 09:46 DC Vancomycin HCl 2.5 gm/Sodium Chloride 500 ml @ 250 mls/hr 1X ONCE 01/03/20 09:45 01/03/20 11:44 UNV Allergies: Allergies: Allergies Coded Allergies Type Severity Reaction Last Updated Verified morphine Allergy Intermediate Hives, itching 02/26/18 Yes I S O L A T I O N *CONTACT* Allergy Unknown 02/27/18 Yes Physical Exam: PE: Constitutional: Well developed, well nourished, no acute distress, non-toxic appearance. [] HENT: Normocephalic, atraumatic, bilateral external ears normal, oropharynx moist, no oral exudates, nose normal. [] Eyes: PERRLA, EOMI, conjunctiva normal, no discharge. [] Neck: Normal range of motion, no tenderness, supple, no stridor. [] Cardiovascular:Heart rate regular rhythm, no murmur [] Lungs & Thorax: Bilateral breath sounds clear to auscultation [] Abdomen: soft, no tenderness, no masses, no pulsatile masses. [] Skin: Warm, dry, no erythema, no rash. [] Back: No tenderness, no CVA tenderness. [] Extremities: Right BKA present. Burrowing 1 cm puncture wound noted to the base of the right stump. Left second toe with purulent drainage. Chronic ulcerative lesion to the tip of the left great toe noted. +1/4 pitting edema on the dorsum of the left foot. Slight erythema noted. Neurologic: Alert and oriented X 3, normal motor function, normal sensory function, no focal deficits noted. [] Psychologic: Affect normal, judgement normal, mood normal. [] Current Patient Data: Labs: Laboratory Tests Test 01/03/20 09:34 White Blood Count 5.1 x10^3/uL Red Blood Count 4.25 x10^6/uL Hemoglobin 13.0 g/dL Hematocrit 37.5 % Mean Corpuscular Volume 88 fL Mean Corpuscular Hemoglobin 31 pg Mean Corpuscular Hemoglobin Concent 35 g/dL Red Cell Distribution Width 14.0 % Platelet Count 202 x10^3/uL Neutrophils (%) (Auto) 67 % Lymphocytes (%) (Auto) 20 % Monocytes (%) (Auto) 10 % Eosinophils (%) (Auto) 4 % Basophils (%) (Auto) 0 % Neutrophils # (Auto) 3.4 x10^3/uL Lymphocytes # (Auto) 1.0 x10^3/uL Monocytes # (Auto) 0.5 x10^3/uL Eosinophils # (Auto) 0.2 x10^3/uL Basophils # (Auto) 0.0 x10^3/uL Sodium Level 139 mmol/L Potassium Level 4.3 mmol/L Chloride Level 103 mmol/L Carbon Dioxide Level 28 mmol/L Anion Gap 8 Blood Urea Nitrogen 16 mg/dL Creatinine 1.1 mg/dL Estimated GFR (Cockcroft-Gault) 67.8 Glucose Level 211 mg/dL Lactic Acid Level 2.0 mmol/L Calcium Level 8.5 mg/dL Current Medications Medications (Trade) Dose Ordered Sig/Inna Route PRN Reason Start Time Stop Time Status Last Admin Dose Admin Vancomycin HCl 2 gm/Sodium Chloride 500 ml @ 250 mls/hr 1X ONCE IV 01/03/20 09:45 01/03/20 11:44 Ceftriaxone Sodium (Rocephin) 1 gm 1X ONCE IVP 01/03/20 09:45 01/03/20 09:46 DC Vital Signs: Vital Signs Date Time Temp Pulse Resp B/P (MAP) Pulse Ox O2 Delivery O2 Flow Rate FiO2 01/03/20 09:44 97.6 95 20 175/95 (121) 98 Room Air 97.6 EKG: EKG: [] Radiology/Procedures: Radiology/Procedures: [facility] [address] [place] [address] IMAGING REPORT Signed PATIENT: FACUNDO GRIFFIN ACCOUNT: [id number] : 1955 LOCATION: [facility] AGE: 64 SEX: M EXAM STATUS: REG RCR ORD. PHYSICIAN: SHARRON BEDOYA MD REASON: NON HEALING LEFT TOE. 2ND DIGIT PROCEDURE: TOES LEFT Left second toe 3 views INDICATION: Nonhealing wound left second toe. COMPARISON: No relevant comparisons FINDINGS: Generalized demineralization. There is cortical irregularity at the distal tuft of the second great toe distal phalanx in an area where an overlying bandage is present. No abnormal soft tissue gas. No acute fracture. Soft tissues show mild soft tissue swelling around the second toe. IMPRESSION: Findings suspicious for early osteomyelitis at the distal tuft of the second great toe distal phalanx in the setting of generalized soft tissue swelling and a dressed wound. Electronically signed by: Josee Goldsmith MD (01/02/2020 2:35 PM) [id number] DICTATED and SIGNED BY: JOSEE GOLDSMITH MD DATE: 01/02/20 [id number] [] Course & Med Decision Making: Course & Med Decision Making Pertinent Labs and Imaging studies reviewed. (See chart for details) [] Patient is a 64-year-old male who presents at the encouragement of his intelligence operations specialist Dr. Barkley for concern of left second toe osteomyelitis. Patient does have a history of poorly controlled insulin-dependent diabetes. Outpatient x-rays performed yesterday do show signs of osteomyelitic changes to the left second toe. Overlying diabetic ulcers were noted. He also has a burrowing wound to his right BKA. Patient will start on vancomycin and Rocephin. Cultures obtained and pending. Patient will require hospitalization for further evaluation and treatment. Shruti Disclaimer: Shruti Disclaimer: This electronic medical record was generated, in whole or in part, using a voice recognition dictation system. Departure Departure Impression: Primary Impression: Osteomyelitis of second toe of left foot Additional Impressions: Leg wound, right Qualified Codes: S81.801D - Unspecified open wound, right lower leg, subsequent encounter Diabetes Qualified Codes: E13.69 - Other specified diabetes mellitus with other specified complication Disposition: ADMITTED INPT THIS HOSP Condition: STABLE Referrals: JACOBO SALAZAR (PCP) KENA ALEX DO Jan 03, 2020 09:56
[2020-01-03 10:02] LABS: CALCIUM 8.5 mg/dL (8.5-10.1); CREATININE 1.1 mg/dL (0.7-1.3); GFR 67.8; POTASSIUM 4.3 mmol/L (3.5-5.1)
[2020-01-03] MEDS ORDERED: ONDANSETRON PF 4 MG/2 ML VIAL. IV PRN (11:15)
--- NOTE | 2020-01-03 12:43 | HP ---
ADMIT DATE: 01/03/2020 CHIEF COMPLAINT: Left second toe infection. HISTORY OF PRESENT ILLNESS: The patient is a pleasant 64-year-old male who has severe peripheral vascular disease secondary to severe diabetes. He already has a right horfs-izy-nyxh amputation and has persistent diabetic wounds. Now he has got a left second toe wound. It appears he has osteomyelitis. He has rated it at 7/10. He has associated weakness, it has been occurring for several weeks. I discussed the case with ER physician. We are going to admit the patient, give him IV antibiotics and consult Orthopedic Surgery. PAST MEDICAL HISTORY: Severe peripheral vascular disease, diabetes, right uqnwn-faa-[id number] amputation, COPD, CAD, hypertension, hyperlipidemia, GERD, gout, coronary artery bypass surgery, right toe amputation, cardiac stents. ALLERGIES: MORPHINE. FAMILY HISTORY: Diabetes. SOCIAL HISTORY: He does not drink, smoke or take drugs. MEDICATIONS: Reviewed, please refer to the MRAD. REVIEW OF SYSTEMS: GENERAL: No history of weight change, weakness or fevers. SKIN: No bruising, hair changes or rashes. EYES: No blurred, double or loss of vision. NOSE AND THROAT: No history of nosebleeds, hoarseness or sore throat. HEART: No history of palpitations, chest pain or shortness of breath on exertion. LUNGS: Denies cough, hemoptysis, wheezing or shortness of breath. GASTROINTESTINAL: Denies changes in appetite, nausea, vomiting, diarrhea or constipation. GENITOURINARY: No history of frequency, urgency, hesitancy or nocturia. NEUROLOGIC: Denies history of numbness, tingling, tremor or weakness. PSYCHIATRIC: No history of panic, anxiety or depression. ENDOCRINE: No history of heat or cold intolerance, polyuria or polydipsia. EXTREMITIES: He complains of left second toe infection. PHYSICAL EXAMINATION: VITALS: Within normal limits and are stable. GENERAL: No apparent distress. Alert and oriented. HEENT: Normal cephalic atraumatic, external auditory canals are patent EYES: Extraocular muscles are intact, pupils are equally round and reactive to light and accommodation. MUSCULOSKELETAL: Well developed, well nourished, good range of motion. ENDOCRINE: No thyromegaly was palpated. LYMPHATICS: No cervical chain or axillary nodes were noted. HEMATOPOIETIC: No bruising. NECK: Supple, no JVD, no thyromegaly was noted. LUNGS: Clear to auscultation in all lung mcguire without rhonchi or wheezing. HEART: RRR, S1, S2 present. Peripheral pulses intact, no obvious murmurs were noted. ABDOMEN: Soft, nontender. Positive bowel sounds no organomegaly, normal bowel sounds. EXTREMITIES: The right lower extremity has a BKA. The left has a severe lesion on the tip of the second toe, please see the pictures. NEUROLOGIC: Normal speech, normal tone. A and O x 3, moves all extremities, no obvious focal deficits. PSYCHIATRIC: Normal affect, normal mood. Stable. SKIN: No ulcerations or rashes, good skin turgor, no jaundice. VASCULAR: Good capillary refill, neurovascular bundle appears to be intact. IMAGING: Showing osteomyelitis. LABORATORY DATA: White count is 5. ASSESSMENT AND PLAN: Osteomyelitis, left second toe. The patient has been admitted. We will start IV antibiotics. Consult Infectious Disease. Consult Orthopedics. Home meds. Deep venous thrombosis prophylaxis. Full code. Long-term prognosis is guarded. ANNE-MARIE SOSA DO DR: TORRES/ortega JOB#: [id number] / [id number]
[2020-01-03 13:48] VITALS: BP 163/108
[2020-01-03] MEDS ORDERED: INSU100I13 SQ (14:08)
[2020-01-03] MEDS ORDERED: GABA600T7 PO (14:08)
[2020-01-03] MEDS ORDERED: CRESTOR5 MG PO (14:08)
[2020-01-03] MEDS ORDERED: INSU100C4 SQ (14:08)
[2020-01-03] MEDS: ASCORBIC ACID 500 MG TABLET PO SCH (14:21)
[2020-01-03] MEDS: ASPIRIN ENTERIC COATED 81 MG TABLET.DR. PO SCH (14:21)
[2020-01-03] MEDS: CLOPIDOGREL BISULFATE 75 MG TABLET PO SCH (14:21)
[2020-01-03] MEDS: LISINOPRIL 20 MG TABLET PO SCH (14:31)
--- NOTE | 2020-01-03 15:14 | NUR ---
Received call from [facility], received new order to consult vascular surgery per Dr. Moses, order placed and contacted answering service.
--- NOTE | 2020-01-03 15:51 | NUR ---
Patient has elevated blood pressure, notified Dr. Pace and new order received.
[2020-01-03 15:58] VITALS: BP 180/110
[2020-01-03] MEDS: amLODIPine BESYLATE 10 MG TABLET PO SCH (16:46)
[2020-01-03] MEDS: PIPERACILLIN/TAZOBACTAM 3.375 GM in IV NORMAL SALINE 50ML 50 ML IV SCH (16:46)
[2020-01-03] MEDS: INSULIN LISPRO 300 UNITS/3 ML VIAL. SQ SCH (17:12)
[2020-01-03 19:15] VITALS: BP 131/77
[2020-01-03] MEDS: ATORVASTATIN CALCIUM 40 MG TABLET. PO SCH (21:00)
[2020-01-03] MEDS: INSULIN GLARGINE SYRINGE. SQ SCH (21:00)
[2020-01-03] MEDS: METOPROLOL TART IMMED RELEASE 50 MG TABLET. PO SCH (21:00)
[2020-01-03] MEDS: RANOLAZINE 500 MG TAB.ER.12H PO SCH (21:00)
[2020-01-03] MEDS: GABAPENTIN 300 MG CAPSULE. PO SCH (21:00)
[2020-01-03 23:24] VITALS: BP 109/57
[2020-01-04] VITALS (15 sets, daily range): BP systolic 89–133; BP diastolic 53–83
[2020-01-04] MEDS: PIPERACILLIN/TAZOBACTAM 3.375 GM in IV NORMAL SALINE 50ML 50 ML IV SCH ×4 (01:14→17:02)
[2020-01-04] MEDS: RANOLAZINE 500 MG TAB.ER.12H PO SCH ×2 (08:13→22:18)
[2020-01-04] MEDS: CLOPIDOGREL BISULFATE 75 MG TABLET PO SCH (08:13)
[2020-01-04] MEDS: LISINOPRIL 20 MG TABLET PO SCH (08:14)
[2020-01-04] MEDS: MULTIVITAMIN with MINERAL TABLET. PO SCH (08:15)
[2020-01-04] MEDS: ASCORBIC ACID 500 MG TABLET PO SCH (08:15)
[2020-01-04] MEDS: METOPROLOL TART IMMED RELEASE 50 MG TABLET. PO SCH ×2 (08:15→22:17)
[2020-01-04] MEDS: GABAPENTIN 300 MG CAPSULE. PO SCH ×2 (08:15→22:18)
[2020-01-04] MEDS: PANTOPRAZOLE 40 MG TABLET.DR. PO SCH (08:15)
[2020-01-04] MEDS: amLODIPine BESYLATE 10 MG TABLET PO SCH (08:15)
[2020-01-04] MEDS: ASPIRIN ENTERIC COATED 81 MG TABLET.DR. PO SCH (08:16)
[2020-01-04] MEDS: INSULIN LISPRO 300 UNITS/3 ML VIAL. SQ SCH ×3 (08:19→17:07)
[2020-01-04 08:28] LABS: BASO % 0 % (0-3); EOS # 0.2 x10^3/uL (0.0-0.7); EOS % 4 % (0-3); HEMOGLOBIN 13.3 g/dL (13.0-17.5); LYMPH # 0.8 x10^3/uL (1.0-4.8); LYMPH % 15 % (24-48); MEAN CORPUSCULAR HEMOGLOBIN 31 pg (25-35); MEAN CORPUSCULAR HGB CONC 35 g/dL (31-37); MEAN CORPUSCULAR VOLUME 88 fL (79-100); MONO # 0.4 x10^3/uL (0.0-1.1); MONO % 8 % (0-9); NEUT # 3.8 x10^3/uL (1.8-7.7); NEUT % 73 % (31-73); PLATELET COUNT 191 x10^3/uL (140-400); RED CELL DISTRIBUTION WIDTH 14.3 % (11.5-14.5); WHITE BLOOD COUNT 5.3 x10^3/uL (4.0-11.0)
[2020-01-04 08:58] LABS: CALCIUM 8.8 mg/dL (8.5-10.1); CREATININE 1.4 mg/dL (0.7-1.3); GFR 51.4; POTASSIUM 4.5 mmol/L (3.5-5.1)
--- NOTE | 2020-01-04 10:14 | PDOC ---
Provider Note Date of Service: DATE: 01/04/20 TIME: 10:10 Provider Note Vascular consult dictated Imp: 1. DM with vascular disease 2. chronic draining sinus from right BK stump, probable osteo of distal tibia. 3. neuropathic ulcer left 2nd toe tip, plantar aspect. 4. arterial insufficiency left lower extremity. He has biphasis arterial doppler flow over the dp artery. 5. ASHD 6. HTN Rec: 1. debridement right BK stump, wound vac placement 2. partial amputation left 2nd toe. Likely able to do primary closure with good chance of healing. Discussed with Dr Dyer who has been consulted and will perform the procedures today. Justifications for Admission Other Justification ALEXANDER GARNER II, MD Jan 04, 2020 10:14
--- NOTE | 2020-01-04 10:24 | CONS ---
DATE OF CONSULTATION: 01/04/2020 VASCULAR SURGERY CONSULT CLINICAL HISTORY: This is a pleasant 64-year-old gentleman who we have treated previously. He had evaluation of the right lower extremity ischemic wounds and ended up with a right below knee amputation approximately 2 years ago. He has developed chronic drainage from an area over the right below knee stump. He has also developed an ulcer over the left second toe. He is a longstanding diabetic. He is a nonsmoker. He has a history of atherosclerotic heart disease, having had coronary artery bypass surgery in the past. He has no history of stroke. PAST MEDICAL HISTORY: Medical illnesses include peripheral vascular disease, COPD, coronary artery disease, hypertension, hyperlipidemia, and longstanding diabetes. PAST SURGICAL HISTORY: Include right below knee amputation, coronary artery bypass and placement of cardiac stents. ALLERGIES: INCLUDE MORPHINE. FAMILY HISTORY: Includes diabetes. SOCIAL HISTORY: The patient does not smoke and denies drug abuse. MEDICATIONS: Reviewed. REVIEW OF SYSTEMS: A 12-point review of systems was negative other than what was mentioned in the history. PHYSICAL EXAMINATION: GENERAL: The patient is alert and awake. He is in no distress. HEENT: Unremarkable. NECK: Carotids are 2+ without bruit. CHEST: Clear. ABDOMEN: Soft and nontender. EXTREMITIES: Palpable femoral pulses. Absent popliteal and pedal pulses. He has right below knee amputation stump with drainage from the prominent area where the tibia can be palpated. The left foot is edematous. There is biphasic arterial Doppler flow over the dorsal pedal artery. He has a neuropathic ulcer over the tip of the left second toe. IMPRESSION: 1. Neuropathic ulcer, left second toe tip. He does have arterial vascular disease; however, he does have Doppler flow in the foot and I think it is reasonable to proceed with left partial toe amputation. If for any reason, this does not bleed well or does not heal, then we can proceed with angiographic evaluation and intervention as indicated. 2. Draining sinus wound from the right mxeod-uhc-rcnl stump. Suspect osteo with involvement of the distal tibia. I recommend exploration of this with probable wound VAC placement and wound care followup. 3. Diabetes. 4. Hypertension. 5. History of atherosclerotic heart disease. PLAN: I discussed the above with Dr. Seals, orthopedic surgeon who has been consulted and he agrees with this and we will proceed with those procedures. We will be available as needed. Thank you for allowing us to evaluate him. ALEXANDER GARNER MD DR: ARLENE/ortega JOB#: [id number] / [id number]
--- NOTE | 2020-01-04 10:36 | PDOC ---
Infectious Disease Note Subjective Subjective pt is gone for surgery, unable to see Vital Sign Vital Signs Vital Signs Date Time Temp Pulse Resp B/P (MAP) Pulse Ox O2 Delivery O2 Flow Rate FiO2 01/04/20 08:15 76 121/74 01/04/20 07:27 Room Air 01/04/20 07:00 98.2 18 93 98.2 Labs Lab Laboratory Tests Test 01/03/20 11:38 01/03/20 13:41 01/03/20 17:08 01/03/20 21:23 SARS-CoV-2 Antigen (Rapid) Negative (NEGATIVE) Glucose (Fingerstick) 211 mg/dL (70-99) 341 mg/dL (70-99) 305 mg/dL (70-99) Test 01/04/20 07:40 01/04/20 08:08 White Blood Count 5.3 x10^3/uL (4.0-11.0) Red Blood Count 4.30 x10^6/uL (4.30-5.70) Hemoglobin 13.3 g/dL (13.0-17.5) Hematocrit 38.0 % (39.0-53.0) Mean Corpuscular Volume 88 fL (79-100) Mean Corpuscular Hemoglobin 31 pg (25-35) Mean Corpuscular Hemoglobin Concent 35 g/dL (31-37) Red Cell Distribution Width 14.3 % (11.5-14.5) Platelet Count 191 x10^3/uL (140-400) Neutrophils (%) (Auto) 73 % (31-73) Lymphocytes (%) (Auto) 15 % (24-48) Monocytes (%) (Auto) 8 % (0-9) Eosinophils (%) (Auto) 4 % (0-3) Basophils (%) (Auto) 0 % (0-3) Neutrophils # (Auto) 3.8 x10^3/uL (1.8-7.7) Lymphocytes # (Auto) 0.8 x10^3/uL (1.0-4.8) Monocytes # (Auto) 0.4 x10^3/uL (0.0-1.1) Eosinophils # (Auto) 0.2 x10^3/uL (0.0-0.7) Basophils # (Auto) 0.0 x10^3/uL (0.0-0.2) Sodium Level 137 mmol/L (136-145) Potassium Level 4.5 mmol/L (3.5-5.1) Chloride Level 102 mmol/L (98-107) Carbon Dioxide Level 25 mmol/L (21-32) Anion Gap 10 (6-14) Blood Urea Nitrogen 17 mg/dL (8-26) Creatinine 1.4 mg/dL (0.7-1.3) Estimated GFR (Cockcroft-Gault) 51.4 Glucose Level 353 mg/dL (70-99) Calcium Level 8.8 mg/dL (8.5-10.1) Glucose (Fingerstick) 376 mg/dL (70-99) Micro Microbiology 01/03/20 Blood Culture - Preliminary, Resulted NO GROWTH AFTER 1 DAY Objective Assessment / Plan Plan of Care / ESTEFANÍA YANG MD Jan 04, 2020 10:36
--- NOTE | 2020-01-04 10:37 | PDOC ---
[employer] PROGRESS NOTE Date of Service DOS: DATE: 01/04/20 TIME: 10:29 Chief Complaint Chief Complaint Toe pain- Osteomyelitis of left second toe Diabetes Severe peripheral vascular disease COPD CAD HTN Hyperlipidemia GERD Gout CABG Cardiac Stents History of Present Illness History of Present Illness 01/04/2020 Pt seen and examined. MATTHEW RN and MATTHEW Pt's sister that was in room with him. Pt is in bed sitting up and is in pleasant mood. HISTORY OF PRESENT ILLNESS: The patient is a pleasant 64-year-old male who has severe peripheral vascular disease secondary to severe diabetes. He already has a right emekf-csx-bcgk amputation and has persistent diabetic wounds. Now he has got a left second toe wound. It appears he has osteomyelitis. He has rated it at 7/10. He has associated weakness, it has been occurring for several weeks. I discussed the case with ER physician. We are going to admit the patient, give him IV antibiotics and consult Orthopedic Surgery. Vitals/I&O Vitals/I&O: Vital Signs Date Time Temp Pulse Resp B/P (MAP) Pulse Ox O2 Delivery O2 Flow Rate FiO2 01/04/20 08:15 76 121/74 01/04/20 07:27 Room Air 01/04/20 07:00 98.2 18 93 98.2 I & O 01/03/20 01/03/20 01/04/20 15:00 23:00 07:00 Intake Total 500 ml 200 ml 480 ml Balance 500 ml 200 ml 480 ml Physical Exam General: Alert, No acute distress Heart: Regular rate, Normal S1, Normal S2 Lungs: Clear Abdomen: Normal bowel sounds, Soft, No tenderness Extremities: No clubbing, No cyanosis Skin: No rashes, No breakdown Labs Labs: Laboratory Tests Test 01/03/20 11:38 01/03/20 13:41 01/03/20 17:08 01/03/20 21:23 SARS-CoV-2 Antigen (Rapid) Negative (NEGATIVE) Glucose (Fingerstick) 211 mg/dL (70-99) 341 mg/dL (70-99) 305 mg/dL (70-99) Test 01/04/20 07:40 01/04/20 08:08 White Blood Count 5.3 x10^3/uL (4.0-11.0) Red Blood Count 4.30 x10^6/uL (4.30-5.70) Hemoglobin 13.3 g/dL (13.0-17.5) Hematocrit 38.0 % (39.0-53.0) Mean Corpuscular Volume 88 fL (79-100) Mean Corpuscular Hemoglobin 31 pg (25-35) Mean Corpuscular Hemoglobin Concent 35 g/dL (31-37) Red Cell Distribution Width 14.3 % (11.5-14.5) Platelet Count 191 x10^3/uL (140-400) Neutrophils (%) (Auto) 73 % (31-73) Lymphocytes (%) (Auto) 15 % (24-48) Monocytes (%) (Auto) 8 % (0-9) Eosinophils (%) (Auto) 4 % (0-3) Basophils (%) (Auto) 0 % (0-3) Neutrophils # (Auto) 3.8 x10^3/uL (1.8-7.7) Lymphocytes # (Auto) 0.8 x10^3/uL (1.0-4.8) Monocytes # (Auto) 0.4 x10^3/uL (0.0-1.1) Eosinophils # (Auto) 0.2 x10^3/uL (0.0-0.7) Basophils # (Auto) 0.0 x10^3/uL (0.0-0.2) Sodium Level 137 mmol/L (136-145) Potassium Level 4.5 mmol/L (3.5-5.1) Chloride Level 102 mmol/L (98-107) Carbon Dioxide Level 25 mmol/L (21-32) Anion Gap 10 (6-14) Blood Urea Nitrogen 17 mg/dL (8-26) Creatinine 1.4 mg/dL (0.7-1.3) Estimated GFR (Cockcroft-Gault) 51.4 Glucose Level 353 mg/dL (70-99) Calcium Level 8.8 mg/dL (8.5-10.1) Glucose (Fingerstick) 376 mg/dL (70-99) Review of Systems Review of Systems: No headaches. No chest pain. No SOA. Assessment and Plan Assessmemt and Plan Problems Medical Problems: (1) Osteomyelitis of second toe of left foot Status: Acute Toe pain- Osteomyelitis of left second toe Diabetes Severe peripheral vascular disease COPD CAD HTN Hyperlipidemia GERD Gout CABG Cardiac Stents Plan: Awaiting Vascular input for potential surgery IV antibiotics Wound care DVT prophylaxis Home meds Full Code Comment Review of Relevant I have reviewed the following items joana (where applicable) has been applied. Medications: Current Medications Medications (Trade) Dose Ordered Sig/Inna Route PRN Reason Start Time Stop Time Status Last Admin Dose Admin Ascorbic Acid (Vitamin C) 500 mg DAILY PO 01/03/20 15:00 01/04/20 08:15 Clopidogrel Bisulfate (Plavix) 75 mg DAILY PO 01/03/20 15:00 01/04/20 08:13 Lisinopril (Prinivil) 20 mg DAILY PO 01/03/20 15:00 01/04/20 08:14 Metoprolol Tartrate (Lopressor) 12.5 mg BID PO 01/03/20 21:00 01/04/20 08:15 Multivitamins (Thera M Plus) 1 tab DAILY PO 01/04/20 09:00 01/04/20 08:15 Ranolazine (Ranexa) 500 mg BID PO 01/03/20 21:00 01/04/20 08:13 Gabapentin (Neurontin) 300 mg BID PO 01/03/20 21:00 01/04/20 08:15 Insulin Human Lispro (HumaLOG) 15 units TIDWMEALS SQ 01/03/20 17:00 01/04/20 08:19 Insulin Glargine (Lantus Syringe) 30 unit QHS SQ 01/03/20 21:00 01/03/20 21:00 Pantoprazole Sodium (Protonix) 40 mg DAILYAC PO 01/04/20 07:30 01/04/20 08:15 Atorvastatin Calcium (Lipitor) 80 mg QHS PO 01/03/20 21:00 01/03/20 21:00 Piperacillin Sod/ Tazobactam Sod 3.375 gm/Sodium Chloride 50 ml @ 100 mls/hr Q6HRS IV 01/03/20 18:00 01/04/20 06:25 Amlodipine Besylate (Norvasc) 10 mg DAILY PO 01/03/20 16:30 01/04/20 08:15 Justifications for Admission Other Justification ANNE-MARIE SOSA III DO Jan 04, 2020 10:37
[2020-01-04] MEDS: INSULIN LISPRO 100 UNIT/ML 3ML VIAL for OP,RR ONLY. SQ PRN ×2 (10:43→12:48)
[2020-01-04] MEDS ORDERED: PROCHLORPERAZINE 10 MG/2 ML VIAL. IV PRN (10:45)
[2020-01-04] MEDS ORDERED: ONDANSETRON PF 4 MG/2 ML VIAL. IV PRN (10:45)
[2020-01-04] MEDS ORDERED: IV RINGERS,LACTATED 1000ML 1,000 ML IV SCH (10:45)
[2020-01-04] MEDS ORDERED: MORPHINE SULFATE 2 MG/ML VIAL. IV PRN (10:45)
[2020-01-04] MEDS ORDERED: fentaNYL PF VIAL 100 MCG/2 ML VIAL IV PRN ×2 (10:45)
[2020-01-04] MEDS ORDERED: HYDROmorphone 2 MG/ML VIAL IV PRN (10:45)
[2020-01-04] MEDS ORDERED: PROPOFOL 10 MG/ML (20ML) VIAL. IV ONE (11:15)
[2020-01-04] MEDS ORDERED: LIDOCAINE 2% PF 5 ML VIAL. ONE (11:15)
[2020-01-04] MEDS ORDERED: DEXAMETHASONE SOD PHOS 4 MG/ML VIAL ONE (11:22)
[2020-01-04] MEDS ORDERED: ONDANSETRON PF 4 MG/2 ML VIAL. ONE (11:22)
[2020-01-04] MEDS ORDERED: fentaNYL PF VIAL 100 MCG/2 ML VIAL ONE (11:23)
[2020-01-04] MEDS ORDERED: PHENYLEPHRINE in 0.9% NACL PF 1 MG/10 ML SYRINGE. IV ONE (11:58)
[2020-01-04] MEDS ORDERED: SEVOFLURANE 61 TO 120 MINUTES. IH ONE (11:58)
--- NOTE | 2020-01-04 14:03 | PDOC4 ---
Operative Note Operative Note Date of surgery: 01/04/2020 Preoperative diagnosis: Osteomyelitis left second toe, infected right below-knee amputation stump Postoperative diagnosis: Same Operative procedure: Partial amputation left second toe and irrigation debridement to bone of right below-knee amputation stump Surgeon: Cam Anesthesia: General Estimated blood loss: 25 cc Complications: None Cultures: Deep cultures obtained of right below-knee amputation stump obtained at the bony interface of anterior tibial crest Specimens: Tip of toe and distal phalange sent for gross pathology Operative indications: Please note my dictated orthopedic consult for detailed operative indications Operative text: Patient was identified procedure verified patient placed in supine position on the operating table. After adequate amounts of general anesthesia were administered bilateral lower extremities were prepped and draped in standard sterile fashion. After timeout was performed patient procedure identified and verified, attention was first turned to the left second toe where a fishmouth incision was made the compromised skin over the distal tip was excised along with the distal phalanx, the head of the proximal phalanx was like davidson excised to allow good coverage. Bleeding points controlled by electrocautery skin flaps were trimmed to excise the nailbed and obtain good apposition and coverage. Thorough irrigation carried out normal saline solution and skin edges were approximated with nylon suture with a soft sterile dressing applied. Tourniquet was not inflated during the procedure. Attention was then turned to the right below-knee amputation stump where a clear purulent draining sinus was deeply probed. A longitudinal incision was made centered over the area and the sinus appeared to communicate deep to the distal anterior crest of the tibia at the amputation site. Deep cultures were obtained and sent in a swab tube and bone fascia as well as a portion of the flap and surrounding skin and subcutaneous tissue were debrided back to healthy bleeding tissue which was controlled by electrocautery. Thorough irrigation again carried out with normal saline solution with bulb syringe. Wound VAC was placed and noted to have good suction. Patient was returned to recovery room in stable condition having tolerated procedure well PAU CHILDRESS MD Jan 04, 2020 14:03
--- NOTE | 2020-01-04 14:40 | NUR ---
Patients post op wound vac dressing on RLE stump saturated with blood and leaking a large amount out. Removed wound vac dressing and applied gauze, held pressure to area, then applied more gauze, abd pads, and kerlix. Notified Dr. Quan, wound care to re-apply wound vac tomorrow 01/05/20. German Instructor will continue to monitor patient and dressing. Addendum: 01/04/20 at 1529 by CECI TUCKER RN Dressing is C/D/I at this time.
--- NOTE | 2020-01-04 20:05 | CONS ---
DATE OF CONSULTATION: 01/04/2020 REQUESTING CONSULTATION: Monica Pace DO REASON FOR CONSULTATION: Left second toe infection and right below-knee amputation stump infection. HISTORY OF PRESENT ILLNESS: The patient is a 64-year-old male with type 2 diabetes, who had undergone a right below-knee amputation he says a couple of years ago by Dr. Rudolph from [facility] and has been undergoing wound care for a wound that developed over the stump area that he says is just hurting at the distal area of his stump and developed when he was wearing a prosthesis. He also has about a 1-week history of his left second toe draining. He has decreased sensation in his foot and has been undergoing the wound care, but came into the hospital due to a concern with osteomyelitis in his left second toe. PAST MEDICAL HISTORY: Significant for type 2 diabetes, heart disease, COPD, reflux, hypercholesterolemia, hypertension, and gout. PAST SURGICAL HISTORY: Right below-knee amputation, cardiac stents, and eventual cardiac bypass. SOCIAL HISTORY: Denies smoking, alcohol or drug use. FAMILY HISTORY: Noncontributory. ALLERGIES: He has no known allergies. MEDICATIONS: List is reviewed. REVIEW OF SYSTEMS: Thus, no purulent drainage from the right below-knee amputation stump as well as his left second toe. He has poor sensation in his foot for a while. Blood sugars are under very good control. Denies any fever, chills, recent chest pain or shortness of breath. A 14-point review of system is otherwise negative. PHYSICAL EXAMINATION: He has purulent drainage from a small pinpoint area over the distal right stump basically where the anterior tibial crest meets anteriorly. The distal tip of the left second toe is a callused area with surrounding scabbed area that does express purulent drainage and deformed toenail and some redness. He has really no significant redness over the below-knee amputation stump on the right. Has good knee range of motion and stability bilaterally and aside from stocking neuropathy in the left foot, has intact motor function, distal pulses sensation in both lower extremities throughout. IMAGING: X-rays of the left foot shows significant deformity and some bony erosion at the distal phalanx of the left second toe. IMPRESSION: Left second toe infection with osteomyelitis and right below-knee amputation stump infection. TREATMENT PLAN: I went over with him the concern that both of these areas seem infected with osteomyelitis of the second toe, but also that he has been having problems in his stump for some time. He was scheduled to undergo vascular evaluation, but I was informed by Dr. Aquino that he felt that he has biphasic flow and would have adequate blood supply to heal a second toe amputation. Despite previously doing his surgeries in the past, vascular surgeons had asked me to perform his surgery today. I went over with the patient; therefore, recommendation of a partial amputation of the left second toe as well as debridement of his below-knee amputation stump and would likely require ongoing wound care. I also talked to him about the possibility of nonhealing additional surgeries potentially or other complications. He wishes to proceed with surgical evaluation and treatment, which will occur today. PAU CHILDRESS MD DR: PATT/ortega JOB#: [id number] / [id number]
[2020-01-04] MEDS: VANCOMYCIN PER PHARMACY MC PRN (20:49)
--- NOTE | 2020-01-04 21:00 | NUR ---
Pharmacy Vancomycin Dosing Note S:Consulted to monitor and dose vancomycin started 01/04/20. O:FACUNDO GRIFFIN is a 64 year old M with Osteomyelitis . Height: 5 feet, 9 inches Weight: 173.2 kg [place] Body Weight: 70.70 Adjusted Body Weight: 111.70 Dosing Weight: Actual Other Antibiotics: LABS: Last BUN: Last Creatinine: 1.4 Creatinine Clearance: 86 mL/min Last WBC: 5.6 Last Procalcitonin: Tmax (past 24 hours): Microbiology: I/O: Drug Levels: Last level: on at Last dose given 01/04/20 at 1030 Vancomycin Dosing: Loading Dose: 2000 mg x1 Dosing Weight: Actual Target Trough: 15-20 A: Based on: WEIGHT AND RENAL FUNCTION, VANCOMYCIN 2GM IV BOLUS GIVEN, P: 1. Begin Vancomycin 2000 mg IV q12h 2. Follow up Trough level on 01/05/20 at 2200 3. Pharmacy will continue to monitor, follow and adjust therapy as needed. BRODIE BALDWIN RPH, 01/04/20 2100
[2020-01-04] MEDS: ATORVASTATIN CALCIUM 40 MG TABLET. PO SCH (22:16)
[2020-01-04] MEDS: LACTOBACILLUS RHAMNOSUS GG 1 CAPSULE. PO SCH (22:18)
[2020-01-04] MEDS: VANCOMYCIN 2 GM in IV NORMAL SALINE 500ML BAG 500 ML IV SCH (22:19)
[2020-01-04] MEDS: INSULIN GLARGINE SYRINGE. SQ SCH (22:28)
[2020-01-05] MEDS: PIPERACILLIN/TAZOBACTAM 3.375 GM in IV NORMAL SALINE 50ML 50 ML IV SCH ×5 (01:46→23:39)
[2020-01-05 03:03] VITALS: BP 109/67
[2020-01-05 07:00] VITALS: BP 107/63
[2020-01-05 07:38] LABS: CALCIUM 8.5 mg/dL (8.5-10.1); CREATININE 1.6 mg/dL (0.7-1.3); POTASSIUM 4.4 mmol/L (3.5-5.1)
[2020-01-05 07:46] LABS: BASO % 0 % (0-3); EOS % 0 % (0-3); HEMATOCRIT 35.4 % (39.0-53.0); LYMPH # 0.7 x10^3/uL (1.0-4.8); LYMPH % 8 % (24-48); MEAN CORPUSCULAR HEMOGLOBIN 30 pg (25-35); MEAN CORPUSCULAR HGB CONC 34 g/dL (31-37); MEAN CORPUSCULAR VOLUME 89 fL (79-100); MONO # 0.5 x10^3/uL (0.0-1.1); MONO % 6 % (0-9); NEUT # 7.7 x10^3/uL (1.8-7.7); NEUT % 87 % (31-73); PLATELET COUNT 190 x10^3/uL (140-400); RED BLOOD COUNT 3.99 x10^6/uL (4.30-5.70); RED CELL DISTRIBUTION WIDTH 14.5 % (11.5-14.5); WHITE BLOOD COUNT 8.8 x10^3/uL (4.0-11.0)
[2020-01-05] MEDS: INSULIN LISPRO 300 UNITS/3 ML VIAL. SQ SCH ×5 (07:50→16:30)
[2020-01-05] MEDS ORDERED: INSULIN LISPRO 300 UNITS/3 ML VIAL. SQ SCH (08:00)
[2020-01-05] MEDS ORDERED: IV NORMAL SALINE 500ML BAG 500 ML IV ONE (08:00)
[2020-01-05] MEDS ORDERED: DEXTROSE 50% 25 GM / 50ML DISP.SYRIN. IV PRN (08:00)
[2020-01-05] MEDS: MULTIVITAMIN with MINERAL TABLET. PO SCH (08:32)
[2020-01-05] MEDS: GABAPENTIN 300 MG CAPSULE. PO SCH ×2 (08:32→22:24)
[2020-01-05] MEDS: LACTOBACILLUS RHAMNOSUS GG 1 CAPSULE. PO SCH ×2 (08:32→22:24)
[2020-01-05] MEDS: amLODIPine BESYLATE 10 MG TABLET PO SCH (08:32)
[2020-01-05] MEDS: RANOLAZINE 500 MG TAB.ER.12H PO SCH ×2 (08:32→22:25)
[2020-01-05] MEDS: METOPROLOL TART IMMED RELEASE 50 MG TABLET. PO SCH ×2 (08:33→21:00)
[2020-01-05] MEDS: PANTOPRAZOLE 40 MG TABLET.DR. PO SCH (08:33)
[2020-01-05] MEDS: ASPIRIN ENTERIC COATED 81 MG TABLET.DR. PO SCH (08:33)
[2020-01-05] MEDS: ASCORBIC ACID 500 MG TABLET PO SCH (08:33)
[2020-01-05] MEDS: CLOPIDOGREL BISULFATE 75 MG TABLET PO SCH (08:33)
[2020-01-05] MEDS: LISINOPRIL 20 MG TABLET PO SCH (08:33)
[2020-01-05] MEDS ORDERED: INSULIN LISPRO 300 UNITS/3 ML VIAL. SQ ONE (08:45)
[2020-01-05] MEDS: VANCOMYCIN PER PHARMACY MC PRN (09:42)
[2020-01-05 10:11] LABS: % BANDS 1 % (0-9); % LYMPHS 7 % (24-48); % MONOS 5 % (0-10); % SEGS 87 % (35-66); PLT ESTIMATE ADEQUATE (ADEQUATE)
[2020-01-05] MEDS: VANCOMYCIN 2 GM in IV NORMAL SALINE 500ML BAG 500 ML IV SCH (10:41)
[2020-01-05 11:00] VITALS: BP 100/62
--- NOTE | 2020-01-05 13:32 | NUR ---
SW following. Discussed with RN, pt from home alone, room air, ada diet, COVID-19 negative. Pt had surgery 01/04/2020 - needing wound vac replaced - wound care following. PT/OT recommending home independent. Pt currently on IV zosyn and vanco. SW will continue to follow.
[2020-01-05 15:00] VITALS: BP 110/60
[2020-01-05] MEDS: DAPTOMYCIN IV SCH (15:06)
[2020-01-05] MEDS: NORMAL SALINE IV SCH (15:06)
--- NOTE | 2020-01-05 15:16 | CONS ---
DATE OF CONSULTATION: 01/05/2020 REFERRING PHYSICIAN: Dr. Pace. REASON FOR CONSULTATION: Right BKA stump and left second toe infection. HISTORY OF PRESENT ILLNESS: A 64-year-old male with history of peripheral vascular disease, diabetes, coronary artery disease, hypertension, hyperlipidemia, right below-knee amputation, history of gout, presented to the ER on 01/03/2020 with complaints of left second toe wound, which appeared a week ago. He was seen by [facility] on a weekly basis for the right lower extremity stump wound, which has been there for a long time. He was told that he may have early osteomyelitis of left second toe. The patient noted purulent drainage from the wound. Denies any history of injury. The patient denies any fevers or chills. White count was normal. Creatinine was 1.1. Lactate of 2.0. Toe x-ray showed findings suspicious for early osteomyelitis at the distal tuft of the second great toe, generalized soft tissue swelling. The patient was started on IV vancomycin and Zosyn. Orthopedics was consulted. He underwent partial amputation of the left second toe and irrigation and debridement of bone of right below-knee amputation stump. On 01/04/2020, intraoperative cultures are positive for Staph aureus and Staph lugdunensis. Today, the patient states pain is under control. Denies any headache, sore throat, fevers, chills, nausea, vomiting, diarrhea, abdominal pain, shortness of breath, cough, chest pain with deep breathing, symptoms, rash, other joint pain. PAST MEDICAL HISTORY: Severe peripheral vascular disease, diabetes, right below-knee amputation, COPD, coronary artery disease, hypertension, hyperlipidemia, GERD, gout, CABG, right toe amputation, cardiac stents. ALLERGIES: MORPHINE. FAMILY HISTORY: As per HPI. SOCIAL HISTORY: Does not drink, smoke or take drugs. CURRENT MEDICATIONS: IV vancomycin and Zosyn. Other medications reviewed in medication list. REVIEW OF SYSTEMS: Negative except for above in HPI. PHYSICAL EXAMINATION: VITAL SIGNS: Temperature 97.9, pulse 86, respiratory rate 18, blood pressure 100/62, oxygen saturation 96% on room air. GENERAL: Alert, oriented x 3 male lying in bed comfortably, in no acute distress. HEENT: Normocephalic, atraumatic, anicteric. No thrush. Oral mucosa moist. NECK: Supple, no JVD, no lymphadenopathy. LUNGS: Clear bilaterally. No wheezing. HEART: S1, S2. No gallops or murmurs. ABDOMEN: Soft, nontender, nondistended, no rebound, no guarding. EXTREMITIES: Right knee stump dress not taken down. Left lower extremity edema present. Left lower foot dressing in place not taken down. DERMATOLOGIC: Warm, dry. No generalized rash. NEUROLOGIC: Alert and oriented x 3, grossly nonfocal. PSYCHIATRIC: Cooperative, appropriate to mood and affect. LABORATORY DATA: WBC 8.8, hemoglobin 12.0, hematocrit 35.4, platelets 190. Sodium 136, potassium 4.4, chloride 102, bicarbonate 23, BUN 29, creatinine 1.6, glucose 428, calcium 8.5. Lactate 2.0. COVID-19 negative. MICROBIOLOGY: Blood culture negative. Wound culture positive for Staph aureus and Staph lugdunensis. IMAGING: Toe x-ray as above. IMPRESSION: 1. Osteomyelitis of left second toe. 2. 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 3. Status post partial amputation of left second toe and irrigation and debridement of the bone of the right below-knee amputation stump. On 01/04/2020, cultures positive for Staph aureus and Staph lugdunensis. 4. Peripheral vascular disease. 5. Diabetes. 6. Hypertension. 7. History of atherosclerotic heart disease. 8. History of right below-knee amputation for infected right lower extremity wounds. 9. Acute kidney injury. RECOMMENDATIONS: 1. Discontinue IV vancomycin due to THERESA. 2. Start daptomycin, may need renal dosing. Check CK. 3. Continue Zosyn. 4. Follow up ID and ELISABETH of Staph aureus and Staph lugdunensis. 5. Continue local wound care as directed. 6. Discussed with sister at bedside. Thank you for allowing me to participate in this patient's care. If you have any questions, do not hesitate to contact me. ANA YANG MD DR: ALAINA/ortega JOB#: [id number] / [id number]
--- NOTE | 2020-01-05 15:40 | NUR ---
Wound/Ostomy Care Wound Type/Assessment: Pt seen per wound care consult. See wound assessment. Pt is well known to us from the wound clinic. Pt has DFU to the right BKA that underwent I&D on 01/04/[address] Levy where wound vac was placed. Pt also had partial amputation of the left 2nd toe. Wounds cleansed, assessed, measured, and pictured. Wound vac was placed to the right BKA in surgery, but pt stated it was taken off due to bleeding and the left 2nd toe was approximated with sutures. Treatment Recommendations/Plan: Orders for wound vac to the right BKA at 125mmHg continuous. Skin prepped for wound vac and contact layer applied to exposed bone, one piece of foam placed to wound bed with a good seal maintained at 125mmHg. the left 2nd toe cleansed and contact layer applied to sutures and gauze pads and kerlix. Education provided: Pt educated on dressing changes and POC. Offloading surface/device: Recommended Referrals/Tests: ortho and ID both on case. Pt will follow up with us in the wound clinic after discharge. Discharge Recommendations for dressings: Dressings applied and pt tolerated well. No other wounds noted. Wound care will follow on Sunday for wound vac dressing change. Bed lowered and call light in reach.
--- NOTE | 2020-01-05 17:15 | PDOC ---
[facility] PROGRESS NOTE Date of Service DOS: DATE: 01/05/20 TIME: 17:10 Chief Complaint Chief Complaint Toe pain- Osteomyelitis of left second toe Diabetes Severe peripheral vascular disease COPD CAD HTN Hyperlipidemia GERD Gout CABG Cardiac Stents History of Present Illness History of Present Illness 01/05/2020 Patient seen and examined at bedside. He is s/p partial amputation left second toe and irrigation debridement to bone of right below-knee amputation stump. Some episodes of hypoglycemia today, discussed with RN. Patient states he does not adhere to a diabetic diet. He worked with PT today. 01/04/2020 Pt seen and examined. MATTHEW RN and DW Pt's sister that was in room with him. Pt is in bed sitting up and is in pleasant mood. HISTORY OF PRESENT ILLNESS: The patient is a pleasant 64-year-old male who has severe peripheral vascular disease secondary to severe diabetes. He already has a right [id number] amputation and has persistent diabetic wounds. Now he has got a left second toe wound. It appears he has osteomyelitis. He has rated it at 7/10. He has associated weakness, it has been occurring for several weeks. I discussed the case with ER physician. We are going to admit the patient, give him IV antibiotics and consult Orthopedic Surgery. Vitals/I&O Vitals/I&O: Vital Signs Date Time Temp Pulse Resp B/P (MAP) Pulse Ox O2 Delivery O2 Flow Rate FiO2 01/05/20 15:00 97.9 92 18 110/60 (77) 96 Room Air 97.9 01/04/20 12:19 10 I & O 01/04/20 01/04/20 01/05/20 15:00 23:00 07:00 Intake Total 850 ml 540 ml Balance 850 ml 540 ml Physical Exam General: Alert, No acute distress Heart: Regular rate, Normal S1, Normal S2 Lungs: Clear Abdomen: Normal bowel sounds, Soft, No tenderness Extremities: No clubbing, No cyanosis, Other (Right BKA with wound VAC in place) Skin: No rashes, No breakdown Labs Labs: Laboratory Tests Test 01/04/20 20:47 01/05/20 07:15 01/05/20 07:38 01/05/20 11:00 Glucose (Fingerstick) 313 mg/dL (70-99) 455 mg/dL (70-99) 469 mg/dL (70-99) White Blood Count 8.8 x10^3/uL (4.0-11.0) Red Blood Count 3.99 x10^6/uL (4.30-5.70) Hemoglobin 12.0 g/dL (13.0-17.5) Hematocrit 35.4 % (39.0-53.0) Mean Corpuscular Volume 89 fL (79-100) Mean Corpuscular Hemoglobin 30 pg (25-35) Mean Corpuscular Hemoglobin Concent 34 g/dL (31-37) Red Cell Distribution Width 14.5 % (11.5-14.5) Platelet Count 190 x10^3/uL (140-400) Neutrophils (%) (Auto) 87 % (31-73) Lymphocytes (%) (Auto) 8 % (24-48) Monocytes (%) (Auto) 6 % (0-9) Eosinophils (%) (Auto) 0 % (0-3) Basophils (%) (Auto) 0 % (0-3) Neutrophils # (Auto) 7.7 x10^3/uL (1.8-7.7) Lymphocytes # (Auto) 0.7 x10^3/uL (1.0-4.8) Monocytes # (Auto) 0.5 x10^3/uL (0.0-1.1) Eosinophils # (Auto) 0.0 x10^3/uL (0.0-0.7) Basophils # (Auto) 0.0 x10^3/uL (0.0-0.2) Segmented Neutrophils % 87 % (35-66) Band Neutrophils % 1 % (0-9) Lymphocytes % 7 % (24-48) Monocytes % 5 % (0-10) Platelet Estimate Adequate (ADEQUATE) Sodium Level 136 mmol/L (136-145) Potassium Level 4.4 mmol/L (3.5-5.1) Chloride Level 102 mmol/L (98-107) Carbon Dioxide Level 23 mmol/L (21-32) Anion Gap 11 (6-14) Blood Urea Nitrogen 29 mg/dL (8-26) Creatinine 1.6 mg/dL (0.7-1.3) Estimated GFR (Cockcroft-Gault) 44.0 Glucose Level 428 mg/dL (70-99) Calcium Level 8.5 mg/dL (8.5-10.1) Creatine Kinase 49 U/L (39-308) Test 01/05/20 16:23 Glucose (Fingerstick) 263 mg/dL (70-99) Review of Systems Review of Systems: Denies fever, denies shortness of breath, denies chest pain Assessment and Plan Assessmemt and Plan Problems Medical Problems: (1) Osteomyelitis of second toe of left foot Status: Acute Problems: (1) Vasomotor nephropathy (2) Osteomyelitis of second toe of left foot Comment Review of Relevant I have reviewed the following items joana (where applicable) has been applied. Medications: Current Medications Medications (Trade) Dose Ordered Sig/Inna Route PRN Reason Start Time Stop Time Status Last Admin Dose Admin Vancomycin HCl 2 gm/Sodium Chloride 500 ml @ 250 mls/hr Q12H IV 01/04/20 22:30 01/05/20 13:46 DC 01/05/20 10:41 Lactobacillus Rhamnosus (Culturelle) 1 cap BID PO 01/04/20 21:00 01/05/20 08:32 Vancomycin HCl (Vanco Per Pharmacy) 1 each PRN DAILY PRN MC SEE COMMENTS 01/04/20 21:00 01/05/20 13:47 DC 01/05/20 09:42 Insulin Human Lispro (HumaLOG) 0-9 UNITS TIDWMEALS SQ 01/05/20 12:00 01/05/20 16:30 Sodium Chloride 500 ml @ 500 mls/hr 1X ONCE IV 01/05/20 08:00 01/05/20 08:59 DC 01/05/20 08:37 Insulin Human Lispro (HumaLOG) 20 units 1X ONCE SQ 01/05/20 08:45 01/05/20 08:46 DC 01/05/20 08:43 Daptomycin 675 mg/ Sodium Chloride 50 ml @ 100 mls/hr Q24H IV 01/05/20 15:00 01/05/20 15:06 Justifications for Admission Other Justification JOEL REAGAN MD Jan 05, 2020 17:15
[2020-01-05] MEDS: IV NORMAL SALINE 1000ML BAG 1,000 ML IV SCH (17:30)
[2020-01-05 19:31] VITALS: BP 87/48
[2020-01-05] MEDS: ATORVASTATIN CALCIUM 40 MG TABLET. PO SCH (22:24)
[2020-01-05 22:26] VITALS: BP 106/68
[2020-01-05] MEDS: INSULIN GLARGINE SYRINGE. SQ SCH (22:32)
--- NOTE | 2020-01-05 22:32 | NUR ---
Blood sugar 191. Patient would only allow 15 units of his HS dose of Lantus instead of 30 units to be given.
[2020-01-06 03:10] VITALS: BP 113/67
[2020-01-06] MEDS: IV NORMAL SALINE 1000ML BAG 1,000 ML IV SCH ×2 (04:27→15:26)
[2020-01-06] MEDS: PIPERACILLIN/TAZOBACTAM 3.375 GM in IV NORMAL SALINE 50ML 50 ML IV SCH ×4 (05:59→23:48)
[2020-01-06 06:35] LABS: CALCIUM 8.4 mg/dL (8.5-10.1); CREATININE 1.4 mg/dL (0.7-1.3); GFR 51.4; POTASSIUM 4.3 mmol/L (3.5-5.1)
--- NOTE | 2020-01-06 06:47 | PDOC ---
[facility] [facility] PROGRESS NOTE Date of Service DOS: DATE: 01/06/20 TIME: 06:43 Chief Complaint Chief Complaint Toe pain- Osteomyelitis of left second toe Diabetes Severe peripheral vascular disease COPD CAD HTN Hyperlipidemia GERD Gout CABG Cardiac Stents History of Present Illness History of Present Illness 01/06/2020 Patient seen and examined. No acute events overnight. Afebrile. IV vancomycin discontinued, started on daptomycin and continue Zosyn, per ID. Will monitor kidney function and CK. 01/05/2020 Patient seen and examined at bedside. He is s/p partial amputation left second toe and irrigation debridement to bone of right below-knee amputation stump. Some episodes of hypoglycemia today, discussed with RN. Patient states he does not adhere to a diabetic diet. He worked with PT today. 01/04/2020 Pt seen and examined. MATTHEW RN and DW Pt's sister that was in room with him. Pt is in bed sitting up and is in pleasant mood. HISTORY OF PRESENT ILLNESS: The patient is a pleasant 64-year-old male who has severe peripheral vascular disease secondary to severe diabetes. He already has a right [id number] amputation and has persistent diabetic wounds. Now he has got a left second toe wound. It appears he has osteomyelitis. He has rated it at 7/10. He has associated weakness, it has been occurring for several weeks. I discussed the case with ER physician. We are going to admit the patient, give him IV antibiotics and consult Orthopedic Surgery. Vitals/I&O Vitals/I&O: Vital Signs Date Time Temp Pulse Resp B/P (MAP) Pulse Ox O2 Delivery O2 Flow Rate FiO2 01/06/20 03:10 98.0 73 18 113/67 (82) 98 Room Air 98.0 I & O 01/05/20 01/05/20 01/06/20 15:00 23:00 07:00 Intake Total 720 ml 540 ml 2840 ml Balance 720 ml 540 ml 2840 ml Physical Exam General: Alert, No acute distress Heart: Regular rate, Normal S1, Normal S2 Lungs: Clear Abdomen: Normal bowel sounds, Soft, No tenderness Extremities: No clubbing, No cyanosis, Other (Right BKA with wound VAC in place) Skin: No rashes, No breakdown Labs Labs: Laboratory Tests Test 01/05/20 07:15 01/05/20 07:38 01/05/20 11:00 01/05/20 16:23 White Blood Count 8.8 x10^3/uL (4.0-11.0) Red Blood Count 3.99 x10^6/uL (4.30-5.70) Hemoglobin 12.0 g/dL (13.0-17.5) Hematocrit 35.4 % (39.0-53.0) Mean Corpuscular Volume 89 fL (79-100) Mean Corpuscular Hemoglobin 30 pg (25-35) Mean Corpuscular Hemoglobin Concent 34 g/dL (31-37) Red Cell Distribution Width 14.5 % (11.5-14.5) Platelet Count 190 x10^3/uL (140-400) Neutrophils (%) (Auto) 87 % (31-73) Lymphocytes (%) (Auto) 8 % (24-48) Monocytes (%) (Auto) 6 % (0-9) Eosinophils (%) (Auto) 0 % (0-3) Basophils (%) (Auto) 0 % (0-3) Neutrophils # (Auto) 7.7 x10^3/uL (1.8-7.7) Lymphocytes # (Auto) 0.7 x10^3/uL (1.0-4.8) Monocytes # (Auto) 0.5 x10^3/uL (0.0-1.1) Eosinophils # (Auto) 0.0 x10^3/uL (0.0-0.7) Basophils # (Auto) 0.0 x10^3/uL (0.0-0.2) Segmented Neutrophils % 87 % (35-66) Band Neutrophils % 1 % (0-9) Lymphocytes % 7 % (24-48) Monocytes % 5 % (0-10) Platelet Estimate Adequate (ADEQUATE) Sodium Level 136 mmol/L (136-145) Potassium Level 4.4 mmol/L (3.5-5.1) Chloride Level 102 mmol/L (98-107) Carbon Dioxide Level 23 mmol/L (21-32) Anion Gap 11 (6-14) Blood Urea Nitrogen 29 mg/dL (8-26) Creatinine 1.6 mg/dL (0.7-1.3) Estimated GFR (Cockcroft-Gault) 44.0 Glucose Level 428 mg/dL (70-99) Calcium Level 8.5 mg/dL (8.5-10.1) Creatine Kinase 49 U/L (39-308) Glucose (Fingerstick) 455 mg/dL (70-99) 469 mg/dL (70-99) 263 mg/dL (70-99) Test 01/05/20 20:46 01/06/20 05:30 Glucose (Fingerstick) 191 mg/dL (70-99) Sodium Level 137 mmol/L (136-145) Potassium Level 4.3 mmol/L (3.5-5.1) Chloride Level 105 mmol/L (98-107) Carbon Dioxide Level 23 mmol/L (21-32) Anion Gap 9 (6-14) Blood Urea Nitrogen 32 mg/dL (8-26) Creatinine 1.4 mg/dL (0.7-1.3) Estimated GFR (Cockcroft-Gault) 51.4 Glucose Level 336 mg/dL (70-99) Calcium Level 8.4 mg/dL (8.5-10.1) Review of Systems Review of Systems: Denies fever, denies shortness of breath, denies chest pain. Assessment and Plan Assessmemt and Plan Problems Medical Problems: (1) Osteomyelitis of second toe of left foot Status: Acute Comment Review of Relevant I have reviewed the following items joana (where applicable) has been applied. Medications: Current Medications Medications (Trade) Dose Ordered Sig/Inna Route PRN Reason Start Time Stop Time Status Last Admin Dose Admin Insulin Human Lispro (HumaLOG) 0-9 UNITS TIDWMEALS SQ 01/05/20 12:00 01/05/20 16:30 Sodium Chloride 500 ml @ 500 mls/hr 1X ONCE IV 01/05/20 08:00 01/05/20 08:59 DC 01/05/20 08:37 Insulin Human Lispro (HumaLOG) 20 units 1X ONCE SQ 01/05/20 08:45 01/05/20 08:46 DC 01/05/20 08:43 Daptomycin 675 mg/ Sodium Chloride 50 ml @ 100 mls/hr Q24H IV 01/05/20 15:00 01/05/20 15:06 Sodium Chloride 1,000 ml @ 100 mls/hr Q10H IV 01/05/20 17:30 01/06/20 04:27 Justifications for Admission Other Justification JOEL REAGAN MD Jan 06, 2020 06:47
[2020-01-06 06:55] LABS: BASO % 0 % (0-3); EOS # 0.3 x10^3/uL (0.0-0.7); EOS % 4 % (0-3); HEMATOCRIT 33.8 % (39.0-53.0); HEMOGLOBIN 11.3 g/dL (13.0-17.5); LYMPH % 16 % (24-48); MEAN CORPUSCULAR HEMOGLOBIN 30 pg (25-35); MEAN CORPUSCULAR HGB CONC 34 g/dL (31-37); MEAN CORPUSCULAR VOLUME 89 fL (79-100); MONO # 0.4 x10^3/uL (0.0-1.1); MONO % 7 % (0-9); NEUT % 74 % (31-73); PLATELET COUNT 184 x10^3/uL (140-400); RED BLOOD COUNT 3.79 x10^6/uL (4.30-5.70); RED CELL DISTRIBUTION WIDTH 14.5 % (11.5-14.5); WHITE BLOOD COUNT 6.7 x10^3/uL (4.0-11.0)
[2020-01-06 07:05] VITALS: BP 117/69
[2020-01-06] MEDS: PANTOPRAZOLE 40 MG TABLET.DR. PO SCH (08:30)
[2020-01-06] MEDS: LACTOBACILLUS RHAMNOSUS GG 1 CAPSULE. PO SCH ×2 (08:30→21:26)
[2020-01-06] MEDS: LISINOPRIL 20 MG TABLET PO SCH (08:31)
[2020-01-06] MEDS: METOPROLOL TART IMMED RELEASE 50 MG TABLET. PO SCH ×2 (08:31→21:27)
[2020-01-06] MEDS: ASCORBIC ACID 500 MG TABLET PO SCH (08:31)
[2020-01-06] MEDS: RANOLAZINE 500 MG TAB.ER.12H PO SCH ×2 (08:31→21:26)
[2020-01-06] MEDS: MULTIVITAMIN with MINERAL TABLET. PO SCH (08:31)
[2020-01-06] MEDS: CLOPIDOGREL BISULFATE 75 MG TABLET PO SCH (08:31)
[2020-01-06] MEDS: amLODIPine BESYLATE 10 MG TABLET PO SCH (08:32)
[2020-01-06] MEDS: GABAPENTIN 300 MG CAPSULE. PO SCH ×2 (08:32→21:26)
[2020-01-06] MEDS: ASPIRIN ENTERIC COATED 81 MG TABLET.DR. PO SCH (08:34)
[2020-01-06] MEDS: INSULIN LISPRO 300 UNITS/3 ML VIAL. SQ SCH ×6 (08:35→17:54)
--- NOTE | 2020-01-06 09:53 | PDOC ---
Infectious Disease Note Subjective: Subjective Patient feels better Postoperative pain is under control Vital Signs: Vital Signs Vital Signs Date Time Temp Pulse Resp B/P (MAP) Pulse Ox O2 Delivery O2 Flow Rate FiO2 01/06/20 08:32 92 117/69 01/06/20 07:05 98.1 18 92 Room Air 98.1 Physical Exam: PHYSICAL EXAM GENERAL: Alert, oriented x 3 male lying in bed comfortably, in no acute distress. HEENT: Normocephalic, atraumatic, anicteric. No thrush. Oral mucosa moist. NECK: Supple, no JVD, no lymphadenopathy. LUNGS: Clear bilaterally. No wheezing. HEART: S1, S2. No gallops or murmurs. ABDOMEN: Soft, nontender, nondistended, no rebound, no guarding. EXTREMITIES: Right knee stump wound VAC in place left lower extremity edema present. Left lower foot dressing in place, dry, intact not taken down. DERMATOLOGIC: Warm, dry. No generalized rash. NEUROLOGIC: Alert and oriented x 3, grossly nonfocal. PSYCHIATRIC: Cooperative, appropriate to mood and affect. Medications: Inpatient Meds: Current Medications Medications (Trade) Dose Ordered Sig/Inna Start Time Stop Time Status Last Admin Dose Admin Amlodipine Besylate (Norvasc) 10 mg DAILY 01/03/20 16:30 01/06/20 08:32 10 MG Ascorbic Acid (Vitamin C) 500 mg DAILY 01/03/20 15:00 01/06/20 08:31 500 MG Aspirin (Ecotrin) 81 mg DAILY 01/03/20 15:00 01/06/20 08:34 81 MG Atorvastatin Calcium (Lipitor) 80 mg QHS 01/03/20 21:00 01/05/20 22:24 80 MG Ceftriaxone Sodium (Rocephin) 1 gm 1X ONCE 01/03/20 09:45 01/03/20 09:46 DC 01/03/20 10:26 1 GM Clopidogrel Bisulfate (Plavix) 75 mg DAILY 01/03/20 15:00 01/06/20 08:31 75 MG Daptomycin 675 mg/ Sodium Chloride 50 ml @ 100 mls/hr Q24H 01/05/20 15:00 01/05/20 15:06 100 MLS/HR Dexamethasone Sodium Phosphate (Decadron) 4 mg STK-MED ONCE 01/04/20 11:22 01/04/20 11:22 DC Dextrose (Dextrose 50%-Water Syringe) 12.5 gm PRN Q15MIN PRN 01/05/20 08:00 Fentanyl Citrate (Fentanyl 2ml Vial) 100 mcg STK-MED ONCE 01/04/20 11:23 01/04/20 11:24 DC Gabapentin (Neurontin) 300 mg BID 01/03/20 21:00 01/06/20 08:32 300 MG Hydromorphone HCl (Dilaudid) 0.5 mg PRN Q10MIN PRN 01/04/20 10:45 01/05/20 10:44 DC Insulin Glargine (Lantus Syringe) 30 unit QHS 01/03/20 21:00 01/05/20 22:32 15 UNIT Insulin Human Lispro (HumaLOG VIAL for OP,RR ONLY) 0-10 units PRN Q1HR PRN 01/04/20 10:30 01/04/20 20:00 DC 01/04/20 12:48 4 UNIT Insulin Human Lispro (HumaLOG) 20 units 1X ONCE 01/05/20 08:45 01/05/20 08:46 DC 01/05/20 08:43 20 UNITS Lactobacillus Rhamnosus (Culturelle) 1 cap BID 01/04/20 21:00 01/06/20 08:30 1 CAP Lidocaine HCl (Lidocaine Pf 2% Vial) 5 ml STK-MED ONCE 01/04/20 11:15 01/04/20 11:15 DC Lisinopril (Prinivil) 20 mg DAILY 01/03/20 15:00 01/06/20 08:31 20 MG Metoprolol Tartrate (Lopressor) 12.5 mg BID 01/03/20 21:00 01/06/20 08:31 12.5 MG Morphine Sulfate (Morphine Sulfate) 1 mg PRN Q10MIN PRN 01/04/20 10:45 01/04/20 17:24 DC Multivitamins (Thera M Plus) 1 tab DAILY 01/04/20 09:00 01/06/20 08:31 1 TAB Ondansetron HCl (Zofran) 4 mg STK-MED ONCE 01/04/20 11:22 01/04/20 11:23 DC Pantoprazole Sodium (Protonix) 40 mg DAILYAC 01/04/20 07:30 01/06/20 08:30 40 MG Phenylephrine HCl (PHENYLEPHRINE in 0.9% NACL PF) 1 mg STK-MED ONCE 01/04/20 11:58 01/04/20 11:58 DC Piperacillin Sod/ Tazobactam Sod 3.375 gm/Sodium Chloride 50 ml @ 100 mls/hr Q6HRS 01/03/20 18:00 01/06/20 05:59 100 MLS/HR Prochlorperazine Edisylate (Compazine) 5 mg PACU PRN PRN 01/04/20 10:45 01/04/20 20:00 DC Propofol (Diprivan) 200 mg STK-MED ONCE 01/04/20 11:15 01/04/20 11:15 DC Ranolazine (Ranexa) 500 mg BID 01/03/20 21:00 01/06/20 08:31 500 MG Ringer's Solution 1,000 ml @ 30 mls/hr Q24H 01/04/20 10:45 01/04/20 22:44 DC 01/04/20 11:03 30 MLS/HR Sevoflurane (Ultane) 60 ml STK-MED ONCE 01/04/20 11:58 01/04/20 11:58 DC Sodium Chloride 1,000 ml @ 100 mls/hr Q10H 01/05/20 17:30 01/06/20 04:27 100 MLS/HR Vancomycin HCl (Vanco Per Pharmacy) 1 each PRN DAILY PRN 01/04/20 21:00 01/05/20 13:47 DC 01/05/20 09:42 1 EACH Vancomycin HCl (Vancomycin Trough Level) 1 each 1X ONCE 01/05/20 22:00 01/05/20 13:47 DC Vancomycin HCl 2 gm/Sodium Chloride 500 ml @ 250 mls/hr Q12H 01/04/20 22:30 01/05/20 13:46 DC 01/05/20 10:41 250 MLS/HR Labs: Lab Laboratory Tests Test 01/05/20 11:00 01/05/20 16:23 01/05/20 20:46 01/06/20 05:30 Glucose (Fingerstick) 469 mg/dL (70-99) 263 mg/dL (70-99) 191 mg/dL (70-99) White Blood Count 6.7 x10^3/uL (4.0-11.0) Red Blood Count 3.79 x10^6/uL (4.30-5.70) Hemoglobin 11.3 g/dL (13.0-17.5) Hematocrit 33.8 % (39.0-53.0) Mean Corpuscular Volume 89 fL (79-100) Mean Corpuscular Hemoglobin 30 pg (25-35) Mean Corpuscular Hemoglobin Concent 34 g/dL (31-37) Red Cell Distribution Width 14.5 % (11.5-14.5) Platelet Count 184 x10^3/uL (140-400) Neutrophils (%) (Auto) 74 % (31-73) Lymphocytes (%) (Auto) 16 % (24-48) Monocytes (%) (Auto) 7 % (0-9) Eosinophils (%) (Auto) 4 % (0-3) Basophils (%) (Auto) 0 % (0-3) Neutrophils # (Auto) 5.0 x10^3/uL (1.8-7.7) Lymphocytes # (Auto) 1.0 x10^3/uL (1.0-4.8) Monocytes # (Auto) 0.4 x10^3/uL (0.0-1.1) Eosinophils # (Auto) 0.3 x10^3/uL (0.0-0.7) Basophils # (Auto) 0.0 x10^3/uL (0.0-0.2) Sodium Level 137 mmol/L (136-145) Potassium Level 4.3 mmol/L (3.5-5.1) Chloride Level 105 mmol/L (98-107) Carbon Dioxide Level 23 mmol/L (21-32) Anion Gap 9 (6-14) Blood Urea Nitrogen 32 mg/dL (8-26) Creatinine 1.4 mg/dL (0.7-1.3) Estimated GFR (Cockcroft-Gault) 51.4 Glucose Level 336 mg/dL (70-99) Calcium Level 8.4 mg/dL (8.5-10.1) Test 01/06/20 08:30 Glucose (Fingerstick) 401 mg/dL (70-99) Objective: Assessment: 1. Osteomyelitis of left second toe. 2. 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 3. Status post partial amputation of left second toe and irrigation and debridement of the bone of the right below-knee amputation stump. On 01/04/2020, cultures positive for Staph aureus and Staph lugdunensis. 4. Peripheral vascular disease. 5. Diabetes. 6. Hypertension. 7. History of atherosclerotic heart disease. 8. History of right below-knee amputation for infected right lower extremity wounds. 9. Acute kidney injury. Plan: Plan of Care daptomycin and Zosyn Avoid vancomycin due to THERESA Follow up ID and ELISABETH of Staph aureus and Staph lugdunensis. Continue local wound care as directed. ANA YANG MD Jan 06, 2020 09:53
--- NOTE | 2020-01-06 10:38 | NUR ---
SW following. Discussed with RN, pt from home alone, room air, ada diet. Wound care following, ID - continue on IV zosyn and dapto. PT/OT recommending home independent. Pt does not have a PICC line, and no order for one, yet to determine if IV abx will be needed alf upon discharge. SW will continue to follow.
[2020-01-06 11:00] VITALS: BP 127/74
[2020-01-06 15:00] VITALS: BP 108/65
[2020-01-06] MEDS: DAPTOMYCIN IV SCH (15:24)
[2020-01-06] MEDS: NORMAL SALINE IV SCH (15:24)
[2020-01-06] MEDS ORDERED: DAPTOmycin (GENERIC) IVPB 480 MG in IV NORMAL SALINE 50ML 50 ML IV SCH (16:37)
[2020-01-06 19:00] VITALS: BP 114/70
[2020-01-06] MEDS: ATORVASTATIN CALCIUM 40 MG TABLET. PO SCH (21:26)
[2020-01-06] MEDS: INSULIN GLARGINE SYRINGE. SQ SCH (21:33)
[2020-01-06 22:53] VITALS: BP 132/76
[2020-01-07 02:50] VITALS: BP 127/65
[2020-01-07] MEDS: IV NORMAL SALINE 1000ML BAG 1,000 ML IV SCH ×3 (03:56→17:49)
[2020-01-07] MEDS: PIPERACILLIN/TAZOBACTAM 3.375 GM in IV NORMAL SALINE 50ML 50 ML IV SCH ×3 (06:10→17:48)
[2020-01-07 07:00] VITALS: BP 144/80
[2020-01-07 07:41] LABS: CALCIUM 8.2 mg/dL (8.5-10.1); CREATININE 1.4 mg/dL (0.7-1.3); GFR 51.4; POTASSIUM 3.9 mmol/L (3.5-5.1)
[2020-01-07] MEDS: INSULIN LISPRO 300 UNITS/3 ML VIAL. SQ SCH ×6 (08:00→17:00)
[2020-01-07 08:13] LABS: BASO % 0 % (0-3); EOS # 0.3 x10^3/uL (0.0-0.7); EOS % 4 % (0-3); HEMATOCRIT 34.7 % (39.0-53.0); HEMOGLOBIN 11.8 g/dL (13.0-17.5); LYMPH % 14 % (24-48); MEAN CORPUSCULAR HEMOGLOBIN 30 pg (25-35); MEAN CORPUSCULAR HGB CONC 34 g/dL (31-37); MEAN CORPUSCULAR VOLUME 89 fL (79-100); MONO # 0.4 x10^3/uL (0.0-1.1); MONO % 6 % (0-9); NEUT # 5.5 x10^3/uL (1.8-7.7); NEUT % 76 % (31-73); PLATELET COUNT 192 x10^3/uL (140-400); RED CELL DISTRIBUTION WIDTH 14.7 % (11.5-14.5); WHITE BLOOD COUNT 7.2 x10^3/uL (4.0-11.0)
--- NOTE | 2020-01-07 08:13 | PDOC ---
[employer] PROGRESS NOTE Date of Service DOS: DATE: 01/07/20 TIME: 07:58 Chief Complaint Chief Complaint Toe pain- Osteomyelitis of left second toe Diabetes Severe peripheral vascular disease COPD CAD HTN Hyperlipidemia GERD Gout CABG Cardiac Stents History of Present Illness History of Present Illness 01/07/2020 Patient seen and examined. No acute vents overnight. Afebrile, without complaints. Blood cultures showed no growth after 3 days. Antibiotics per ID. Discussed with RN. Patient has a home wound VAC that does not show up until Sunday. His wound VAC will need to be changed here if he is still here on Sunday, or prescription written for emergency wound VAC change if he discharges before. 01/06/2020 Patient seen and examined. No acute events overnight. Afebrile. IV vancomycin discontinued, started on daptomycin and continue Zosyn, per ID. Will monitor kidney function and CK. 01/05/2020 Patient seen and examined at bedside. He is s/p partial amputation left second toe and irrigation debridement to bone of right below-knee amputation stump. Some episodes of hypoglycemia today, discussed with RN. Patient states he does not adhere to a diabetic diet. He worked with PT today. 01/04/2020 Pt seen and examined. MATTHEW RN and MATTHEW Pt's sister that was in room with him. Pt is in bed sitting up and is in pleasant mood. HISTORY OF PRESENT ILLNESS: The patient is a pleasant 64-year-old male who has severe peripheral vascular disease secondary to severe diabetes. He already has a right [id number]-zegd amputation and has persistent diabetic wounds. Now he has got a left second toe wound. It appears he has osteomyelitis. He has rated it at 7/10. He has associated weakness, it has been occurring for several weeks. I discussed the case with ER physician. We are going to admit the patient, give him IV antibiotics and consult Orthopedic Surgery. Vitals/I&O Vitals/I&O: Vital Signs Date Time Temp Pulse Resp B/P (MAP) Pulse Ox O2 Delivery O2 Flow Rate FiO2 01/07/20 07:00 97.8 95 18 144/80 (101) 96 Room Air 97.8 I & O 01/06/20 01/06/20 01/07/20 15:00 23:00 07:00 Intake Total 60 ml 2640 ml Balance 60 ml 2640 ml Physical Exam Physical Exam: GENERAL: Alert, oriented x 3 male lying in bed comfortably, in no acute distress. HEENT: Normocephalic, atraumatic, anicteric. No thrush. Oral mucosa moist. NECK: Supple, no JVD, no lymphadenopathy. LUNGS: Clear bilaterally. No wheezing. HEART: S1, S2. No gallops or murmurs. ABDOMEN: Soft, nontender, nondistended, no rebound, no guarding. EXTREMITIES: Right knee stump wound VAC in place left lower extremity edema present. Left lower foot dressing in place, dry, intact not taken down. DERMATOLOGIC: Warm, dry. No generalized rash. NEUROLOGIC: Alert and oriented x 3, grossly nonfocal. PSYCHIATRIC: Cooperative, appropriate to mood and affect. General: Alert, No acute distress Heart: Regular rate, Normal S1, Normal S2 Lungs: Clear Abdomen: Normal bowel sounds, Soft, No tenderness Extremities: No clubbing, No cyanosis, Other (Right BKA with wound VAC in place) Skin: No rashes, No breakdown Labs Labs: Laboratory Tests Test 01/06/20 08:30 01/06/20 16:35 01/06/20 21:22 01/07/20 06:45 Glucose (Fingerstick) 401 mg/dL (70-99) 176 mg/dL (70-99) 123 mg/dL (70-99) Sodium Level 138 mmol/L (136-145) Potassium Level 3.9 mmol/L (3.5-5.1) Chloride Level 104 mmol/L (98-107) Carbon Dioxide Level 23 mmol/L (21-32) Anion Gap 11 (6-14) Blood Urea Nitrogen 26 mg/dL (8-26) Creatinine 1.4 mg/dL (0.7-1.3) Estimated GFR (Cockcroft-Gault) 51.4 Glucose Level 249 mg/dL (70-99) Calcium Level 8.2 mg/dL (8.5-10.1) Creatine Kinase 65 U/L (39-308) Test 01/07/20 07:04 Glucose (Fingerstick) 290 mg/dL (70-99) Review of Systems Review of Systems: Denies fever, denies shortness of breath, denies chest pain. Assessment and Plan Assessmemt and Plan Problems Medical Problems: (1) Osteomyelitis of second toe of left foot Status: Acute Problems: (1) Vasomotor nephropathy (2) Osteomyelitis of second toe of left foot (3) Leg wound, right Qualifiers: Qualified Codes: S81.801D - Unspecified open wound, right lower leg, subsequent encounter (4) Diabetes Qualifiers: Qualified Codes: E13.69 - Other specified diabetes mellitus with other specified complication Comment Review of Relevant I have reviewed the following items joana (where applicable) has been applied. Justifications for Admission Other Justification JOEL REAGAN MD Jan 07, 2020 08:13
[2020-01-07] MEDS: GABAPENTIN 300 MG CAPSULE. PO SCH ×2 (08:47→21:27)
[2020-01-07] MEDS: ASPIRIN ENTERIC COATED 81 MG TABLET.DR. PO SCH (08:48)
[2020-01-07] MEDS: METOPROLOL TART IMMED RELEASE 50 MG TABLET. PO SCH ×2 (08:48→21:26)
[2020-01-07] MEDS: PANTOPRAZOLE 40 MG TABLET.DR. PO SCH (08:48)
[2020-01-07] MEDS: LISINOPRIL 20 MG TABLET PO SCH (08:48)
[2020-01-07] MEDS: CLOPIDOGREL BISULFATE 75 MG TABLET PO SCH (08:48)
[2020-01-07] MEDS: MULTIVITAMIN with MINERAL TABLET. PO SCH (08:48)
[2020-01-07] MEDS: LACTOBACILLUS RHAMNOSUS GG 1 CAPSULE. PO SCH ×2 (08:48→21:26)
[2020-01-07] MEDS: amLODIPine BESYLATE 10 MG TABLET PO SCH (08:49)
[2020-01-07] MEDS: RANOLAZINE 500 MG TAB.ER.12H PO SCH ×2 (08:49→21:25)
[2020-01-07] MEDS: ASCORBIC ACID 500 MG TABLET PO SCH (08:52)
--- NOTE | 2020-01-07 10:05 | PDOC ---
Infectious Disease Note Subjective: Subjective Patient without complaints Denies postoperative pain Denies fever, nausea, vomiting, shortness of breath, diarrhea, abdominal pain, rash Vital Signs: Vital Signs Vital Signs Date Time Temp Pulse Resp B/P (MAP) Pulse Ox O2 Delivery O2 Flow Rate FiO2 01/07/20 08:49 95 144/80 01/07/20 07:00 97.8 18 96 Room Air 97.8 Physical Exam: PHYSICAL EXAM GENERAL: Alert, oriented x 3 male lying in bed comfortably, in no acute distress. HEENT: Normocephalic, atraumatic, anicteric. No thrush. Oral mucosa moist. NECK: Supple, no JVD, no lymphadenopathy. LUNGS: Clear bilaterally. No wheezing. HEART: S1, S2. No gallops or murmurs. ABDOMEN: Soft, nontender, nondistended, no rebound, no guarding. EXTREMITIES: Right knee stump wound VAC in place left lower extremity edema present. Left lower foot dressing in place, dry, intact not taken down. DERMATOLOGIC: Warm, dry. No generalized rash. NEUROLOGIC: Alert and oriented x 3, grossly nonfocal. PSYCHIATRIC: Cooperative, appropriate to mood and affect. Medications: Inpatient Meds: Current Medications Medications (Trade) Dose Ordered Sig/Inna Start Time Stop Time Status Last Admin Dose Admin Amlodipine Besylate (Norvasc) 10 mg DAILY 01/03/20 16:30 01/07/20 08:49 10 MG Ascorbic Acid (Vitamin C) 500 mg DAILY 01/03/20 15:00 01/07/20 08:52 500 MG Aspirin (Ecotrin) 81 mg DAILY 01/03/20 15:00 01/07/20 08:48 81 MG Atorvastatin Calcium (Lipitor) 80 mg QHS 01/03/20 21:00 01/06/20 21:26 80 MG Ceftriaxone Sodium (Rocephin) 1 gm 1X ONCE 01/03/20 09:45 01/03/20 09:46 DC 01/03/20 10:26 1 GM Clopidogrel Bisulfate (Plavix) 75 mg DAILY 01/03/20 15:00 01/07/20 08:48 75 MG Daptomycin 480 mg/ Sodium Chloride 50 ml @ 100 mls/hr Q24H 01/07/20 15:00 Daptomycin 675 mg/ Sodium Chloride 50 ml @ 100 mls/hr Q24H 01/05/20 15:00 01/06/20 16:37 DC 01/06/20 15:24 100 MLS/HR Dexamethasone Sodium Phosphate (Decadron) 4 mg STK-MED ONCE 01/04/20 11:22 01/04/20 11:22 DC Dextrose (Dextrose 50%-Water Syringe) 12.5 gm PRN Q15MIN PRN 01/05/20 08:00 Fentanyl Citrate (Fentanyl 2ml Vial) 100 mcg STK-MED ONCE 01/04/20 11:23 01/04/20 11:24 DC Gabapentin (Neurontin) 300 mg BID 01/03/20 21:00 01/07/20 08:47 300 MG Hydromorphone HCl (Dilaudid) 0.5 mg PRN Q10MIN PRN 01/04/20 10:45 01/05/20 10:44 DC Insulin Glargine (Lantus Syringe) 30 unit QHS 01/03/20 21:00 01/06/20 21:33 30 UNIT Insulin Human Lispro (HumaLOG VIAL for OP,RR ONLY) 0-10 units PRN Q1HR PRN 01/04/20 10:30 01/04/20 20:00 DC 01/04/20 12:48 4 UNIT Insulin Human Lispro (HumaLOG) 20 units 1X ONCE 01/05/20 08:45 01/05/20 08:46 DC 01/05/20 08:43 20 UNITS Lactobacillus Rhamnosus (Culturelle) 1 cap BID 01/04/20 21:00 01/07/20 08:48 1 CAP Lidocaine HCl (Lidocaine Pf 2% Vial) 5 ml STK-MED ONCE 01/04/20 11:15 01/04/20 11:15 DC Lisinopril (Prinivil) 20 mg DAILY 01/03/20 15:00 01/07/20 08:48 20 MG Metoprolol Tartrate (Lopressor) 12.5 mg BID 01/03/20 21:00 01/07/20 08:48 12.5 MG Morphine Sulfate (Morphine Sulfate) 1 mg PRN Q10MIN PRN 01/04/20 10:45 01/04/20 17:24 DC Multivitamins (Thera M Plus) 1 tab DAILY 01/04/20 09:00 01/07/20 08:48 1 TAB Ondansetron HCl (Zofran) 4 mg STK-MED ONCE 01/04/20 11:22 01/04/20 11:23 DC Pantoprazole Sodium (Protonix) 40 mg DAILYAC 01/04/20 07:30 01/07/20 08:48 40 MG Phenylephrine HCl (PHENYLEPHRINE in 0.9% NACL PF) 1 mg STK-MED ONCE 01/04/20 11:58 01/04/20 11:58 DC Piperacillin Sod/ Tazobactam Sod 3.375 gm/Sodium Chloride 50 ml @ 100 mls/hr Q6HRS 01/03/20 18:00 01/07/20 06:10 100 MLS/HR Prochlorperazine Edisylate (Compazine) 5 mg PACU PRN PRN 01/04/20 10:45 01/04/20 20:00 DC Propofol (Diprivan) 200 mg STK-MED ONCE 01/04/20 11:15 01/04/20 11:15 DC Ranolazine (Ranexa) 500 mg BID 01/03/20 21:00 01/07/20 08:49 500 MG Ringer's Solution 1,000 ml @ 30 mls/hr Q24H 01/04/20 10:45 01/04/20 22:44 DC 01/04/20 11:03 30 MLS/HR Sevoflurane (Ultane) 60 ml STK-MED ONCE 01/04/20 11:58 01/04/20 11:58 DC Sodium Chloride 1,000 ml @ 100 mls/hr Q10H 01/05/20 17:30 01/07/20 09:42 100 MLS/HR Vancomycin HCl (Vanco Per Pharmacy) 1 each PRN DAILY PRN 01/04/20 21:00 01/05/20 13:47 DC 01/05/20 09:42 1 EACH Vancomycin HCl (Vancomycin Trough Level) 1 each 1X ONCE 01/05/20 22:00 01/05/20 13:47 DC Vancomycin HCl 2 gm/Sodium Chloride 500 ml @ 250 mls/hr Q12H 01/04/20 22:30 01/05/20 13:46 DC 01/05/20 10:41 250 MLS/HR Labs: Lab Laboratory Tests Test 01/06/20 16:35 01/06/20 21:22 01/07/20 06:45 01/07/20 07:04 Glucose (Fingerstick) 176 mg/dL (70-99) 123 mg/dL (70-99) 290 mg/dL (70-99) White Blood Count 7.2 x10^3/uL (4.0-11.0) Red Blood Count 3.90 x10^6/uL (4.30-5.70) Hemoglobin 11.8 g/dL (13.0-17.5) Hematocrit 34.7 % (39.0-53.0) Mean Corpuscular Volume 89 fL (79-100) Mean Corpuscular Hemoglobin 30 pg (25-35) Mean Corpuscular Hemoglobin Concent 34 g/dL (31-37) Red Cell Distribution Width 14.7 % (11.5-14.5) Platelet Count 192 x10^3/uL (140-400) Neutrophils (%) (Auto) 76 % (31-73) Lymphocytes (%) (Auto) 14 % (24-48) Monocytes (%) (Auto) 6 % (0-9) Eosinophils (%) (Auto) 4 % (0-3) Basophils (%) (Auto) 0 % (0-3) Neutrophils # (Auto) 5.5 x10^3/uL (1.8-7.7) Lymphocytes # (Auto) 1.0 x10^3/uL (1.0-4.8) Monocytes # (Auto) 0.4 x10^3/uL (0.0-1.1) Eosinophils # (Auto) 0.3 x10^3/uL (0.0-0.7) Basophils # (Auto) 0.0 x10^3/uL (0.0-0.2) Sodium Level 138 mmol/L (136-145) Potassium Level 3.9 mmol/L (3.5-5.1) Chloride Level 104 mmol/L (98-107) Carbon Dioxide Level 23 mmol/L (21-32) Anion Gap 11 (6-14) Blood Urea Nitrogen 26 mg/dL (8-26) Creatinine 1.4 mg/dL (0.7-1.3) Estimated GFR (Cockcroft-Gault) 51.4 Glucose Level 249 mg/dL (70-99) Calcium Level 8.2 mg/dL (8.5-10.1) Creatine Kinase 65 U/L (39-308) Objective: Assessment: 1. Osteomyelitis of left second toe. 2. 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 3. Status post partial amputation of left second toe and irrigation and debridement of the bone of the right below-knee amputation stump. On 01/04/2020, cultures positive for Staph aureus and Staph lugdunensis. 4. Peripheral vascular disease. 5. Diabetes. 6. Hypertension. 7. History of atherosclerotic heart disease. 8. History of right below-knee amputation for infected right lower extremity wounds. 9. Acute kidney injury. Plan: Plan of Care Continue daptomycin and Zosyn for now Avoid vancomycin due to THERESA Follow up ID and ELISABETH of Staph aureus and Staph lugdunensis. Continue local wound care as directed. PICC line single-lumen Discussed with nursing staff ANA YANG MD Jan 07, 2020 10:05
[2020-01-07 11:00] VITALS: BP 140/82
--- NOTE | 2020-01-07 12:57 | NUR ---
GAURI following. Discussed with RN, pt from home alone, room air, ada diet. GAURI discussed with Dr. 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 PICC line ordered. GAURI met with pt (no isolation precautions at the time), pt has had IV abx at home before but could not remember the company, he did remember he had [employer]. Pt requested SW contact his sister Cristy ([phone]) SW left voicemail requesting call back. Pt reported his sister will help with the administering of the abx at home, so she will need to be here for the teach. GAURI phoned and faxed referral to [facility] (pt used them in the past per past admission), advised [facility] of the current abx to determine benefits. GAURI faxed referral to [facility]. GAURI will continue to follow. Addendum: 01/07/20 at 1321 by LEXII ASTORGA [facility] is currently at their medicaid cap so cannot accept. SW to discuss with [facility] RE nursing care from them. Pt can follow at the wound care clinic for wound care needs. Awaiting benefits from [facility] and awaiting return call from pt's sister. Addendum: 01/07/20 at 1529 by LEXII ASTORGA Per [facility], pt is covered at 100% for home infusion. [facility] cannot do the nursing care because of pt having medicaid. [facility] is not in network with pt's insurance. GAURI spoke with Rodrigo with the wound clinic, pt can do labs outpatient here when he comes for wound care and the dressing changes can be done here too. RN notified, order for labs will have to be sent to outpatient upon discharge. Pt added to weekend discharge list in case of potential discharge over the next 4 days. IV abx script will have to be sent to [facility] and time arranged for a teach prior to discharge. [facility] (ph: [phone], fax: [phone]). Addendum: 01/07/20 at 1602 by LEXII ASTORGA Pt's sister, Cristy returned GAURI voicemail, GAURI filled Cristy in on the plan for home IV abx and the benefit coverage. Cristy is contacting [employer] to determine how frequently pt would need his dressing changed etc so she can figure out her work schedule. GAURI will continue to follow.
[2020-01-07] MEDS ORDERED: LIDOCAINE WITH 8.4% SOD BICARB 3 ML DISP.SYRIN. ONE (13:35)
[2020-01-07] MEDS ORDERED: LIDOCAINE WITH 8.4% SOD BICARB 3 ML DISP.SYRIN. INJ ONE (13:45)
--- NOTE | 2020-01-07 14:38 | NUR ---
Wound/Ostomy Care Wound Type/Assessment: Pt seen per wound care follow up. See wound assessment. Pt is well known to us from the wound clinic. Pt has DFU to the right BKA that underwent I&D on 01/04/[address] Levy where wound vac was placed. Pt also had partial amputation of the left 2nd toe. Wounds cleansed and assessed. Treatment Recommendations/Plan: Will continue with wound vac to the right BKA at 125mmHg continuous. Skin prepped for wound vac, tissue is now covering bone therefore no contact layer used, one piece of foam placed to wound bed with a good seal maintained at 125mmHg. the left 2nd toe redressed wtih gauze pads, ABD, and kerlix. Education provided: Pt educated on dressing changes and POC. Offloading surface/device: using walker Recommended Referrals/Tests: ortho and ID both on case. Pt will follow up with us in the wound clinic after discharge. Pt has been approved for [employer] home vac, will switch to home vac prior to discharge. Discharge Recommendations for dressings: Dressings applied and pt tolerated well. No other wounds noted. Wound care will follow on Sunday for wound vac dressing change. Bed lowered and call light in reach.
[2020-01-07 15:00] VITALS: BP 121/73
[2020-01-07] MEDS: DAPTOmycin (GENERIC) IVPB 480 MG in IV NORMAL SALINE 50ML 50 ML IV SCH (15:25)
--- NOTE | 2020-01-07 15:50 | RAD ---
Exam: Fluoroscopic and ultrasound guided right percutaneous inserted central venous catheter placement 01/07/2020 1:44 PM .Indication: antibiotics, 6wk Technique: Informed oral and written consent were obtained. The right upper extremity was prepped and draped using sterile barrier technique. All elements of maximal sterile barrier technique including the use of a cap, mask, sterile gown, sterile gloves, large sterile sheet, appropriate hand hygiene, and 2% chlorhexidine for cutaneous antisepsis (or acceptable alternative antiseptic per current guidelines) were followed for this procedure.. Real-time ultrasound demonstrated a patent right basilic vein which was prepped and draped in usual sterile fashion. 1% lidocaine used for local anesthesia. Using real-time ultrasound guidance the access needle percutaneously punctured the selected right basilic vein. Reference ultrasound images were saved to the medical record. A guidewire was advanced through the needle to the cavoatrial junction, and a peel-away sheath placed. The catheter was cut to length and inserted through the peel-away sheath such that its tip is at the cavoatrial junction. The wire and sheath were removed, and the catheter secured in place, and a sterile dressing was applied. Catheter was found to flush and aspirate normally. No immediate complications are identified. FLUORO TIME: 0.3 MIN DOSE AREA PRODUCT: 2 Gycm2 Impression: Ultrasound and fluoroscopically guided placement of a right upper extremity PICC line.
--- NOTE | 2020-01-07 16:14 | NUR ---
WOUND CARE: Pt approved for home wound vac, but was planning to have all outpatient wound care performed in the clinic. Pt may DC to home during the holiday, and has not yet been assigned a home wound vac. Notified Dr. Szymanski that 2 RNs from the wound clinic will be rounding on Sunday (01/09/20), and that we will be able to change pt's vac at that time. If he discharges before Sunday the pt will need a written prescription for a wound vac dressing change in the ER as an outpatient on Sunday. Notified Schuyler RODRIGUEZ of these possibilities. If DC occurs prior to sunday, nursing will need to remove wound vac, picture and measure wound for discharge, and place a wet to dry dressing. Instruct patient to return to the ER on Sunday between 10am-2pm for a dressing change, provide patient with a written script to this effect. Maria De Jesus [facility] [employer] work notified.
[2020-01-07 19:20] VITALS: BP 113/54
[2020-01-07] MEDS: ATORVASTATIN CALCIUM 40 MG TABLET. PO SCH (21:25)
[2020-01-07] MEDS: INSULIN GLARGINE SYRINGE. SQ SCH (21:34)
[2020-01-07 23:09] VITALS: BP 102/63
[2020-01-08] MEDS: PIPERACILLIN/TAZOBACTAM 3.375 GM in IV NORMAL SALINE 50ML 50 ML IV SCH ×5 (00:24→17:18)
[2020-01-08 03:02] VITALS: BP 119/68
[2020-01-08] MEDS: IV NORMAL SALINE 1000ML BAG 1,000 ML IV SCH ×2 (05:32→16:19)
--- NOTE | 2020-01-08 05:34 | NUR ---
Labs drawn from right upper arm PICC. Patient voices he is pretty much non-compliant w/ managing his diabetes. Has a monitor and knows how to check his sugar. Doesn't eat right "since wiley ." Appears depressed and not interested. "Can't live forever."
[2020-01-08 05:47] LABS: BASO % 0 % (0-3); EOS # 0.3 x10^3/uL (0.0-0.7); EOS % 4 % (0-3); HEMATOCRIT 32.6 % (39.0-53.0); HEMOGLOBIN 11.1 g/dL (13.0-17.5); LYMPH % 16 % (24-48); MEAN CORPUSCULAR HEMOGLOBIN 30 pg (25-35); MEAN CORPUSCULAR HGB CONC 34 g/dL (31-37); MEAN CORPUSCULAR VOLUME 88 fL (79-100); MONO # 0.5 x10^3/uL (0.0-1.1); MONO % 8 % (0-9); NEUT # 4.5 x10^3/uL (1.8-7.7); NEUT % 72 % (31-73); PLATELET COUNT 186 x10^3/uL (140-400); RED CELL DISTRIBUTION WIDTH 14.4 % (11.5-14.5); WHITE BLOOD COUNT 6.3 x10^3/uL (4.0-11.0)
[2020-01-08 05:58] LABS: CALCIUM 8.4 mg/dL (8.5-10.1); CREATININE 1.1 mg/dL (0.7-1.3); GFR 67.8; POTASSIUM 3.8 mmol/L (3.5-5.1)
[2020-01-08 07:00] VITALS: BP 139/71
[2020-01-08] MEDS: MULTIVITAMIN with MINERAL TABLET. PO SCH (08:35)
[2020-01-08] MEDS: CLOPIDOGREL BISULFATE 75 MG TABLET PO SCH (08:36)
[2020-01-08] MEDS: GABAPENTIN 300 MG CAPSULE. PO SCH ×2 (08:36→20:22)
[2020-01-08] MEDS: ASCORBIC ACID 500 MG TABLET PO SCH (08:36)
[2020-01-08] MEDS: LACTOBACILLUS RHAMNOSUS GG 1 CAPSULE. PO SCH ×2 (08:36→20:22)
[2020-01-08] MEDS: ASPIRIN ENTERIC COATED 81 MG TABLET.DR. PO SCH (08:36)
[2020-01-08] MEDS: RANOLAZINE 500 MG TAB.ER.12H PO SCH ×2 (08:39→20:22)
[2020-01-08] MEDS: PANTOPRAZOLE 40 MG TABLET.DR. PO SCH (08:40)
[2020-01-08] MEDS: amLODIPine BESYLATE 10 MG TABLET PO SCH (08:40)
[2020-01-08] MEDS: METOPROLOL TART IMMED RELEASE 50 MG TABLET. PO SCH ×2 (08:41→20:23)
[2020-01-08] MEDS: LISINOPRIL 20 MG TABLET PO SCH (08:42)
[2020-01-08] MEDS: INSULIN LISPRO 300 UNITS/3 ML VIAL. SQ SCH ×6 (08:54→17:25)
--- NOTE | 2020-01-08 09:53 | PDOC ---
Infectious Disease Note Subjective: Subjective Patient without complaints Denies postoperative pain Denies fever, nausea, vomiting, shortness of breath, diarrhea, abdominal pain, rash Vital Signs: Vital Signs Vital Signs Date Time Temp Pulse Resp B/P (MAP) Pulse Ox O2 Delivery O2 Flow Rate FiO2 01/08/20 08:42 96 155/87 01/08/20 07:00 98.1 16 98 Room Air 98.1 Physical Exam: PHYSICAL EXAM GENERAL: Alert, oriented x 3 male lying in bed comfortably, in no acute distress. HEENT: Normocephalic, atraumatic, anicteric. No thrush. Oral mucosa moist. NECK: Supple, no JVD, no lymphadenopathy. LUNGS: Clear bilaterally. No wheezing. HEART: S1, S2. No gallops or murmurs. ABDOMEN: Soft, nontender, nondistended, no rebound, no guarding. EXTREMITIES: Right knee stump wound VAC in place left lower extremity edema present. Left lower foot dressing in place, dry, intact not taken down. DERMATOLOGIC: Warm, dry. No generalized rash. NEUROLOGIC: Alert and oriented x 3, grossly nonfocal. PSYCHIATRIC: Cooperative, appropriate to mood and affect. Medications: Inpatient Meds: Current Medications Medications (Trade) Dose Ordered Sig/Inna Start Time Stop Time Status Last Admin Dose Admin Amlodipine Besylate (Norvasc) 10 mg DAILY 01/03/20 16:30 01/08/20 08:40 10 MG Ascorbic Acid (Vitamin C) 500 mg DAILY 01/03/20 15:00 01/08/20 08:36 500 MG Aspirin (Ecotrin) 81 mg DAILY 01/03/20 15:00 01/08/20 08:36 81 MG Atorvastatin Calcium (Lipitor) 80 mg QHS 01/03/20 21:00 01/07/20 21:25 80 MG Ceftriaxone Sodium (Rocephin) 1 gm 1X ONCE 01/03/20 09:45 01/03/20 09:46 DC 01/03/20 10:26 1 GM Clopidogrel Bisulfate (Plavix) 75 mg DAILY 01/03/20 15:00 01/08/20 08:36 75 MG Daptomycin 480 mg/ Sodium Chloride 50 ml @ 100 mls/hr Q24H 01/07/20 15:00 01/07/20 15:25 100 MLS/HR Daptomycin 675 mg/ Sodium Chloride 50 ml @ 100 mls/hr Q24H 01/05/20 15:00 01/06/20 16:37 DC 01/06/20 15:24 100 MLS/HR Dexamethasone Sodium Phosphate (Decadron) 4 mg STK-MED ONCE 01/04/20 11:22 01/04/20 11:22 DC Dextrose (Dextrose 50%-Water Syringe) 12.5 gm PRN Q15MIN PRN 01/05/20 08:00 Fentanyl Citrate (Fentanyl 2ml Vial) 100 mcg STK-MED ONCE 01/04/20 11:23 01/04/20 11:24 DC Gabapentin (Neurontin) 300 mg BID 01/03/20 21:00 01/08/20 08:36 300 MG Hydromorphone HCl (Dilaudid) 0.5 mg PRN Q10MIN PRN 01/04/20 10:45 01/05/20 10:44 DC Insulin Glargine (Lantus Syringe) 30 unit QHS 01/03/20 21:00 01/07/20 21:34 15 UNIT Insulin Human Lispro (HumaLOG VIAL for OP,RR ONLY) 0-10 units PRN Q1HR PRN 01/04/20 10:30 01/04/20 20:00 DC 01/04/20 12:48 4 UNIT Insulin Human Lispro (HumaLOG) 20 units 1X ONCE 01/05/20 08:45 01/05/20 08:46 DC 01/05/20 08:43 20 UNITS Lactobacillus Rhamnosus (Culturelle) 1 cap BID 01/04/20 21:00 01/08/20 08:36 1 CAP Lidocaine HCl (Buffered Lidocaine 1%) 6 ml 1X ONCE 01/07/20 13:45 01/07/20 13:46 DC 01/07/20 13:45 3 ML Lidocaine HCl (Lidocaine Pf 2% Vial) 5 ml STK-MED ONCE 01/04/20 11:15 01/04/20 11:15 DC Lisinopril (Prinivil) 20 mg DAILY 01/03/20 15:00 01/08/20 08:42 20 MG Metoprolol Tartrate (Lopressor) 12.5 mg BID 01/03/20 21:00 01/08/20 08:41 12.5 MG Morphine Sulfate (Morphine Sulfate) 1 mg PRN Q10MIN PRN 01/04/20 10:45 01/04/20 17:24 DC Multivitamins (Thera M Plus) 1 tab DAILY 01/04/20 09:00 01/08/20 08:35 1 TAB Ondansetron HCl (Zofran) 4 mg STK-MED ONCE 01/04/20 11:22 01/04/20 11:23 DC Pantoprazole Sodium (Protonix) 40 mg DAILYAC 01/04/20 07:30 01/08/20 08:40 40 MG Phenylephrine HCl (PHENYLEPHRINE in 0.9% NACL PF) 1 mg STK-MED ONCE 01/04/20 11:58 01/04/20 11:58 DC Piperacillin Sod/ Tazobactam Sod 3.375 gm/Sodium Chloride 50 ml @ 100 mls/hr Q6HRS 01/03/20 18:00 01/08/20 05:32 100 MLS/HR Prochlorperazine Edisylate (Compazine) 5 mg PACU PRN PRN 01/04/20 10:45 01/04/20 20:00 DC Propofol (Diprivan) 200 mg STK-MED ONCE 01/04/20 11:15 01/04/20 11:15 DC Ranolazine (Ranexa) 500 mg BID 01/03/20 21:00 01/08/20 08:39 500 MG Ringer's Solution 1,000 ml @ 30 mls/hr Q24H 01/04/20 10:45 01/04/20 22:44 DC 01/04/20 11:03 30 MLS/HR Sevoflurane (Ultane) 60 ml STK-MED ONCE 01/04/20 11:58 01/04/20 11:58 DC Sodium Chloride 1,000 ml @ 100 mls/hr Q10H 01/05/20 17:30 01/08/20 05:32 100 MLS/HR Vancomycin HCl (Vanco Per Pharmacy) 1 each PRN DAILY PRN 01/04/20 21:00 01/05/20 13:47 DC 01/05/20 09:42 1 EACH Vancomycin HCl (Vancomycin Trough Level) 1 each 1X ONCE 01/05/20 22:00 01/05/20 13:47 DC Vancomycin HCl 2 gm/Sodium Chloride 500 ml @ 250 mls/hr Q12H 01/04/20 22:30 01/05/20 13:46 DC 01/05/20 10:41 250 MLS/HR Labs: Lab Laboratory Tests Test 01/07/20 11:04 01/07/20 16:20 01/07/20 21:03 01/08/20 05:30 Glucose (Fingerstick) 344 mg/dL (70-99) 133 mg/dL (70-99) 87 mg/dL (70-99) White Blood Count 6.3 x10^3/uL (4.0-11.0) Red Blood Count 3.70 x10^6/uL (4.30-5.70) Hemoglobin 11.1 g/dL (13.0-17.5) Hematocrit 32.6 % (39.0-53.0) Mean Corpuscular Volume 88 fL (79-100) Mean Corpuscular Hemoglobin 30 pg (25-35) Mean Corpuscular Hemoglobin Concent 34 g/dL (31-37) Red Cell Distribution Width 14.4 % (11.5-14.5) Platelet Count 186 x10^3/uL (140-400) Neutrophils (%) (Auto) 72 % (31-73) Lymphocytes (%) (Auto) 16 % (24-48) Monocytes (%) (Auto) 8 % (0-9) Eosinophils (%) (Auto) 4 % (0-3) Basophils (%) (Auto) 0 % (0-3) Neutrophils # (Auto) 4.5 x10^3/uL (1.8-7.7) Lymphocytes # (Auto) 1.0 x10^3/uL (1.0-4.8) Monocytes # (Auto) 0.5 x10^3/uL (0.0-1.1) Eosinophils # (Auto) 0.3 x10^3/uL (0.0-0.7) Basophils # (Auto) 0.0 x10^3/uL (0.0-0.2) Sodium Level 140 mmol/L (136-145) Potassium Level 3.8 mmol/L (3.5-5.1) Chloride Level 107 mmol/L (98-107) Carbon Dioxide Level 24 mmol/L (21-32) Anion Gap 9 (6-14) Blood Urea Nitrogen 18 mg/dL (8-26) Creatinine 1.1 mg/dL (0.7-1.3) Estimated GFR (Cockcroft-Gault) 67.8 Glucose Level 210 mg/dL (70-99) Calcium Level 8.4 mg/dL (8.5-10.1) Test 01/08/20 07:51 Glucose (Fingerstick) 249 mg/dL (70-99) Micro RUN DATE: 01/07/20 [facility] unrival LAB *LIVE* PAGE 1 RUN TIME: 1317 Specimen Inquiry PATIENT: GIRISH GRIFFINAXEL Ansari ACCT: [id number] LOC: [address] [place] [address] U: [id number] AGE/SX: 64/M ROOM: 430 RE01/03/[address]: ANNE-MARIE SOSA III, DO : 1955 BED: 1 DIS: STATUS: ADM IN TLOC: SPEC #: [id number] ADDY: 01/04/20-1158 STATUS: RES REQ #: [id number] RECD: 01/04/20-[address]: ANNE-MARIE SOSA III, DO SOURCE: KNEE ENTR: 01/04/20-[address]: RICARDO ESCALANTE MD [facility]: RIGHT YANGJUNI CARNES MD, JAROD J PA MONAHAN, TIMOTHY J MD ORDERED: ANAER/AEROB/GS COMMENTS: DEEP TISSUE, BELOW RT KNEE AMPUTATION STUMP Procedure Result GRAM STAIN Final Final NO ORGANISMS SEEN. SQUAMOUS EPI CELL:RARE PMN (WBCs):RARE Unless otherwise specified, Testing Performed by: [facility] [place] [address] For Inquires, the Physician may contact the Microbiology department at [phone] ANAEROBIC-AEROBIC CULTURE Preliminary Preliminary MIXED AEROBIC GENO on 01/06/20 at 1020 INCLUDING: FEW GRAM POSITIVE COCCI on 01/05/20 at 1204 FINAL ID= [STAPHYLOCOCCUS AUREUS] FINAL ID= [STAPHYLOCOCCUS LUGDUNENSIS] FEW GRAM POSITIVE RODS on 01/07/20 at 1313 FID [CORYNEBACTERIUM STRIATUM GRP] STAPHYLOCOCCUS AUREUS STAPHYLOCOCCUS LUGDUNENSIS CORYNEBACTERIUM STRIATUM GRP Unless otherwise specified, Testing Performed by: [facility] [place] [address] For Inquires, the Physician may contact the Microbiology department at [phone] Objective: Assessment: 1. Osteomyelitis of left second toe.Status post partial amputation of left second toe 2. 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 3.S/P irrigation and debridement of the bone of the right below-knee amputation stump. On 01/04/2020, cultures positive for Staph aureus and Staph lugdunensis. Corynebacterium latter likely contaminant 4. Peripheral vascular disease. 5. Diabetes. 6. Hypertension. 7. History of atherosclerotic heart disease. 8. History of right below-knee amputation for infected right lower extremity wounds. 9. Acute kidney injury.improved Plan: Plan of Care Continue daptomycin and Zosyn Modify treatment depending on further micro data Avoid vancomycin due to THERESA Follow up ID and ELISABETH of Staph aureus and Staph lugdunensis., Still pending Continue local wound care as directed. PICC line single-lumen Discussed with nephrology social worker yesterday D/W sister at bedside Discussed with nursing staff ANA YANG MD Jan 08, 2020 09:53
[2020-01-08 11:00] VITALS: BP 122/73
[2020-01-08] MEDS: DAPTOmycin (GENERIC) IVPB 480 MG in IV NORMAL SALINE 50ML 50 ML IV SCH (14:21)
[2020-01-08 15:00] VITALS: BP 124/78
--- NOTE | 2020-01-08 15:45 | PDOC ---
PROGRESS NOTES Date of Service: DATE: 01/08/20 TIME: 15:42 Chief Complaint Chief Complaint Toe pain- Osteomyelitis of left second toe Diabetes Severe peripheral vascular disease COPD CAD HTN Hyperlipidemia GERD Gout CABG Cardiac Stents History of Present Illness History of Present Illness 01/07/2020 Patient seen and examined. No acute vents overnight. Afebrile, without complaints. Blood cultures showed no growth after 3 days. Antibiotics per ID. Discussed with RN. Patient has a home wound VAC that does not show up until Sunday. His wound VAC will need to be changed here if he is still here on Sunday, or prescription written for emergency wound VAC change if he discharges before. 01/06/2020 Patient seen and examined. No acute events overnight. Afebrile. IV vancomycin discontinued, started on daptomycin and continue Zosyn, per ID. Will monitor kidney function and CK. 01/05/2020 Patient seen and examined at bedside. He is s/p partial amputation left second toe and irrigation debridement to bone of right below-knee amputation stump. Some episodes of hypoglycemia today, discussed with RN. Patient states he does not adhere to a diabetic diet. He worked with PT today. 01/04/2020 Pt seen and examined. DW RN and DW Pt's sister that was in room with him. Pt is in bed sitting up and is in pleasant mood. HISTORY OF PRESENT ILLNESS: The patient is a pleasant 64-year-old male who has severe peripheral vascular disease secondary to severe diabetes. He already has a right [id number] amputation and has persistent diabetic wounds. Now he has got a left second toe wound. It appears he has osteomyelitis. He has rated it at 7/10. He has associated weakness, it has been occurring for several weeks. I discussed the case with ER physician. We are going to admit the patient, give him IV antibiotics and consult Orthopedic Surgery. Vitals Vitals Vital Signs Date Time Temp Pulse Resp B/P (MAP) Pulse Ox O2 Delivery O2 Flow Rate FiO2 01/08/20 11:00 98.3 87 16 122/73 (89) 87 Room Air 98.3 Physical Exam Physical Exam GENERAL: Alert, oriented x 3 male lying in bed comfortably, in no acute distress. HEENT: Normocephalic, atraumatic, anicteric. No thrush. Oral mucosa moist. NECK: Supple, no JVD, no lymphadenopathy. LUNGS: Clear bilaterally. No wheezing. HEART: S1, S2. No gallops or murmurs. ABDOMEN: Soft, nontender, nondistended, no rebound, no guarding. EXTREMITIES: Right knee stump wound VAC in place left lower extremity edema present. Left lower foot dressing in place, dry, intact not taken down. DERMATOLOGIC: Warm, dry. No generalized rash. NEUROLOGIC: Alert and oriented x 3, grossly nonfocal. PSYCHIATRIC: Cooperative, appropriate to mood and affect. General: Alert, No acute distress Heart: Regular rate, Normal S1, Normal S2 Lungs: Clear Abdomen: Normal bowel sounds, Soft, No tenderness Extremities: No clubbing, No cyanosis, Other (Right BKA with wound VAC in place) Skin: No rashes, No breakdown Labs LABS Laboratory Tests Test 01/07/20 16:20 01/07/20 21:03 01/08/20 05:30 01/08/20 07:51 Glucose (Fingerstick) 133 mg/dL (70-99) 87 mg/dL (70-99) 249 mg/dL (70-99) White Blood Count 6.3 x10^3/uL (4.0-11.0) Red Blood Count 3.70 x10^6/uL (4.30-5.70) Hemoglobin 11.1 g/dL (13.0-17.5) Hematocrit 32.6 % (39.0-53.0) Mean Corpuscular Volume 88 fL (79-100) Mean Corpuscular Hemoglobin 30 pg (25-35) Mean Corpuscular Hemoglobin Concent 34 g/dL (31-37) Red Cell Distribution Width 14.4 % (11.5-14.5) Platelet Count 186 x10^3/uL (140-400) Neutrophils (%) (Auto) 72 % (31-73) Lymphocytes (%) (Auto) 16 % (24-48) Monocytes (%) (Auto) 8 % (0-9) Eosinophils (%) (Auto) 4 % (0-3) Basophils (%) (Auto) 0 % (0-3) Neutrophils # (Auto) 4.5 x10^3/uL (1.8-7.7) Lymphocytes # (Auto) 1.0 x10^3/uL (1.0-4.8) Monocytes # (Auto) 0.5 x10^3/uL (0.0-1.1) Eosinophils # (Auto) 0.3 x10^3/uL (0.0-0.7) Basophils # (Auto) 0.0 x10^3/uL (0.0-0.2) Sodium Level 140 mmol/L (136-145) Potassium Level 3.8 mmol/L (3.5-5.1) Chloride Level 107 mmol/L (98-107) Carbon Dioxide Level 24 mmol/L (21-32) Anion Gap 9 (6-14) Blood Urea Nitrogen 18 mg/dL (8-26) Creatinine 1.1 mg/dL (0.7-1.3) Estimated GFR (Cockcroft-Gault) 67.8 Glucose Level 210 mg/dL (70-99) Calcium Level 8.4 mg/dL (8.5-10.1) Test 01/08/20 11:01 Glucose (Fingerstick) 271 mg/dL (70-99) Assessment and Plan Assessmemt and Plan Problems Medical Problems: (1) Osteomyelitis of second toe of left foot Status: Acute Comment Review of Relevant I have reviewed the following items joana (where applicable) has been applied. Labs Laboratory Tests Test 01/06/20 16:35 01/06/20 21:22 01/07/20 06:45 01/07/20 07:04 Glucose (Fingerstick) 176 mg/dL (70-99) 123 mg/dL (70-99) 290 mg/dL (70-99) White Blood Count 7.2 x10^3/uL (4.0-11.0) Red Blood Count 3.90 x10^6/uL (4.30-5.70) Hemoglobin 11.8 g/dL (13.0-17.5) Hematocrit 34.7 % (39.0-53.0) Mean Corpuscular Volume 89 fL (79-100) Mean Corpuscular Hemoglobin 30 pg (25-35) Mean Corpuscular Hemoglobin Concent 34 g/dL (31-37) Red Cell Distribution Width 14.7 % (11.5-14.5) Platelet Count 192 x10^3/uL (140-400) Neutrophils (%) (Auto) 76 % (31-73) Lymphocytes (%) (Auto) 14 % (24-48) Monocytes (%) (Auto) 6 % (0-9) Eosinophils (%) (Auto) 4 % (0-3) Basophils (%) (Auto) 0 % (0-3) Neutrophils # (Auto) 5.5 x10^3/uL (1.8-7.7) Lymphocytes # (Auto) 1.0 x10^3/uL (1.0-4.8) Monocytes # (Auto) 0.4 x10^3/uL (0.0-1.1) Eosinophils # (Auto) 0.3 x10^3/uL (0.0-0.7) Basophils # (Auto) 0.0 x10^3/uL (0.0-0.2) Sodium Level 138 mmol/L (136-145) Potassium Level 3.9 mmol/L (3.5-5.1) Chloride Level 104 mmol/L (98-107) Carbon Dioxide Level 23 mmol/L (21-32) Anion Gap 11 (6-14) Blood Urea Nitrogen 26 mg/dL (8-26) Creatinine 1.4 mg/dL (0.7-1.3) Estimated GFR (Cockcroft-Gault) 51.4 Glucose Level 249 mg/dL (70-99) Calcium Level 8.2 mg/dL (8.5-10.1) Creatine Kinase 65 U/L (39-308) Test 01/07/20 11:04 01/07/20 16:20 01/07/20 21:03 01/08/20 05:30 Glucose (Fingerstick) 344 mg/dL (70-99) 133 mg/dL (70-99) 87 mg/dL (70-99) White Blood Count 6.3 x10^3/uL (4.0-11.0) Red Blood Count 3.70 x10^6/uL (4.30-5.70) Hemoglobin 11.1 g/dL (13.0-17.5) Hematocrit 32.6 % (39.0-53.0) Mean Corpuscular Volume 88 fL (79-100) Mean Corpuscular Hemoglobin 30 pg (25-35) Mean Corpuscular Hemoglobin Concent 34 g/dL (31-37) Red Cell Distribution Width 14.4 % (11.5-14.5) Platelet Count 186 x10^3/uL (140-400) Neutrophils (%) (Auto) 72 % (31-73) Lymphocytes (%) (Auto) 16 % (24-48) Monocytes (%) (Auto) 8 % (0-9) Eosinophils (%) (Auto) 4 % (0-3) Basophils (%) (Auto) 0 % (0-3) Neutrophils # (Auto) 4.5 x10^3/uL (1.8-7.7) Lymphocytes # (Auto) 1.0 x10^3/uL (1.0-4.8) Monocytes # (Auto) 0.5 x10^3/uL (0.0-1.1) Eosinophils # (Auto) 0.3 x10^3/uL (0.0-0.7) Basophils # (Auto) 0.0 x10^3/uL (0.0-0.2) Sodium Level 140 mmol/L (136-145) Potassium Level 3.8 mmol/L (3.5-5.1) Chloride Level 107 mmol/L (98-107) Carbon Dioxide Level 24 mmol/L (21-32) Anion Gap 9 (6-14) Blood Urea Nitrogen 18 mg/dL (8-26) Creatinine 1.1 mg/dL (0.7-1.3) Estimated GFR (Cockcroft-Gault) 67.8 Glucose Level 210 mg/dL (70-99) Calcium Level 8.4 mg/dL (8.5-10.1) Test 01/08/20 07:51 01/08/20 11:01 Glucose (Fingerstick) 249 mg/dL (70-99) 271 mg/dL (70-99) Laboratory Tests Test 01/07/20 16:20 01/07/20 21:03 01/08/20 05:30 01/08/20 07:51 Glucose (Fingerstick) 133 mg/dL (70-99) 87 mg/dL (70-99) 249 mg/dL (70-99) White Blood Count 6.3 x10^3/uL (4.0-11.0) Red Blood Count 3.70 x10^6/uL (4.30-5.70) Hemoglobin 11.1 g/dL (13.0-17.5) Hematocrit 32.6 % (39.0-53.0) Mean Corpuscular Volume 88 fL (79-100) Mean Corpuscular Hemoglobin 30 pg (25-35) Mean Corpuscular Hemoglobin Concent 34 g/dL (31-37) Red Cell Distribution Width 14.4 % (11.5-14.5) Platelet Count 186 x10^3/uL (140-400) Neutrophils (%) (Auto) 72 % (31-73) Lymphocytes (%) (Auto) 16 % (24-48) Monocytes (%) (Auto) 8 % (0-9) Eosinophils (%) (Auto) 4 % (0-3) Basophils (%) (Auto) 0 % (0-3) Neutrophils # (Auto) 4.5 x10^3/uL (1.8-7.7) Lymphocytes # (Auto) 1.0 x10^3/uL (1.0-4.8) Monocytes # (Auto) 0.5 x10^3/uL (0.0-1.1) Eosinophils # (Auto) 0.3 x10^3/uL (0.0-0.7) Basophils # (Auto) 0.0 x10^3/uL (0.0-0.2) Sodium Level 140 mmol/L (136-145) Potassium Level 3.8 mmol/L (3.5-5.1) Chloride Level 107 mmol/L (98-107) Carbon Dioxide Level 24 mmol/L (21-32) Anion Gap 9 (6-14) Blood Urea Nitrogen 18 mg/dL (8-26) Creatinine 1.1 mg/dL (0.7-1.3) Estimated GFR (Cockcroft-Gault) 67.8 Glucose Level 210 mg/dL (70-99) Calcium Level 8.4 mg/dL (8.5-10.1) Test 01/08/20 11:01 Glucose (Fingerstick) 271 mg/dL (70-99) Microbiology 01/04/20 Gram Stain - Final, Resulted 01/04/20 Aerobic and Anaerobic Culture - Preliminary, Resulted 01/03/20 Blood Culture - Final, Complete NO GROWTH AFTER 5 DAYS Medications Current Medications Vancomycin HCl 2 gm/Sodium Chloride 500 ml @ 250 mls/hr 1X ONCE IV Last administered on 01/03/20at 10:26; Start 01/03/20 at 09:45; Stop 01/03/20 at 12:00; Status DC Ceftriaxone Sodium (Rocephin) 1 gm 1X ONCE IVP Last administered on 01/03/20at 10:26; Start 01/03/20 at 09:45; Stop 01/03/20 at 09:46; Status DC Ondansetron HCl (Zofran) 4 mg PRN Q8HRS PRN IV NAUSEA/VOMITING; Start 01/03/20 at 11:15; Stop 01/04/20 at 11:14; Status DC Ascorbic Acid (Vitamin C) 500 mg DAILY PO Last administered on 01/08/20 08:36; Start 01/03/20 at 15:00 Aspirin (Ecotrin) 81 mg DAILY PO Last administered on 01/08/20 08:36; Start 01/03/20 at 15:00 Clopidogrel Bisulfate (Plavix) 75 mg DAILY PO Last administered on 01/08/20 08:36; Start 01/03/20 at 15:00 Lisinopril (Prinivil) 20 mg DAILY PO Last administered on 01/08/20at 08:42; Start 01/03/20 at 15:00 Metoprolol Tartrate (Lopressor) 12.5 mg BID PO Last administered on 01/08/20 08:41; Start 01/03/20 at 21:00 Multivitamins (Thera M Plus) 1 tab DAILY PO Last administered on 01/08/20 08:35; Start 01/04/20 at 09:00 Ranolazine (Ranexa) 500 mg BID PO Last administered on 01/08/20at 08:39; Start 01/03/20 at 21:00 Gabapentin (Neurontin) 300 mg BID PO Last administered on 01/08/20 08:36; Start 01/03/20 at 21:00 Insulin Human Lispro (HumaLOG) 15 units TIDWMEALS SQ Last administered on 01/08/20 11:56; Start 01/03/20 at 17:00 Insulin Glargine (Lantus Syringe) 30 unit QHS SQ Last administered on 01/07/20 21:34; Start 01/03/20 at 21:00 Pantoprazole Sodium (Protonix) 40 mg DAILYAC PO Last administered on 01/08/20at 08:40; Start 01/04/20 at 07:30 Atorvastatin Calcium (Lipitor) 80 mg QHS PO Last administered on 01/07/20at 21:25; Start 01/03/20 at 21:00 Piperacillin Sod/ Tazobactam Sod 3.375 gm/Sodium Chloride 50 ml @ 100 mls/hr Q6HRS IV Last administered on 01/08/20at 11:49; Start 01/03/20 at 18:00 Amlodipine Besylate (Norvasc) 10 mg DAILY PO Last administered on 01/08/20at 08:40; Start 01/03/20 at 16:30 Insulin Human Lispro (HumaLOG VIAL for OP,RR ONLY) 0-10 units PRN Q1HR PRN SQ PER PROTOCOL Last administered on 01/04/20at 12:48; Start 01/04/20 at 10:30; Stop 01/04/20 at 20:00; Status DC Ondansetron HCl (Zofran) 4 mg PRN Q6HRS PRN IV NAUSEA/VOMITING; Start 01/04/20 at 10:45; Stop 01/04/20 at 20:00; Status DC Fentanyl Citrate (Fentanyl 2ml Vial) 25 mcg PRN Q5MIN PRN IV MILD PAIN 1-3; S tart 01/04/20 at 10:45; Stop 01/04/20 at 20:00; Status DC Fentanyl Citrate (Fentanyl 2ml Vial) 50 mcg PRN Q5MIN PRN IV MODERATE TO SEVERE PAIN; Start 01/04/20 at 10:45; Stop 01/04/20 at 20:00; Status DC Morphine Sulfate (Morphine Sulfate) 1 mg PRN Q10MIN PRN IV SEVERE PAIN 7-10; Start 01/04/20 at 10:45; Stop 01/04/20 at 17:24; Status DC Ringer's Solution 1,000 ml @ 30 mls/hr Q24H IV Last administered on 01/04/20at 11:03; Start 01/04/20 at 10:45; Stop 01/04/20 at 22:44; Status DC Hydromorphone HCl (Dilaudid) 0.5 mg PRN Q10MIN PRN IV SEV PAIN, Second choice; Start 01/04/20 at 10:45; Stop 01/05/20 at 10:44; Status DC Prochlorperazine Edisylate (Compazine) 5 mg PACU PRN PRN IV NAUSEA, MRX1; Start 01/04/20 at 10:45; Stop 01/04/20 at 20:00; Status DC Propofol (Diprivan) 200 mg STK-MED ONCE IV ; Start 01/04/20 at 11:15; Stop 01/04/20 at 11:15; Status DC Lidocaine HCl (Lidocaine Pf 2% Vial) 5 ml STK-MED ONCE .ROUTE ; Start 01/04/20 at 11:15; Stop 01/04/20 at 11:15; Status DC Dexamethasone Sodium Phosphate (Decadron) 4 mg STK-MED ONCE .ROUTE ; Start 01/04/20 at 11:22; Stop 01/04/20 at 11:22; Status DC Ondansetron HCl (Zofran) 4 mg STK-MED ONCE .ROUTE ; Start 01/04/20 at 11:22; Stop 01/04/20 at 11:23; Status DC Fentanyl Citrate (Fentanyl 2ml Vial) 100 mcg STK-MED ONCE .ROUTE ; Start 01/04/20 at 11:23; Stop 01/04/20 at 11:24; Status DC Vancomycin HCl 2 gm/Sodium Chloride 500 ml @ 250 mls/hr Q12H IV Last administered on 01/05/20at 10:41; Start 01/04/20 at 22:30; Stop 01/05/20 at 13 :46; Status DC Vancomycin HCl (Vancomycin Trough Level) 1 each 1X ONCE MC ; Start 01/05/20 at 22:00; Stop 01/05/20 at 13:47; Status DC Sevoflurane (Ultane) 60 ml STK-MED ONCE IH ; Start 01/04/20 at 11:58; Stop 01/04/20 at 11:58; Status DC Phenylephrine HCl (PHENYLEPHRINE in 0.9% NACL PF) 1 mg STK-MED ONCE IV ; Start 01/04/20 at 11:58; Stop 01/04/20 at 11:58; Status DC Lactobacillus Rhamnosus (Culturelle) 1 cap BID PO Last administered on 01/08/20at 08:36; Start 01/04/20 at 21:00 Vancomycin HCl (Vanco Per Pharmacy) 1 each PRN DAILY PRN MC SEE COMMENTS Last administered on 01/05/20at 09:42; Start 01/04/20 at 21:00; Stop 01/05/20 at 13:47; Status DC Insulin Human Lispro (HumaLOG) 20 units 1X SQ ; Start 01/05/20 at 08:00; Stop 01/05/20 at 08:41; Status DC Insulin Human Lispro (HumaLOG) 0-9 UNITS TIDWMEALS SQ Last administered on 01/08/20at 11:56; Start 01/05/20 at 12:00 Dextrose (Dextrose 50%-Water Syringe) 12.5 gm PRN Q15MIN PRN IV SEE COMMENTS; Start 01/05/20 at 08:00 Sodium Chloride 500 ml @ 500 mls/hr 1X ONCE IV Last administered on 01/05/20at 08:37; Start 01/05/20 at 08:00; Stop 01/05/20 at 08:59; Status DC Insulin Human Lispro (HumaLOG) 20 units 1X ONCE SQ Last administered on 01/05/20at 08:43; Start 01/05/20 at 08:45; Stop 01/05/20 at 08:46; Status DC Daptomycin 675 mg/ Sodium Chloride 50 ml @ 100 mls/hr Q24H IV Last administered on 01/06/20at 15:24; Start 01/05/20 at 15:00; Stop 01/06/20 at 16:37; Status DC Sodium Chloride 1,000 ml @ 100 mls/hr Q10H IV Last administered on 01/08/20at 05:32; Start 01/05/20 at 17:30 Daptomycin 480 mg/ Sodium Chloride 50 ml @ 100 mls/hr Q24H IV ; Start 01/06/20 at 16:37; Stop 01/06/20 at 16:38; Status DC Daptomycin 480 mg/ Sodium Chloride 50 ml @ 100 mls/hr Q24H IV Last administe red on 01/08/20at 14:21; Start 01/07/20 at 15:00 Lidocaine HCl (Buffered Lidocaine 1%) 3 ml STK-MED ONCE .ROUTE ; Start 01/07/20 at 13:35; Stop 01/07/20 at 13:35; Status DC Lidocaine HCl (Buffered Lidocaine 1%) 6 ml 1X ONCE INJ Last administered on 03/08/19at 13:45; Start 01/07/20 at 13:45; Stop 01/07/20 at 13:46; Status DC Active Scripts Active Vitamin C (Ascorbic Acid) 500 Mg Tablet 500 Mg PO DAILY MDD 1 Thera-M Tablet (Multivits,Ca,Minerals/Iron/Fa) 1 Each Tablet 1 Tab PO DAILY MDD 1 Reported Lantus Solostar (Insulin Glargine,Hum.rec.anlog) 100 Unit/1 Ml Insuln.pen 30 Unit SQ QHS Novolog (Insulin Aspart) 100 Unit/1 Ml Cartridge 15 Unit SQ TID Crestor (Rosuvastatin Calcium) 5 Mg Tablet 20 Mg PO HS Gabapentin 600 Mg Tablet 300 Mg PO BID Protonix (Pantoprazole Sodium) 20 Mg Tablet.dr 2 Tab PO DAILY Ranexa (Ranolazine) 500 Mg Tab.er.12h 1 Tab PO BID Clopidogrel (Clopidogrel Bisulfate) 75 Mg Tablet 1 Tab PO DAILY Metoprolol Tartrate 50 Mg Tablet 12.5 Mg PO BID NEXT DOSE: 01/19/15 PM Aspir 81 (Aspirin) 81 Mg Tablet.dr 81 Mg PO DAILY NEXT DOSE: 01/20/15 AM Lisinopril 40 Mg Tablet 20 Mg PO DAILY NEXT DOSE: 01/20/15 AM Vitals/I & O Vital Sign - Last 24 Hours 01/07/20 01/07/20 01/07/20 01/07/20 19:20 20:00 21:25 21:26 Temp 97.9 97.9 Pulse 86 86 86 Resp 18 B/P (MAP) 113/54 (73) 113/54 113/54 Pulse Ox 93 O2 Delivery Room Air Room Air 01/07/20 01/08/20 01/08/20 01/08/20 23:09 03:02 07:00 08:00 Temp 97.9 98.0 98.1 97.9 98.0 98.1 Pulse 85 92 93 Resp 18 18 16 B/P (MAP) 102/63 (76) 119/68 (85) 139/71 (93) Pulse Ox 92 93 98 O2 Delivery Room Air Room Air Room Air Room Air 01/08/20 01/08/20 01/08/20 01/08/20 08:39 08:40 08:41 08:42 Pulse 96 96 96 96 B/P (MAP) 155/87 155/87 155/87 155/87 01/08/20 11:00 Temp 98.3 98.3 Pulse 87 Resp 16 B/P (MAP) 122/73 (89) Pulse Ox 87 O2 Delivery Room Air Intake and Output 01/07/20 01/07/20 01/08/20 15:00 23:00 07:00 Intake Total 200 ml 100 ml 540 ml Balance 200 ml 100 ml 540 ml Justicifation of Admission Dx: Justifications for Admission: Justification of Admission Dx: Comment: (antibiotic therapy and wound vac care) JOSE ALBERTO MOSS MD Jan 08, 2020 15:45
[2020-01-08 19:00] VITALS: BP 126/80
[2020-01-08] MEDS: ATORVASTATIN CALCIUM 40 MG TABLET. PO SCH (20:23)
[2020-01-08] MEDS: INSULIN GLARGINE SYRINGE. SQ SCH (20:31)
[2020-01-08 23:00] VITALS: BP 126/81
[2020-01-09] MEDS: PIPERACILLIN/TAZOBACTAM 3.375 GM in IV NORMAL SALINE 50ML 50 ML IV SCH ×4 (00:04→17:16)
[2020-01-09] MEDS: IV NORMAL SALINE 1000ML BAG 1,000 ML IV SCH ×3 (02:37→21:59)
[2020-01-09 03:00] VITALS: BP 111/65
[2020-01-09] MEDS: PANTOPRAZOLE 40 MG TABLET.DR. PO SCH (06:20)
[2020-01-09 06:48] LABS: BASO % 0 % (0-3); EOS # 0.4 x10^3/uL (0.0-0.7); EOS % 6 % (0-3); HEMOGLOBIN 11.6 g/dL (13.0-17.5); LYMPH % 17 % (24-48); MEAN CORPUSCULAR HEMOGLOBIN 30 pg (25-35); MEAN CORPUSCULAR HGB CONC 34 g/dL (31-37); MEAN CORPUSCULAR VOLUME 89 fL (79-100); MONO # 0.4 x10^3/uL (0.0-1.1); MONO % 7 % (0-9); NEUT # 4.3 x10^3/uL (1.8-7.7); NEUT % 70 % (31-73); PLATELET COUNT 211 x10^3/uL (140-400); RED BLOOD COUNT 3.83 x10^6/uL (4.30-5.70); RED CELL DISTRIBUTION WIDTH 14.6 % (11.5-14.5); WHITE BLOOD COUNT 6.2 x10^3/uL (4.0-11.0)
[2020-01-09 07:00] VITALS: BP 149/86
[2020-01-09 07:14] LABS: CALCIUM 8.2 mg/dL (8.5-10.1); CREATININE 1.2 mg/dL (0.7-1.3); GFR 61.3; POTASSIUM 3.7 mmol/L (3.5-5.1)
[2020-01-09] MEDS: RANOLAZINE 500 MG TAB.ER.12H PO SCH ×2 (08:08→21:58)
[2020-01-09] MEDS: ASPIRIN ENTERIC COATED 81 MG TABLET.DR. PO SCH (08:08)
[2020-01-09] MEDS: MULTIVITAMIN with MINERAL TABLET. PO SCH (08:08)
[2020-01-09] MEDS: CLOPIDOGREL BISULFATE 75 MG TABLET PO SCH (08:08)
[2020-01-09] MEDS: ASCORBIC ACID 500 MG TABLET PO SCH (08:08)
[2020-01-09] MEDS: GABAPENTIN 300 MG CAPSULE. PO SCH ×2 (08:08→21:58)
[2020-01-09] MEDS: amLODIPine BESYLATE 10 MG TABLET PO SCH (08:08)
[2020-01-09] MEDS: LISINOPRIL 20 MG TABLET PO SCH (08:09)
[2020-01-09] MEDS: METOPROLOL TART IMMED RELEASE 50 MG TABLET. PO SCH ×2 (08:09→21:58)
[2020-01-09] MEDS: LACTOBACILLUS RHAMNOSUS GG 1 CAPSULE. PO SCH ×2 (08:09→21:58)
[2020-01-09] MEDS: INSULIN LISPRO 300 UNITS/3 ML VIAL. SQ SCH ×6 (08:16→17:21)
--- NOTE | 2020-01-09 09:55 | PDOC ---
Infectious Disease Note Subjective: Subjective Patient without complaints Denies postoperative pain Denies fever, nausea, vomiting, shortness of breath, diarrhea, abdominal pain, rash Vital Signs: Vital Signs Vital Signs Date Time Temp Pulse Resp B/P (MAP) Pulse Ox O2 Delivery O2 Flow Rate FiO2 01/09/20 08:09 94 149/86 01/09/20 07:00 97.6 18 96 Room Air 97.6 Physical Exam: PHYSICAL EXAM GENERAL: Alert, oriented x 3 male lying in bed comfortably, in no acute distress. HEENT: Normocephalic, atraumatic, anicteric. No thrush. Oral mucosa moist. NECK: Supple, no JVD, no lymphadenopathy. LUNGS: Clear bilaterally. No wheezing. HEART: S1, S2. No gallops or murmurs. ABDOMEN: Soft, nontender, nondistended, no rebound, no guarding. EXTREMITIES: Right knee stump wound VAC in place left lower extremity edema present. Left lower foot dressing in place, dry, intact not taken down. DERMATOLOGIC: Warm, dry. No generalized rash. NEUROLOGIC: Alert and oriented x 3, grossly nonfocal. PSYCHIATRIC: Cooperative, appropriate to mood and affect. PICC line looks clean Medications: Inpatient Meds: Current Medications Medications (Trade) Dose Ordered Sig/Inna Start Time Stop Time Status Last Admin Dose Admin Amlodipine Besylate (Norvasc) 10 mg DAILY 01/03/20 16:30 01/09/20 08:08 10 MG Ascorbic Acid (Vitamin C) 500 mg DAILY 01/03/20 15:00 01/09/20 08:08 500 MG Aspirin (Ecotrin) 81 mg DAILY 01/03/20 15:00 01/09/20 08:08 81 MG Atorvastatin Calcium (Lipitor) 80 mg QHS 01/03/20 21:00 01/08/20 20:23 80 MG Ceftriaxone Sodium (Rocephin) 1 gm 1X ONCE 01/03/20 09:45 01/03/20 09:46 DC 01/03/20 10:26 1 GM Clopidogrel Bisulfate (Plavix) 75 mg DAILY 01/03/20 15:00 01/09/20 08:08 75 MG Daptomycin 480 mg/ Sodium Chloride 50 ml @ 100 mls/hr Q24H 01/07/20 15:00 01/08/20 14:21 100 MLS/HR Daptomycin 675 mg/ Sodium Chloride 50 ml @ 100 mls/hr Q24H 01/05/20 15:00 01/06/20 16:37 DC 01/06/20 15:24 100 MLS/HR Dexamethasone Sodium Phosphate (Decadron) 4 mg STK-MED ONCE 01/04/20 11:22 01/04/20 11:22 DC Dextrose (Dextrose 50%-Water Syringe) 12.5 gm PRN Q15MIN PRN 01/05/20 08:00 Fentanyl Citrate (Fentanyl 2ml Vial) 100 mcg STK-MED ONCE 01/04/20 11:23 01/04/20 11:24 DC Gabapentin (Neurontin) 300 mg BID 01/03/20 21:00 01/09/20 08:08 300 MG Hydromorphone HCl (Dilaudid) 0.5 mg PRN Q10MIN PRN 01/04/20 10:45 01/05/20 10:44 DC Insulin Glargine (Lantus Syringe) 30 unit QHS 01/03/20 21:00 01/08/20 20:31 30 UNIT Insulin Human Lispro (HumaLOG VIAL for OP,RR ONLY) 0-10 units PRN Q1HR PRN 01/04/20 10:30 01/04/20 20:00 DC 01/04/20 12:48 4 UNIT Insulin Human Lispro (HumaLOG) 20 units 1X ONCE 01/05/20 08:45 01/05/20 08:46 DC 01/05/20 08:43 20 UNITS Lactobacillus Rhamnosus (Culturelle) 1 cap BID 01/04/20 21:00 01/09/20 08:09 1 CAP Lidocaine HCl (Buffered Lidocaine 1%) 6 ml 1X ONCE 01/07/20 13:45 01/07/20 13:46 DC 01/07/20 13:45 3 ML Lidocaine HCl (Lidocaine Pf 2% Vial) 5 ml STK-MED ONCE 01/04/20 11:15 01/04/20 11:15 DC Lisinopril (Prinivil) 20 mg DAILY 01/03/20 15:00 01/09/20 08:09 20 MG Metoprolol Tartrate (Lopressor) 12.5 mg BID 01/03/20 21:00 01/09/20 08:09 12.5 MG Morphine Sulfate (Morphine Sulfate) 1 mg PRN Q10MIN PRN 01/04/20 10:45 01/04/20 17:24 DC Multivitamins (Thera M Plus) 1 tab DAILY 01/04/20 09:00 01/09/20 08:08 1 TAB Ondansetron HCl (Zofran) 4 mg STK-MED ONCE 01/04/20 11:22 01/04/20 11:23 DC Pantoprazole Sodium (Protonix) 40 mg DAILYAC 01/04/20 07:30 01/09/20 06:20 40 MG Phenylephrine HCl (PHENYLEPHRINE in 0.9% NACL PF) 1 mg STK-MED ONCE 01/04/20 11:58 01/04/20 11:58 DC Piperacillin Sod/ Tazobactam Sod 3.375 gm/Sodium Chloride 50 ml @ 100 mls/hr Q6HRS 01/03/20 18:00 01/09/20 06:19 100 MLS/HR Prochlorperazine Edisylate (Compazine) 5 mg PACU PRN PRN 01/04/20 10:45 01/04/20 20:00 DC Propofol (Diprivan) 200 mg STK-MED ONCE 01/04/20 11:15 01/04/20 11:15 DC Ranolazine (Ranexa) 500 mg BID 01/03/20 21:00 01/09/20 08:08 500 MG Ringer's Solution 1,000 ml @ 30 mls/hr Q24H 01/04/20 10:45 01/04/20 22:44 DC 01/04/20 11:03 30 MLS/HR Sevoflurane (Ultane) 60 ml STK-MED ONCE 01/04/20 11:58 01/04/20 11:58 DC Sodium Chloride 1,000 ml @ 100 mls/hr Q10H 01/05/20 17:30 01/09/20 02:37 100 MLS/HR Vancomycin HCl (Vanco Per Pharmacy) 1 each PRN DAILY PRN 01/04/20 21:00 01/05/20 13:47 DC 01/05/20 09:42 1 EACH Vancomycin HCl (Vancomycin Trough Level) 1 each 1X ONCE 01/05/20 22:00 01/05/20 13:47 DC Vancomycin HCl 2 gm/Sodium Chloride 500 ml @ 250 mls/hr Q12H 01/04/20 22:30 01/05/20 13:46 DC 01/05/20 10:41 250 MLS/HR Labs: Lab Laboratory Tests Test 01/08/20 11:01 01/08/20 16:20 01/08/20 20:21 01/09/20 06:20 Glucose (Fingerstick) 271 mg/dL (70-99) 144 mg/dL (70-99) 183 mg/dL (70-99) White Blood Count 6.2 x10^3/uL (4.0-11.0) Red Blood Count 3.83 x10^6/uL (4.30-5.70) Hemoglobin 11.6 g/dL (13.0-17.5) Hematocrit 34.0 % (39.0-53.0) Mean Corpuscular Volume 89 fL (79-100) Mean Corpuscular Hemoglobin 30 pg (25-35) Mean Corpuscular Hemoglobin Concent 34 g/dL (31-37) Red Cell Distribution Width 14.6 % (11.5-14.5) Platelet Count 211 x10^3/uL (140-400) Neutrophils (%) (Auto) 70 % (31-73) Lymphocytes (%) (Auto) 17 % (24-48) Monocytes (%) (Auto) 7 % (0-9) Eosinophils (%) (Auto) 6 % (0-3) Basophils (%) (Auto) 0 % (0-3) Neutrophils # (Auto) 4.3 x10^3/uL (1.8-7.7) Lymphocytes # (Auto) 1.0 x10^3/uL (1.0-4.8) Monocytes # (Auto) 0.4 x10^3/uL (0.0-1.1) Eosinophils # (Auto) 0.4 x10^3/uL (0.0-0.7) Basophils # (Auto) 0.0 x10^3/uL (0.0-0.2) Sodium Level 140 mmol/L (136-145) Potassium Level 3.7 mmol/L (3.5-5.1) Chloride Level 106 mmol/L (98-107) Carbon Dioxide Level 23 mmol/L (21-32) Anion Gap 11 (6-14) Blood Urea Nitrogen 15 mg/dL (8-26) Creatinine 1.2 mg/dL (0.7-1.3) Estimated GFR (Cockcroft-Gault) 61.3 Glucose Level 233 mg/dL (70-99) Calcium Level 8.2 mg/dL (8.5-10.1) Test 01/09/20 07:30 Glucose (Fingerstick) 242 mg/dL (70-99) Micro RUN DATE: 01/07/20 [facility] *LIVE* PAGE 1 RUN TIME: 1317 Specimen Inquiry PATIENT: FACUNDO GRIFFIN Elan ACCT: [id number] LOC: [address] [place] [address] U: [id number] AGE/SX: 64/M ROOM: [facility] RE01/03/[address]: ANNE-MARIE OSSA III, DO : 1955 BED: 1 DIS: STATUS: ADM IN TLOC: SPEC #: [id number] ADDY: 01/04/20-1155 STATUS: RES REQ #: [id number] RECD: 01/04/[address]: ANNE-MARIE SOSA III DO SOURCE: KNEE ENTR: 01/04/[address]: RICARDO ESCALANTE MD [place]: YANGESTEFANÍA MD,JUNI LOCKETT,PAU RICK MD ORDERED: ANAER/AEROB/GS COMMENTS: DEEP TISSUE, BELOW RT KNEE AMPUTATION STUMP Procedure Result GRAM STAIN Final Final NO ORGANISMS SEEN. SQUAMOUS EPI CELL:RARE PMN (WBCs):RARE Unless otherwise specified, Testing Performed by: [address] [address] For Inquires, the Physician may contact the Microbiology department at [phone] ANAEROBIC-AEROBIC CULTURE Preliminary Preliminary MIXED AEROBIC GENO on 01/06/20 at 1020 INCLUDING: FEW GRAM POSITIVE COCCI on 01/05/20 at 1204 FINAL ID= [STAPHYLOCOCCUS AUREUS] FINAL ID= [STAPHYLOCOCCUS LUGDUNENSIS] FEW GRAM POSITIVE RODS on 01/07/20 at 1313 FID [CORYNEBACTERIUM STRIATUM GRP] STAPHYLOCOCCUS AUREUS STAPHYLOCOCCUS LUGDUNENSIS CORYNEBACTERIUM STRIATUM GRP Unless otherwise specified, Testing Performed by: [facility] [employer] [place] [address] For Inquires, the Physician may contact the Microbiology department at [phone] Objective: Assessment: 1. Osteomyelitis of left second toe.Status post partial amputation of left second toe 2. 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 S/P irrigation and debridement of the bone of the right below-knee amputation stump. 01/04/2020, cultures positive for Staph aureus MSSA per verbal report from micro lab and Staph lugdunensis, ELISABETH pending. Corynebacterium latter likely contaminant 4. Peripheral vascular disease. 5. Diabetes. 6. Hypertension. 7. History of atherosclerotic heart disease. 8. History of right below-knee amputation for infected right lower extremity wounds. 9. Acute kidney injury.improved Plan: Plan of Care Continue daptomycin and Zosyn for now pending ELISABETH of staph lugdunensis If staph lugdunensis is methicillin sensitive will de-escalate to cefazolin 2 g IV every 8hr If staph lugdunensis is methicillin-resistant will likely discharged on IV Dapto and Invanz Will modify treatment depending on further micro data Avoid vancomycin due to THERESA Follow up ID and ELISABETH of Staph aureus and Staph lugdunensis., Still pending Continue local wound care as directed. Discussed with nursing staff ANA YANG MD Jan 09, 2020 09:55
[2020-01-09 10:56] VITALS: BP 119/80
--- NOTE | 2020-01-09 11:55 | PDOC ---
[facility] PROGRESS NOTE Date of Service DOS: DATE: 01/09/20 TIME: 11:52 Chief Complaint Chief Complaint Toe pain- Osteomyelitis of left second toe Diabetes Severe peripheral vascular disease COPD CAD HTN Hyperlipidemia GERD Gout CABG Cardiac Stents History of Present Illness History of Present Illness 01/09/2020 Patient evaluated bedside. No acute events overnight. He denies any significant pain. Continue with IV antibiotic treatment per ID. 01/07/2020 Patient seen and examined. No acute vents overnight. Afebrile, without complaints. Blood cultures showed no growth after 3 days. Antibiotics per ID. Discussed with RN. Patient has a home wound VAC that does not show up until Sunday. His wound VAC will need to be changed here if he is still here on Sunday, or prescription written for emergency wound VAC change if he discharges before. 01/06/2020 Patient seen and examined. No acute events overnight. Afebrile. IV vancomycin discontinued, started on daptomycin and continue Zosyn, per ID. Will monitor kidney function and CK. 01/05/2020 Patient seen and examined at bedside. He is s/p partial amputation left second toe and irrigation debridement to bone of right below-knee amputation stump. Some episodes of hypoglycemia today, discussed with RN. Patient states he does not adhere to a diabetic diet. He worked with PT today. 01/04/2020 Pt seen and examined. MATTHEW RN and DW Pt's sister that was in room with him. Pt is in bed sitting up and is in pleasant mood. HISTORY OF PRESENT ILLNESS: The patient is a pleasant 64-year-old male who has severe peripheral vascular disease secondary to severe diabetes. He already has a right [id number] amputation and has persistent diabetic wounds. Now he has got a left second toe wound. It appears he has osteomyelitis. He has rated it at 7/10. He has associated weakness, it has been occurring for several weeks. I discussed the case with ER physician. We are going to admit the patient, give him IV antibiotics and consult Orthopedic Surgery. Vitals/I&O Vitals/I&O: Vital Signs Date Time Temp Pulse Resp B/P (MAP) Pulse Ox O2 Delivery O2 Flow Rate FiO2 01/09/20 10:56 97.5 90 18 119/80 (93) 96 Room Air 97.5 I & O 01/08/20 01/08/20 01/09/20 15:00 23:00 07:00 Intake Total 360 ml 2550 ml Output Total 0 ml Balance 360 ml 2550 ml Physical Exam Physical Exam: GENERAL: Alert, oriented x 3 male lying in bed comfortably, in no acute distress. HEENT: Normocephalic, atraumatic, anicteric. No thrush. Oral mucosa moist. NECK: Supple, no JVD, no lymphadenopathy. LUNGS: Clear bilaterally. No wheezing. HEART: S1, S2. No gallops or murmurs. ABDOMEN: Soft, nontender, nondistended, no rebound, no guarding. EXTREMITIES: Right knee stump wound VAC in place left lower extremity edema present. Left lower foot dressing in place, dry, intact not taken down. DERMATOLOGIC: Warm, dry. No generalized rash. NEUROLOGIC: Alert and oriented x 3, grossly nonfocal. PSYCHIATRIC: Cooperative, appropriate to mood and affect. PICC line looks clean General: Alert, No acute distress Heart: Regular rate, Normal S1, Normal S2 Lungs: Clear Abdomen: Normal bowel sounds, Soft, No tenderness Extremities: No clubbing, No cyanosis, Other (Right BKA with wound VAC in place) Skin: No rashes, No breakdown Labs Labs: Laboratory Tests Test 01/08/20 16:20 01/08/20 20:21 01/09/20 06:20 01/09/20 07:30 Glucose (Fingerstick) 144 mg/dL (70-99) 183 mg/dL (70-99) 242 mg/dL (70-99) White Blood Count 6.2 x10^3/uL (4.0-11.0) Red Blood Count 3.83 x10^6/uL (4.30-5.70) Hemoglobin 11.6 g/dL (13.0-17.5) Hematocrit 34.0 % (39.0-53.0) Mean Corpuscular Volume 89 fL (79-100) Mean Corpuscular Hemoglobin 30 pg (25-35) Mean Corpuscular Hemoglobin Concent 34 g/dL (31-37) Red Cell Distribution Width 14.6 % (11.5-14.5) Platelet Count 211 x10^3/uL (140-400) Neutrophils (%) (Auto) 70 % (31-73) Lymphocytes (%) (Auto) 17 % (24-48) Monocytes (%) (Auto) 7 % (0-9) Eosinophils (%) (Auto) 6 % (0-3) Basophils (%) (Auto) 0 % (0-3) Neutrophils # (Auto) 4.3 x10^3/uL (1.8-7.7) Lymphocytes # (Auto) 1.0 x10^3/uL (1.0-4.8) Monocytes # (Auto) 0.4 x10^3/uL (0.0-1.1) Eosinophils # (Auto) 0.4 x10^3/uL (0.0-0.7) Basophils # (Auto) 0.0 x10^3/uL (0.0-0.2) Sodium Level 140 mmol/L (136-145) Potassium Level 3.7 mmol/L (3.5-5.1) Chloride Level 106 mmol/L (98-107) Carbon Dioxide Level 23 mmol/L (21-32) Anion Gap 11 (6-14) Blood Urea Nitrogen 15 mg/dL (8-26) Creatinine 1.2 mg/dL (0.7-1.3) Estimated GFR (Cockcroft-Gault) 61.3 Glucose Level 233 mg/dL (70-99) Calcium Level 8.2 mg/dL (8.5-10.1) Test 01/09/20 11:14 Glucose (Fingerstick) 217 mg/dL (70-99) Review of Systems Review of Systems: Denies fever, denies nausea, denies chest pain. Assessment and Plan Assessmemt and Plan Problems Medical Problems: (1) Osteomyelitis of second toe of left foot Status: Acute Comment Review of Relevant I have reviewed the following items joana (where applicable) has been applied. Justifications for Admission Other Justification JOEL REAGAN MD Jan 09, 2020 11:55
[2020-01-09 15:00] VITALS: BP 123/72
[2020-01-09] MEDS: DAPTOmycin (GENERIC) IVPB 480 MG in IV NORMAL SALINE 50ML 50 ML IV SCH (15:15)
--- NOTE | 2020-01-09 17:04 | NUR ---
Wound Care Wound Type/Assessment: Follow up to change wound vac dressing to R BKA open surgical wound. Photographs taken in case pt discharges home over the weekend. This seems unlikely at this time d/t his sister requesting to set up home health, as she is his primary mode of transportation to the wound clinic for dressing changes, and she takes time off of work when she takes him to appointments. Home Vac assigned to pt, delivery contract signed, copy left for patient. Wound cleansed and measured (see detailed assessment). Karrie collagen applied to deepest area of wound base, one piece of black foam to wound bed, bridged to R medial knee. Good seal achieved. L 2nd toe amputation site still approximated with sutures, no drainage, Swelling and dusky red appearance unchanged from last assessment on Sunday. Painted with betadine and covered with dry gauze and kerlix. Treatment Recommendations/Plan: Wound vac dressing to remain in place until follow up with home health or in clinic. Change L toe dressing daily: betadine, 4x4, kerlix. Education provided: home vac troubleshooting, frequent position changes to prevent skin breakdown. Offloading surface/device: pillows for offloading and comfort. Recommended Referrals/Tests: Home health Discharge Recommendations for dressings: As above.
--- NOTE | 2020-01-09 18:06 | PATHOLOGY ---
[facility] Accession Number: [id number] . 01 Material submitted: . toe - LEFT 2ND TOE FOR GROSS ONLY. Modifiers: left, second . 01 Clinical history: . LEFT 2ND TOE OSTEOMYELITIS . 02 Diagnosis: Left second toe, partial amputation: - Ulceration of skin of distal tip of toe with acute cellulitis and focal acute osteomyelitis of distal phalangeal bone. . (JPM:mm; 01/09/2020) COUNT INCLUDES THE [facility] 01/09/2020 1555 Local . 02 Electronically signed: . Arian Donato MD, Pathologist NPI- [id number] . 01 Gross description: . The specimen is received in formalin, labeled "Joel Ga L second toe" and consists of a disarticulated toe measuring 2.0 x 2.1 x 1.6 cm. A thickened brown nail is present. The tip displays a 1.2 x 1.0 cm ulcerative lesion. The proximal bone margin is a smooth articular surface. It is longitudinally sectioned and entirely submitted in A1-A3 following decalcification. (SDY; 01/07/2020) SYU/SYU 01/07/2020 1123 Local . 02 Pathologist provided ICD-10: L97.529, L03.032, M86.172 . 02 CPT . 801840, 661495 Specimen Comment: A courtesy copy of this report has been sent to [phone], [phone] Specimen Comment: [id number] Specimen Comment: Report sent to / DR SALAZAR Performed at: [address], [place], [place] [id number] [address] MD Phone: [phone] Performed at: 02 [facility] [address] [place], [place] [id number] MD Arian Donato MD Phone: [phone]
[2020-01-09 19:00] VITALS: BP 132/77
[2020-01-09] MEDS: ATORVASTATIN CALCIUM 40 MG TABLET. PO SCH (21:58)
[2020-01-09] MEDS: INSULIN GLARGINE SYRINGE. SQ SCH (22:04)
[2020-01-09 22:51] VITALS: BP 124/71
[2020-01-10] MEDS: PIPERACILLIN/TAZOBACTAM 3.375 GM in IV NORMAL SALINE 50ML 50 ML IV SCH ×4 (00:14→18:03)
[2020-01-10 02:53] VITALS: BP 111/71
[2020-01-10] MEDS: PANTOPRAZOLE 40 MG TABLET.DR. PO SCH (06:02)
[2020-01-10 06:27] LABS: CALCIUM 8.2 mg/dL (8.5-10.1); GFR 75.7; POTASSIUM 3.9 mmol/L (3.5-5.1)
[2020-01-10 07:06] LABS: BASO % 0 % (0-3); EOS # 0.3 x10^3/uL (0.0-0.7); EOS % 5 % (0-3); HEMATOCRIT 33.1 % (39.0-53.0); HEMOGLOBIN 11.1 g/dL (13.0-17.5); LYMPH # 0.9 x10^3/uL (1.0-4.8); LYMPH % 17 % (24-48); MEAN CORPUSCULAR HEMOGLOBIN 30 pg (25-35); MEAN CORPUSCULAR HGB CONC 34 g/dL (31-37); MEAN CORPUSCULAR VOLUME 89 fL (79-100); MONO # 0.4 x10^3/uL (0.0-1.1); MONO % 8 % (0-9); NEUT # 3.8 x10^3/uL (1.8-7.7); NEUT % 70 % (31-73); PLATELET COUNT 200 x10^3/uL (140-400); RED BLOOD COUNT 3.72 x10^6/uL (4.30-5.70); RED CELL DISTRIBUTION WIDTH 14.6 % (11.5-14.5); WHITE BLOOD COUNT 5.4 x10^3/uL (4.0-11.0)
[2020-01-10] MEDS: IV NORMAL SALINE 1000ML BAG 1,000 ML IV SCH ×2 (07:30→18:02)
[2020-01-10 07:50] VITALS: BP 140/82
--- NOTE | 2020-01-10 08:48 | PDOC ---
Infectious Disease Note Subjective: Subjective Patient without complaints Denies postoperative pain Denies fever, nausea, vomiting, shortness of breath, diarrhea, abdominal pain, rash Vital Signs: Vital Signs Vital Signs Date Time Temp Pulse Resp B/P (MAP) Pulse Ox O2 Delivery O2 Flow Rate FiO2 01/10/20 07:50 97.7 98 20 140/82 (101) 96 Room Air 97.7 Physical Exam: PHYSICAL EXAM GENERAL: Alert, oriented x 3 male lying in bed comfortably, in no acute distress. HEENT: Normocephalic, atraumatic, anicteric. No thrush. Oral mucosa moist. NECK: Supple, no JVD, no lymphadenopathy. LUNGS: Clear bilaterally. No wheezing. HEART: S1, S2. No gallops or murmurs. ABDOMEN: Soft, nontender, nondistended, no rebound, no guarding. EXTREMITIES: Right knee stump wound VAC in place left lower extremity edema present. Left lower foot dressing in place, dry, intact not taken down. DERMATOLOGIC: Warm, dry. No generalized rash. NEUROLOGIC: Alert and oriented x 3, grossly nonfocal. PSYCHIATRIC: Cooperative, appropriate to mood and affect. PICC line looks clean Medications: Inpatient Meds: Current Medications Medications (Trade) Dose Ordered Sig/Inna Start Time Stop Time Status Last Admin Dose Admin Amlodipine Besylate (Norvasc) 10 mg DAILY 01/03/20 16:30 01/09/20 08:08 10 MG Ascorbic Acid (Vitamin C) 500 mg DAILY 01/03/20 15:00 01/09/20 08:08 500 MG Aspirin (Ecotrin) 81 mg DAILY 01/03/20 15:00 01/09/20 08:08 81 MG Atorvastatin Calcium (Lipitor) 80 mg QHS 01/03/20 21:00 01/09/20 21:58 80 MG Ceftriaxone Sodium (Rocephin) 1 gm 1X ONCE 01/03/20 09:45 01/03/20 09:46 DC 01/03/20 10:26 1 GM Clopidogrel Bisulfate (Plavix) 75 mg DAILY 01/03/20 15:00 01/09/20 08:08 75 MG Daptomycin 480 mg/ Sodium Chloride 50 ml @ 100 mls/hr Q24H 01/07/20 15:00 01/09/20 15:15 100 MLS/HR Daptomycin 675 mg/ Sodium Chloride 50 ml @ 100 mls/hr Q24H 01/05/20 15:00 01/06/20 16:37 DC 01/06/20 15:24 100 MLS/HR Dexamethasone Sodium Phosphate (Decadron) 4 mg STK-MED ONCE 01/04/20 11:22 01/04/20 11:22 DC Dextrose (Dextrose 50%-Water Syringe) 12.5 gm PRN Q15MIN PRN 01/05/20 08:00 Fentanyl Citrate (Fentanyl 2ml Vial) 100 mcg STK-MED ONCE 01/04/20 11:23 01/04/20 11:24 DC Gabapentin (Neurontin) 300 mg BID 01/03/20 21:00 01/09/20 21:58 300 MG Hydromorphone HCl (Dilaudid) 0.5 mg PRN Q10MIN PRN 01/04/20 10:45 01/05/20 10:44 DC Insulin Glargine (Lantus Syringe) 30 unit QHS 01/03/20 21:00 01/09/20 22:04 30 UNIT Insulin Human Lispro (HumaLOG VIAL for OP,RR ONLY) 0-10 units PRN Q1HR PRN 01/04/20 10:30 01/04/20 20:00 DC 01/04/20 12:48 4 UNIT Insulin Human Lispro (HumaLOG) 20 units 1X ONCE 01/05/20 08:45 01/05/20 08:46 DC 01/05/20 08:43 20 UNITS Lactobacillus Rhamnosus (Culturelle) 1 cap BID 01/04/20 21:00 01/09/20 21:58 1 CAP Lidocaine HCl (Buffered Lidocaine 1%) 6 ml 1X ONCE 01/07/20 13:45 01/07/20 13:46 DC 01/07/20 13:45 3 ML Lidocaine HCl (Lidocaine Pf 2% Vial) 5 ml STK-MED ONCE 01/04/20 11:15 01/04/20 11:15 DC Lisinopril (Prinivil) 20 mg DAILY 01/03/20 15:00 01/09/20 08:09 20 MG Metoprolol Tartrate (Lopressor) 12.5 mg BID 01/03/20 21:00 01/09/20 21:58 12.5 MG Morphine Sulfate (Morphine Sulfate) 1 mg PRN Q10MIN PRN 01/04/20 10:45 01/04/20 17:24 DC Multivitamins (Thera M Plus) 1 tab DAILY 01/04/20 09:00 01/09/20 08:08 1 TAB Ondansetron HCl (Zofran) 4 mg STK-MED ONCE 01/04/20 11:22 01/04/20 11:23 DC Pantoprazole Sodium (Protonix) 40 mg DAILYAC 01/04/20 07:30 01/10/20 06:02 40 MG Phenylephrine HCl (PHENYLEPHRINE in 0.9% NACL PF) 1 mg STK-MED ONCE 01/04/20 11:58 01/04/20 11:58 DC Piperacillin Sod/ Tazobactam Sod 3.375 gm/Sodium Chloride 50 ml @ 100 mls/hr Q6HRS 01/03/20 18:00 01/10/20 06:01 100 MLS/HR Prochlorperazine Edisylate (Compazine) 5 mg PACU PRN PRN 01/04/20 10:45 01/04/20 20:00 DC Propofol (Diprivan) 200 mg STK-MED ONCE 01/04/20 11:15 01/04/20 11:15 DC Ranolazine (Ranexa) 500 mg BID 01/03/20 21:00 01/09/20 21:58 500 MG Ringer's Solution 1,000 ml @ 30 mls/hr Q24H 01/04/20 10:45 01/04/20 22:44 DC 01/04/20 11:03 30 MLS/HR Sevoflurane (Ultane) 60 ml STK-MED ONCE 01/04/20 11:58 01/04/20 11:58 DC Sodium Chloride 1,000 ml @ 100 mls/hr Q10H 01/05/20 17:30 01/09/20 21:59 100 MLS/HR Vancomycin HCl (Vanco Per Pharmacy) 1 each PRN DAILY PRN 01/04/20 21:00 01/05/20 13:47 DC 01/05/20 09:42 1 EACH Vancomycin HCl (Vancomycin Trough Level) 1 each 1X ONCE 01/05/20 22:00 01/05/20 13:47 DC Vancomycin HCl 2 gm/Sodium Chloride 500 ml @ 250 mls/hr Q12H 01/04/20 22:30 01/05/20 13:46 DC 01/05/20 10:41 250 MLS/HR Labs: Lab Laboratory Tests Test 01/09/20 11:14 01/09/20 16:26 01/09/20 20:55 01/10/20 05:55 Glucose (Fingerstick) 217 mg/dL (70-99) 173 mg/dL (70-99) 73 mg/dL (70-99) White Blood Count 5.4 x10^3/uL (4.0-11.0) Red Blood Count 3.72 x10^6/uL (4.30-5.70) Hemoglobin 11.1 g/dL (13.0-17.5) Hematocrit 33.1 % (39.0-53.0) Mean Corpuscular Volume 89 fL (79-100) Mean Corpuscular Hemoglobin 30 pg (25-35) Mean Corpuscular Hemoglobin Concent 34 g/dL (31-37) Red Cell Distribution Width 14.6 % (11.5-14.5) Platelet Count 200 x10^3/uL (140-400) Neutrophils (%) (Auto) 70 % (31-73) Lymphocytes (%) (Auto) 17 % (24-48) Monocytes (%) (Auto) 8 % (0-9) Eosinophils (%) (Auto) 5 % (0-3) Basophils (%) (Auto) 0 % (0-3) Neutrophils # (Auto) 3.8 x10^3/uL (1.8-7.7) Lymphocytes # (Auto) 0.9 x10^3/uL (1.0-4.8) Monocytes # (Auto) 0.4 x10^3/uL (0.0-1.1) Eosinophils # (Auto) 0.3 x10^3/uL (0.0-0.7) Basophils # (Auto) 0.0 x10^3/uL (0.0-0.2) Sodium Level 140 mmol/L (136-145) Potassium Level 3.9 mmol/L (3.5-5.1) Chloride Level 107 mmol/L (98-107) Carbon Dioxide Level 24 mmol/L (21-32) Anion Gap 9 (6-14) Blood Urea Nitrogen 14 mg/dL (8-26) Creatinine 1.0 mg/dL (0.7-1.3) Estimated GFR (Cockcroft-Gault) 75.7 Glucose Level 208 mg/dL (70-99) Calcium Level 8.2 mg/dL (8.5-10.1) Test 01/10/20 07:20 Glucose (Fingerstick) 241 mg/dL (70-99) Micro RUN DATE: 01/07/20 [facility] *LIVE* PAGE 1 RUN TIME: 1317 Specimen Inquiry PATIENT: GIRISH GRIFFINAXEL Ansari ACCT: [id number] LOC: [address] [place] [address] U: [id number] AGE/SX: 64/M ROOM: [facility] RE01/03/[address]: ANNE-MARIE SOSA III, DO : 1955 BED: 1 DIS: STATUS: ADM IN TLOC: SPEC #: [id number] ADDY: 01/04/20-1154 STATUS: RES REQ #: [id number] RECD: 01/04/20-[address]: ANNE-MARIE SOSA III, DO SOURCE: KNEE ENTR: 01/04/20-[address]: RICARDO ESCALANTE MD [facility]: RIGHT YANGJUNI CARNES MD, JAROD J PA MONAHAN, TIMOTHY J MD ORDERED: ANAER/AEROB/GS COMMENTS: DEEP TISSUE, BELOW RT KNEE AMPUTATION STUMP --------- --- Procedure Result GRAM STAIN Final Final NO ORGANISMS SEEN. SQUAMOUS EPI CELL:RARE PMN (WBCs):RARE Unless otherwise specified, Testing Performed by: [facility] [place] [address] For Inquires, the Physician may contact the Microbiology department at [phone] ANAEROBIC-AEROBIC CULTURE Preliminary Preliminary MIXED AEROBIC GENO on 01/06/20 at 1020 INCLUDING: FEW GRAM POSITIVE COCCI on 01/05/20 at 1204 FINAL ID= [STAPHYLOCOCCUS AUREUS] FINAL ID= [STAPHYLOCOCCUS LUGDUNENSIS] FEW GRAM POSITIVE RODS on 01/07/20 at 1313 FID [CORYNEBACTERIUM STRIATUM GRP] STAPHYLOCOCCUS AUREUS STAPHYLOCOCCUS LUGDUNENSIS CORYNEBACTERIUM STRIATUM GRP Unless otherwise specified, Testing Performed by: [facility] [place] [address] For Inquires, the Physician may contact the Microbiology department at [phone] Objective: Assessment: 1. Osteomyelitis of left second toe.Status post partial amputation of left second toe 2. 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 S/P irrigation and debridement of the bone of the right below-knee amputation stump. 01/04/2020, cultures positive for Staph aureus MSSA per verbal report from micro lab and Staph lugdunensis, ELISABETH pending. Corynebacterium latter likely contaminant 4. Peripheral vascular disease. 5. Diabetes. 6. Hypertension. 7. History of atherosclerotic heart disease. 8. History of right below-knee amputation for infected right lower extremity wounds. 9. Acute kidney injury.improved Plan: Plan of Care Avoid vancomycin due to THERESA pt can be discharged on IV Dapto and Invanz, first dose of Invanz before discharge here PICC coordinator of online programs and complications discussed Give first dose of Invanz here before discharge Side effects of antibiotics discussed Probiotics Prescription in chart Social work to assist with discharge antibiotics Q. Sunday labs CBC/BUN/creatinine/CPK/ESR/CRP. Fax results to [phone] Follow-up ID clinic in 2 weeks, call [phone] for appointment January [id number] Wound/VAC care per orthopedics Discussed with sister at bedside Discussed with nursing staff ANA YANG MD Jan 10, 2020 08:48
[2020-01-10] MEDS: LACTOBACILLUS RHAMNOSUS GG 1 CAPSULE. PO SCH ×2 (09:16→21:10)
[2020-01-10] MEDS: MULTIVITAMIN with MINERAL TABLET. PO SCH (09:16)
[2020-01-10] MEDS: GABAPENTIN 300 MG CAPSULE. PO SCH ×2 (09:16→21:11)
[2020-01-10] MEDS: CLOPIDOGREL BISULFATE 75 MG TABLET PO SCH (09:16)
[2020-01-10] MEDS: ASCORBIC ACID 500 MG TABLET PO SCH (09:16)
[2020-01-10] MEDS: RANOLAZINE 500 MG TAB.ER.12H PO SCH ×2 (09:17→21:10)
[2020-01-10] MEDS: METOPROLOL TART IMMED RELEASE 50 MG TABLET. PO SCH ×2 (09:19→21:11)
[2020-01-10] MEDS: ASPIRIN ENTERIC COATED 81 MG TABLET.DR. PO SCH (09:19)
[2020-01-10] MEDS: amLODIPine BESYLATE 10 MG TABLET PO SCH (09:19)
[2020-01-10] MEDS: LISINOPRIL 20 MG TABLET PO SCH (09:20)
[2020-01-10] MEDS: INSULIN LISPRO 300 UNITS/3 ML VIAL. SQ SCH ×6 (09:24→17:54)
[2020-01-10 11:59] VITALS: BP 135/84
[2020-01-10] MEDS: DAPTOmycin (GENERIC) IVPB 480 MG in IV NORMAL SALINE 50ML 50 ML IV SCH (15:23)
[2020-01-10 15:59] VITALS: BP 121/68
--- NOTE | 2020-01-10 18:02 | PDOC ---
GENERAL General: Patient examined chart reviewed today is hospital day 8 for this patient with complex lower extremity wounds secondary to peripheral vascular disease and longstanding diabetes. He is status post partial left second toe amputation for osteomyelitis and surgical debridement of soft tissue infection of his right below the knee amputation. He currently has a wound VAC in that location. We appreciate subspecialty support. Patient tells me he lives alone and wants to be certain to stay on track with the recommended plan on discharge. We will start again earlier in the morning and hopefully be able to get the ball rolling on getting home IV antibiotics as well as plan for the wound VAC administration on arrival at home. Appreciate social work support and have reviewed those notes from earlier this week all other systems reviewed and negative. Time spent today is 30 minutes with greater than 50% in counseling and coordination of care most of which in discussion with patient. Problems: (1) Peripheral vascular disease (2) Status post below knee amputation of right lower extremity (3) Leg wound, right (4) Osteomyelitis of second toe of left foot (5) Diabetes VITAL SIGNS Vital Signs/I&O: Vital Signs Date Time Temp Pulse Resp B/P (MAP) Pulse Ox O2 Delivery O2 Flow Rate FiO2 01/10/20 15:59 97.5 88 20 121/68 (85) 96 Room Air 97.5 01/10/20 08:00 10.0 I & O 01/09/20 01/09/20 01/10/20 15:00 23:00 07:00 Intake Total 2000 ml 500 ml Balance 2000 ml 500 ml Patient is in good spirits resting comfortably in bed. He tells me that he is okay to stay through the weekend if we need to to get all the proper steps in order. Denies any new specific constitutional symptoms. Pain is in good control. HEENT exam is unremarkable Neck is soft and supple no adenopathy or thyromegaly noted Chest is clear to auscultation Heart S1-S2 normal regular rate and rhythm no murmurs or gallops are noted Abdomen soft nontender nondistended no masses organomegaly noted Extremity exam is notable for a wound VAC in his right below the knee amputation surgical site. Left foot dressing is dry clean and intact. ALLERGIES Allergies: Allergies Coded Allergies Type Severity Reaction Last Updated Verified morphine Allergy Intermediate Hives, itching 01/04/20 Yes I S O L A T I O N *CONTACT* Allergy Unknown 01/04/20 Yes MEDS Medications: Current Medications Medications (Trade) Dose Ordered Sig/Inna Start Time Stop Time Status Last Admin Dose Admin Amlodipine Besylate (Norvasc) 10 mg DAILY 01/03/20 16:30 01/10/20 09:19 Ascorbic Acid (Vitamin C) 500 mg DAILY 01/03/20 15:00 01/10/20 09:16 Aspirin (Ecotrin) 81 mg DAILY 01/03/20 15:00 01/10/20 09:19 Atorvastatin Calcium (Lipitor) 80 mg QHS 01/03/20 21:00 01/09/20 21:58 Ceftriaxone Sodium (Rocephin) 1 gm 1X ONCE 01/03/20 09:45 01/03/20 09:46 DC 01/03/20 10:26 Clopidogrel Bisulfate (Plavix) 75 mg DAILY 01/03/20 15:00 01/10/20 09:16 Daptomycin 480 mg/ Sodium Chloride 50 ml @ 100 mls/hr Q24H 01/07/20 15:00 01/10/20 15:23 Daptomycin 675 mg/ Sodium Chloride 50 ml @ 100 mls/hr Q24H 01/05/20 15:00 01/06/20 16:37 DC 01/06/20 15:24 Dexamethasone Sodium Phosphate (Decadron) 4 mg STK-MED ONCE 01/04/20 11:22 01/04/20 11:22 DC Dextrose (Dextrose 50%-Water Syringe) 12.5 gm PRN Q15MIN PRN 01/05/20 08:00 Fentanyl Citrate (Fentanyl 2ml Vial) 100 mcg STK-MED ONCE 01/04/20 11:23 01/04/20 11:24 DC Gabapentin (Neurontin) 300 mg BID 01/03/20 21:00 01/10/20 09:16 Hydromorphone HCl (Dilaudid) 0.5 mg PRN Q10MIN PRN 01/04/20 10:45 01/05/20 10:44 DC Insulin Glargine (Lantus Syringe) 30 unit QHS 01/03/20 21:00 01/09/20 22:04 Insulin Human Lispro (HumaLOG VIAL for OP,RR ONLY) 0-10 units PRN Q1HR PRN 01/04/20 10:30 11/22/20 20:00 DC 01/04/20 12:48 Insulin Human Lispro (HumaLOG) 20 units 1X ONCE 01/05/20 08:45 01/05/20 08:46 DC 01/05/20 08:43 Lactobacillus Rhamnosus (Culturelle) 1 cap BID 01/04/20 21:00 01/10/20 09:16 Lidocaine HCl (Buffered Lidocaine 1%) 6 ml 1X ONCE 01/07/20 13:45 01/07/20 13:46 DC 01/07/20 13:45 Lidocaine HCl (Lidocaine Pf 2% Vial) 5 ml STK-MED ONCE 01/04/20 11:15 01/04/20 11:15 DC Lisinopril (Prinivil) 20 mg DAILY 01/03/20 15:00 01/10/20 09:20 Metoprolol Tartrate (Lopressor) 12.5 mg BID 01/03/20 21:00 01/10/20 09:19 Morphine Sulfate (Morphine Sulfate) 1 mg PRN Q10MIN PRN 01/04/20 10:45 01/04/20 17:24 DC Multivitamins (Thera M Plus) 1 tab DAILY 01/04/20 09:00 01/10/20 09:16 Ondansetron HCl (Zofran) 4 mg STK-MED ONCE 01/04/20 11:22 01/04/20 11:23 DC Pantoprazole Sodium (Protonix) 40 mg DAILYAC 01/04/20 07:30 01/10/20 06:02 Phenylephrine HCl (PHENYLEPHRINE in 0.9% NACL PF) 1 mg STK-MED ONCE 01/04/20 11:58 01/04/20 11:58 DC Piperacillin Sod/ Tazobactam Sod 3.375 gm/Sodium Chloride 50 ml @ 100 mls/hr Q6HRS 01/03/20 18:00 01/10/20 12:34 Prochlorperazine Edisylate (Compazine) 5 mg PACU PRN PRN 01/04/20 10:45 01/04/20 20:00 DC Propofol (Diprivan) 200 mg STK-MED ONCE 01/04/20 11:15 01/04/20 11:15 DC Ranolazine (Ranexa) 500 mg BID 01/03/20 21:00 11/28/20 09:17 Ringer's Solution 1,000 ml @ 30 mls/hr Q24H 01/04/20 10:45 01/04/20 22:44 DC 01/04/20 11:03 Sevoflurane (Ultane) 60 ml STK-MED ONCE 01/04/20 11:58 01/04/20 11:58 DC Sodium Chloride 1,000 ml @ 100 mls/hr Q10H 01/05/20 17:30 01/09/20 21:59 Vancomycin HCl (Vanco Per Pharmacy) 1 each PRN DAILY PRN 01/04/20 21:00 01/05/20 13:47 DC 01/05/20 09:42 Vancomycin HCl (Vancomycin Trough Level) 1 each 1X ONCE 01/05/20 22:00 01/05/20 13:47 DC Vancomycin HCl 2 gm/Sodium Chloride 500 ml @ 250 mls/hr Q12H 01/04/20 22:30 01/05/20 13:46 DC 01/05/20 10:41 LAB Lab: Laboratory Tests Test 01/09/20 20:55 01/10/20 05:55 01/10/20 07:20 01/10/20 11:32 Glucose (Fingerstick) 73 mg/dL (70-99) 241 mg/dL (70-99) H 270 mg/dL (70-99) H White Blood Count 5.4 x10^3/uL (4.0-11.0) Red Blood Count 3.72 x10^6/uL (4.30-5.70) L Hemoglobin 11.1 g/dL (13.0-17.5) L Hematocrit 33.1 % (39.0-53.0) L Mean Corpuscular Volume 89 fL (79-100) Mean Corpuscular Hemoglobin 30 pg (25-35) Mean Corpuscular Hemoglobin Concent 34 g/dL (31-37) Red Cell Distribution Width 14.6 % (11.5-14.5) H Platelet Count 200 x10^3/uL (140-400) Neutrophils (%) (Auto) 70 % (31-73) Lymphocytes (%) (Auto) 17 % (24-48) L Monocytes (%) (Auto) 8 % (0-9) Eosinophils (%) (Auto) 5 % (0-3) H Basophils (%) (Auto) 0 % (0-3) Neutrophils # (Auto) 3.8 x10^3/uL (1.8-7.7) Lymphocytes # (Auto) 0.9 x10^3/uL (1.0-4.8) L Monocytes # (Auto) 0.4 x10^3/uL (0.0-1.1) Eosinophils # (Auto) 0.3 x10^3/uL (0.0-0.7) Basophils # (Auto) 0.0 x10^3/uL (0.0-0.2) Sodium Level 140 mmol/L (136-145) Potassium Level 3.9 mmol/L (3.5-5.1) Chloride Level 107 mmol/L (98-107) Carbon Dioxide Level 24 mmol/L (21-32) Anion Gap 9 (6-14) Blood Urea Nitrogen 14 mg/dL (8-26) Creatinine 1.0 mg/dL (0.7-1.3) Estimated GFR (Cockcroft-Gault) 75.7 Glucose Level 208 mg/dL (70-99) H Calcium Level 8.2 mg/dL (8.5-10.1) L Test 01/10/20 17:05 Glucose (Fingerstick) 110 mg/dL (70-99) H Laboratory Tests 01/10/20 05:55 Laboratory Tests 01/10/20 05:55 ASSESSMENT & PLAN A&P Plan as noted above This note was created using [employer] and may have omissions and/or errors due to the nature of real-time voice 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 Justifications for Admission Other Justification Problem Qualifiers (1) Leg wound, right: Encounter type: subsequent encounter Qualified Codes: S81.801D - Unspecified open wound, right lower leg, subsequent encounter (2) Diabetes: Diabetes mellitus type: other specified (including HARLAN) Diabetes mellitus retirement insulin use: unspecified retirement insulin use status Diabetes mellitus complication status: with other specified complication Qualified Codes: E13.69 - Other specified diabetes mellitus with other specified complication KIRILL CAMPBELL MD Jan 10, 2020 18:02
[2020-01-10 19:00] VITALS: BP 124/79
[2020-01-10] MEDS: ATORVASTATIN CALCIUM 40 MG TABLET. PO SCH (21:11)
[2020-01-10] MEDS: INSULIN GLARGINE SYRINGE. SQ SCH (21:19)
[2020-01-10 22:55] VITALS: BP 123/70
[2020-01-11] MEDS: PIPERACILLIN/TAZOBACTAM 3.375 GM in IV NORMAL SALINE 50ML 50 ML IV SCH ×4 (00:21→17:31)
[2020-01-11 03:00] VITALS: BP 121/79
[2020-01-11] MEDS: IV NORMAL SALINE 1000ML BAG 1,000 ML IV SCH ×3 (05:10→20:27)
[2020-01-11] MEDS: PANTOPRAZOLE 40 MG TABLET.DR. PO SCH (05:10)
[2020-01-11 05:44] LABS: BASO % 0 % (0-3); EOS # 0.3 x10^3/uL (0.0-0.7); EOS % 5 % (0-3); HEMATOCRIT 30.4 % (39.0-53.0); HEMOGLOBIN 10.3 g/dL (13.0-17.5); LYMPH % 20 % (24-48); MEAN CORPUSCULAR HEMOGLOBIN 30 pg (25-35); MEAN CORPUSCULAR HGB CONC 34 g/dL (31-37); MEAN CORPUSCULAR VOLUME 89 fL (79-100); MONO # 0.4 x10^3/uL (0.0-1.1); MONO % 7 % (0-9); NEUT # 3.3 x10^3/uL (1.8-7.7); NEUT % 67 % (31-73); PLATELET COUNT 206 x10^3/uL (140-400); RED BLOOD COUNT 3.42 x10^6/uL (4.30-5.70); RED CELL DISTRIBUTION WIDTH 14.9 % (11.5-14.5)
[2020-01-11 06:00] LABS: ALBUMIN 2.5 g/dL (3.4-5.0); ALBUMIN/GLOBULIN RATIO 0.8 (1.0-1.7); CREATININE 1.1 mg/dL (0.7-1.3); GFR 67.8; POTASSIUM 3.6 mmol/L (3.5-5.1); TOTAL BILIRUBIN 0.4 mg/dL (0.2-1.0); TOTAL PROTEIN 5.7 g/dL (6.4-8.2)
[2020-01-11 07:00] VITALS: BP 132/80
[2020-01-11] MEDS: MULTIVITAMIN with MINERAL TABLET. PO SCH (08:15)
[2020-01-11] MEDS: RANOLAZINE 500 MG TAB.ER.12H PO SCH ×2 (08:15→20:28)
[2020-01-11] MEDS: GABAPENTIN 300 MG CAPSULE. PO SCH ×2 (08:15→20:27)
[2020-01-11] MEDS: LISINOPRIL 20 MG TABLET PO SCH (08:16)
[2020-01-11] MEDS: ASCORBIC ACID 500 MG TABLET PO SCH (08:16)
[2020-01-11] MEDS: LACTOBACILLUS RHAMNOSUS GG 1 CAPSULE. PO SCH ×2 (08:16→20:28)
[2020-01-11] MEDS: CLOPIDOGREL BISULFATE 75 MG TABLET PO SCH (08:16)
[2020-01-11] MEDS: ASPIRIN ENTERIC COATED 81 MG TABLET.DR. PO SCH (08:16)
[2020-01-11] MEDS: METOPROLOL TART IMMED RELEASE 50 MG TABLET. PO SCH ×2 (08:16→20:29)
[2020-01-11] MEDS: amLODIPine BESYLATE 10 MG TABLET PO SCH (08:17)
[2020-01-11] MEDS: INSULIN LISPRO 300 UNITS/3 ML VIAL. SQ SCH ×6 (08:21→17:35)
[2020-01-11 10:30] VITALS: BP 149/95
--- NOTE | 2020-01-11 11:04 | PDOC ---
Infectious Disease Note Subjective: Subjective Patient without complaints Denies postoperative pain Denies fever, nausea, vomiting, shortness of breath, diarrhea, abdominal pain, rash Vital Signs: Vital Signs Vital Signs Date Time Temp Pulse Resp B/P (MAP) Pulse Ox O2 Delivery O2 Flow Rate FiO2 01/11/20 10:30 97.6 93 18 149/95 (113) 97 Room Air 97.6 01/10/20 08:00 10.0 Physical Exam: PHYSICAL EXAM GENERAL: Alert, oriented x 3 male lying in bed comfortably, in no acute distress. HEENT: Normocephalic, atraumatic, anicteric. No thrush. Oral mucosa moist. NECK: Supple, no JVD, no lymphadenopathy. LUNGS: Clear bilaterally. No wheezing. HEART: S1, S2. No gallops or murmurs. ABDOMEN: Soft, nontender, nondistended, no rebound, no guarding. EXTREMITIES: Right knee stump wound VAC in place left lower extremity edema present. Left lower foot dressing in place, dry, intact not taken down. DERMATOLOGIC: Warm, dry. No generalized rash. NEUROLOGIC: Alert and oriented x 3, grossly nonfocal. PSYCHIATRIC: Cooperative, appropriate to mood and affect. PICC line looks clean Medications: Inpatient Meds: Current Medications Medications (Trade) Dose Ordered Sig/Inna Start Time Stop Time Status Last Admin Dose Admin Amlodipine Besylate (Norvasc) 10 mg DAILY 01/03/20 16:30 01/11/20 08:17 10 MG Ascorbic Acid (Vitamin C) 500 mg DAILY 01/03/20 15:00 01/11/20 08:16 500 MG Aspirin (Ecotrin) 81 mg DAILY 01/03/20 15:00 01/11/20 08:16 81 MG Atorvastatin Calcium (Lipitor) 80 mg QHS 01/03/20 21:00 01/10/20 21:11 80 MG Ceftriaxone Sodium (Rocephin) 1 gm 1X ONCE 01/03/20 09:45 01/03/20 09:46 DC 01/03/20 10:26 1 GM Clopidogrel Bisulfate (Plavix) 75 mg DAILY 01/03/20 15:00 01/11/20 08:16 75 MG Daptomycin 480 mg/ Sodium Chloride 50 ml @ 100 mls/hr Q24H 01/07/20 15:00 01/10/20 15:23 100 MLS/HR Daptomycin 675 mg/ Sodium Chloride 50 ml @ 100 mls/hr Q24H 01/05/20 15:00 01/06/20 16:37 DC 01/06/20 15:24 100 MLS/HR Dexamethasone Sodium Phosphate (Decadron) 4 mg STK-MED ONCE 01/04/20 11:22 01/04/20 11:22 DC Dextrose (Dextrose 50%-Water Syringe) 12.5 gm PRN Q15MIN PRN 01/05/20 08:00 Fentanyl Citrate (Fentanyl 2ml Vial) 100 mcg STK-MED ONCE 01/04/20 11:23 01/04/20 11:24 DC Gabapentin (Neurontin) 300 mg BID 01/03/20 21:00 01/11/20 08:15 300 MG Hydromorphone HCl (Dilaudid) 0.5 mg PRN Q10MIN PRN 01/04/20 10:45 01/05/20 10:44 DC Insulin Glargine (Lantus Syringe) 30 unit QHS 01/03/20 21:00 01/10/20 21:19 30 UNIT Insulin Human Lispro (HumaLOG VIAL for OP,RR ONLY) 0-10 units PRN Q1HR PRN 01/04/20 10:30 01/04/20 20:00 DC 01/04/20 12:48 4 UNIT Insulin Human Lispro (HumaLOG) 20 units 1X ONCE 01/05/20 08:45 01/05/20 08:46 DC 01/05/20 08:43 20 UNITS Lactobacillus Rhamnosus (Culturelle) 1 cap BID 01/04/20 21:00 01/11/20 08:16 1 CAP Lidocaine HCl (Buffered Lidocaine 1%) 6 ml 1X ONCE 01/07/20 13:45 01/07/20 13:46 DC 01/07/20 13:45 3 ML Lidocaine HCl (Lidocaine Pf 2% Vial) 5 ml STK-MED ONCE 01/04/20 11:15 01/04/20 11:15 DC Lisinopril (Prinivil) 20 mg DAILY 01/03/20 15:00 01/11/20 08:16 20 MG Metoprolol Tartrate (Lopressor) 12.5 mg BID 01/03/20 21:00 01/11/20 08:16 12.5 MG Morphine Sulfate (Morphine Sulfate) 1 mg PRN Q10MIN PRN 01/04/20 10:45 01/04/20 17:24 DC Multivitamins (Thera M Plus) 1 tab DAILY 01/04/20 09:00 01/11/20 08:15 1 TAB Ondansetron HCl (Zofran) 4 mg STK-MED ONCE 01/04/20 11:22 01/04/20 11:23 DC Pantoprazole Sodium (Protonix) 40 mg DAILYAC 01/04/20 07:30 01/11/20 05:10 40 MG Phenylephrine HCl (PHENYLEPHRINE in 0.9% NACL PF) 1 mg STK-MED ONCE 01/04/20 11:58 01/04/20 11:58 DC Piperacillin Sod/ Tazobactam Sod 3.375 gm/Sodium Chloride 50 ml @ 100 mls/hr Q6HRS 01/03/20 18:00 01/11/20 05:10 100 MLS/HR Prochlorperazine Edisylate (Compazine) 5 mg PACU PRN PRN 01/04/20 10:45 01/04/20 20:00 DC Propofol (Diprivan) 200 mg STK-MED ONCE 01/04/20 11:15 01/04/20 11:15 DC Ranolazine (Ranexa) 500 mg BID 01/03/20 21:00 01/11/20 08:15 500 MG Ringer's Solution 1,000 ml @ 30 mls/hr Q24H 01/04/20 10:45 01/04/20 22:44 DC 01/04/20 11:03 30 MLS/HR Sevoflurane (Ultane) 60 ml STK-MED ONCE 01/04/20 11:58 01/04/20 11:58 DC Sodium Chloride 1,000 ml @ 100 mls/hr Q10H 01/05/20 17:30 01/11/20 05:10 100 MLS/HR Vancomycin HCl (Vanco Per Pharmacy) 1 each PRN DAILY PRN 01/04/20 21:00 01/05/20 13:47 DC 01/05/20 09:42 1 EACH Vancomycin HCl (Vancomycin Trough Level) 1 each 1X ONCE 01/05/20 22:00 01/05/20 13:47 DC Vancomycin HCl 2 gm/Sodium Chloride 500 ml @ 250 mls/hr Q12H 01/04/20 22:30 01/05/20 13:46 DC 01/05/20 10:41 250 MLS/HR Labs: Lab Laboratory Tests Test 01/10/20 11:32 01/10/20 17:05 01/10/20 20:41 01/11/20 05:15 Glucose (Fingerstick) 270 mg/dL (70-99) 110 mg/dL (70-99) 155 mg/dL (70-99) White Blood Count 5.0 x10^3/uL (4.0-11.0) Red Blood Count 3.42 x10^6/uL (4.30-5.70) Hemoglobin 10.3 g/dL (13.0-17.5) Hematocrit 30.4 % (39.0-53.0) Mean Corpuscular Volume 89 fL (79-100) Mean Corpuscular Hemoglobin 30 pg (25-35) Mean Corpuscular Hemoglobin Concent 34 g/dL (31-37) Red Cell Distribution Width 14.9 % (11.5-14.5) Platelet Count 206 x10^3/uL (140-400) Neutrophils (%) (Auto) 67 % (31-73) Lymphocytes (%) (Auto) 20 % (24-48) Monocytes (%) (Auto) 7 % (0-9) Eosinophils (%) (Auto) 5 % (0-3) Basophils (%) (Auto) 0 % (0-3) Neutrophils # (Auto) 3.3 x10^3/uL (1.8-7.7) Lymphocytes # (Auto) 1.0 x10^3/uL (1.0-4.8) Monocytes # (Auto) 0.4 x10^3/uL (0.0-1.1) Eosinophils # (Auto) 0.3 x10^3/uL (0.0-0.7) Basophils # (Auto) 0.0 x10^3/uL (0.0-0.2) Sodium Level 140 mmol/L (136-145) Potassium Level 3.6 mmol/L (3.5-5.1) Chloride Level 108 mmol/L (98-107) Carbon Dioxide Level 24 mmol/L (21-32) Anion Gap 8 (6-14) Blood Urea Nitrogen 16 mg/dL (8-26) Creatinine 1.1 mg/dL (0.7-1.3) Estimated GFR (Cockcroft-Gault) 67.8 BUN/Creatinine Ratio 15 (6-20) Glucose Level 193 mg/dL (70-99) Calcium Level 8.0 mg/dL (8.5-10.1) Total Bilirubin 0.4 mg/dL (0.2-1.0) Aspartate Amino Transf (AST/SGOT) 24 U/L (15-37) Alanine Aminotransferase (ALT/SGPT) 24 U/L (16-63) Alkaline Phosphatase 85 U/L (46-116) Total Protein 5.7 g/dL (6.4-8.2) Albumin 2.5 g/dL (3.4-5.0) Albumin/Globulin Ratio 0.8 (1.0-1.7) Test 01/11/20 07:56 Glucose (Fingerstick) 201 mg/dL (70-99) Micro RUN DATE: 01/07/20 [facility] LAB *LIVE* PAGE 1 RUN TIME: 1317 Specimen Inquiry PATIENT: FACUNDO GRIFFIN Elan ACCT: [id number] LOC: [address] [place] [address] U: [id number] AGE/SX: 64/M ROOM: [facility] RE01/03/[address]: ANNE-MARIE SOSA III DO : 1955 BED: 1 DIS: STATUS: ADM IN TLOC: SPEC #: [id number] ADDY: 01/04/20 STATUS: RES REQ #: [id number] RECD: 01/04/[address]: ANNE-MARIE SOSA III, DO SOURCE: KNEE ENTR: 01/04/[address]: [facility]ANTE [facility] ESTEFAN[facility]A MAXWELL MD,JACOBO MARINELLI TIMOTHY J MD ORDERED: ANAER/AEROB/GS COMMENTS: DEEP TISSUE, BELOW RT KNEE AMPUTATION STUMP Procedure Result GRAM STAIN Final Final NO ORGANISMS SEEN. SQUAMOUS EPI CELL:RARE PMN (WBCs):RARE Unless otherwise specified, Testing Performed by: [address] [address] For Inquires, the Physician may contact the Microbiology department at [phone] ANAEROBIC-AEROBIC CULTURE Preliminary Preliminary MIXED AEROBIC GENO on 01/06/20 at 1020 INCLUDING: FEW GRAM POSITIVE COCCI on 01/05/20 at 1204 FINAL ID= [STAPHYLOCOCCUS AUREUS] FINAL ID= [STAPHYLOCOCCUS LUGDUNENSIS] FEW GRAM POSITIVE RODS on 01/07/20 at 1313 FID [CORYNEBACTERIUM STRIATUM GRP] STAPHYLOCOCCUS AUREUS STAPHYLOCOCCUS LUGDUNENSIS CORYNEBACTERIUM STRIATUM GRP Unless otherwise specified, Testing Performed by: [facility] [address] [place] [address] For Inquires, the Physician may contact the Microbiology department at [phone] Objective: Assessment: 1. Osteomyelitis of left second toe.Status post partial amputation of left second toe 2. 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 S/P irrigation and debridement of the bone of the right below-knee amputation stump. 01/04/2020, cultures positive for Staph aureus MSSA per verbal report from micro lab and Staph lugdunensis, ELISABETH pending. Corynebacterium latter likely contaminant 4. Peripheral vascular disease. 5. Diabetes. 6. Hypertension. 7. History of atherosclerotic heart disease. 8. History of right below-knee amputation for infected right lower extremity wounds. 9. Acute kidney injury.improved Plan: Plan of Care Avoid vancomycin due to THERESA pt can be discharged on IV Dapto and Invanz, first dose of Invanz before discharge here PICC case preparer and liner and complications discussed Give first dose of Invanz here before discharge Side effects of antibiotics discussed Probiotics Prescription in chart Social work to assist with discharge antibiotics Q. Sunday labs CBC/BUN/creatinine/CPK/ESR/CRP. Fax results to [phone] Follow-up ID clinic in 2 weeks, call [phone] for appointment January [id number] Wound/VAC care per orthopedics Discussed with sister at bedside Discussed with nursing staff ANA YANG MD Jan 11, 2020 11:04
[2020-01-11 14:34] VITALS: BP 149/77
--- NOTE | 2020-01-11 14:34 | PDOC ---
GENERAL General: Patient examined chart reviewed I have discussed his case with case management and unfortunately we will not be able to coordinate the home health infusion services and home health wound nurse to meet him to reapply his wound VAC to the right lower extremity. Patient understands the situation and wants to get it right as well to avoid readmission. Apparently his sister will be integral and keeping him on track with intravenous medications and wound care. We will continue to work on this complex discharge tomorrow. Problems: (1) Peripheral vascular disease (2) Leg wound, right (3) Osteomyelitis of second toe of left foot (4) Diabetes VITAL SIGNS Vital Signs/I&O: Vital Signs Date Time Temp Pulse Resp B/P (MAP) Pulse Ox O2 Delivery O2 Flow Rate FiO2 01/11/20 10:30 97.6 93 18 149/95 (113) 97 Room Air 97.6 01/10/20 08:00 10.0 I & O 01/10/20 01/10/20 01/11/20 15:00 23:00 07:00 Intake Total 200 ml 200 ml 100 ml Balance 200 ml 200 ml 100 ml In general the patient is pleasant alert and oriented x3 no acute distress. He is in good spirits this afternoon Chest is clear to auscultation Heart S1-S2 normal regular rate and rhythm no murmurs or gallops are noted Extremity exam is unchanged from prior ALLERGIES Allergies: Allergies Coded Allergies Type Severity Reaction Last Updated Verified morphine Allergy Intermediate Hives, itching 01/04/20 Yes I S O L A T I O N *CONTACT* Allergy Unknown 01/04/20 Yes MEDS Medications: Current Medications Medications (Trade) Dose Ordered Sig/Inna Start Time Stop Time Status Last Admin Dose Admin Amlodipine Besylate (Norvasc) 10 mg DAILY 01/03/20 16:30 01/11/20 08:17 Ascorbic Acid (Vitamin C) 500 mg DAILY 01/03/20 15:00 01/11/20 08:16 Aspirin (Ecotrin) 81 mg DAILY 01/03/20 15:00 01/11/20 08:16 Atorvastatin Calcium (Lipitor) 80 mg QHS 01/03/20 21:00 01/10/20 21:11 Ceftriaxone Sodium (Rocephin) 1 gm 1X ONCE 01/03/20 09:45 01/03/20 09:46 DC 01/03/20 10:26 Clopidogrel Bisulfate (Plavix) 75 mg DAILY 01/03/20 15:00 01/11/20 08:16 Daptomycin 480 mg/ Sodium Chloride 50 ml @ 100 mls/hr Q24H 01/07/20 15:00 01/10/20 15:23 Daptomycin 675 mg/ Sodium Chloride 50 ml @ 100 mls/hr Q24H 01/05/20 15:00 01/06/20 16:37 DC 01/06/20 15:24 Dexamethasone Sodium Phosphate (Decadron) 4 mg STK-MED ONCE 01/04/20 11:22 01/04/20 11:22 DC Dextrose (Dextrose 50%-Water Syringe) 12.5 gm PRN Q15MIN PRN 01/05/20 08:00 Fentanyl Citrate (Fentanyl 2ml Vial) 100 mcg STK-MED ONCE 01/04/20 11:23 01/04/20 11:24 DC Gabapentin (Neurontin) 300 mg BID 01/03/20 21:00 01/11/20 08:15 Hydromorphone HCl (Dilaudid) 0.5 mg PRN Q10MIN PRN 01/04/20 10:45 01/05/20 10:44 DC Insulin Glargine (Lantus Syringe) 30 unit QHS 01/03/20 21:00 01/10/20 21:19 Insulin Human Lispro (HumaLOG VIAL for OP,RR ONLY) 0-10 units PRN Q1HR PRN 01/04/20 10:30 01/04/20 20:00 DC 01/04/20 12:48 Insulin Human Lispro (HumaLOG) 20 units 1X ONCE 01/05/20 08:45 01/05/20 08:46 DC 01/05/20 08:43 Lactobacillus Rhamnosus (Culturelle) 1 cap BID 01/04/20 21:00 01/11/20 08:16 Lidocaine HCl (Buffered Lidocaine 1%) 6 ml 1X ONCE 01/07/20 13:45 01/07/20 13:46 DC 01/07/20 13:45 Lidocaine HCl (Lidocaine Pf 2% Vial) 5 ml STK-MED ONCE 01/04/20 11:15 01/04/20 11:15 DC Lisinopril (Prinivil) 20 mg DAILY 01/03/20 15:00 01/11/20 08:16 Metoprolol Tartrate (Lopressor) 12.5 mg BID 01/03/20 21:00 01/11/20 08:16 Morphine Sulfate (Morphine Sulfate) 1 mg PRN Q10MIN PRN 01/04/20 10:45 01/04/20 17:24 DC Multivitamins (Thera M Plus) 1 tab DAILY 01/04/20 09:00 01/11/20 08:15 Ondansetron HCl (Zofran) 4 mg STK-MED ONCE 01/04/20 11:22 01/04/20 11:23 DC Pantoprazole Sodium (Protonix) 40 mg DAILYAC 01/04/20 07:30 01/11/20 05:10 Phenylephrine HCl (PHENYLEPHRINE in 0.9% NACL PF) 1 mg STK-MED ONCE 01/04/20 11:58 01/04/20 11:58 DC Piperacillin Sod/ Tazobactam Sod 3.375 gm/Sodium Chloride 50 ml @ 100 mls/hr Q6HRS 01/03/20 18:00 01/11/20 12:20 Prochlorperazine Edisylate (Compazine) 5 mg PACU PRN PRN 01/04/20 10:45 01/04/20 20:00 DC Propofol (Diprivan) 200 mg STK-MED ONCE 01/04/20 11:15 01/04/20 11:15 DC Ranolazine (Ranexa) 500 mg BID 01/03/20 21:00 01/11/20 08:15 Ringer's Solution 1,000 ml @ 30 mls/hr Q24H 01/04/20 10:45 01/04/20 22:44 DC 01/04/20 11:03 Sevoflurane (Ultane) 60 ml STK-MED ONCE 01/04/20 11:58 01/04/20 11:58 DC Sodium Chloride 1,000 ml @ 100 mls/hr Q10H 01/05/20 17:30 01/11/20 05:10 Vancomycin HCl (Vanco Per Pharmacy) 1 each PRN DAILY PRN 01/04/20 21:00 01/05/20 13:47 DC 01/05/20 09:42 Vancomycin HCl (Vancomycin Trough Level) 1 each 1X ONCE 01/05/20 22:00 01/05/20 13:47 DC Vancomycin HCl 2 gm/Sodium Chloride 500 ml @ 250 mls/hr Q12H 01/04/20 22:30 01/05/20 13:46 DC 01/05/20 10:41 LAB Lab: Laboratory Tests Test 01/10/20 17:05 01/10/20 20:41 01/11/20 05:15 01/11/20 07:56 Glucose (Fingerstick) 110 mg/dL (70-99) H 155 mg/dL (70-99) H 201 mg/dL (70-99) H White Blood Count 5.0 x10^3/uL (4.0-11.0) Red Blood Count 3.42 x10^6/uL (4.30-5.70) L Hemoglobin 10.3 g/dL (13.0-17.5) L Hematocrit 30.4 % (39.0-53.0) L Mean Corpuscular Volume 89 fL (79-100) Mean Corpuscular Hemoglobin 30 pg (25-35) Mean Corpuscular Hemoglobin Concent 34 g/dL (31-37) Red Cell Distribution Width 14.9 % (11.5-14.5) H Platelet Count 206 x10^3/uL (140-400) Neutrophils (%) (Auto) 67 % (31-73) Lymphocytes (%) (Auto) 20 % (24-48) L Monocytes (%) (Auto) 7 % (0-9) Eosinophils (%) (Auto) 5 % (0-3) H Basophils (%) (Auto) 0 % (0-3) Neutrophils # (Auto) 3.3 x10^3/uL (1.8-7.7) Lymphocytes # (Auto) 1.0 x10^3/uL (1.0-4.8) Monocytes # (Auto) 0.4 x10^3/uL (0.0-1.1) Eosinophils # (Auto) 0.3 x10^3/uL (0.0-0.7) Basophils # (Auto) 0.0 x10^3/uL (0.0-0.2) Sodium Level 140 mmol/L (136-145) Potassium Level 3.6 mmol/L (3.5-5.1) Chloride Level 108 mmol/L (98-107) H Carbon Dioxide Level 24 mmol/L (21-32) Anion Gap 8 (6-14) Blood Urea Nitrogen 16 mg/dL (8-26) Creatinine 1.1 mg/dL (0.7-1.3) Estimated GFR (Cockcroft-Gault) 67.8 BUN/Creatinine Ratio 15 (6-20) Glucose Level 193 mg/dL (70-99) H Calcium Level 8.0 mg/dL (8.5-10.1) L Total Bilirubin 0.4 mg/dL (0.2-1.0) Aspartate Amino Transferase (AST) 24 U/L (15-37) Alanine Aminotransferase (ALT) 24 U/L (16-63) Alkaline Phosphatase 85 U/L (46-116) Total Protein 5.7 g/dL (6.4-8.2) L Albumin 2.5 g/dL (3.4-5.0) L Albumin/Globulin Ratio 0.8 (1.0-1.7) L Test 01/11/20 11:48 Glucose (Fingerstick) 247 mg/dL (70-99) H Laboratory Tests 01/11/20 05:15 Laboratory Tests 01/11/20 05:15 ASSESSMENT & PLAN A&P Plan as noted above This note was created using [employer] and may have omissions and/or errors due to the nature of real-time voice senior grant writer. Justifications for Admission Other Justification Problem Qualifiers (1) Leg wound, right: Encounter type: subsequent encounter Qualified Codes: S81.801D - Unspecified open wound, right lower leg, subsequent encounter (2) Diabetes: Diabetes mellitus type: other specified (including HARLAN) Diabetes mellitus skilled nursing insulin use: unspecified skilled nursing insulin use status Diabetes mellitus complication status: with other specified complication Qualified Codes: E13.69 - Other specified diabetes mellitus with other specified complication KIRILL CAMPBELL MD Jan 11, 2020 14:34
[2020-01-11] MEDS: DAPTOmycin (GENERIC) IVPB 480 MG in IV NORMAL SALINE 50ML 50 ML IV SCH (15:11)
[2020-01-11 19:00] VITALS: BP 133/72
[2020-01-11] MEDS: ATORVASTATIN CALCIUM 40 MG TABLET. PO SCH (20:27)
[2020-01-11] MEDS: INSULIN GLARGINE SYRINGE. SQ SCH (21:16)
[2020-01-11 22:48] VITALS: BP 116/65
[2020-01-12] MEDS: PIPERACILLIN/TAZOBACTAM 3.375 GM in IV NORMAL SALINE 50ML 50 ML IV SCH ×3 (00:19→11:57)
[2020-01-12 02:57] VITALS: BP 106/70
[2020-01-12] MEDS: PANTOPRAZOLE 40 MG TABLET.DR. PO SCH (05:09)
[2020-01-12 05:56] LABS: ALBUMIN 2.7 g/dL (3.4-5.0); ALBUMIN/GLOBULIN RATIO 0.8 (1.0-1.7); CALCIUM 8.3 mg/dL (8.5-10.1); CREATININE 1.2 mg/dL (0.7-1.3); GFR 61.3; POTASSIUM 3.3 mmol/L (3.5-5.1); TOTAL BILIRUBIN 0.4 mg/dL (0.2-1.0)
[2020-01-12 06:58] LABS: BASO % 0 % (0-3); EOS # 0.3 x10^3/uL (0.0-0.7); EOS % 6 % (0-3); HEMATOCRIT 31.2 % (39.0-53.0); HEMOGLOBIN 10.7 g/dL (13.0-17.5); LYMPH % 22 % (24-48); MEAN CORPUSCULAR HEMOGLOBIN 30 pg (25-35); MEAN CORPUSCULAR HGB CONC 34 g/dL (31-37); MEAN CORPUSCULAR VOLUME 88 fL (79-100); MONO # 0.4 x10^3/uL (0.0-1.1); MONO % 8 % (0-9); NEUT # 3.1 x10^3/uL (1.8-7.7); NEUT % 64 % (31-73); PLATELET COUNT 236 x10^3/uL (140-400); RED BLOOD COUNT 3.53 x10^6/uL (4.30-5.70); RED CELL DISTRIBUTION WIDTH 14.9 % (11.5-14.5); WHITE BLOOD COUNT 4.8 x10^3/uL (4.0-11.0)
[2020-01-12 07:00] VITALS: BP 129/76
[2020-01-12] MEDS: INSULIN LISPRO 300 UNITS/3 ML VIAL. SQ SCH ×6 (08:00→17:20)
[2020-01-12] MEDS: ASCORBIC ACID 500 MG TABLET PO SCH (08:43)
[2020-01-12] MEDS: RANOLAZINE 500 MG TAB.ER.12H PO SCH (08:43)
[2020-01-12] MEDS: CLOPIDOGREL BISULFATE 75 MG TABLET PO SCH (08:44)
[2020-01-12] MEDS: METOPROLOL TART IMMED RELEASE 50 MG TABLET. PO SCH (08:44)
[2020-01-12] MEDS: LISINOPRIL 20 MG TABLET PO SCH (08:44)
[2020-01-12] MEDS: MULTIVITAMIN with MINERAL TABLET. PO SCH (08:44)
[2020-01-12] MEDS: amLODIPine BESYLATE 10 MG TABLET PO SCH (08:44)
[2020-01-12] MEDS: LACTOBACILLUS RHAMNOSUS GG 1 CAPSULE. PO SCH (08:44)
[2020-01-12] MEDS: GABAPENTIN 300 MG CAPSULE. PO SCH (08:44)
[2020-01-12] MEDS: ASPIRIN ENTERIC COATED 81 MG TABLET.DR. PO SCH (08:44)
[2020-01-12] MEDS: IV NORMAL SALINE 1000ML BAG 1,000 ML IV SCH (08:50)
--- NOTE | 2020-01-12 09:38 | PDOC ---
Infectious Disease Note Subjective: Subjective Patient without complaints Denies postoperative pain Denies fever, nausea, vomiting, shortness of breath, diarrhea, abdominal pain, rash Vital Signs: Vital Signs Vital Signs Date Time Temp Pulse Resp B/P (MAP) Pulse Ox O2 Delivery O2 Flow Rate FiO2 01/12/20 08:44 78 129/76 01/12/20 07:00 97.5 18 95 Room Air 97.5 Physical Exam: PHYSICAL EXAM GENERAL: Alert, oriented x 3 male lying in bed comfortably, in no acute distress. HEENT: Normocephalic, atraumatic, anicteric. No thrush. Oral mucosa moist. NECK: Supple, no JVD, no lymphadenopathy. LUNGS: Clear bilaterally. No wheezing. HEART: S1, S2. No gallops or murmurs. ABDOMEN: Soft, nontender, nondistended, no rebound, no guarding. EXTREMITIES: Right knee stump wound VAC in place ,left lower extremity edema present. Left lower foot dressing in place, dry, intact ,taken down, sutures in place, no drainage, DERMATOLOGIC: Warm, dry. No generalized rash. NEUROLOGIC: Alert and oriented x 3, grossly nonfocal. PSYCHIATRIC: Cooperative, appropriate to mood and affect. PICC line looks clean Medications: Inpatient Meds: Current Medications Medications (Trade) Dose Ordered Sig/Inna Start Time Stop Time Status Last Admin Dose Admin Amlodipine Besylate (Norvasc) 10 mg DAILY 01/03/20 16:30 01/12/20 08:44 10 MG Ascorbic Acid (Vitamin C) 500 mg DAILY 01/03/20 15:00 01/12/20 08:43 500 MG Aspirin (Ecotrin) 81 mg DAILY 01/03/20 15:00 01/12/20 08:44 81 MG Atorvastatin Calcium (Lipitor) 80 mg QHS 01/03/20 21:00 01/11/20 20:27 80 MG Ceftriaxone Sodium (Rocephin) 1 gm 1X ONCE 01/03/20 09:45 01/03/20 09:46 DC 01/03/20 10:26 1 GM Clopidogrel Bisulfate (Plavix) 75 mg DAILY 01/03/20 15:00 01/12/20 08:44 75 MG Daptomycin 480 mg/ Sodium Chloride 50 ml @ 100 mls/hr Q24H 01/07/20 15:00 01/11/20 15:11 100 MLS/HR Daptomycin 675 mg/ Sodium Chloride 50 ml @ 100 mls/hr Q24H 01/05/20 15:00 01/06/20 16:37 DC 01/06/20 15:24 100 MLS/HR Dexamethasone Sodium Phosphate (Decadron) 4 mg STK-MED ONCE 01/04/20 11:22 01/04/20 11:22 DC Dextrose (Dextrose 50%-Water Syringe) 12.5 gm PRN Q15MIN PRN 01/05/20 08:00 Fentanyl Citrate (Fentanyl 2ml Vial) 100 mcg STK-MED ONCE 01/04/20 11:23 01/04/20 11:24 DC Gabapentin (Neurontin) 300 mg BID 01/03/20 21:00 01/12/20 08:44 300 MG Hydromorphone HCl (Dilaudid) 0.5 mg PRN Q10MIN PRN 01/04/20 10:45 01/05/20 10:44 DC Insulin Glargine (Lantus Syringe) 30 unit QHS 01/03/20 21:00 01/11/20 21:16 30 UNIT Insulin Human Lispro (HumaLOG VIAL for OP,RR ONLY) 0-10 units PRN Q1HR PRN 01/04/20 10:30 01/04/20 20:00 DC 01/04/20 12:48 4 UNIT Insulin Human Lispro (HumaLOG) 20 units 1X ONCE 01/05/20 08:45 01/05/20 08:46 DC 01/05/20 08:43 20 UNITS Lactobacillus Rhamnosus (Culturelle) 1 cap BID 01/04/20 21:00 01/12/20 08:44 1 CAP Lidocaine HCl (Buffered Lidocaine 1%) 6 ml 1X ONCE 01/07/20 13:45 01/07/20 13:46 DC 01/07/20 13:45 3 ML Lidocaine HCl (Lidocaine Pf 2% Vial) 5 ml STK-MED ONCE 01/04/20 11:15 01/04/20 11:15 DC Lisinopril (Prinivil) 20 mg DAILY 01/03/20 15:00 01/12/20 08:44 20 MG Metoprolol Tartrate (Lopressor) 12.5 mg BID 01/03/20 21:00 01/12/20 08:44 12.5 MG Morphine Sulfate (Morphine Sulfate) 1 mg PRN Q10MIN PRN 01/04/20 10:45 01/04/20 17:24 DC Multivitamins (Thera M Plus) 1 tab DAILY 01/04/20 09:00 01/12/20 08:44 1 TAB Ondansetron HCl (Zofran) 4 mg STK-MED ONCE 01/04/20 11:22 01/04/20 11:23 DC Pantoprazole Sodium (Protonix) 40 mg DAILYAC 01/04/20 07:30 01/12/20 05:09 40 MG Phenylephrine HCl (PHENYLEPHRINE in 0.9% NACL PF) 1 mg STK-MED ONCE 01/04/20 11:58 01/04/20 11:58 DC Piperacillin Sod/ Tazobactam Sod 3.375 gm/Sodium Chloride 50 ml @ 100 mls/hr Q6HRS 01/03/20 18:00 01/12/20 05:09 100 MLS/HR Prochlorperazine Edisylate (Compazine) 5 mg PACU PRN PRN 01/04/20 10:45 01/04/20 20:00 DC Propofol (Diprivan) 200 mg STK-MED ONCE 01/04/20 11:15 01/04/20 11:15 DC Ranolazine (Ranexa) 500 mg BID 01/03/20 21:00 01/12/20 08:43 500 MG Ringer's Solution 1,000 ml @ 30 mls/hr Q24H 01/04/20 10:45 01/04/20 22:44 DC 01/04/20 11:03 30 MLS/HR Sevoflurane (Ultane) 60 ml STK-MED ONCE 01/04/20 11:58 01/04/20 11:58 DC Sodium Chloride 1,000 ml @ 100 mls/hr Q10H 01/05/20 17:30 01/12/20 08:50 100 MLS/HR Vancomycin HCl (Vanco Per Pharmacy) 1 each PRN DAILY PRN 01/04/20 21:00 01/05/20 13:47 DC 01/05/20 09:42 1 EACH Vancomycin HCl (Vancomycin Trough Level) 1 each 1X ONCE 01/05/20 22:00 01/05/20 13:47 DC Vancomycin HCl 2 gm/Sodium Chloride 500 ml @ 250 mls/hr Q12H 01/04/20 22:30 01/05/20 13:46 DC 01/05/20 10:41 250 MLS/HR Labs: Lab Laboratory Tests Test 01/11/20 11:48 01/11/20 17:15 01/11/20 20:44 01/12/20 05:20 Glucose (Fingerstick) 247 mg/dL (70-99) 164 mg/dL (70-99) 70 mg/dL (70-99) White Blood Count 4.8 x10^3/uL (4.0-11.0) Red Blood Count 3.53 x10^6/uL (4.30-5.70) Hemoglobin 10.7 g/dL (13.0-17.5) Hematocrit 31.2 % (39.0-53.0) Mean Corpuscular Volume 88 fL (79-100) Mean Corpuscular Hemoglobin 30 pg (25-35) Mean Corpuscular Hemoglobin Concent 34 g/dL (31-37) Red Cell Distribution Width 14.9 % (11.5-14.5) Platelet Count 236 x10^3/uL (140-400) Neutrophils (%) (Auto) 64 % (31-73) Lymphocytes (%) (Auto) 22 % (24-48) Monocytes (%) (Auto) 8 % (0-9) Eosinophils (%) (Auto) 6 % (0-3) Basophils (%) (Auto) 0 % (0-3) Neutrophils # (Auto) 3.1 x10^3/uL (1.8-7.7) Lymphocytes # (Auto) 1.0 x10^3/uL (1.0-4.8) Monocytes # (Auto) 0.4 x10^3/uL (0.0-1.1) Eosinophils # (Auto) 0.3 x10^3/uL (0.0-0.7) Basophils # (Auto) 0.0 x10^3/uL (0.0-0.2) Sodium Level 143 mmol/L (136-145) Potassium Level 3.3 mmol/L (3.5-5.1) Chloride Level 109 mmol/L (98-107) Carbon Dioxide Level 27 mmol/L (21-32) Anion Gap 7 (6-14) Blood Urea Nitrogen 15 mg/dL (8-26) Creatinine 1.2 mg/dL (0.7-1.3) Estimated GFR (Cockcroft-Gault) 61.3 BUN/Creatinine Ratio 13 (6-20) Glucose Level 88 mg/dL (70-99) Calcium Level 8.3 mg/dL (8.5-10.1) Total Bilirubin 0.4 mg/dL (0.2-1.0) Aspartate Amino Transf (AST/SGOT) 26 U/L (15-37) Alanine Aminotransferase (ALT/SGPT) 28 U/L (16-63) Alkaline Phosphatase 99 U/L (46-116) Total Protein 6.0 g/dL (6.4-8.2) Albumin 2.7 g/dL (3.4-5.0) Albumin/Globulin Ratio 0.8 (1.0-1.7) Test 01/12/20 07:18 Glucose (Fingerstick) 100 mg/dL (70-99) Micro RUN DATE: 01/11/20 [facility] *LIVE* PAGE 1 RUN TIME: 914 Specimen Inquiry PATIENT: GIRISH GRIFFINAXEL Ansari ACCT: [id number] LOC: [address] [place] [address] U: [id number] AGE/SX: 64/M ROOM: 430 RE01/03/[address]: ANNE-MARIE SOSA III DO : 1955 BED: 1 DIS: STATUS: ADM IN TLOC: SPEC #: [id number] ADDY: 01/04/20 STATUS: COMP REQ #: [id number] RECD: 01/04/20 [facility] DR: ANNE-MARIE SOSA III, DO SOURCE: KNEE ENTR: 01/04/[address]: RICARDO ESCALANTE MD SPDC: ESTEFANÍA MAXWELL MD,JACOBO MARINELLI TIMOTHY J MD ORDERED: ANAER/AEROB/GS COMMENTS: DEEP TISSUE, BELOW RT KNEE AMPUTATION STUMP Procedure Result GRAM STAIN Final Final NO ORGANISMS SEEN. SQUAMOUS EPI CELL:RARE PMN (WBCs):RARE Unless otherwise specified, Testing Performed by: [address] [address] For Inquires, the Physician may contact the Microbiology department at [phone] ANAEROBIC-AEROBIC CULTURE Final Final MIXED AEROBIC GENO on 01/06/20 at 1020 INCLUDING: FEW GRAM POSITIVE COCCI on 01/05/20 at 1204 FINAL ID= [STAPHYLOCOCCUS AUREUS] REFER TO [id number] FOR SUSCEPTIBILITY FINAL ID= [STAPHYLOCOCCUS LUGDUNENSIS] FEW GRAM POSITIVE RODS on 01/07/20 at 1313 FID [CORYNEBACTERIUM STRIATUM GRP] NO ANAEROBIC ORGANISMS ISOLATED on 01/09/20 at 0926 STAPHYLOCOCCUS AUREUS STAPHYLOCOCCUS LUGDUNENSIS CORYNEBACTERIUM STRIATUM GRP * This is a corrected result. * A prior result that was reported as final has been changed. ANTIMICROBIAL SUSCEPTIBILITY Final Comment CONTINUED ON NEXT PAGE RUN DATE: 01/11/20 [facility] *LIVE* PAGE 2 RUN TIME: 914 Specimen Inquiry SPEC: [id number] PATIENT: FACUNDO GRIFFIN [id number] (Continued) Procedure Result ANTIMICROBIAL SUSCEPTIBILITY Final (continued) POS ELISABETH TYPE 38 STAPHYLOCOCCUS LUGDUNENSIS ANTIBIOTIC RESULT INTERPRETATION AZITHROMYCIN <=2 S CLINDAMYCIN <=0.25 S CEFOXITIN SCREEN <=4 NEG CIPROFLOXACIN <=1 S DAPTOMYCIN <=0.5 S ERYTHROMYCIN <=0.25 S GENTAMICIN <=4 S LINEZOLID 2 S LEVOFLOXACIN <=1 S OXACILLIN <=0.25 S PENICILLIN <=0.03 Yecenia RIFAMPIN <=1 S TRIMETHOPRIM/SULFAMETHOXAZOLE <=0.5/9.5 S TETRACYCLINE <=4 S VANCOMYCIN 0.5 S Unless otherwise specified, Testing Performed by: [address] [address] For Inquires, the Physician may contact the Microbiology department at [phone] RUN DATE: 01/09/20 [facility] *LIVE* PAGE 1 RUN TIME: 929 Specimen Inquiry PATIENT: FACUNDO GRIFFIN ACCT: [id number] LOC: [facility]OUND U: [id number] AGE/SX: 64/M ROOM: RE01/02/[address]: SHARRON BEDOYA MD : 1955 BED: DIS: STATUS: REG RCR TLOC: SPEC #: [id number] ADDY: 01/02/20 STATUS: COMP REQ #: [id number] RECD: 01/02/20-[address]: SHARRON BEDOYA MD SOURCE: DRAINAGE ENTR: 01/02/[address]: JACOBO SALAZAR SPDESC: WOUND ORDERED: ANAER/NIGEL/VINAY COMMENTS: Arielle LUJAN WOUND...WOUND CLINIC Procedure Result GRAM STAIN Final Final GRAM POSITIVE RODS:MODERATE GRAM POSITIVE COCCI:MODERATE SQUAMOUS EPI CELL:RARE PMN (WBCs):NONE SEEN Unless otherwise specified, Testing Performed by: [address] [address] For Inquires, the Physician may contact the Microbiology department at [phone] ANAEROBIC-AEROBIC CULTURE Final Final MIXED AEROBIC GENO on 01/06/20 at 1033 INCLUDING: MANY GRAM POSITIVE COCCI on 01/05/20 at 1204 FINAL ID= [STAPHYLOCOCCUS AUREUS] MANY GRAM POSITIVE RODS on 01/05/20 at 1204 FINAL ID= [CORYNEBACTERIUM STRIATUM GRP] MANY GRAM POSITIVE COCCI on 01/08/20 at 1337 FINAL ID= [STREPTOCOCCUS MITIS/ORALIS] GROUP NO ANAEROBIC ORGANISMS ISOLATED on 01/09/20 at 0924 STAPHYLOCOCCUS AUREUS CORYNEBACTERIUM STRIATUM GRP STREPTOCOCCUS MITIS/ORALIS ANTIMICROBIAL SUSCEPTIBILITY Final Comment POS ELISABETH TYPE 38 STAPHYLOCOCCUS AUREUS ANTIBIOTIC RESULT INTERPRETATION AZITHROMYCIN >4 R CLINDAMYCIN <=0.25 S CEFOXITIN SCREEN <=4 NEG CIPROFLOXACIN >2 R CEFTAROLINE <=0.5 S DAPTOMYCIN <=0.5 S RUN DATE: 01/09/20 [facility] *LIVE* PAGE 2 RUN TIME: 929 Specimen Inquiry - SPEC: [id number] PATIENT: FACUNDO GRIFFIN [id number] (Continued) Procedure Result CONTINUED ON NEXT PAGE RUN DATE: 01/09/20 [facility] *LIVE* PAGE 3 RUN TIME: 929 Specimen Inquiry SPEC: [id number] PATIENT: ELIASFACUNDO Elan [id number] (Continued) Procedure Result ANTIMICROBIAL SUSCEPTIBILITY Final (continued) ERYTHROMYCIN >4 R GENTAMICIN <=4 S INDUCIBLE CLINDAMYCIN <=4/0.5 NEG LINEZOLID 2 S LEVOFLOXACIN 4 I OXACILLIN 1 S PENICILLIN >2 Yecenia RIFAMPIN <=1 S TRIMETHOPRIM/SULFAMETHOXAZOLE <=0.5/9.5 S TETRACYCLINE <=4 S VANCOMYCIN 1 S Unless otherwise specified, Testing Performed by: [address] [address] For Inquires, the Physician may contact the Microbiology department at [phone] Objective: Assessment: 1. Osteomyelitis of left second toe.Status post partial amputation of left second toe 2. 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 S/P irrigation and debridement of the bone of the right below-knee amputation stump. 01/04/2020, cultures positive for Staph aureus MSSA per verbal report from micro lab and Staph lugdunensis, Methicillin sensitive Corynebacterium latter likely contaminant 4. Peripheral vascular disease. 5. Diabetes. 6. Hypertension. 7. History of atherosclerotic heart disease. 8. History of right below-knee amputation for infected right lower extremity wounds. 9. 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 Sunday labs CBC/BUN/creatinine/CRP. Fax results to [phone] Follow-up ID clinic on JAN 21 at 3 pm ph [phone] Wound/VAC and activity per orthopedics Discussed with nursing staff ANA YANG MD Jan 12, 2020 09:38
[2020-01-12 11:00] VITALS: BP 143/81
--- NOTE | 2020-01-12 12:07 | NUR ---
[facility] following. Discussed with RN, [facility] unable to find home health for pt last week. [facility] contacted [facility] to determine if they would be able to accept pt for home infusion home health. [facility] advised they can accept - [facility] faxed clinicals. [facility] notified [facility] of acceptance with [facility]. Carlo will coordinate with pt's sister regarding the infusion teaching. [facility] notified [facility] the discharge abx will be Invanz. [facility] faxed script to [facility]. RN notified. [facility] will continue to follow. Addendum: 01/12/20 at 1508 by LEXII ASTORGA [facility] will be doing the teach at 1615 today. Discharge orders faxed to [facility]. RN notified.
--- NOTE | 2020-01-12 14:48 | SNU/HH DC ---
DISCHARGE WITH HOME HEALTH DISCHARGE INFORMATION: Discharge Date: Jan 12, 2020 Final Diagnosis: Problems Medical Problems: (1) Osteomyelitis of second toe of left foot Status: Acute Condition on Discharge: Stable CODE STATUS: Code Status: Full HOME HEALTH: Face to Face: I certify this patient is under my care and that I, or a nurse practitioner or physician's social work assistant working with me, had a face to face encounter that meets the physician face to face encounter requirements with this patient on []. Medical Complications: DM, HTN, Other (Osteomyelitis of the right stump and left second toe) Mcfp For: Admin/Educate Injections, Assess & Educate Safety, IV Infusion Therapy RN For Eval/Treatment: Yes Physical Therapy For: Evalulation/Treatment Occupational Therapy For: Evaluation/Treatment Home Health Aide For: Self-care Pt Meets Homebound Status: Unsteady balance w/ amb,, Limited distance walking POST DISCHARGE ORDERS: Activity Instructions for Disc: Activity as tolerated, Other, see below Weight Bearing Status after Di: Touch down weight bearing, Other, see below Bathing Instructions: Shower-keep dressing dry, No Tub Bath until see DIET AFTER DISCHARGE: ADA Wound/Incision Care: Other, see below CHECKS AFTER DISCHARGE: Checks after discharge: Check blood press - daily, Check blood sugar, ac/hs FOLLOW-UP: Follow up with: PCP within 2 weeks of discharge Follow Up With: Infectious disease within 2 weeks DC TO SNF LABS: CBC, CMP while on IV antibiotics, per ID recommend TREATMENT/EQUIPMENT ORDERS: Infusion Equipment, home use: PICC Line CERTIFICATION STATEMENT: Certification Statement: Certification Statement: Based on the above finding, I certify that this patient is confined to the home and needs intermittent custodial care, physical therapy and/or speech therapy, or continues to need occupational therapy.~ This patient is under my care, and I have initiated the establishment of the plan of care.~ This patient will be followed by myself or a community physician who will periodically review the plan of care. Home Meds Active Scripts Ascorbic Acid (VITAMIN C) 500 Mg Tablet, 500 MG PO DAILY for wound MDD 1, #30 TAB Prov:SHAD CARRANZA MD 12/17/17 Multivits,Ca,Minerals/Iron/Fa (THERA-M TABLET) 1 Each Tablet, 1 TAB PO DAILY for MVI MDD 1, #30 TAB Prov:SHAD CARRANZA MD 12/17/17 Reported Medications Insulin Glargine,Hum.rec.anlog (LANTUS SOLOSTAR) 100 Unit/1 Ml Insuln.pen, 30 UNIT SQ QHS for dm, #15 ML 3 Refills 01/03/20 Insulin Aspart (NOVOLOG) 100 Unit/1 Ml Cartridge, 15 UNIT SQ TID for dm, EACH 01/03/20 Rosuvastatin Calcium (CRESTOR) 5 Mg Tablet, 20 MG PO HS for FOR CHOLESTEROL, #30 TAB 0 Refills 01/03/20 Gabapentin (GABAPENTIN) 600 Mg Tablet, 300 MG PO BID for NEUROGENIC PAIN, TAB 01/03/20 Pantoprazole Sodium (PROTONIX) 20 Mg Tablet.dr, 2 TAB PO DAILY for gerd, #30 TAB 12/18/17 Ranolazine (RANEXA) 500 Mg Tab.er.12h, 1 TAB PO BID, #60 TAB 3 Refills 07/30/15 Clopidogrel Bisulfate (CLOPIDOGREL) 75 Mg Tablet, 1 TAB PO DAILY, #90 TAB 1 Refill 01/19/15 Metoprolol Tartrate (METOPROLOL TARTRATE) 50 Mg Tablet, 12.5 MG PO BID for htn, #60 TAB 0 Refills NEXT DOSE: 01/19/15 PM 01/02/14 Aspirin (ASPIR 81) 81 Mg Tablet.dr, 81 MG PO DAILY, TAB NEXT DOSE: 01/20/15 AM 07/30/13 Lisinopril (LISINOPRIL) 40 Mg Tablet, 20 MG PO DAILY for htn, #30 TAB 0 Refills NEXT DOSE: 01/20/15 AM 07/30/13 JENNIFER PRATHER MD Jan 12, 2020 14:48
[2020-01-12 15:00] VITALS: BP 132/72
[2020-01-12] MEDS: DAPTOmycin (GENERIC) IVPB 480 MG in IV NORMAL SALINE 50ML 50 ML IV SCH (15:00)
[2020-01-12] MEDS ORDERED: ERTAPENEM 1GM IVPB(GENERIC) NS 50 ML IV ONE (16:00)
[2020-01-12] MEDS ORDERED: POTASSIUM CHLORIDE 20 MEQ TABLET.ER. PO ONE (17:00)
--- NOTE | 2020-01-12 17:36 | NUR ---
Dr. Pena paged x 3 per [facility]'s request to see if pt could receive generic Invanz. No call back at this time. Pt. to d/c home after order is clarified.
--- NOTE | 2020-01-12 17:57 | PDOC3 ---
[facility]-Discharge Summary Date of Admission: Date of Admission: Jan 03, 2020 Date of Discharge: Date of Discharge: Jan 12, 2020 Discharge Diagnosis: Discharge Diagnosis: Osteomyelitis of left second toe.Status post partial amputation of left second toe Infected right below-knee amputation stump, possible osteo. S/P irrigation and debridement of the bone of the right below-knee amputation stump. 01/04/2020, cultures positive for Staph aureus MSSA per verbal report from micro lab and Staph lugdunensis, Methicillin sensitive Corynebacterium Peripheral vascular disease. Diabetes. Hypertension. History of atherosclerotic heart disease. History of right below-knee amputation for infected right lower extremity wounds. Acute kidney injury.improved Hospital Course: Hospital Course: 64-year-old male who has severe peripheral vascular disease secondary to severe diabetes. He already has a right vvwyj-lld-ivyh amputation and has persistent diabetic wounds. Now he has got a left second toe wound. It appears he has osteomyelitis. He has rated it at 7/10. He has associated weakness, it has been occurring for several weeks. I discussed the case with ER physician. We are going to admit the patient, give him IV antibiotics and consult Orthopedic Surgery. Patient underwent I&D of his right BKA and partial ray amputation of his Left 2nd toe. He was treated with IV Abx and he will continue Invanz and Dapto with HH and f/u with ID on Jan 21 to determine further need for IV Abx. Likely he will need 4-6 weeks. The rest of his hospital course was uneventful. Disposition: Disposition/Orders: D/C to Home w/ HH Activity: Activity: Resume previous activity Diet: Diet: Consistent Carbohydrate Medications: Home Meds Active Scripts Ascorbic Acid (VITAMIN C) 500 Mg Tablet, 500 MG PO DAILY for wound MDD 1, #30 TAB Prov:SHAD CARRANZA MD 12/17/17 Multivits,Ca,Minerals/Iron/Fa (THERA-M TABLET) 1 Each Tablet, 1 TAB PO DAILY for MVI MDD 1, #30 TAB Prov:SHAD CARRANZA MD 12/17/17 Reported Medications Insulin Glargine,Hum.rec.anlog (LANTUS SOLOSTAR) 100 Unit/1 Ml Insuln.pen, 30 UNIT SQ QHS for dm, #15 ML 3 Refills 11/21/20 Insulin Aspart (NOVOLOG) 100 Unit/1 Ml Cartridge, 15 UNIT SQ TID for dm, EACH 01/03/20 Rosuvastatin Calcium (CRESTOR) 5 Mg Tablet, 20 MG PO HS for FOR CHOLESTEROL, #30 TAB 0 Refills 01/03/20 Gabapentin (GABAPENTIN) 600 Mg Tablet, 300 MG PO BID for NEUROGENIC PAIN, TAB 01/03/20 Pantoprazole Sodium (PROTONIX) 20 Mg Tablet.dr, 2 TAB PO DAILY for gerd, #30 TAB 12/18/17 Ranolazine (RANEXA) 500 Mg Tab.er.12h, 1 TAB PO BID, #60 TAB 3 Refills 07/30/15 Clopidogrel Bisulfate (CLOPIDOGREL) 75 Mg Tablet, 1 TAB PO DAILY, #90 TAB 1 Refill 01/19/15 Metoprolol Tartrate (METOPROLOL TARTRATE) 50 Mg Tablet, 12.5 MG PO BID for htn, #60 TAB 0 Refills NEXT DOSE: 01/19/15 PM 01/02/14 Aspirin (ASPIR 81) 81 Mg Tablet.dr, 81 MG PO DAILY, TAB NEXT DOSE: 01/20/15 AM 07/30/13 Lisinopril (LISINOPRIL) 40 Mg Tablet, 20 MG PO DAILY for htn, #30 TAB 0 Refills NEXT DOSE: 01/20/15 AM 07/30/13 Scheduled Ascorbic Acid (Vitamin C), 500 MG PO DAILY Aspirin (Aspir 81), 81 MG PO DAILY, (Reported) Clopidogrel Bisulfate (Clopidogrel), 1 TAB PO DAILY, (Reported) Gabapentin (Gabapentin), 300 MG PO BID, (Reported) Insulin Aspart (Novolog), 15 UNIT SQ TID, (Reported) Insulin Glargine,Hum.rec.anlog (Lantus Solostar), 30 UNIT SQ QHS, (Reported) Lisinopril (Lisinopril), 20 MG PO DAILY, (Reported) Metoprolol Tartrate (Metoprolol Tartrate), 12.5 MG PO BID, (Reported) Multivits,Ca,Minerals/Iron/Fa (Thera-M Tablet), 1 TAB PO DAILY Pantoprazole Sodium (Protonix), 2 TAB PO DAILY, (Reported) Ranolazine (Ranexa), 1 TAB PO BID, (Reported) Rosuvastatin Calcium (Crestor), 20 MG PO HS, (Reported) Total Time: Total Time: Total time spent was 45 minutes in preparing scripts, discharge planning with SW and RN, and preparing this discharge summary. Patient seen and examined on day of discharge. Justicifation of Admission Dx: Justifications for Admission: Justification of Admission Dx: Comment: (antibiotic therapy and wound vac care) JENNIFER PRATHER MD Jan 12, 2020 17:57
--- NOTE | 2020-01-12 18:05 | NUR ---
[facility] notified of ok for pt to receive generic Invanz at home.
--- NOTE | 2020-01-12 18:25 | NUR ---
Pt. discharged to home, pt and sister verbalized understanding of discharge instructions. RLE KAMER[facility] CDI, L ft mickyg CDI. [place] and infusion supplies sent home with pt and sister.
== END 2020-01-12 18:31 | disposition home or self-care (01) | DRG 463 ==
LOC: ER 09:15 → ED HOLD 10:22 → 4 NORTH 13:11
PROVIDERS: ADMIT Internal Medicine; ATTEND Internal Medicine
PROC: 0Y6S0Z1 Detachment at Left 2nd Toe, High, Open Approach (ICD-10-PCS; principal; 2020-01-04 10:00)
PROC: 0JBN0ZZ Excision of Right Lower Leg Subcutaneous Tissue and Fascia, Open Approach (ICD-10-PCS; 2020-01-04 10:00)
PROC: 02H633Z Insertion of Infusion Device into Right Atrium, Percutaneous Approach (ICD-10-PCS; 2020-01-07)
PROC: B5181ZA Fluoroscopy of Superior Vena Cava using Low Osmolar Contrast, Guidance (ICD-10-PCS; 2020-01-07)
DX: T87.43 Infection of amputation stump, right lower extremity (principal); N17.0 Acute kidney failure with tubular necrosis; M86.9 Osteomyelitis, unspecified; E11.69 Type 2 diabetes mellitus with other specified complication; Z20.828 Contact with and (suspected) exposure to other viral communicable diseases; I25.10 Atherosclerotic heart disease of native coronary artery without angina pectoris; J44.9 Chronic obstructive pulmonary disease, unspecified; K21.9 Gastro-esophageal reflux disease without esophagitis; E78.00 Pure hypercholesterolemia, unspecified; I10 Essential (primary) hypertension; M10.9 Gout, unspecified; Z95.1 Presence of aortocoronary bypass graft; Z79.4 Long term (current) use of insulin; E11.51 Type 2 diabetes mellitus with diabetic peripheral angiopathy without gangrene; E11.649 Type 2 diabetes mellitus with hypoglycemia without coma; E78.5 Hyperlipidemia, unspecified; L08.9 Local infection of the skin and subcutaneous tissue, unspecified; L97.529 Non-pressure chronic ulcer of other part of left foot with unspecified severity; E11.621 Type 2 diabetes mellitus with foot ulcer; Z83.3 Family history of diabetes mellitus; Z95.5 Presence of coronary angioplasty implant and graft; Y83.5 Amputation of limb(s) as the cause of abnormal reaction of the patient, or of later complication, without mention of misadventure at the time of the procedure; Z88.5 Allergy status to narcotic agent; B95.8 Unspecified staphylococcus as the cause of diseases classified elsewhere; Z60.2 Problems related to living alone
CPT/HCPCS: 36415; 36573; 77001; 80048; 80053; 82550; 82962; 83605; 85007; 85025; 87040; 87071; 87075; 87426; 96365; 96366; 96372; 96375; C1751; C1769; C1892; J0696; J0878; J1100; J1335; J1815; J2370; J2405; J2543; J2704; J3010; J3370; J3490; J7030; J7040; J7120; U0003; 97110-GP; 97116-GP; 99285-25; A4461; G0378

== ENCOUNTER 2021-05-12 14:07 | Inpatient (IN) | payer OTHER ==
[~2021-05-12] VITALS: Ht 177.8 cm; Wt 85.4 kg
--- NOTE | 2021-05-12 12:00 | NUR ---
Wound Care Wound Type/Assessment: patient seen in the outpatient wound clinic. patient had not been seen since 08/2020. patients right BKA wound, patient said has opened and closed numerous time, the wound was cleaned, measured, pictured and was assessed and debrided by Dr. Eng and then redressed in the wound clinic. patient ambulates with a prothesis. patient also has a left great toe wound that has a mild odor with present blackened, slough wound bed, the wound was cleaned, measured, pictured and assessed by Dr. Eng, at this time it was recommenced to patient to be admitted to the hospital- patient agreed. patients sister present with patient in the wound clinic. Treatment Recommendations/Plan: Recommendations of Cleansing the wounds right BKA wound and Left great toe, then applying Iodoflex (remove both sides of the white mesh) then apply a foam dressing or gauze and tape, change every 2-3 days. Education provided: Educated patient and sister on the POC Recommended Referrals/Tests: Dr. Eng spoke with Dr. Munoz regarding patient. Discharge Recommendations for dressings: Wound care will continue to f/u for changes.
[~2021-05-12 14:07] MED LIST changes: +CRESTOR5 MG PO; +GABA600T7 PO; +INSU100C4 SQ; -ISOS60TA2 PO; +ISOS60TA55 PO; -MULT1TAB90 PO; +MULT1TAB92 PO; -OMEP40CA45 PO; +OMEP40CA7 PO
[2021-05-12 15:00] VITALS: BP 173/87
[2021-05-12] MEDS ORDERED: oxyCODONE/APAP 5/325 1 TAB TABLET PO PRN (17:00)
[2021-05-12] MEDS ORDERED: CALCIUM CARBONATE 500 MG TAB.CHEW PO PRN (17:00)
[2021-05-12] MEDS ORDERED: ACETAMINOPHEN 325 MG TABLET. PO PRN (17:00)
[2021-05-12] MEDS ORDERED: PIP/TAZO PER PHARMACY MC PRN (17:00)
[2021-05-12] MEDS ORDERED: ELECTROLYTE (NON-ICU) PROTOCOL. MC PRN (17:00)
[2021-05-12] MEDS ORDERED: PIPERACILLIN/TAZOBACTAM 4.5 GM in IV DEXTROSE 5% 100ML 100 ML IV ONE (18:00)
[2021-05-12] MEDS ORDERED: VANCOMYCIN 2 GM in IV NORMAL SALINE 500ML BAG 500 ML IV ONE (18:00)
--- NOTE | 2021-05-12 18:17 | PDOC ---
Provider Note Date of Service: DATE: 05/12/21 TIME: 18:15 Provider Note Pt. is well known to me from the office. We have been seeing him closely to help with LLE edema which is likely multifactorial (heart failure, lymphedema and PAD) He has not been keen on taking care of his wounds/legs. We will plan for aortogram in the morning and evaluate arterial flow to both lower extremities. Justifications for Admission Other Justification CHETNA ARREDONDO MD May 12, 2021 18:17
[2021-05-12] MEDS: INSULIN LISPRO 300 UNITS/3 ML VIAL. SQ SCH (18:25)
--- NOTE | 2021-05-12 18:33 | PDOC1 ---
History and Physical Date of Service: DOS: DATE: 05/12/21 TIME: 18:23 Chief Complaint: Chief Complain: L toe infection History of Present Illness: HPI: Patient is a 65-year-old white male presented from wound care clinic today today due to gangrenous left great toe. Discussed with wound care providers over the phone. Patient with quite a long history of wound problems. History of diabetes severe peripheral arterial disease. 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 Patient does admit to me he is very inconsistent with taking care of his wounds. Does not have much feeling in his feet. When dressing taken off his toe very malodorous but reports to me he has not been able to smell anything for some time. In wound care clinic today his left great toe wound noted to be acutely infected. X-ray done not showing any particular osteomyelitis however needs admit for IV antibiotics. Discussed with Dr. Tao, planning for angiogram tomorrow. Past Medical/Surgical History: PMH/PSH: Severe peripheral vascular disease, diabetes, right [id number] amputation, COPD, CAD, hypertension, hyperlipidemia, GERD, gout, coronary artery bypass surgery, right toe amputation, cardiac stents. Allergies: Allergies: Coded Allergies: morphine (Verified Allergy, Intermediate, Hives, itching, 01/04/20) I S O L A T I O N *CONTACT* (Verified Allergy, Unknown, 01/04/20) mrsa Family History: Family History: Diabetes Social History: Social History: Denies alcohol tobacco drug use Current Medications: Current Medications Current Medications Ondansetron HCl (Zofran) 4 mg PRN Q6HRS PRN IVP NAUSEA/VOMITING; Start 05/12/21 at 17:00 Calcium Carbonate/ Glycine (Tums) 500 mg PRN Q3HRS PRN PO UPSET STOMACH; Start 05/12/21 at 17:00 Info (Non-Icu Electrolyte Protocol) 1 ea PRN DAILY PRN MC SEE COMMENTS; Start 05/12/21 at 17:00 Oxycodone/ Acetaminophen (Percocet 5/325) 1 tab PRN Q4HRS PRN PO MILD PAIN, 1ST CHOICE; Start 05/12/21 at 17:00 Oxycodone/ Acetaminophen (Percocet 5/325) 2 tab PRN Q4HRS PRN PO MODERATE PAIN, SEVERE PAIN; Start 05/12/21 at 17:00 Acetaminophen (Tylenol) 650 mg PRN Q6HRS PRN PO Headaches, Temp > 101.5F; Start 05/12/21 at 17:00 Senna/Docusate Sodium (Senna Plus) 1 tab BID PO ; Start 05/12/21 at 21:00 Heparin Sodium (Porcine) (Heparin Sodium) 5,000 unit Q8HRS SQ ; Start 05/12/21 at 22:00 Aspirin (Ecotrin) 81 mg DAILY PO ; Start 05/13/21 at 09:00 Clopidogrel Bisulfate (Plavix) 75 mg DAILY PO ; Start 05/13/21 at 09:00 Lisinopril (Prinivil) 20 mg DAILY PO ; Start 05/13/21 at 09:00 Metoprolol Tartrate (Lopressor) 12.5 mg BID PO ; Start 05/12/21 at 21:00 Ranolazine (Ranexa) 500 mg BID PO ; Start 05/12/21 at 21:00 Gabapentin (Neurontin) 300 mg BID PO ; Start 05/12/21 at 21:00 Insulin Human Lispro (HumaLOG) 15 units TIDWMEALS SQ ; Start 05/12/21 at 18:00 Insulin Glargine (Lantus Syringe) 30 unit QHS SQ ; Start 05/12/21 at 21:00 Pantoprazole Sodium (Protonix) 40 mg DAILYAC PO ; Start 05/13/21 at 07:30 Atorvastatin Calcium (Lipitor) 80 mg HS PO ; Start 05/12/21 at 21:00 Piperacillin Sod/ Tazobactam Sod (Zosyn Per Pharmacy) 1 each PRN DAILY PRN MC SEE COMMENTS; Start 05/12/21 at 17:00 Vancomycin HCl (Vanco Per Pharmacy) 1 each PRN DAILY PRN MC SEE COMMENTS; Start 05/12/21 at 17:00; Status UNV Piperacillin Sod/ Tazobactam Sod 4.5 gm/Dextrose 100 ml @ 200 mls/hr 1X ONCE IV Last administered on 05/12/21at 18:11; Start 05/12/21 at 18:00; Stop 05/12/21 at 18:29 Vancomycin HCl 2 gm/Sodium Chloride 500 ml @ 250 mls/hr 1X ONCE IV ; Start 05/12/21 at 18:00; Stop 05/12/21 at 19:59 Piperacillin Sod/ Tazobactam Sod 3.375 gm/Sodium Chloride 50 ml @ 100 mls/hr Q6HRS IV ; Start 05/13/21 at 00:00 Active Scripts Active Vitamin C (Ascorbic Acid) 500 Mg Tablet 500 Mg PO DAILY MDD 1 Thera-M Tablet (Multivits,Ca,Minerals/Iron/Fa) 1 Each Tablet 1 Tab PO DAILY MDD 1 Reported Lantus Solostar (Insulin Glargine,Hum.rec.anlog) 100 Unit/1 Ml Insuln.pen 30 Unit SQ QHS Novolog (Insulin Aspart) 100 Unit/1 Ml Cartridge 15 Unit SQ TID Crestor (Rosuvastatin Calcium) 5 Mg Tablet 20 Mg PO HS Gabapentin 600 Mg Tablet 300 Mg PO BID Protonix (Pantoprazole Sodium) 20 Mg Tablet.dr 2 Tab PO DAILY Ranexa (Ranolazine) 500 Mg Tab.er.12h 1 Tab PO BID Clopidogrel (Clopidogrel Bisulfate) 75 Mg Tablet 1 Tab PO DAILY Metoprolol Tartrate 50 Mg Tablet 12.5 Mg PO BID NEXT DOSE: 01/19/15 PM Aspir 81 (Aspirin) 81 Mg Tablet.dr 81 Mg PO DAILY NEXT DOSE: 01/20/15 AM Lisinopril 40 Mg Tablet 20 Mg PO DAILY NEXT DOSE: 01/20/15 AM ROS: Review of Systems Review of System Less known HPI 14 point review of systems is negative Physical Exam: Vital Signs: Vital Signs Date Time Temp Pulse Resp B/P (MAP) Pulse Ox O2 Delivery O2 Flow Rate FiO2 05/12/21 15:00 98.2 98 18 173/87 (115) 95 Room Air 98.2 Physcial Exam: GEN: No apparent distress. Alert and oriented HEENT: Normal cephalic, atraumatic, external auditory canals are patent EYES: Extraocular muscles are intact, pupil are equally round and reactive to light and accommodation MUSCULOSKELETAL: Appears chronically ill ENDOCRINE: No thyromegaly was palpated LYMPHATICS: No cervical chain or axillary nodes were noted HEMATOPOIETIC: No bruising NECK: Supple, no JVD, no thyromegaly was noted LUNGS: Clear to auscultation in all lung mcguire without rhonchi or wheezing HEART: RRR, S1, S2 present. Peripheral pulses intact, no obvious murmurs noted ABDOMEN: Soft, nontender. Positive bowel sounds, no organomegaly, normal bowel sounds EXTREMITIES: Right BKA. Left second toe amputation. Left great toe acutely infected and gangrenous NEUROLOGIC: Normal speech and tone. A&O x 3, moves all extremities PSYCHIATRIC: Normal affect, normal mood. Stable VASCULAR: Decreased left lower extremity pulses t Labs: Labs: Laboratory Tests Test 05/12/21 17:02 Glucose (Fingerstick) 242 mg/dL (70-99) Laboratory Tests Test 05/12/21 17:02 Glucose (Fingerstick) 242 mg/dL (70-99) Assessment/Plan Assessment/Plan Left great toe gangrene. History of recurrent wounds multiple amputations, peripheral vascular disease diabetes COPD CAD hypertension -Direct admit from wound care clinic for left toe gangrene -Long history of chronic wounds -X-ray showed no evidence of osteomyelitis but will do broad-spectrum IV antibi otics -Blood cultures -Cardiology consult for angiogram tomorrow -Diabetic diet. N.p.o. midnight -Home meds as indicated -Discussed with bedside RN 23 minutes advance care planing Justifications for Admission Other Justification KATARINA BREWER MD May 12, 2021 18:33
[2021-05-12 19:00] VITALS: BP 115/54
[2021-05-12] MEDS: GABAPENTIN 300 MG CAPSULE. PO SCH (21:18)
[2021-05-12] MEDS: METOPROLOL TART IMMED RELEASE 25 MG TABLET. PO SCH (21:18)
[2021-05-12] MEDS: ATORVASTATIN CALCIUM 40 MG TABLET. PO SCH (21:19)
[2021-05-12] MEDS: SENNOSIDES/DOCUSATE 8.6/50MG TABLET. PO SCH (21:19)
[2021-05-12] MEDS: RANOLAZINE 500 MG TAB.ER.12H PO SCH (21:20)
[2021-05-12] MEDS: HEPARIN for SUB-Q USE 5,000 UNIT/ML VIAL. SQ SCH (21:22)
[2021-05-12] MEDS: INSULIN GLARGINE SYRINGE. SQ SCH (21:23)
[2021-05-12] MEDS: oxyCODONE/APAP 5/325 1 TAB TABLET PO PRN (21:34)
[2021-05-12 21:42] LABS: BASO % 0 % (0-3); EOS # 0.1 x10^3/uL (0.0-0.7); EOS % 1 % (0-3); HEMATOCRIT 33.2 % (39.0-53.0); HEMOGLOBIN 10.9 g/dL (13.0-17.5); LYMPH # 0.6 x10^3/uL (1.0-4.8); LYMPH % 8 % (24-48); MEAN CORPUSCULAR HEMOGLOBIN 29 pg (25-35); MEAN CORPUSCULAR HGB CONC 33 g/dL (31-37); MEAN CORPUSCULAR VOLUME 88 fL (79-100); MONO # 0.6 x10^3/uL (0.0-1.1); MONO % 8 % (0-9); NEUT # 6.6 x10^3/uL (1.8-7.7); NEUT % 83 % (31-73); PLATELET COUNT 252 x10^3/uL (140-400); RED BLOOD COUNT 3.78 x10^6/uL (4.30-5.70); RED CELL DISTRIBUTION WIDTH 14.1 % (11.5-14.5)
[2021-05-12 22:10] LABS: ALBUMIN 2.8 g/dL (3.4-5.0); ALBUMIN/GLOBULIN RATIO 0.7 (1.0-1.7); CALCIUM 8.2 mg/dL (8.5-10.1); CREATININE 1.3 mg/dL (0.7-1.3); GFR 55.8; POTASSIUM 3.9 mmol/L (3.5-5.1); TOTAL BILIRUBIN 1.2 mg/dL (0.2-1.0); TOTAL PROTEIN 6.6 g/dL (6.4-8.2)
[2021-05-12 22:11] LABS: CHOLESTEROL/HDL RATIO 2.6
[2021-05-12 23:00] VITALS: BP 113/67
[2021-05-13] VITALS (20 sets, daily range): BP systolic 91–166; BP diastolic 52–96
[2021-05-13] MEDS: PIPERACILLIN/TAZOBACTAM 3.375 GM in IV NORMAL SALINE 50ML 50 ML IV SCH ×4 (00:26→17:39)
[2021-05-13] MEDS: VANCOMYCIN PER PHARMACY MC PRN ×2 (03:10→13:22)
--- NOTE | 2021-05-13 03:11 | NUR ---
Pharmacy Vancomycin Dosing Note S:Consulted to monitor and dose vancomycin started 05/12/21. 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 Height: 5 feet, 10 inches Weight: 101.5 kg [place] Body Weight: 73.00 Adjusted Body Weight: 84.40 Dosing Weight: Other Antibiotics: ZOSYN 3.375 05/12 - LABS: Last BUN: 17 Last Creatinine: 1.3 Creatinine Clearance: 69 mL/min Last WBC: 8.0 Last Procalcitonin: - Tmax (past 24 hours): 99.3 Microbiology: I/O: Drug Levels: Last level: on at Last dose given 05/12/21 at 1930 Vancomycin Dosing: Loading Dose: 2000 mg x1 Dosing Weight: Target Trough: 10-20 A: Based on: WEIGHT/RENAL FXN AND USING ONLINE DOSING CALCULATOR, P: 1. INITIATE Vancomycin 1750 mg IV q18h AFTER 2000 MG LOADING DOSE 2. Follow up Trough level on 05/15/21 at 0100 3. Pharmacy will continue to monitor, follow and adjust therapy as needed. MAURO BREWER [facility], 05/13/21 [id number]
[2021-05-13] MEDS: HEPARIN for SUB-Q USE 5,000 UNIT/ML VIAL. SQ SCH ×3 (06:10→21:01)
[2021-05-13] MEDS: PANTOPRAZOLE 40 MG TABLET.DR. PO SCH (07:30)
[2021-05-13 08:10] LABS: CREATININE 1.4 mg/dL (0.7-1.3); GFR 51.2
[2021-05-13] MEDS: SENNOSIDES/DOCUSATE 8.6/50MG TABLET. PO SCH ×2 (09:00→20:53)
[2021-05-13] MEDS: RANOLAZINE 500 MG TAB.ER.12H PO SCH ×2 (09:00→20:54)
[2021-05-13] MEDS: GABAPENTIN 300 MG CAPSULE. PO SCH ×2 (09:00→20:53)
[2021-05-13] MEDS: ASPIRIN ENTERIC COATED 81 MG TABLET.DR. PO SCH (09:00)
[2021-05-13] MEDS: LISINOPRIL 20 MG TABLET PO SCH (09:00)
[2021-05-13] MEDS: CLOPIDOGREL BISULFATE 75 MG TABLET PO SCH (09:00)
[2021-05-13] MEDS: METOPROLOL TART IMMED RELEASE 25 MG TABLET. PO SCH ×2 (09:00→20:55)
[2021-05-13] MEDS ORDERED: HEPARIN for ARTERIAL LINE 1,500 ML ONE (10:20)
[2021-05-13] MEDS ORDERED: LIDOCAINE 1% Multi-Dose 20 ML VIAL. ONE (10:20)
--- NOTE | 2021-05-13 10:42 | PDOC ---
[facility] [facility] PROGRESS NOTE Date of Service DOS: DATE: 05/13/21 TIME: 10:41 Chief Complaint Chief Complaint Left great toe gangrene. History of recurrent wounds multiple amputations, peripheral vascular disease diabetes COPD CAD hypertension -Direct admit from wound care clinic for left toe gangrene -Long history of chronic wounds -X-ray showed no evidence of osteomyelitis but will do broad-spectrum IV antibiotics -Blood cultures -Cardiology consult for angiogram tomorrow -Diabetic diet. N.p.o. midnight -Home meds as indicated -Discussed with bedside RN History of Present Illness History of Present Illness 05/13 Patient evaluated examined at bedside. Resting in bed doing well no complaints to me. Planning for lower extremity angiogram today. Patient will transfer to 6 floor after this. Continue antibiotics. Wound evaluation. He is agreeable to the current plan. Vitals/I&O Vitals/I&O: Vital Signs Date Time Temp Pulse Resp B/P (MAP) Pulse Ox O2 Delivery O2 Flow Rate FiO2 05/13/21 07:00 97.9 83 18 127/52 (77) 96 Room Air 97.9 Physical Exam General: Alert, Oriented X3, Cooperative Heart: Regular rate, Normal S1, Normal S2 Lungs: Clear Abdomen: Normal bowel sounds, Soft, No tenderness Extremities: Other Skin: Other Labs Labs: Laboratory Tests Test 05/12/21 17:02 05/12/21 20:38 05/12/21 21:30 05/13/21 06:45 Glucose (Fingerstick) 242 mg/dL (70-99) 262 mg/dL (70-99) White Blood Count 8.0 x10^3/uL (4.0-11.0) Red Blood Count 3.78 x10^6/uL (4.30-5.70) Hemoglobin 10.9 g/dL (13.0-17.5) Hematocrit 33.2 % (39.0-53.0) Mean Corpuscular Volume 88 fL (79-100) Mean Corpuscular Hemoglobin 29 pg (25-35) Mean Corpuscular Hemoglobin Concent 33 g/dL (31-37) Red Cell Distribution Width 14.1 % (11.5-14.5) Platelet Count 252 x10^3/uL (140-400) Neutrophils (%) (Auto) 83 % (31-73) Lymphocytes (%) (Auto) 8 % (24-48) Monocytes (%) (Auto) 8 % (0-9) Eosinophils (%) (Auto) 1 % (0-3) Basophils (%) (Auto) 0 % (0-3) Neutrophils # (Auto) 6.6 x10^3/uL (1.8-7.7) Lymphocytes # (Auto) 0.6 x10^3/uL (1.0-4.8) Monocytes # (Auto) 0.6 x10^3/uL (0.0-1.1) Eosinophils # (Auto) 0.1 x10^3/uL (0.0-0.7) Basophils # (Auto) 0.0 x10^3/uL (0.0-0.2) Sodium Level 136 mmol/L (136-145) Potassium Level 3.9 mmol/L (3.5-5.1) Chloride Level 102 mmol/L (98-107) Carbon Dioxide Level 27 mmol/L (21-32) Anion Gap 7 (6-14) Blood Urea Nitrogen 17 mg/dL (8-26) Creatinine 1.3 mg/dL (0.7-1.3) 1.4 mg/dL (0.7-1.3) Estimated GFR (Cockcroft-Gault) 55.8 51.2 BUN/Creatinine Ratio 13 (6-20) Glucose Level 254 mg/dL (70-99) Calcium Level 8.2 mg/dL (8.5-10.1) Total Bilirubin 1.2 mg/dL (0.2-1.0) Aspartate Amino Transf (AST/SGOT) 14 U/L (15-37) Alanine Aminotransferase (ALT/SGPT) 15 U/L (16-63) Alkaline Phosphatase 82 U/L (46-116) Total Protein 6.6 g/dL (6.4-8.2) Albumin 2.8 g/dL (3.4-5.0) Albumin/Globulin Ratio 0.7 (1.0-1.7) Triglycerides Level 40 mg/dL (0-150) Cholesterol Level 97 mg/dL (0-200) LDL Cholesterol, Calculated 51 mg/dL (0-100) VLDL Cholesterol, Calculated 8 mg/dL (0-40) Non-HDL Cholesterol Calculated 59 mg/dL (0-129) HDL Cholesterol 38 mg/dL (40-60) Cholesterol/HDL Ratio 2.6 Thyroid Stimulating Hormone (TSH) 0.913 uIU/mL (0.358-3.74) Test 05/13/21 07:19 05/13/21 10:00 Glucose (Fingerstick) 341 mg/dL (70-99) SARS-CoV-2 Antigen (Rapid) Negative (NEGATIVE) Comment Review of Relevant I have reviewed the following items joana (where applicable) has been applied. Medications: Current Medications Medications (Trade) Dose Ordered Sig/Inna Route PRN Reason Start Time Stop Time Status Last Admin Dose Admin Oxycodone/ Acetaminophen (Percocet 5/325) 1 tab PRN Q4HRS PRN PO MILD PAIN, 1ST CHOICE 05/12/21 17:00 05/12/21 21:34 Senna/Docusate Sodium (Senna Plus) 1 tab BID PO 05/12/21 21:00 05/12/21 21:19 Heparin Sodium (Porcine) (Heparin Sodium) 5,000 unit Q8HRS SQ 05/12/21 22:00 05/13/21 06:10 Metoprolol Tartrate (Lopressor) 12.5 mg BID PO 05/12/21 21:00 05/12/21 21:18 Ranolazine (Ranexa) 500 mg BID PO 05/12/21 21:00 05/12/21 21:20 Gabapentin (Neurontin) 300 mg BID PO 05/12/21 21:00 05/12/21 21:18 Insulin Human Lispro (HumaLOG) 15 units TIDWMEALS SQ 05/12/21 18:00 05/12/21 18:25 Insulin Glargine (Lantus Syringe) 30 unit QHS SQ 05/12/21 21:00 05/12/21 21:23 Atorvastatin Calcium (Lipitor) 80 mg HS PO 05/12/21 21:00 05/12/21 21:19 Vancomycin HCl (Vanco Per Pharmacy) 1 each PRN DAILY PRN MC SEE COMMENTS 05/12/21 17:00 05/13/21 03:10 Piperacillin Sod/ Tazobactam Sod 4.5 gm/Dextrose 100 ml @ 200 mls/hr 1X ONCE IV 05/12/21 18:00 05/12/21 18:29 DC 05/12/21 18:11 Vancomycin HCl 2 gm/Sodium Chloride 500 ml @ 250 mls/hr 1X ONCE IV 05/12/21 18:00 05/12/21 19:59 DC 05/12/21 19:27 Piperacillin Sod/ Tazobactam Sod 3.375 gm/Sodium Chloride 50 ml @ 100 mls/hr Q6HRS IV 05/13/21 00:00 05/13/21 06:03 Justifications for Admission Other Justification KATARINA BREWER MD May 13, 2021 10:42
[2021-05-13] MEDS ORDERED: MIDAZOLAM HCL/PF 5 MG/5 ML VIAL. ONE (11:14)
[2021-05-13] MEDS ORDERED: fentaNYL PF VIAL 100 MCG/2 ML VIAL ONE (11:14)
[2021-05-13] MEDS ORDERED: IODIXANOL 320 200 ML in NS 200 ML IART ONE (11:15)
[2021-05-13] MEDS ORDERED: HEPARIN for IV BOLUS 10,000 UNIT/10 ML VIAL. ONE (11:20)
[2021-05-13] MEDS: INSULIN LISPRO 300 UNITS/3 ML VIAL. SQ SCH ×3 (11:29→17:51)
[2021-05-13] MEDS ORDERED: MIDAZOLAM HCL/PF 5 MG/5 ML VIAL. IV ONE (12:00)
[2021-05-13] MEDS ORDERED: LIDOCAINE 1% Multi-Dose 20 ML VIAL. INJ ONE (12:00)
[2021-05-13] MEDS ORDERED: fentaNYL PF VIAL 100 MCG/2 ML VIAL IV ONE (12:00)
--- NOTE | 2021-05-13 12:45 | NUR ---
Patient arrived to room 667 via bed after runoff at 1245. Patient A&OX4. VSS. No complaints of pain. R groin site CDI, warm, normal color. Report had been received from MICHAEL Padgett on 4th floor & MICHAEL Evans from vasc lab. Will continue to monitor.
--- NOTE | 2021-05-13 14:01 | CARD ---
MR#: [id number] Date of Study: 05/13/2021 Ordering Physician: CHETNA TAO, Referring Physician: CHETNA TAO, Tech: Chantale Ornelas RT(R)() APPROVED REPORT Patient StatusIN-PATIENT Warehouse Supervisor: Chantale Ornelas RT(R)() Procedure(s) performed: Fluoro Time: 5.5 min Dose: 12.9 Gycm2 Contrast: 34cc Mod Sed: 53 min Aortogram with bilateral runoff INDICATION FOR PROCEDURE The indication(s) include : Left lower extremity nonhealing wound. PROCEDURE NARRATIVE Clinical information: 65-year-old male with a prior right below-knee amputation and now with a left lower extremity wound p resents for evaluation of arterial anatomy. Procedure details: After appropriate informed consent the right groin was prepped and draped in usual sterile fashion. Under ultrasound guidance and 1% lidocaine a 5 Bhutanese sheath was placed in the right common femoral a rtery. Next a 5 Bhutanese Omni Flush catheter was placed in the abdominal aorta and CO2 angiography was performed. The Omni Flush catheter was used to engage the left external iliac artery over a J-tippe d guidewire and left lower extremity runoff was performed. Next, a right lower extremity runoff was also performed. At case completion the catheters and sheaths were removed and hemostasis was achieve d via manual compression. Findings: Aorta 140/80 new Aorta: No significant disease Bilateral common iliacs no significant disease Right common femoral artery no significant disease Right profunda no significant disease Right SFA no significant disease Left common femoral artery no significant disease Left profunda no significant disease Left SFA no significant disease Left popliteal artery no significant disease Left anterior tibial artery has multifocal sequential greater than 80% stenoses Left posterior tibial artery is occluded proximally with distal reconstitution via peroneal collatera ls Left peroneal artery is occluded proximally with distal anterior tibial collaterals providing flow. Conclusion 1. Severe left lower extremity arterial disease Recommendations 1. If patient is stable for discharge we will plan for outpatient staged PVI of the anterior tibial artery on the left side in the next 1 week or so. 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 2. Continue aspirin and will initiate Plavix therapy. Signed by : Chetna Tao, Electronically Approved : 05/13/2021 14:00:23
[2021-05-13] MEDS: VANCOMYCIN 1.75 GM in IV NORMAL SALINE 500ML BAG 500 ML IV SCH (14:33)
[2021-05-13] MEDS: oxyCODONE/APAP 5/325 1 TAB TABLET PO PRN (16:04)
[2021-05-13] MEDS: ATORVASTATIN CALCIUM 40 MG TABLET. PO SCH (20:53)
[2021-05-13] MEDS: INSULIN GLARGINE SYRINGE. SQ SCH (21:01)
--- NOTE | 2021-05-13 23:29 | PDOC ---
Provider Note Date of Service: DATE: 05/14/21 TIME: 00:26 Provider Note Angiogram completed. Patient has severe below knee disease on the left side. Gangrene of toe is noted. The toe appears to be mostly dry gangrene and no clear evidence of cellulitis. I have asked our vascular colleagues to assess him, if he is deemed to be stable, then we will plan for outpt PVD intervention with close plans for toe amputation as needed. If deemed more urgent, will plan for PVI on sunday or sunday. Await vascular input. Discussed with Dr. Alonso. Supportive care for now. Will follow along. Justifications for Admission Other Justification CHETNA ARREDONDO MD May 13, 2021 23:29
[2021-05-14] MEDS: PIPERACILLIN/TAZOBACTAM 3.375 GM in IV NORMAL SALINE 50ML 50 ML IV SCH ×5 (00:14→23:34)
[2021-05-14 01:09] LABS: HEMOGLOBIN A1C 8.6 % (4.8-5.6)
[2021-05-14 02:42] VITALS: BP 129/78
[2021-05-14] MEDS: HEPARIN for SUB-Q USE 5,000 UNIT/ML VIAL. SQ SCH ×3 (05:30→20:55)
[2021-05-14 07:00] VITALS: BP 153/90
[2021-05-14 08:17] LABS: CREATININE 1.3 mg/dL (0.7-1.3); GFR 55.8
[2021-05-14] MEDS: SENNOSIDES/DOCUSATE 8.6/50MG TABLET. PO SCH ×2 (09:00→20:49)
[2021-05-14] MEDS: VANCOMYCIN 1.75 GM in IV NORMAL SALINE 500ML BAG 500 ML IV SCH (09:01)
[2021-05-14] MEDS: CLOPIDOGREL BISULFATE 75 MG TABLET PO SCH (09:03)
[2021-05-14] MEDS: LISINOPRIL 20 MG TABLET PO SCH (09:03)
[2021-05-14] MEDS: ASPIRIN ENTERIC COATED 81 MG TABLET.DR. PO SCH (09:04)
[2021-05-14] MEDS: GABAPENTIN 300 MG CAPSULE. PO SCH ×2 (09:04→20:48)
[2021-05-14] MEDS: RANOLAZINE 500 MG TAB.ER.12H PO SCH ×2 (09:04→20:49)
[2021-05-14] MEDS: PANTOPRAZOLE 40 MG TABLET.DR. PO SCH (09:04)
[2021-05-14] MEDS: METOPROLOL TART IMMED RELEASE 25 MG TABLET. PO SCH ×2 (09:05→20:48)
[2021-05-14] MEDS: INSULIN LISPRO 300 UNITS/3 ML VIAL. SQ SCH ×3 (09:14→17:23)
[2021-05-14 10:58] VITALS: BP 136/75
--- NOTE | 2021-05-14 11:08 | PDOC ---
PROGRESS NOTES Date of Service: DATE: 05/14/21 TIME: 11:08 Subjective Subjective Denied any CP/SOA Objective Objective Vital Signs Date Time Temp Pulse Resp B/P (MAP) Pulse Ox O2 Delivery O2 Flow Rate FiO2 05/14/21 10:58 99.1 97 136/75 (95) 92 Room Air 99.1 05/13/21 12:45 20 05/13/21 12:35 2.0 Intake and Output 05/14/21 07:00 Intake Total 400 ml Output Total 900 ml Balance -500 ml Intake Oral 300 ml IV Total 100 ml Output Urine Total 900 ml Physical Exam Abdomen: Normal bowel sounds, Soft, No tenderness Heart: Regular rate, Normal S1, Normal S2 Extremities: Other General: Alert, Oriented X3, Cooperative MUSCULOSKELETAL: Other (RBKA) Skin: Other Assessment Assessment 1. Severe PAD s/p RBKA in past presently with left great toe gangrene. Aortogram showed severe below the knee disease LLE without any major vascular stenosis above the knee. Plan for anterior tibial STROKE COORDINATOR as outpatient followed by possible left great toe amp. Vascular surgery team aware of plans 2. CAD s/p CABG stable and chest pain free. Continue current secondary prevention measures 3. HTN: controlled 4. HLP: statins 5. DM2: per IM Comment Review of Relevant I have reviewed the following items joana (where applicable) has been applied. Labs Laboratory Tests Test 05/13/21 13:29 05/13/21 15:51 05/13/21 20:07 05/14/21 06:50 Glucose (Fingerstick) 277 mg/dL (70-99) 197 mg/dL (70-99) 218 mg/dL (70-99) Creatinine 1.3 mg/dL (0.7-1.3) Estimated GFR (Cockcroft-Gault) 55.8 Test 05/14/21 07:35 05/14/21 11:06 Glucose (Fingerstick) 171 mg/dL (70-99) 260 mg/dL (70-99) Microbiology 05/12/21 Blood Culture - Preliminary, Resulted NO GROWTH AFTER 1 DAY Medications Current Medications Fentanyl Citrate (Fentanyl 2ml Vial) 100 mcg 1X ONCE IV Last administered on 05/13/21at 12:35; Start 05/13/21 at 12:00; Stop 05/13/21 at 12:14; Status DC Fentanyl Citrate (Fentanyl 2ml Vial) 100 mcg STK-MED ONCE .ROUTE ; Start 05/13/21 at 11:14; Stop 05/13/21 at 11:14; Status DC Heparin Sodium (Porcine) (Heparin Sodium) 10,000 unit STK-MED ONCE .ROUTE ; Start 05/13/21 at 11:20; Stop 05/13/21 at 11:20; Status DC Heparin Sodium/ Sodium Chloride (HEPARIN for ARTERIAL LINE FLUSH) 1,000 unit 1X ONCE IART Last administered on 05/13/21at 12:32; Start 05/13/21 at 12:00; Stop 05/13/21 at 12:14; Status DC Heparin Sodium/ Sodium Chloride (HEPARIN for ARTERIAL LINE FLUSH) 1,000 unit 1X ONCE IART Last administered on 05/13/21at 12:32; Start 05/13/21 at 12:00; Stop 05/13/21 at 12:14; Status DC Iodixanol 200 ml/ Sodium Chloride 400 ml @ 400 mls/hr 1X ONCE IART Last administered on 05/13/21at 11:15; Start 05/13/21 at 11:15; Stop 05/13/21 at 12:14; Status DC Lidocaine HCl (Lidocaine 1% 20ml Vial) 20 ml 1X ONCE INJ Last administered on 05/13/21at 12:32; Start 05/13/21 at 12:00; Stop 05/13/21 at 12:14; Status DC Midazolam HCl (Versed) 5 mg 1X ONCE IV Last administered on 05/13/21at 12:35; Start 05/13/21 at 12:00; Stop 05/13/21 at 12:14; Status DC Midazolam HCl (Versed) 5 mg STK-MED ONCE .ROUTE ; Start 05/13/21 at 11:14; Stop 05/13/21 at 11:14; Status DC Vancomycin HCl (Vancomycin Trough Level) 1 each 1X ONCE MC ; Start 05/15/21 at 01:00; Stop 05/15/21 at 01:01 Vancomycin HCl 1.75 gm/Sodium Chloride 500 ml @ 250 mls/hr Q18H IV Last administered on 05/14/21at 09:01; Start 05/13/21 at 13:30 Vitals/I & O Vital Sign - Last 24 Hours 05/13/21 05/13/21 05/13/2122 12:35 12:35 12:45 12:45 Temp 98.1 98.1 Pulse 97 98 Resp 21 18 20 B/P (MAP) 141/80 (100) Pulse Ox 98 98 91 O2 Delivery Nasal Cannula Nasal Cannula Room Air Room Air O2 Flow Rate 2.0 2.0 05/13/21 05/13/21 05/13/21 05/13/21 13:00 13:13 13:29 13:44 Pulse 97 98 100 101 B/P (MAP) 135/79 (97) 146/86 (106) 152/91 (111) 155/89 (111) Pulse Ox 91 90 95 96 O2 Delivery Room Air Room Air Room Air 05/13/21 05/13/21 05/13/21 05/13/21 13:59 14:29 14:59 15:54 Pulse 101 100 102 108 B/P (MAP) 151/89 (109) 149/88 (108) 158/90 (112) 135/87 (103) Pulse Ox 96 92 O2 Delivery Room Air Room Air 05/13/21 05/13/21 05/13/21 05/13/21 16:04 16:09 16:25 16:40 Pulse 105 107 105 B/P (MAP) 127/88 (101) 138/81 (100) 166/96 (119) O2 Delivery Room Air 05/13/21 05/13/21 05/13/21 05/13/21 16:54 17:25 19:00 19:00 Temp 99.7 99.7 Pulse 104 97 100 B/P (MAP) 148/85 (106) 119/66 (83) 91/53 (66) Pulse Ox 96 O2 Delivery Room Air Room Air 05/13/21 05/13/21 05/13/21 05/13/21 20:00 20:00 20:54 20:55 Pulse 97 97 B/P (MAP) 114/63 114/63 O2 Delivery Room Air Room Air 05/13/21 05/14/21 05/14/21 05/14/21 22:41 02:42 07:00 09:03 Temp 99.8 99.4 99.0 99.8 99.4 99.0 Pulse 90 86 93 93 B/P (MAP) 115/64 (81) 129/78 (95) 153/90 (111) 153/90 Pulse Ox 90 95 97 O2 Delivery Room Air Room Air Room Air 05/14/21 05/14/21 05/14/21 09:04 09:05 10:58 Temp 99.1 99.1 Pulse 93 93 97 B/P (MAP) 153/90 153/90 136/75 (95) Pulse Ox 92 O2 Delivery Room Air Intake and Output 05/13/21 05/13/21 05/14/21 15:00 23:00 07:00 Intake Total 300 ml 100 ml Output Total 200 ml 700 ml Balance 100 ml -600 ml GLORIA PERKINS MD May 14, 2021 11:08
[2021-05-14] MEDS: VANCOMYCIN PER PHARMACY MC PRN (12:48)
--- NOTE | 2021-05-14 12:49 | PDOC ---
[facility] [facility] PROGRESS NOTE Date of Service DOS: DATE: 05/14/21 TIME: 12:44 Chief Complaint Chief Complaint Left great toe gangrene Recurrent wounds multiple amputations Peripheral vascular disease - s/p multiple amputation including right BKA Diabetes COPD CAD - s/p CABG and stenting Hypertension - cont home meds GERD Gout FEN - ADA cardiac diet PPX - heparin FULL CODE Dispo - inpatient History of Present Illness History of Present Illness Mr Ga is a 65yo male with DM2, HTN, CAD s/p CABG, severe peripheral artery disease with prior BKA and left foot wounds s/p left 2nd toe amputation who is directly wound care clinic today today due to gangrenous left great toe. He has failed outpatient antibiotics 05/13: Patient evaluated examined at bedside. Resting in bed doing well no complaints to me. Planning for lower extremity angiogram today. Patient will transfer to 6 floor after this. Continue antibiotics. Wound evaluation. He is agreeable to the current plan. 05/14: Status post abdominal aortogram with cardiology consideration for PCI in the next several days. He is complain of a cough today. left great toe foul smelling Vitals/I&O Vitals/I&O: Vital Signs Date Time Temp Pulse Resp B/P (MAP) Pulse Ox O2 Delivery O2 Flow Rate FiO2 05/14/21 10:58 99.1 97 136/75 (95) 92 Room Air 99.1 05/13/21 12:45 20 05/13/21 12:35 2.0 I & O 05/13/21 05/13/21 05/14/21 15:00 23:00 07:00 Intake Total 300 ml 100 ml Output Total 200 ml 700 ml Balance 100 ml -600 ml Physical Exam General: Alert, Oriented X3, Cooperative Heart: Regular rate, Normal S1, Normal S2 Lungs: Clear Abdomen: Normal bowel sounds, Soft, No tenderness Extremities: Other Skin: Other Labs Labs: Laboratory Tests Test 05/13/21 13:29 05/13/21 15:51 05/13/21 20:07 05/14/21 06:50 Glucose (Fingerstick) 277 mg/dL (70-99) 197 mg/dL (70-99) 218 mg/dL (70-99) Creatinine 1.3 mg/dL (0.7-1.3) Estimated GFR (Cockcroft-Gault) 55.8 Test 05/14/21 07:35 05/14/21 11:06 Glucose (Fingerstick) 171 mg/dL (70-99) 260 mg/dL (70-99) Comment Review of Relevant I have reviewed the following items joana (where applicable) has been applied. Medications: Current Medications Medications (Trade) Dose Ordered Sig/Inna Route PRN Reason Start Time Stop Time Status Last Admin Dose Admin Vancomycin HCl 1.75 gm/Sodium Chloride 500 ml @ 250 mls/hr Q18H IV 05/13/21 13:30 05/14/21 09:01 Justifications for Admission Other Justification KATARINA KIRBY MD May 14, 2021 12:49
[2021-05-14] MEDS ORDERED: guaiFENesin DM 200MG/20MG 10 ML SYRUP PO PRN (13:00)
[2021-05-14] MEDS: BENZONATATE 100 MG CAPSULE. PO SCH ×2 (14:40→20:50)
[2021-05-14 15:00] VITALS: BP 130/67
[2021-05-14 19:00] VITALS: BP 116/65
[2021-05-14] MEDS: LACTOBACILLUS RHAMNOSUS GG 1 CAPSULE. PO SCH (20:49)
[2021-05-14] MEDS: ATORVASTATIN CALCIUM 40 MG TABLET. PO SCH (20:49)
[2021-05-14] MEDS: INSULIN GLARGINE SYRINGE. SQ SCH (20:54)
[2021-05-14 23:00] VITALS: BP 129/45
[2021-05-15 01:58] LABS: VANC TR 18.7 mcg/mL (10.0-20.0)
[2021-05-15] MEDS: VANCOMYCIN 1.75 GM in IV NORMAL SALINE 500ML BAG 500 ML IV SCH ×2 (02:15→21:17)
[2021-05-15 03:00] VITALS: BP 142/83
[2021-05-15] MEDS: VANCOMYCIN PER PHARMACY MC PRN (03:17)
--- NOTE | 2021-05-15 03:18 | NUR ---
Pharmacy Vancomycin Dosing Note S:Consulted to monitor and dose vancomycin started 05/12/21. 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 Height: 5 feet, 10 inches Weight: 101.5 kg [place] Body Weight: 73.00 Adjusted Body Weight: 84.40 Dosing Weight: Other Antibiotics: ZOSYN 3.375 05/12 - LABS: Last BUN: 17 Last Creatinine: 1.3 Creatinine Clearance: 69 mL/min Last WBC: 8.0 Last Procalcitonin: - Tmax (past 24 hours): 100.3 Microbiology: BLOOD CX (05/12): NGTD I/O: 400/900 Drug Levels: Last Trough level: on 05/15/21 at 0100 Last dose given 05/14/21 at 0901 Vancomycin Dosing: Loading Dose: 2000 mg x1 Dosing Weight: Target Trough: 10-20 A: Based on: therapeutic trough, P: 1. Continue Vancomycin 1750 mg IV q18h 2. Follow up Trough level in 5 to 7 days 3. Pharmacy will continue to monitor, follow and adjust therapy as needed. MAURO BREWER [facility], 05/15/21 [id number]
[2021-05-15] MEDS: PIPERACILLIN/TAZOBACTAM 3.375 GM in IV NORMAL SALINE 50ML 50 ML IV SCH ×3 (05:19→18:24)
[2021-05-15] MEDS: HEPARIN for SUB-Q USE 5,000 UNIT/ML VIAL. SQ SCH ×3 (05:23→22:18)
[2021-05-15 05:49] LABS: CALCIUM 8.3 mg/dL (8.5-10.1); CREATININE 1.4 mg/dL (0.7-1.3); GFR 51.2
[2021-05-15 07:00] VITALS: BP 136/93
--- NOTE | 2021-05-15 08:19 | PDOC ---
PROGRESS NOTES Date of Service: DATE: 05/15/21 TIME: 08:19 Subjective Subjective No new complaints Objective Objective Vital Signs Date Time Temp Pulse Resp B/P (MAP) Pulse Ox O2 Delivery O2 Flow Rate FiO2 05/15/21 03:00 98.9 92 20 142/83 (102) 83 Room Air 98.9 Intake and Output 05/15/21 07:00 Intake Total 2100 ml Output Total 1200 ml Balance 900 ml Intake Oral 2100 ml Output Urine Total 1200 ml Physical Exam Abdomen: Normal bowel sounds, Soft, No tenderness Heart: Regular rate, Normal S1, Normal S2 Extremities: Other General: Alert, Oriented X3, Cooperative MUSCULOSKELETAL: Other (RBKA) Skin: Other Assessment Assessment 1. Severe PAD s/p RBKA in past presently with left great toe gangrene. Aortogram showed severe below the knee disease LLE without any major vascular stenosis above the knee. Plan for anterior tibial WARNING ANALYST tomorrow followed by possible left great toe amputation by vascular surgery team 2. CAD s/p CABG stable and chest pain free. Continue current secondary prevention measures 3. HTN: controlled 4. HLP: statins 5. DM2: per IM Comment Review of Relevant I have reviewed the following items joana (where applicable) has been applied. Labs Laboratory Tests Test 05/14/21 11:06 05/14/21 16:05 05/14/21 20:44 05/15/21 01:00 Glucose (Fingerstick) 260 mg/dL (70-99) 163 mg/dL (70-99) 232 mg/dL (70-99) Sodium Level 140 mmol/L (136-145) Potassium Level 4.0 mmol/L (3.5-5.1) Chloride Level 105 mmol/L (98-107) Carbon Dioxide Level 25 mmol/L (21-32) Anion Gap 10 (6-14) Blood Urea Nitrogen 18 mg/dL (8-26) Creatinine 1.4 mg/dL (0.7-1.3) Estimated GFR (Cockcroft-Gault) 51.2 Glucose Level 241 mg/dL (70-99) Calcium Level 8.3 mg/dL (8.5-10.1) Vancomycin Level Trough 18.7 mcg/mL (10.0-20.0) Vancomycin Last Dose Date Vancomycin Last Dose Time Test 05/15/21 07:21 Glucose (Fingerstick) 277 mg/dL (70-99) Microbiology 05/12/21 Blood Culture - Preliminary, Resulted NO GROWTH AFTER 2 DAYS Medications Current Medications Benzonatate (Tessalon Perle) 100 mg [id number] PO Last administered on 05/14/21at 20:50; Start 05/14/21 at 14:00 Guaifenesin (Robitussin Dm) 10 ml PRN Q6HRS PRN PO COUGH; Start 05/14/21 at 13:00 Lactobacillus Rhamnosus (Culturelle) 1 cap BID PO Last administered on 05/14/21at 20:49; Start 05/14/21 at 21:00 Vancomycin HCl (Vancomycin Trough Level) 1 each 1X ONCE MC Last administered on 05/15/21at 01:00; Start 05/15/21 at 01:00; Stop 05/15/21 at 01:01; Status DC Vitals/I & O Vital Sign - Last 24 Hours 05/14/21 05/14/21 05/14/21 05/14/21 09:03 09:04 09:05 10:58 Temp 99.1 99.1 Pulse 93 93 93 97 B/P (MAP) 153/90 153/90 153/90 136/75 (95) Pulse Ox 92 O2 Delivery Room Air 05/14/21 05/14/21 05/14/21 05/14/21 15:00 19:00 20:00 20:48 Temp 99.1 100.3 99.1 100.3 Pulse 87 94 94 Resp 20 B/P (MAP) 130/67 (88) 116/65 (82) 116/65 Pulse Ox 93 95 O2 Delivery Room Air Room Air Room Air 05/14/21 05/14/21 05/15/21 20:49 23:00 03:00 Temp 97.5 98.9 97.5 98.9 Pulse 94 88 92 Resp 20 20 B/P (MAP) 116/65 129/45 (73) 142/83 (102) Pulse Ox 97 83 O2 Delivery Room Air Room Air Intake and Output 05/14/21 05/14/21 05/15/21 15:00 23:00 07:00 Intake Total 1300 ml 600 ml 200 ml Output Total 400 ml 800 ml Balance 1300 ml 200 ml -600 ml GLORIA PERKINS MD May 15, 2021 08:19
[2021-05-15] MEDS: SENNOSIDES/DOCUSATE 8.6/50MG TABLET. PO SCH ×2 (09:00→21:00)
[2021-05-15] MEDS: CLOPIDOGREL BISULFATE 75 MG TABLET PO SCH (09:14)
[2021-05-15] MEDS: LISINOPRIL 20 MG TABLET PO SCH (09:14)
[2021-05-15] MEDS: BENZONATATE 100 MG CAPSULE. PO SCH ×3 (09:15→21:08)
[2021-05-15] MEDS: LACTOBACILLUS RHAMNOSUS GG 1 CAPSULE. PO SCH ×2 (09:15→21:07)
[2021-05-15] MEDS: ASPIRIN ENTERIC COATED 81 MG TABLET.DR. PO SCH (09:15)
[2021-05-15] MEDS: RANOLAZINE 500 MG TAB.ER.12H PO SCH ×2 (09:15→21:07)
[2021-05-15] MEDS: METOPROLOL TART IMMED RELEASE 25 MG TABLET. PO SCH ×2 (09:16→21:08)
[2021-05-15] MEDS: GABAPENTIN 300 MG CAPSULE. PO SCH ×2 (09:16→21:08)
[2021-05-15] MEDS: PANTOPRAZOLE 40 MG TABLET.DR. PO SCH (09:16)
[2021-05-15] MEDS: INSULIN LISPRO 300 UNITS/3 ML VIAL. SQ SCH ×3 (09:26→18:25)
[2021-05-15 11:00] VITALS: BP 147/80
--- NOTE | 2021-05-15 12:08 | PDOC ---
[facility] PROGRESS NOTE Date of Service DOS: DATE: 05/15/21 TIME: 12:05 Chief Complaint Chief Complaint Left great toe gangrene Recurrent wounds multiple amputations Peripheral vascular disease - s/p multiple amputation including right BKA Diabetes COPD CAD - s/p CABG and stenting Hypertension - cont home meds GERD Gout FEN - ADA cardiac diet PPX - heparin FULL CODE Dispo - inpatient History of Present Illness History of Present Illness Mr Ga is a 65yo male with DM2, HTN, CAD s/p CABG, severe peripheral artery disease with prior BKA and left foot wounds s/p left 2nd toe amputation who is directly wound care clinic today today due to gangrenous left great toe. He has failed outpatient antibiotics 05/13: Patient evaluated examined at bedside. Resting in bed doing well no complaints to me. Planning for lower extremity angiogram today. Patient will transfer to 6 floor after this. Continue antibiotics. Wound evaluation. He is agreeable to the current plan. 05/14: Status post abdominal aortogram with cardiology consideration for PCI in the next several days. He is complain of a cough today. left great toe foul smelling 05/15: Seen bedside with significant other. Left great toe dressing removed due to saturation. Blood glucose been in the 200s despite increase in his regimen. Vitals/I&O Vitals/I&O: Vital Signs Date Time Temp Pulse Resp B/P (MAP) Pulse Ox O2 Delivery O2 Flow Rate FiO2 05/15/21 09:16 97 136/93 05/15/21 07:00 98.8 20 95 Room Air 98.8 I & O 05/14/21 05/14/21 05/15/21 15:00 23:00 07:00 Intake Total 1300 ml 600 ml 200 ml Output Total 400 ml 800 ml Balance 1300 ml 200 ml -600 ml Physical Exam General: Alert, Oriented X3, Cooperative Heart: Regular rate, Normal S1, Normal S2 Lungs: Clear Abdomen: Normal bowel sounds, Soft, No tenderness Extremities: Other Skin: Other Labs Labs: Laboratory Tests Test 05/14/21 16:05 05/14/21 20:44 05/15/21 01:00 05/15/21 07:21 Glucose (Fingerstick) 163 mg/dL (70-99) 232 mg/dL (70-99) 277 mg/dL (70-99) Sodium Level 140 mmol/L (136-145) Potassium Level 4.0 mmol/L (3.5-5.1) Chloride Level 105 mmol/L (98-107) Carbon Dioxide Level 25 mmol/L (21-32) Anion Gap 10 (6-14) Blood Urea Nitrogen 18 mg/dL (8-26) Creatinine 1.4 mg/dL (0.7-1.3) Estimated GFR (Cockcroft-Gault) 51.2 Glucose Level 241 mg/dL (70-99) Calcium Level 8.3 mg/dL (8.5-10.1) Vancomycin Level Trough 18.7 mcg/mL (10.0-20.0) Vancomycin Last Dose Date Vancomycin Last Dose Time Test 05/15/21 11:22 Glucose (Fingerstick) 265 mg/dL (70-99) Comment Review of Relevant I have reviewed the following items joana (where applicable) has been applied. Medications: Current Medications Medications (Trade) Dose Ordered Sig/Inna Route PRN Reason Start Time Stop Time Status Last Admin Dose Admin Vancomycin HCl (Vancomycin Trough Level) 1 each 1X ONCE 05/15/21 01:00 05/15/21 01:01 DC 05/15/21 01:00 Lactobacillus Rhamnosus (Culturelle) 1 cap BID PO 05/14/21 21:00 05/15/21 09:15 Benzonatate (Tessalon Perle) 100 mg [id number] PO 05/14/21 14:00 05/15/21 09:15 Justifications for Admission Other Justification KATARINA KIRBY MD May 15, 2021 12:08
[2021-05-15 15:00] VITALS: BP 135/81
[2021-05-15 19:25] VITALS: BP 152/79
[2021-05-15] MEDS: INSULIN GLARGINE SYRINGE. SQ SCH (21:00)
[2021-05-15] MEDS: ATORVASTATIN CALCIUM 40 MG TABLET. PO SCH (21:06)
[2021-05-15 23:10] VITALS: BP 136/81
[2021-05-16] VITALS (14 sets, daily range): BP systolic 106–183; BP diastolic 63–106
[2021-05-16] MEDS: PIPERACILLIN/TAZOBACTAM 3.375 GM in IV NORMAL SALINE 50ML 50 ML IV SCH ×5 (00:18→23:05)
[2021-05-16] MEDS: HEPARIN for SUB-Q USE 5,000 UNIT/ML VIAL. SQ SCH ×3 (06:00→20:12)
[2021-05-16 06:01] LABS: CALCIUM 8.5 mg/dL (8.5-10.1); CREATININE 1.1 mg/dL (0.7-1.3); GFR 67.6; POTASSIUM 3.6 mmol/L (3.5-5.1)
[2021-05-16] MEDS: INSULIN LISPRO 300 UNITS/3 ML VIAL. SQ SCH ×3 (08:00→18:35)
[2021-05-16] MEDS: SENNOSIDES/DOCUSATE 8.6/50MG TABLET. PO SCH ×3 (09:00→20:10)
--- NOTE | 2021-05-16 09:50 | NUR ---
cardiac cath regarding cath. not scheduled today. may eat
[2021-05-16] MEDS: LACTOBACILLUS RHAMNOSUS GG 1 CAPSULE. PO SCH ×2 (10:08→20:10)
[2021-05-16] MEDS: PANTOPRAZOLE 40 MG TABLET.DR. PO SCH (10:08)
[2021-05-16] MEDS: GABAPENTIN 300 MG CAPSULE. PO SCH ×2 (10:08→20:11)
[2021-05-16] MEDS: CLOPIDOGREL BISULFATE 75 MG TABLET PO SCH (10:08)
[2021-05-16] MEDS: ASPIRIN ENTERIC COATED 81 MG TABLET.DR. PO SCH (10:09)
[2021-05-16] MEDS: BENZONATATE 100 MG CAPSULE. PO SCH ×3 (10:09→20:11)
[2021-05-16] MEDS: RANOLAZINE 500 MG TAB.ER.12H PO SCH ×2 (10:10→20:10)
[2021-05-16] MEDS: METOPROLOL TART IMMED RELEASE 25 MG TABLET. PO SCH ×2 (10:10→20:11)
[2021-05-16] MEDS: LISINOPRIL 20 MG TABLET PO SCH (10:11)
--- NOTE | 2021-05-16 10:19 | NUR ---
cardiology called and to keep Joel NELSON for cath later today. patient informed. had not taken any medication but had 1/2 cup of ice cream.
[2021-05-16] MEDS: VANCOMYCIN 1.75 GM in IV NORMAL SALINE 500ML BAG 500 ML IV SCH (12:09)
[2021-05-16] MEDS ORDERED: IODIXANOL 320 200 ML in NS 200 ML IART ONE (14:00)
[2021-05-16] MEDS ORDERED: LIDOCAINE 1% Multi-Dose 20 ML VIAL. ONE (14:00)
[2021-05-16] MEDS ORDERED: MIDAZOLAM HCL/PF 2 MG/2 ML VIAL. ONE (14:09)
[2021-05-16] MEDS ORDERED: HEPARIN for IV BOLUS 10,000 UNIT/10 ML VIAL. ONE ×2 (14:09→14:22)
[2021-05-16] MEDS ORDERED: fentaNYL PF VIAL 100 MCG/2 ML VIAL ONE (14:09)
[2021-05-16] MEDS ORDERED: NITROGLYCERIN 4 MG/20 ML SYRINGE for CATH LAB. ONE ×2 (14:23→14:30)
[2021-05-16] MEDS ORDERED: IODIXANOL 320 MG/ML 100 ML VIAL. ONE (15:01)
[2021-05-16] MEDS ORDERED: NITROGLYCERIN 200 MCG/2 ML SYRINGE FOR CATH/VASC LAB. ONE ×2 (15:13→15:41)
[2021-05-16] MEDS ORDERED: HEPARIN for IV BOLUS 10,000 UNIT/10 ML VIAL. IV ONE (16:00)
[2021-05-16] MEDS ORDERED: NITROGLYCERIN 200 MCG/2 ML SYRINGE FOR CATH/VASC LAB. IART ONE (16:00)
[2021-05-16] MEDS ORDERED: MIDAZOLAM HCL/PF 2 MG/2 ML VIAL. IV ONE (16:00)
[2021-05-16] MEDS ORDERED: fentaNYL PF VIAL 100 MCG/2 ML VIAL IV ONE (16:00)
[2021-05-16] MEDS ORDERED: LIDOCAINE 1% Multi-Dose 20 ML VIAL. INJ ONE (16:00)
[2021-05-16] MEDS ORDERED: PROTAMINE 50 MG/5 ML VIAL. IV ONE ×2 (16:27→16:45)
[2021-05-16] MEDS ORDERED: ASPIRIN 325 MG TABLET ONE (16:32)
[2021-05-16] MEDS ORDERED: CLOPIDOGREL BISULFATE 75 MG TABLET ONE (16:32)
[2021-05-16] MEDS ORDERED: CLOPIDOGREL BISULFATE 75 MG TABLET PO ONE (16:45)
[2021-05-16] MEDS ORDERED: ASPIRIN 325 MG TABLET PO ONE (16:45)
--- NOTE | 2021-05-16 17:20 | NUR ---
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 dressing to right groin soft dry intact; no hematoma or bleeding noted.He is to hold insertion site if coughing. sister at bedside. he is no lie flat for 4 hours.
--- NOTE | 2021-05-16 19:01 | PDOC ---
[facility] PROGRESS NOTE Date of Service DOS: DATE: 05/16/21 TIME: 19:01 Chief Complaint Chief Complaint Left great toe gangrene Recurrent wounds multiple amputations Peripheral vascular disease - s/p multiple amputation including right BKA Diabetes COPD CAD - s/p CABG and stenting Hypertension - cont home meds GERD Gout FEN - ADA cardiac diet PPX - heparin FULL CODE Dispo - inpatient History of Present Illness History of Present Illness Mr Ga is a 65yo male with DM2, HTN, CAD s/p CABG, severe peripheral artery disease with prior BKA and left foot wounds s/p left 2nd toe amputation who is directly wound care clinic today today due to gangrenous left great toe. He has failed outpatient antibiotics 05/13: Patient evaluated examined at bedside. Resting in bed doing well no complaints to me. Planning for lower extremity angiogram today. Patient will transfer to 6 floor after this. Continue antibiotics. Wound evaluation. He is agreeable to the current plan. 05/14: Status post abdominal aortogram with cardiology consideration for PCI in the next several days. He is complain of a cough today. left great toe foul smelling 05/15: Seen bedside with significant other. Left great toe dressing removed due to saturation. Blood glucose been in the 200s despite increase in his regimen. 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 Vitals/I&O Vitals/I&O: Vital Signs Date Time Temp Pulse Resp B/P (MAP) Pulse Ox O2 Delivery O2 Flow Rate FiO2 05/16/21 16:58 105 22 95 Nasal Cannula 2.0 05/16/21 16:00 182/107 05/16/21 15:00 99.1 99.1 I & O 05/15/21 05/15/21 05/16/21 15:00 23:00 07:00 Intake Total 420 ml 340 ml 150 ml Output Total 675 ml 450 ml Balance 420 ml -335 ml -300 ml Physical Exam General: Alert, Oriented X3, Cooperative Heart: Regular rate, Normal S1, Normal S2 Lungs: Clear Abdomen: Normal bowel sounds, Soft, No tenderness Extremities: Other Skin: Other Labs Labs: Laboratory Tests Test 05/15/21 21:27 05/16/21 04:40 05/16/21 07:46 05/16/21 11:36 Glucose (Fingerstick) 167 mg/dL (70-99) 160 mg/dL (70-99) 200 mg/dL (70-99) Sodium Level 138 mmol/L (136-145) Potassium Level 3.6 mmol/L (3.5-5.1) Chloride Level 104 mmol/L (98-107) Carbon Dioxide Level 23 mmol/L (21-32) Anion Gap 11 (6-14) Blood Urea Nitrogen 14 mg/dL (8-26) Creatinine 1.1 mg/dL (0.7-1.3) Estimated GFR (Cockcroft-Gault) 67.6 Glucose Level 133 mg/dL (70-99) Calcium Level 8.5 mg/dL (8.5-10.1) Test 05/16/21 15:27 05/16/21 16:21 05/16/21 16:38 05/16/21 18:22 Activated Clotting Time 241 sec (92-181) 245 sec (92-181) 156 sec (92-181) Glucose (Fingerstick) 218 mg/dL (70-99) Comment Review of Relevant I have reviewed the following items joana (where applicable) has been applied. Medications: Current Medications Medications (Trade) Dose Ordered Sig/Inna Route PRN Reason Start Time Stop Time Status Last Admin Dose Admin Iodixanol 200 ml/ Sodium Chloride 400 ml @ 400 mls/hr 1X ONCE IART 05/16/21 14:00 05/16/21 14:59 DC 05/16/21 14:00 Nitroglycerin (Nitroglycerin) 400 mcg 1X ONCE IART 05/16/21 16:00 05/16/21 16:02 DC 05/16/21 16:46 Heparin Sodium/ Sodium Chloride (HEPARIN for ARTERIAL LINE FLUSH) 1,000 unit 1X ONCE IART 05/16/21 16:00 05/16/21 16:02 DC 05/16/21 16:49 Heparin Sodium/ Sodium Chloride (HEPARIN for ARTERIAL LINE FLUSH) 1,000 unit 1X ONCE IART 05/16/21 16:00 05/16/21 16:03 DC 05/16/21 16:49 Midazolam HCl (Versed) 2 mg 1X ONCE IV 05/16/21 16:00 05/16/21 16:03 DC 05/16/21 16:48 Fentanyl Citrate (Fentanyl 2ml Vial) 100 mcg 1X ONCE IV 05/16/21 16:00 05/16/21 16:03 DC 05/16/21 16:48 Heparin Sodium (Porcine) (Heparin Sodium) 5,000 unit 1X ONCE IV 05/16/21 16:00 05/16/21 16:03 DC 05/16/21 16:50 Lidocaine HCl (Lidocaine 1% 20ml Vial) 10 ml 1X ONCE INJ 05/16/21 16:00 05/16/21 16:03 DC 05/16/21 16:45 Diltiazem HCl 10 mg/Nitroglycerin 4 mg/Heparin Sodium (Porcine) 74555 unit/ Miscellaneous 20 ml/Sodium Chloride 1,052 ml @ 1,000 mls/hr 1X ONCE INT CAT 05/16/21 16:00 05/16/21 17:03 DC 05/16/21 16:00 Clopidogrel Bisulfate (Plavix) 300 mg 1X ONCE PO 05/16/21 16:45 05/16/21 16:46 DC 05/16/21 16:46 Aspirin (Anh Aspirin) 325 mg 1X ONCE PO 05/16/21 16:45 05/16/21 16:46 DC 05/16/21 16:46 Protamine Sulfate (Protamine) 10 mg 1X ONCE IV 05/16/21 16:45 05/16/21 16:46 DC 05/16/21 16:46 Justifications for Admission Other Justification EILEEN GHOTRA MD May 16, 2021 19:01
[2021-05-16] MEDS: ATORVASTATIN CALCIUM 40 MG TABLET. PO SCH (20:10)
[2021-05-16] MEDS: INSULIN GLARGINE SYRINGE. SQ SCH (20:12)
[2021-05-17 02:35] VITALS: BP 112/65
[2021-05-17] MEDS: PIPERACILLIN/TAZOBACTAM 3.375 GM in IV NORMAL SALINE 50ML 50 ML IV SCH ×4 (05:05→23:16)
[2021-05-17] MEDS: HEPARIN for SUB-Q USE 5,000 UNIT/ML VIAL. SQ SCH ×3 (05:05→19:58)
[2021-05-17 07:00] VITALS: BP 141/81
--- NOTE | 2021-05-17 08:16 | CARD ---
MR#: [id number] Date of Study: 05/16/2021 Ordering Physician: CHETNA TAO, Referring Physician: CHETNA TAO, Tech: Kae Mariano RT(R) APPROVED REPORT Patient StatusIN Knife Changer: Kae Mariano RT(R) Procedure(s) performed: MODERATE SEDATION 156 MIN 122CC CONTRAST FLUORO TIME: 33.4 MIN DOSE: [id number] Complex TONE ARTIST APPRENTICE of the AT and Peroneal artery HISTORY The patient is a 65 year-old male with a history of : coronary artery disease, tobacco history() , hy pertension, dyslipidemia. INDICATION FOR PROCEDURE The indication(s) include : Positive angiogram for stenosis: , and non-healing left toe wound.. PROCEDURE NARRATIVE Clinical Information: 65-year-old man presents to the Radiation Therapist for a planned anterior tibial artery and peroneal artery rec analization for ischemic left great toe prior to amputation. Please refer to prior aortogram for mitch gnostic aortography. Procedure Details: After proper informed consent the right groin was prepped and draped in usual sterile fashion. Under fluoroscopic guidance a 5 [place] sheath was placed in the right common femoral artery via the modifi ed Seldinger technique. Due to significant fibrosis insertion of the sheath was technically challeng ing and required use of a stiff wire. Next, a Omni Flush catheter was used to engage the left common iliac artery and with the aid of a Glidewire advantage a 6 [place] destination sheath was placed in t he distal common femoral artery on the left side. Heparin was used for anticoagulation. Next, a 0.014 inch quick cross catheter was used to engage the anterior tibial artery and a command ES wire was able to traverse the anterior tibial artery stenosi s. Distal intraluminal placement was confirmed with contrast injection. Next, the command ES wire w as exchanged for a Viper wire and a diamondback atherectomy device 1.25 mm bur was used to perform at herectomy of the anterior tibial artery. Next, a Mountain [place] 2.5 x 120 mm balloon was used to perform ang ioplasty of the anterior tibial artery followed by a 3.0 x 40 mm focal angioplasty at nominal pressur es. Final angiography demonstrated excellent antegrade flow in the anterior tibial artery with resid ual less than 20% stenosis. Attention was then turned to the peroneal artery. Again with the quick cross catheter and a command ES wire and a submersible pilot 200 wire the peroneal artery occlusion was traversed and balloon angioplasty was performed with a 2.0 x 120 mm [place] balloon and this revealed excellent runoff with less than 30% re sidual stenosis. Given that the patient had excellent two-vessel runoff with collateralization and e xcellent wound blush further intervention of the posterior tibial artery was deferred. At case completion the right groin sheath was removed and hemostasis was achieved via manual compress ion. No acute complications. The patient received aspirin and Plavix. Conclusion 1. Successful complex atherectomy and angioplasty of the anterior tibial artery 2. Successful recanalization of peroneal artery chronic total occlusion and angioplasty with excelle nt two-vessel runoff Recommendations Aspirin 81 mg daily Plavix 75 mg daily Risk factor modification Vascular surgery consultation for consideration of left toe amputation Signed by : Chetna Tao, Electronically Approved : 05/17/2021 08:15:40
[2021-05-17] MEDS: LISINOPRIL 20 MG TABLET PO SCH (08:37)
[2021-05-17] MEDS: METOPROLOL TART IMMED RELEASE 25 MG TABLET. PO SCH ×2 (08:38→19:58)
[2021-05-17] MEDS: CLOPIDOGREL BISULFATE 75 MG TABLET PO SCH (08:39)
[2021-05-17] MEDS: PANTOPRAZOLE 40 MG TABLET.DR. PO SCH (08:39)
[2021-05-17] MEDS: BENZONATATE 100 MG CAPSULE. PO SCH ×3 (08:39→19:57)
[2021-05-17] MEDS: ASPIRIN ENTERIC COATED 81 MG TABLET.DR. PO SCH (08:39)
[2021-05-17] MEDS: LACTOBACILLUS RHAMNOSUS GG 1 CAPSULE. PO SCH ×2 (08:39→19:58)
[2021-05-17] MEDS: SENNOSIDES/DOCUSATE 8.6/50MG TABLET. PO SCH ×2 (08:39→19:57)
[2021-05-17] MEDS: RANOLAZINE 500 MG TAB.ER.12H PO SCH ×2 (08:39→19:57)
[2021-05-17] MEDS: GABAPENTIN 300 MG CAPSULE. PO SCH ×2 (08:39→19:57)
[2021-05-17] MEDS: VANCOMYCIN 1.75 GM in IV NORMAL SALINE 500ML BAG 500 ML IV SCH (08:40)
[2021-05-17] MEDS: INSULIN LISPRO 300 UNITS/3 ML VIAL. SQ SCH ×3 (09:08→17:31)
[2021-05-17] MEDS: VANCOMYCIN PER PHARMACY MC PRN (09:37)
--- NOTE | 2021-05-17 10:39 | PDOC ---
[facility] PROGRESS NOTE Date of Service DOS: DATE: 05/17/21 TIME: 10:38 Chief Complaint Chief Complaint Left great toe gangrene Recurrent wounds multiple amputations Peripheral vascular disease - s/p multiple amputation including right BKA Diabetes COPD CAD - s/p CABG and stenting Hypertension - cont home meds GERD Gout FEN - ADA cardiac diet PPX - heparin FULL CODE Dispo - inpatient History of Present Illness History of Present Illness Mr Ga is a 65yo male with DM2, HTN, CAD s/p CABG, severe peripheral artery disease with prior BKA and left foot wounds s/p left 2nd toe amputation who is directly wound care clinic today today due to gangrenous left great toe. He has failed outpatient antibiotics 05/13: Patient evaluated examined at bedside. Resting in bed doing well no complaints to me. Planning for lower extremity angiogram today. Patient will transfer to 6 floor after this. Continue antibiotics. Wound evaluation. He is agreeable to the current plan. 05/14: Status post abdominal aortogram with cardiology consideration for PCI in the next several days. He is complain of a cough today. left great toe foul smelling 05/15: Seen bedside with significant other. Left great toe dressing removed due to saturation. Blood glucose been in the 200s despite increase in his regimen. 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 2 stents placed yesterday, pulses about he same, outpatient plainfilm xray of foot did not show definite osteo, Consult Vascular, wound would prob never heal. in good spirits, cont current,, no pain Vitals/I&O Vitals/I&O: Vital Signs Date Time Temp Pulse Resp B/P (MAP) Pulse Ox O2 Delivery O2 Flow Rate FiO2 05/17/21 08:39 77 112/65 05/17/21 08:00 Room Air 05/17/21 07:00 98.3 19 90 98.3 05/16/21 16:58 2.0 I & O 05/16/21 05/16/21 05/17/21 15:00 23:00 07:00 Intake Total 300 ml 0 ml Output Total 350 ml 450 ml Balance -50 ml -450 ml 0 ml Physical Exam General: Alert, Oriented X3, Cooperative Heart: Regular rate, Normal S1, Normal S2 Lungs: Clear Abdomen: Normal bowel sounds, Soft, No tenderness Extremities: Other Skin: Other Labs Labs: Laboratory Tests Test 05/16/21 11:36 05/16/21 15:27 05/16/21 16:21 05/16/21 16:38 Glucose (Fingerstick) 200 mg/dL (70-99) Activated Clotting Time 241 sec (92-181) 245 sec (92-181) 156 sec (92-181) Test 05/16/21 18:22 05/16/21 20:08 05/17/21 07:34 Glucose (Fingerstick) 218 mg/dL (70-99) 152 mg/dL (70-99) 123 mg/dL (70-99) Comment Review of Relevant I have reviewed the following items joana (where applicable) has been applied. Medications: Current Medications Medications (Trade) Dose Ordered Sig/Inna Route PRN Reason Start Time Stop Time Status Last Admin Dose Admin Iodixanol 200 ml/ Sodium Chloride 400 ml @ 400 mls/hr 1X ONCE IART 05/16/21 14:00 05/16/21 14:59 DC 05/16/21 14:00 Nitroglycerin (Nitroglycerin) 400 mcg 1X ONCE IART 05/16/21 16:00 05/16/21 16:02 DC 05/16/21 16:46 Heparin Sodium/ Sodium Chloride (HEPARIN for ARTERIAL LINE FLUSH) 1,000 unit 1X ONCE IART 05/16/21 16:00 05/16/21 16:02 DC 05/16/21 16:49 Heparin Sodium/ Sodium Chloride (HEPARIN for ARTERIAL LINE FLUSH) 1,000 unit 1X ONCE IART 05/16/21 16:00 05/16/21 16:03 DC 05/16/21 16:49 Midazolam HCl (Versed) 2 mg 1X ONCE IV 05/16/21 16:00 05/16/21 16:03 DC 05/16/21 16:48 Fentanyl Citrate (Fentanyl 2ml Vial) 100 mcg 1X ONCE IV 05/16/21 16:00 05/16/21 16:03 DC 05/16/21 16:48 Heparin Sodium (Porcine) (Heparin Sodium) 5,000 unit 1X ONCE IV 05/16/21 16:00 05/16/21 16:03 DC 05/16/21 16:50 Lidocaine HCl (Lidocaine 1% 20ml Vial) 10 ml 1X ONCE INJ 05/16/21 16:00 05/16/21 16:03 DC 05/16/21 16:45 Diltiazem HCl 10 mg/Nitroglycerin 4 mg/Heparin Sodium (Porcine) 81341 unit/ Miscellaneous 20 ml/Sodium Chloride 1,052 ml @ 1,000 mls/hr 1X ONCE INT CAT 05/16/21 16:00 05/16/21 17:03 DC 05/16/21 16:00 Clopidogrel Bisulfate (Plavix) 300 mg 1X ONCE PO 05/16/21 16:45 05/16/21 16:46 DC 05/16/21 16:46 Aspirin (Anh Aspirin) 325 mg 1X ONCE PO 05/16/21 16:45 05/16/21 16:46 DC 05/16/21 16:46 Protamine Sulfate (Protamine) 10 mg 1X ONCE IV 05/16/21 16:45 05/16/21 16:46 DC 05/16/21 16:46 Justifications for Admission Other Justification EILEEN GHOTRA MD May 17, 2021 10:39
[2021-05-17 11:00] VITALS: BP 132/70
--- NOTE | 2021-05-17 13:23 | PDOC ---
KIERRA SAN BRIM CUTTER 05/17/21 1323: CARDIO Progress Notes Date and Time Date of Service 05/17/2021 Time of Evaluation 1310 Subjective Subjective: No Chest Pain, No shortness of breath, No Palpitations Vitals Vitals Vital Signs Date Time Temp Pulse Resp B/P (MAP) Pulse Ox O2 Delivery O2 Flow Rate FiO2 05/17/21 11:00 98.4 76 18 132/70 (90) 93 Room Air 98.4 05/16/21 16:58 2.0 Weight Weight [ ] Input and Output Intake and Output Intake and Output 05/17/21 07:00 Intake Total 300 ml Output Total 800 ml Balance -500 ml Intake Oral 300 ml Output Urine Total 800 ml Laboratory Labs Laboratory Tests Test 05/16/21 15:27 05/16/21 16:21 05/16/21 16:38 05/16/21 18:22 Activated Clotting Time 241 sec (92-181) 245 sec (92-181) 156 sec (92-181) Glucose (Fingerstick) 218 mg/dL (70-99) Test 05/16/21 20:08 05/17/21 07:34 05/17/21 11:33 Glucose (Fingerstick) 152 mg/dL (70-99) 123 mg/dL (70-99) 182 mg/dL (70-99) Microbiology Micro Microbiology 05/12/21 Blood Culture - Preliminary, Resulted NO GROWTH AFTER 4 DAYS Physical Exam HEENT: Neck Supple W Full Motion Chest: Symmetric LUNGS: Clear to Auscultation Heart: RRR (SR) Abdomen: Soft N/T Extremities: Other (RBKA, necrotic left big toe. 2-3+ pitting RLE edema) Neurology: alert, oriented, follow commands Assessment Assessment 1. Severe PAD s/p RBKA in past presently with left great toe gangrene. S/P complex atherectomy and angioplasty of the anterior tibial artery. and successful recanalization of peroneal artery chronic total occlusion and angioplasty with excellent two-vessel runoff. 2. CAD s/p CABG stable 3. HTN: controlled 4. HLP: statins 5. DM2: per IM Recommendations 1. Start plavix. Continue current secondary prevention measures 2. Continue antibotics therapy. Will need left great toe amputation by vascular surgery team Justicifation of Admission Dx: Justifications for Admission: Justification of Admission Dx: Comment: CHETNA ARREDONDO MD 05/17/21 1807: CARDIO Progress Notes Plan Plan Patient seen and examined. Agree with above nurse practitioner note. Appreciate vascular surgery recommendations regarding amputation. Continue dual antiplatelet therapy. Supportive care KIERRA SAN BRIM CUTTER May 17, 2021 13:23 CHETNA ARREDONDO MD May 17, 2021 18:07
[2021-05-17 15:00] VITALS: BP 128/78
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
[2021-05-17 19:40] VITALS: BP 140/76
[2021-05-17] MEDS: INSULIN GLARGINE SYRINGE. SQ SCH (19:55)
[2021-05-17] MEDS: ATORVASTATIN CALCIUM 40 MG TABLET. PO SCH (19:57)
[2021-05-17 23:15] VITALS: BP 157/84
[2021-05-18] MEDS: VANCOMYCIN 1.75 GM in IV NORMAL SALINE 500ML BAG 500 ML IV SCH (00:52)
[2021-05-18 02:55] VITALS: BP 169/88
[2021-05-18 05:19] LABS: CREATININE 1.4 mg/dL (0.7-1.3); GFR 51.2
[2021-05-18] MEDS: HEPARIN for SUB-Q USE 5,000 UNIT/ML VIAL. SQ SCH ×3 (06:00→20:32)
[2021-05-18] MEDS: PIPERACILLIN/TAZOBACTAM 3.375 GM in IV NORMAL SALINE 50ML 50 ML IV SCH ×4 (06:47→23:38)
[2021-05-18 07:00] VITALS: BP 172/118
[2021-05-18] MEDS: ASPIRIN ENTERIC COATED 81 MG TABLET.DR. PO SCH (07:45)
[2021-05-18] MEDS: CLOPIDOGREL BISULFATE 75 MG TABLET PO SCH (07:45)
[2021-05-18] MEDS: PANTOPRAZOLE 40 MG TABLET.DR. PO SCH (07:46)
[2021-05-18] MEDS: LACTOBACILLUS RHAMNOSUS GG 1 CAPSULE. PO SCH ×2 (07:46→20:23)
[2021-05-18] MEDS: LISINOPRIL 20 MG TABLET PO SCH (07:46)
[2021-05-18] MEDS: BENZONATATE 100 MG CAPSULE. PO SCH ×3 (07:46→20:24)
[2021-05-18] MEDS: INSULIN LISPRO 300 UNITS/3 ML VIAL. SQ SCH ×3 (07:47→16:47)
[2021-05-18] MEDS: METOPROLOL TART IMMED RELEASE 25 MG TABLET. PO SCH ×2 (07:47→20:25)
[2021-05-18] MEDS: RANOLAZINE 500 MG TAB.ER.12H PO SCH ×2 (07:47→20:25)
[2021-05-18] MEDS: GABAPENTIN 300 MG CAPSULE. PO SCH ×2 (07:47→20:24)
[2021-05-18] MEDS: SENNOSIDES/DOCUSATE 8.6/50MG TABLET. PO SCH ×2 (07:48→20:33)
[2021-05-18] MEDS ORDERED: CLOPIDOGREL BISULFATE 75 MG TABLET PO SCH (08:00)
--- NOTE | 2021-05-18 09:11 | NUR ---
CONSENTS SIGNED THIS AM FOR SURGERY TODAY. PT HAS BEEN NPO SINCE MIDNIGHT. INEXPLICABLY, FSBS THIS AM IS 416. PT REPORTS THAT IT OFTEN DOES THIS WHEN HE HASN'T EATEN IN A WHILE, THAT IT WILL LIKELY DROP DRASTICALLY ON IT'S OWN. DECLINES THIS AM'S INSULIN DOSE, AND HE IS NPO, WAS PLANNING TO HOLD IT. AM MEDS TAKEN WITH A SIP OF WATER.
--- NOTE | 2021-05-18 10:08 | NUR ---
PT LEAVES FLOOR WITH TRANSPORT FOR PRE-OP. CHART SENT WITH PATIENT.
[2021-05-18] MEDS ORDERED: MORPHINE SULFATE 2 MG/ML INJ. IVP PRN (10:15)
[2021-05-18] MEDS ORDERED: HYDROmorphone 2 MG/ML INJ. IVP PRN (10:15)
[2021-05-18] MEDS ORDERED: IV RINGERS,LACTATED 1000ML 1,000 ML IV SCH (10:15)
[2021-05-18] MEDS ORDERED: fentaNYL PF VIAL 100 MCG/2 ML VIAL IVP PRN ×2 (10:15)
[2021-05-18] MEDS ORDERED: PROCHLORPERAZINE 10 MG/2 ML VIAL. IVP PRN (10:15)
[2021-05-18] MEDS: INSULIN LISPRO 100 UNIT/ML 3ML VIAL for OP,RR ONLY. SQ PRN ×2 (10:17→12:32)
--- NOTE | 2021-05-18 10:33 | PDOC ---
Provider Note Date of Service: DATE: 05/18/21 TIME: 10:30 Provider Note Provider Note Patient seen and evaluated this AM. He underwent percutaneous revascularization of the left lower extremity by Dr. Tao within the past week. He has evidence of dry gangrene of the left first toe which necessitates amputation. HE has previously undergone right below knee amputation. Will proceed with left first toe amputation today under digital block with MAC sedation. Will need half shoe postoperatively. Patient understands and agrees to proceed. Explained risks of nonhealing, bleeding infection and need for future procedures. Patient understands and agrees to proceed. Justicifation of Admission Dx: Justifications for Admission: Justification of Admission Dx: Comment: JESSE MCDERMOTT MD May 18, 2021 10:33
[2021-05-18] MEDS ORDERED: PROPOFOL 10 MG/ML (20ML) VIAL. IV ONE (10:39)
[2021-05-18] MEDS ORDERED: LIDOCAINE 2% PF 5 ML VIAL. ONE (10:39)
[2021-05-18] MEDS ORDERED: fentaNYL PF VIAL 100 MCG/2 ML VIAL ONE (10:40)
[2021-05-18] MEDS ORDERED: MIDAZOLAM HCL/PF 2 MG/2 ML VIAL. ONE (10:40)
[2021-05-18] MEDS ORDERED: LIDOCAINE 1% PF 30 ML VIAL. ONE (10:55)
--- NOTE | 2021-05-18 11:40 | PDOC ---
[facility] PROGRESS NOTE Date of Service DOS: DATE: 05/18/21 TIME: 11:40 Chief Complaint Chief Complaint Left great toe gangrene Recurrent wounds multiple amputations Peripheral vascular disease - s/p multiple amputation including right BKA Diabetes COPD CAD - s/p CABG and stenting Hypertension - cont home meds GERD Gout FEN - ADA cardiac diet PPX - heparin FULL CODE Dispo - inpatient History of Present Illness History of Present Illness Mr Ga is a 65yo male with DM2, HTN, CAD s/p CABG, severe peripheral artery disease with prior BKA and left foot wounds s/p left 2nd toe amputation who is directly wound care clinic today today due to gangrenous left great toe. He has failed outpatient antibiotics 05/13: Patient evaluated examined at bedside. Resting in bed doing well no complaints to me. Planning for lower extremity angiogram today. Patient will transfer to 6 floor after this. Continue antibiotics. Wound evaluation. He is agreeable to the current plan. 05/14: Status post abdominal aortogram with cardiology consideration for PCI in the next several days. He is complain of a cough today. left great toe foul smelling 05/15: Seen bedside with significant other. Left great toe dressing removed due to saturation. Blood glucose been in the 200s despite increase in his regimen. 05/16, [employer] today 05/17,. 2 stents placed yesterday, pulses about he same, outpatient plainfilm xray of foot did not show definite osteo, Consult Vascular, wound would prob never heal. in good spirits, cont current,, no pain 05/18, surg today doing well, Vitals/I&O Vitals/I&O: Vital Signs Date Time Temp Pulse Resp B/P (MAP) Pulse Ox O2 Delivery O2 Flow Rate FiO2 05/18/21 10:22 99.3 105 15 157/83 99 Room Air 99.3 I & O 05/17/21 05/17/21 05/18/21 15:00 23:00 07:00 Intake Total 600 ml 300 ml 550 ml Output Total 850 ml 1500 ml Balance -250 ml 300 ml -950 ml Physical Exam General: Alert, Oriented X3, Cooperative Heart: Regular rate, Normal S1, Normal S2 Lungs: Clear Abdomen: Normal bowel sounds, Soft, No tenderness Extremities: No edema, Other (Doppler signals intact in the left lower ex tremity dorsalis pedis location, palpable femoral pulses bilaterally) Skin: Other (Left first toe full-thickness gangrene which is dry, no purulent drainage, no malodor, no cellulitis) Labs Labs: Laboratory Tests Test 05/17/21 16:46 05/17/21 19:54 05/17/21 20:43 05/18/21 03:35 Glucose (Fingerstick) 111 mg/dL (70-99) 61 mg/dL (70-99) 84 mg/dL (70-99) Creatinine 1.4 mg/dL (0.7-1.3) Estimated GFR (Cockcroft-Gault) 51.2 Test 05/18/21 07:28 05/18/21 10:10 Glucose (Fingerstick) 416 mg/dL (70-99) 431 mg/dL (70-99) Comment Review of Relevant I have reviewed the following items joana (where applicable) has been applied. Medications: Current Medications Medications (Trade) Dose Ordered Sig/Inna Route PRN Reason Start Time Stop Time Status Last Admin Dose Admin Ringer's Solution 1,000 ml @ 30 mls/hr Q24H IV 05/18/21 10:15 05/18/21 22:14 05/18/21 10:21 Insulin Human Lispro (HumaLOG VIAL for OP,RR ONLY) 0-10 units PRN Q1HR PRN SQ PER PROTOCOL 05/18/21 10:15 05/19/21 10:14 05/18/21 10:17 Justifications for Admission Other Justification EILEEN GHOTRA MD May 18, 2021 11:40
--- NOTE | 2021-05-18 12:09 | NUR ---
MEDICATION NON-ADMIN OF NOON MEDS, PT REMAINS OFF FLOOR IN OR.
--- NOTE | 2021-05-18 12:50 | PDOC4 ---
OPERATIVE NOTE Date: Date: May 18, 2021 Pre-Op Diagnosis: 1. Peripheral arterial disease 2. Osteomyelitis with abscess left first toe distal phalanx with gangrene 3. Diabetes mellitus poorly controlled on insulin Post-Op Diagnosis: 1. Peripheral arterial disease 2. Osteomyelitis with abscess left first toe distal phalanx with gangrene 3. Diabetes mellitus poorly controlled on insulin Procedure Performed: 1. Left first toe amputation with metatarsal head Surgeon: Freddy Perez MD Anesthesia Type: MAC/local Blood Loss: 20 cc Specimans Obtained: 1. Left first toe deep tissue culture 2. Left first toe culture swab of abscess Findings: Following the procedure on exploration of the first toe, there was an abscess involving the tissues around the distal phalanx with concern for osteomyelitis of the distal phalanx of the left first toe. There was no involvement or clear purulence within the first metatarsophalangeal joint. Complications: None Operative Note: The patient was brought to the operative theater and positioned supine. The left foot was prepped and draped with Betadine. Patient was maintained under monitored anesthesia care. Surgical timeout was performed. The patient was already on scheduled antibiotics. A digital block was performed with 1% li docaine. I then marked and made a teardrop shaped incision with a extension along the first metatarsal bone on the medial aspect of the foot. The incision was taken straight down to the bone of the proximal phalanx. Then dissected further back raising dorsal and plantar flaps using curved Schaeffer scissors dissecting straight on the bone to then dislocate the first toe at the metata rsophalangeal joint. The toe was then set aside for later specimen collection to avoid contamination of the field. The wound was then copiously irrigated with antibiotic solution. I then dissected further back along the first metatarsal bone and extended my incision along the medial aspect as given the callused nature of the surrounding skin this would require resection of the m etatarsal head to allow for tension-free closure. I then divided the metatarsal head approximately 2 cm proximal to the joint and the metatarsal bone was healthy at this level. The sesamoid bones were then resected using sharp dissection. Following this the wound was then copiously irrigated with antibiotic solution. 3-0 Vicryl stick tie and and Bovie cautery was then used to obtain hemostasis. I then approximated the fascia using 3-0 Vicryl sutures. I then closed the skin using interrupted 3-0 nylon suture. Xeroform, gauze, Sof-Rol, and Jonathan wrap was then applied as a clean dressing. Given that this required resection of the metatarsal head and that the patient has a developing deep tissue injury apparent on the left heel I recommended the patient be minimally weightbearing to the left foot with weightbearing to the heel only for transfers and toileting and otherwise maintain nonweightbearing status. FREDDY PEREZ MD May 18, 2021 12:50
--- NOTE | 2021-05-18 13:11 | PDOC ---
KIERRA SAN NIPPING MACHINE OPERATOR 05/18/21 1311: CARDIO Progress Notes Date and Time Date of Service 05/18/2021 Time of Evaluation 1420 Subjective Subjective: No Chest Pain, No shortness of breath, No Palpitations Vitals Vitals Vital Signs Date Time Temp Pulse Resp B/P (MAP) Pulse Ox O2 Delivery O2 Flow Rate FiO2 05/18/21 12:42 98.2 110 19 155/90 95 Room Air 98.2 Weight Weight [ ] Input and Output Intake and Output Intake and Output 05/18/21 07:00 Intake Total 1450 ml Output Total 2350 ml Balance -900 ml Intake Oral 900 ml IV Total 550 ml Output Urine Total 2350 ml Laboratory Labs Laboratory Tests Test 05/17/21 16:46 05/17/21 19:54 05/17/21 20:43 05/18/21 03:35 Glucose (Fingerstick) 111 mg/dL (70-99) 61 mg/dL (70-99) 84 mg/dL (70-99) Creatinine 1.4 mg/dL (0.7-1.3) Estimated GFR (Cockcroft-Gault) 51.2 Test 05/18/21 07:28 05/18/21 10:10 05/18/21 12:16 Glucose (Fingerstick) 416 mg/dL (70-99) 431 mg/dL (70-99) 421 mg/dL (70-99) Microbiology Micro Microbiology 05/12/21 Blood Culture - Final, Complete NO GROWTH AFTER 5 DAYS Physical Exam HEENT: Neck Supple W Full Motion Chest: Symmetric LUNGS: Clear to Auscultation Heart: RRR (SR) Abdomen: Soft N/T Extremities: Other (RBKA, necrotic left big toe. 2-3+ pitting RLE edema) Neurology: alert, oriented, follow commands Assessment Assessment 1. Severe PAD s/p RBKA in past presently with left great toe gangrene. S/P complex atherectomy and angioplasty of the anterior tibial artery. and successful recanalization of peroneal artery chronic total occlusion and angioplasty with excellent two-vessel runoff. 2. CAD s/p CABG stable 3. HTN: controlled 4. HLP: statins 5. DM2: per IM 6. S/P Left first toe amputation with metatarsal head tolerated procedure Recommendations 1. ASA/Plavix. Continue current secondary prevention measures 2. Continue antibotics therapy. 3. Post op care, supportive Justicifation of Admission Dx: Justifications for Admission: Justification of Admission Dx: Comment: CHETNA ARREDONDO MD 05/18/214: CARDIO Progress Notes Plan Plan The patient was seen and interviewed as well as examined at the bedside. The chart was reviewed. The case was discussed. Agree with the plan of care. KIERRA SAN NIPPING MACHINE OPERATOR May 18, 2021 13:11 CHETNA ARREDONDO MD May 18, 2021 22:14
--- NOTE | 2021-05-18 14:00 | NUR ---
REC'D REPORT FROM PACU. BLISTERED AREA TO POSTERIOR (L) HEEL NOTED DURING OPERATION. MEPILEX DRESSING APPLIED, CHANGE Q3-5 DAYS ET PRN. CONCERN RAISED ABOUT PATIENT WEARING POST OP SHOE AND CAUSING DAMAGE TO BLISTER. AT THIS POINT RECOMMENDATION IS PT WEAR (R)LE PROSTHESIS FOR ANY STANDING ACTIVITIES, AND CAN THEN BEAR WEIGHT ON (L) FOOT WITHOUT DAMAGING BLISTERED AREA. SISTER BRINGING PROSTHESIS UP FROM PERSONAL VEHICLE. TOE AMPUTATION SITE DRESSED WITH XEROFORM, 4X4, SOFT ROLL, AND GERALD WRAP. SEE ORDERS FOR POD#1 DRESSING CHANGE ORDERS.
[2021-05-18] MEDS: ONDANSETRON PF 4 MG/2 ML VIAL. IVP PRN ×2 (14:01→20:33)
[2021-05-18 15:00] VITALS: BP 147/82
--- NOTE | 2021-05-18 15:12 | NUR ---
SS following for discharge planning. SS reviewed pt chart and discussed with pt RN. Pt is from home and is currently on room air. Pt on IV Vancomycin and IV Zosyn. Cardiology and Vascular following. COVID19 negative. Pt had toe amputation today. PT ordered. Pt has [facility] Plan and services for home are limited due to insurance coverage. SS will continue to follow for discharge planning.
[2021-05-18] MEDS: VANCOMYCIN PER PHARMACY MC PRN ×2 (17:07→21:10)
[2021-05-18 18:49] VITALS: BP 109/60
[2021-05-18 20:13] LABS: VANC TR 21.1 mcg/mL (10.0-20.0)
[2021-05-18] MEDS: ATORVASTATIN CALCIUM 40 MG TABLET. PO SCH (20:23)
[2021-05-18] MEDS: INSULIN GLARGINE SYRINGE. SQ SCH (20:32)
--- NOTE | 2021-05-18 21:11 | NUR ---
Pharmacy Vancomycin Dosing Note S:Consulted to monitor and dose vancomycin started 05/12/21. 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 Height: 5 feet, 10 inches Weight: 88.3 kg [place] Body Weight: 73.00 Adjusted Body Weight: 79.12 Dosing Weight: Other Antibiotics: ZOSYN 3.375 05/12 - LABS: Last BUN: 14 (05/16/21) Last Creatinine: 1.4 Creatinine Clearance: 60 mL/min Last WBC: 8.0 (05/12/21) Last Procalcitonin: - Tmax (past 24 hours): 100.3 Microbiology: BLOOD CX (05/12): NGTD I/O: 1450/2350 Drug Levels: Last Trough level: 21.2 on 05/18/21 at 1900 Last dose given 05/18/21 at 0052 Vancomycin Dosing: Loading Dose: 2000 mg x1 Dosing Weight: Target Trough: 10-20 A: Based on: LEVEL P: 1. Change Vancomycin 1750 mg IV q24h 2. Follow up Trough level NEEDED 3. Pharmacy will continue to monitor, follow and adjust therapy as needed. BRODIE BALDWIN [facility], 05/18/21 9515
[2021-05-18 22:34] VITALS: BP 140/74
[2021-05-19] MEDS ORDERED: VANCOMYCIN 1.75 GM in IV NORMAL SALINE 500ML BAG 500 ML IV SCH (00:01)
[2021-05-19 03:00] VITALS: BP 121/64
[2021-05-19] MEDS: PIPERACILLIN/TAZOBACTAM 3.375 GM in IV NORMAL SALINE 50ML 50 ML IV SCH ×2 (06:06→12:00)
[2021-05-19] MEDS: HEPARIN for SUB-Q USE 5,000 UNIT/ML VIAL. SQ SCH ×2 (06:06→14:00)
[2021-05-19 07:00] VITALS: BP 119/75
[2021-05-19] MEDS: RANOLAZINE 500 MG TAB.ER.12H PO SCH (08:50)
[2021-05-19] MEDS: LISINOPRIL 20 MG TABLET PO SCH (08:51)
[2021-05-19] MEDS: ASPIRIN ENTERIC COATED 81 MG TABLET.DR. PO SCH (08:51)
[2021-05-19] MEDS: LACTOBACILLUS RHAMNOSUS GG 1 CAPSULE. PO SCH (08:51)
[2021-05-19] MEDS: BENZONATATE 100 MG CAPSULE. PO SCH ×2 (08:51→14:00)
[2021-05-19] MEDS: GABAPENTIN 300 MG CAPSULE. PO SCH (08:51)
[2021-05-19] MEDS: PANTOPRAZOLE 40 MG TABLET.DR. PO SCH (08:51)
[2021-05-19] MEDS: METOPROLOL TART IMMED RELEASE 25 MG TABLET. PO SCH (08:52)
[2021-05-19] MEDS: CLOPIDOGREL BISULFATE 75 MG TABLET PO SCH (08:52)
[2021-05-19] MEDS: SENNOSIDES/DOCUSATE 8.6/50MG TABLET. PO SCH (08:54)
[2021-05-19] MEDS: INSULIN LISPRO 300 UNITS/3 ML VIAL. SQ SCH ×3 (09:01→17:42)
--- NOTE | 2021-05-19 10:55 | NUR ---
Wound/Ostomy Care Wound Type/Assessment: Patient seen per wound care follow up. See wound assessment. Patient is well known to us from the wound clinic. He was admitted from wound care. Patient is POD #1 regarding a left great toe ray amputation including the met head performed by vascular. This amputation site is closed with sutures well approximated. Patient also has a DFU to the left heel that is new for this patient. Patient stated he has been resting his heel on the end of the bed. Explained to patient that resting his heel on that firm surface was causing this wound. Patient also has a DFU to the right BKA which has greatly improved as patient has not been wearing his prothesis. wound cleansed, assessed, measured, and pictured. Treatment Recommendations/Plan: Cleanse wounds and pat dry. Orders for dry gauze, kerlix, and GERALD wrap the the left foot per vascular, skin prep and ABD pad to the left heel and wrap with kerlix. Patient is to wear heel medix while in bed. To the right BKA continue with Iodoflex (left in room) and cover with foam dressing. Change Sunday. Education provided: Patient educated on dressing changes, POC, and PU prevention. Patient needs reinforcement on diabetic education and PU prevention. Offloading surface/device: A heel medix ordered at this time for the left foot. Patient should remain off his prothesis until wound heals. Recommended Referrals/Tests: vascular and wound care following. Discharge Recommendations for dressings: Dressing change instructions left in room. No other wounds noted. Bed lowered and call light in reach. Wound care will follow up on 05/26/21.
[2021-05-19 11:00] VITALS: BP 92/57
[2021-05-19] MEDS ORDERED: AMOX1TAB61 PO (12:00)
--- NOTE | 2021-05-19 12:05 | SNU/HH DC ---
DISCHARGE WITH HOME HEALTH DISCHARGE INFORMATION: Discharge Date: May 19, 2021 Final Diagnosis: Left great toe gangrene Recurrent wounds multiple amputations Peripheral vascular disease - s/p multiple amputation including right BKA Diabetes COPD CAD - s/p CABG and stenting Hypertension - cont home meds GERD Gout Condition on Discharge: Stable CODE STATUS: Code Status: Full HOME HEALTH: Face to Face: I certify this patient is under my care and that I, had a face to face encounter that meets the physician face to face encounter requirements with this patient on 05/19 Medical Complications: DM (foot wound) RN For Eval/Treatment: Yes Physical Therapy For: Evalulation/Treatment Occupational Therapy For: Evaluation/Treatment Pt Meets Homebound Status: Unsteady balance w/ amb,, Limited distance walking, Other: (limtied touch left, prosthesis right) POST DISCHARGE ORDERS: Activity Instructions for Disc: Activity as tolerated Weight Bearing Status after Di: Touch down weight bearing, Other, see below Bathing Instructions: Shower-keep dressing dry, No Tub Bath until see DIET AFTER DISCHARGE: ADA Wound/Incision Care: Keep wound/cast CDI CHECKS AFTER DISCHARGE: Checks after discharge: Check blood press - daily, Check blood sugar, ac/hs FOLLOW-UP: Follow up with: katharine kovacs DC TO SNF LABS: CBC, CMP 1 week TREATMENT/EQUIPMENT ORDERS: Adaptive Equipment Issued: Front wheeled walker, Wheelchair CERTIFICATION STATEMENT: Certification Statement: Certification Statement: Based on the above finding, I certify that this patient is confined to the home and needs intermittent chcf care, physical therapy and/or speech therapy, or continues to need occupational therapy.~ This patient is under my care, and I have initiated the establishment of the plan of care.~ This patient will be followed by myself or a community physician who will periodically review the plan of care. Home Meds Active Scripts Amoxicillin/Potassium Clav (AUGMENTIN 875-125 TABLET) 1 Each Tablet, 1 TAB PO BID for toe infection for 4 Days, #8 TAB 0 Refills Prov:EILEEN GHOTRA MD 05/19/21 Ascorbic Acid (VITAMIN C) 500 Mg Tablet, 500 MG PO DAILY for wound MDD 1, #30 TAB Prov:SHAD CARRANZA MD 12/17/17 Multivits,Ca,Minerals/Iron/Fa (THERA-M TABLET) 1 Each Tablet, 1 TAB PO DAILY for MVI MDD 1, #30 TAB Prov:SHAD CARRANZA MD 12/17/17 Reported Medications Insulin Glargine,Hum.rec.anlog (LANTUS SOLOSTAR) 100 Unit/1 Ml Insuln.pen, 30 UNIT SQ QHS for dm, #15 ML 3 Refills 01/03/20 Insulin Aspart (NOVOLOG) 100 Unit/1 Ml Cartridge, 15 UNIT SQ TID for dm, EACH 01/03/20 Rosuvastatin Calcium (CRESTOR) 5 Mg Tablet, 20 MG PO HS for FOR CHOLESTEROL, #30 TAB 0 Refills 01/03/20 Gabapentin (GABAPENTIN) 600 Mg Tablet, 300 MG PO BID for NEUROGENIC PAIN, TAB 01/03/20 Pantoprazole Sodium (PROTONIX) 20 Mg Tablet.dr, 2 TAB PO DAILY for gerd, #30 TAB 12/18/17 Ranolazine (RANEXA) 500 Mg Tab.er.12h, 1 TAB PO BID, #60 TAB 3 Refills 07/30/15 Clopidogrel Bisulfate (CLOPIDOGREL) 75 Mg Tablet, 1 TAB PO DAILY, #90 TAB 1 Refill 01/19/15 Metoprolol Tartrate (METOPROLOL TARTRATE) 50 Mg Tablet, 12.5 MG PO BID for htn, #60 TAB 0 Refills NEXT DOSE: 01/19/15 PM 01/02/14 Aspirin (ASPIR 81) 81 Mg Tablet.dr, 81 MG PO DAILY, TAB NEXT DOSE: 01/20/15 AM 07/30/13 Lisinopril (LISINOPRIL) 40 Mg Tablet, 20 MG PO DAILY for htn, #30 TAB 0 Refills NEXT DOSE: 01/20/15 AM 07/30/13 EILEEN GHOTRA MD May 19, 2021 12:05
--- NOTE | 2021-05-19 12:15 | PDOC ---
Provider Note Date of Service: DATE: 05/19/21 TIME: 12:08 Provider Note Provider Note Vascular surgery S: Patient is without complaints. He denies any significant pain. He has not been out of bed. He reports he wants to go home, he lives by himself. O: Vital signs stable, he is slightly tachycardic and did have some elevated temps last night. Left foot dressing intact, patient refused for me to remove since it was changed earlier today, however I was able to manipulate slightly to see incision which is clean, dry, intact. Right BKA dressings clean, dry dry, intact. A/P: PAD status post anterior tibial and peroneal percutaneous angioplasty Left great toe osteomyelitis status post ray amputation, closed postop day 1 Left heel blister Patient is doing well postoperatively. He needs to remain offloading of amputation site, therefore the forefoot of his left foot. Need to keep incision clean, dry and intact. However, he does have a heel blister that is concerning and will complicate this. He can do heel touch for transfers only. I explained to him that this is just to get from the bed to a wheelchair that he should not be walking on his foot. He will need physical therapy. He will need case management and discussion regarding dispo planning. He should continue antibiotics at discharge. We have follow-up scheduled for him in 2 to 3 weeks. Needs to continue aspirin and plavix. Vascular surgery follow-up 06/09/2021 at 1100. ([facility] Justicifation of Admission Dx: Justifications for Admission: Justification of Admission Dx: Comment: JANN CASILLAS May 19, 2021 12:15
[2021-05-19 14:57] VITALS: BP 107/63
--- NOTE | 2021-05-19 15:26 | NUR ---
SS following up with discharge planning. SS reviewed pt chart and discussed with pt RN. Pt is currently on room air. COVID19 negative. Script received for wheelchair and phoned and faxed with clinical to [facility]. Discharge orders received for home with home healthcare. SS unable to find home healthcare agency to accept pt due to insurance limitations at this time. Pt needing to follow up with outpatient wound care. SS discussed with pt RN. Discharge order on the chart. SS will continue to follow for discharge planning.
--- NOTE | 2021-05-19 17:34 | PDOC ---
[employer] PROGRESS NOTE Date of Service DOS: DATE: 05/19/21 TIME: 17:32 Chief Complaint Chief Complaint Left great toe gangrene Recurrent wounds multiple amputations Peripheral vascular disease - s/p multiple amputation including right BKA Diabetes COPD CAD - s/p CABG and stenting Hypertension - cont home meds GERD Gout FEN - ADA cardiac diet PPX - heparin FULL CODE Dispo - inpatient History of Present Illness History of Present Illness Mr Ga is a 65yo male with DM2, HTN, CAD s/p CABG, severe peripheral artery disease with prior BKA and left foot wounds s/p left 2nd toe amputation who is directly wound care clinic today today due to gangrenous left great toe. He has failed outpatient antibiotics 05/13: Patient evaluated examined at bedside. Resting in bed doing well no complaints to me. Planning for lower extremity angiogram today. Patient will transfer to 6 floor after this. Continue antibiotics. Wound evaluation. He is agreeable to the current plan. 05/14: Status post abdominal aortogram with cardiology consideration for PCI in the next several days. He is complain of a cough today. left great toe foul smelling 05/15: Seen bedside with significant other. Left great toe dressing removed due to saturation. Blood glucose been in the 200s despite increase in his regimen. 05/16, UROLOGY NURSE today 05/17,. 2 stents placed yesterday, pulses about he same, outpatient plainfilm xray of foot did not show definite osteo, Consult Vascular, wound would prob never heal. in good spirits, cont current,, no pain 05/18, surg today doing well, 05/19, try to DC, he wants to go home, but doesnt feel ready, thinks his lights wont be on, or something, "better tommorrow" I put order in for today and was calledby RN that pt and family seemed mad and wanted him to stay Vitals/I&O Vitals/I&O: Vital Signs Date Time Temp Pulse Resp B/P (MAP) Pulse Ox O2 Delivery O2 Flow Rate FiO2 05/19/21 14:57 99.0 93 18 107/63 (78) 96 Room Air 99.0 I & O 05/18/21 05/18/21 05/19/21 15:00 23:00 07:00 Intake Total 550 ml 750 ml Output Total 20 ml 400 ml 100 ml Balance 530 ml -400 ml 650 ml Physical Exam General: Alert, Oriented X3, Cooperative Heart: Regular rate, Normal S1, Normal S2 Lungs: Clear Abdomen: Normal bowel sounds, Soft, No tenderness Extremities: No edema, Other (Doppler signals intact in the left lower extremity dorsalis pedis location, palpable femoral pulses bilaterally) Skin: Other (Left first toe full-thickness gangrene which is dry, no purulent drainage, no malodor, no cellulitis) Labs Labs: Laboratory Tests Test 05/18/21 19:14 05/18/21 19:45 05/19/21 07:26 05/19/21 11:47 Vancomycin Level Trough 21.1 mcg/mL (10.0-20.0) Vancomycin Last Dose Date 05/19/21 Vancomycin Last Dose Time 0200 Glucose (Fingerstick) 246 mg/dL (70-99) 302 mg/dL (70-99) 316 mg/dL (70-99) Test 05/19/21 16:16 Glucose (Fingerstick) 200 mg/dL (70-99) Comment Review of Relevant I have reviewed the following items joana (where applicable) has been applied. Medications: Current Medications Medications (Trade) Dose Ordered Sig/Inna Route PRN Reason Start Time Stop Time Status Last Admin Dose Admin Vancomycin HCl 1.75 gm/Sodium Chloride 500 ml @ 250 mls/hr Q24H IV 05/19/21 00:01 05/19/21 00:01 Justifications for Admission Other Justification EILEEN GHOTRA MD May 19, 2021 17:34
--- NOTE | 2021-05-19 19:30 | NUR ---
Discharge Note: FACUNDO GRIFFIN P [address] [facility] Discharge instructions and discharge home medications reviewed with Patient and a copy given. All questions have been answered and understanding verbalized. The following instructions and handouts were given: discharge instructions, wound instructions, med list, PVD education, post angioplasty care education, follow ups Discontinued lines and drains: Peripheral IV intact. Patient discharged to Home or Self Care with Family Member via Wheelchair at 1930. Patient received off loading shoe & heel medix boot.
[2021-05-19] MEDS ORDERED: AMOXICILLIN/K CLAV 875/125MG TABLET. PO SCH (21:00)
--- NOTE | 2021-05-20 19:21 | PDOC ---
CARDIOLOGY PROGRESS NOTE SUBJECTIVE: Late entry for 05/19/2021 Patient is overall doing well. He denies any specific cardiac limitations. He is mostly bedridden due to his amputation. He denies any dyspnea OBJECTIVE: Vital Signs/I&O: Vital Signs Date Time Temp Pulse Resp B/P (MAP) Pulse Ox O2 Delivery O2 Flow Rate FiO2 05/19/21 14:57 99.0 93 18 107/63 (78) 96 Room Air 99.0 I & O 05/19/21 05/19/21 05/20/21 15:00 23:00 07:00 Intake Total 570 ml 300 ml Output Total 200 ml Balance 370 ml 300 ml Objective: The patient appeared well nourished and normally developed. Head exam is unremarkable. No scleral icterus or corneal arcus noted. Neck is without jugular venous distension, thyromegaly, or carotid bruits. Carotid upstrokes are brisk bilaterally. Lungs are clear to auscultation and percussion. Cardiac exam reveals the PMI to be normally sized and situated. Rhythm is regular. First and second heart sounds normal. No murmurs, rubs or gallops. Abdominal exam reveals normal bowel sounds, no masses, no organomegaly and no aortic enlargement. Extremities are nonedematous and pedal pulses on the left side are nonpalpable but he has edema suggestive of lymphedema and venous stasis. Foot is warm and dry Msk: No traumua Neuro: No focal deficits CURRENT MEDICATIONS: Medications reviewed including aspirin, Plavix and statin DIAGNOSTIC TESTING: Labs reviewed Telemetry reviewed ASSESSMENT: 1. Coronary artery disease 2. Peripheral arterial disease 3. Failure to thrive 4. Diastolic heart failure 5. Presumed lymphedema PLAN: 1. Continue current medical therapy. His diastolic heart failure appears to be chronic in nature. He appears to be euvolemic at this time. Left lower extremity edema is likely lymphedema. No further cardiac testing necessary at this time. Supportive care Justicifation of Admission Dx: Justifications for Admission: Justification of Admission Dx: Comment: CHETNA ARREDONDO MD May 20, 2021 19:21
--- NOTE | 2021-06-03 13:41 | PDOC3 ---
Discharge Summary Visit Information Date of Discharge: May 19, 2021 Final Diagnosis Left great toe gangrene Recurrent wounds multiple amputations Peripheral vascular disease - s/p multiple amputation including right BKA, extensive disease Diabetes on insulin wiht poor control COPD CAD - s/p CABG and stenting Hypertension - cont home meds GERD Gout weakness and dbeility Osteomyelitis with abscess left first toe distal phalanx with gangrene Mr Ga is a 65yo male with DM2, HTN, CAD s/p CABG, severe peripheral artery disease with prior BKA and left foot wounds s/p left 2nd toe amputation who is directly wound care clinic today today due to gangrenous left great toe. He has failed outpatient antibiotics 05/13: Patient evaluated examined at bedside. Resting in bed doing well no complaints to me. Planning for lower extremity angiogram today. Patient will transfer to 6 floor after this. Continue antibiotics. Wound evaluation. He is agreeable to the current plan. 05/14: Status post abdominal aortogram with cardiology consideration for PCI in the next several days. He is complain of a cough today. left great toe foul smelling 05/15: Seen bedside with significant other. Left great toe dressing removed due to saturation. Blood glucose been in the 200s despite increase in his regimen. 05/16, LANDSCAPE SPECIALIST today 05/17,. 2 stents placed yesterday, pulses about he same, outpatient plainfilm xray of foot did not show definite osteo, Consult Vascular, wound would prob never heal. in good spirits, cont current,, no pain 05/18, surg today doing well, 05/19, try to DC, he wants to go home, but doesnt feel ready, thinks his lights wont be on, or something, "better tommorrow" I put order in for today and was calledby RN that pt and family seemed mad and wanted him to stay Brief Hospital Course Allergies Allergies Coded Allergies Type Severity Reaction Last Updated Verified morphine Allergy Intermediate Hives, itching 01/04/20 Yes I S O L A T I O N *CONTACT* Allergy Unknown 01/04/20 Yes Brief Hospital Course Mr. Ga is a 65 old with Hx of PVD and a previous right below-knee ampu tation by Dr. Rudolph. Admit this time with dry gangrene involving the left first toe which has been worsening over the last 3 weeks. He underwent percutaneous intervention by Dr. Tao who was able to open the peroneal artery. Vascular consulted, Dr. Perez performed Left first toe amputation with metatarsal head. some weakness, no pain, wound care to follow needs better DM control Discharge Information Condition at Discharge: Improved Follow Up: Weeks Disposition/Orders: D/C to Home Scheduled Amoxicillin/Potassium Clav (Augmentin 875-125 Tablet) 1 Each Tablet, 1 TAB PO BID for toe infection for 4 Days, #8 Ref 0 Prescribed by: EILEEN GHOTRA on 05/19/21 1200 Ascorbic Acid (Vitamin C) 500 Mg Tablet, 500 MG PO DAILY for wound MDD 1, #30 Prescribed by: SHAD CARRANZA on 12/17/17 1124 Last Action: HELD on 05/12/211653 by KATARINA BREWER MD Aspirin (Aspir 81) 81 Mg Tablet.dr, 81 MG PO DAILY, (Reported) NEXT DOSE: 01/20/15 AM Entered as Reported by: DEBRA FREY on 07/30/13 0857 Last Action: Continued on 05/12/211653 by KATARINA BREWER MD Clopidogrel Bisulfate (Clopidogrel) 75 Mg Tablet, 1 TAB PO DAILY, #90 Ref 1 (Reported) Entered as Reported by: Karlee Pepper on 01/19/15 1755 Last Action: Continued on 05/12/211653 by KATARINA BREWER MD Gabapentin (Gabapentin) 600 Mg Tablet, 300 MG PO BID for NEUROGENIC PAIN, (Reported) Entered as Reported by: CECI TUCKER on 01/03/201407 Last Action: Converted on 05/12/211653 by KATARINA BREWER MD Insulin Aspart (Novolog) 100 Unit/1 Ml Cartridge, 15 UNIT SQ TID for dm, (Reported) Entered as Reported by: CECI TUCKER on 01/03/201407 Last Action: Converted on 05/12/211653 by KATARINA BREWER MD Insulin Glargine,Hum.rec.anlog (Lantus Solostar) 100 Unit/1 Ml Insuln.pen, 30 UNIT SQ QHS for dm, #15 Ref 3 (Reported) Entered as Reported by: CECI TUCKER on 01/03/201407 Last Action: Converted on 05/12/211653 by KATARINA BREWER MD Lisinopril (Lisinopril) 40 Mg Tablet, 20 MG PO DAILY for htn, #30 Ref 0 (Reported) NEXT DOSE: 01/20/15 AM Entered as Reported by: DEBRA FREY on 07/30/13 0857 Last Action: Continued on 05/12/211653 by KATARINA BREWER MD Metoprolol Tartrate (Metoprolol Tartrate) 50 Mg Tablet, 12.5 MG PO BID for htn, #60 Ref 0 (Reported) NEXT DOSE: 01/19/15 PM Entered as Reported by: DEMETRIUS LUJAN on 01/02/14 1629 Last Action: Continued on 05/12/211653 by KATARINA BREWER MD Multivits,Ca,Minerals/Iron/Fa (Thera-M Tablet) 1 Each Tablet, 1 TAB PO DAILY for MVI MDD 1, #30 Prescribed by: SHAD CARRANZA on 12/17/17 1124 Last Action: HELD on 05/12/211653 by KATARINA BREWER MD Pantoprazole Sodium (Protonix) 20 Mg Tablet.dr, 2 TAB PO DAILY for gerd, #30 (Reported) Entered as Reported by: JUANIS DEUTSCH RN on 12/18/17 2217 Last Action: Converted on 05/12/211653 by KATARINA BREWER MD Ranolazine (Ranexa) 500 Mg Tab.er.12h, 1 TAB PO BID, #60 Ref 3 (Reported) Entered as Reported by: IVIS HARMAN on 07/30/15 0945 Last Action: Continued on 05/12/211653 by KATARINA BREWER MD Rosuvastatin Calcium (Crestor) 5 Mg Tablet, 20 MG PO HS for FOR CHOLESTEROL, #30 Ref 0 (Reported) Entered as Reported by: CECI TUCKER on 01/03/20 1408 Last Action: Converted on 05/12/211653 by KATARINA BREWER MD Patient Instructions Patient Instructions face to face f/u note done that day, pt DC late >31 minutes that day Justicifation of Admission Dx: Justifications for Admission: Justification of Admission Dx: Comment: EILEEN GHOTRA MD Jun 03, 2021 13:41
== END 2021-05-19 19:30 | disposition home health service (06) | DRG 270 ==
LOC: 4 NORTH 14:07 → 6 SOUTH 05-13 11:53
PROVIDERS: ADMIT Student in an Organized Health Care Education/Training Program; ATTEND Student in an Organized Health Care Education/Training Program
PROC: B41D1ZZ Fluoroscopy of Aorta and Bilateral Lower Extremity Arteries using Low Osmolar Contrast (ICD-10-PCS; 2021-05-13)
PROC: 04CQ3ZZ Extirpation of Matter from Left Anterior Tibial Artery, Percutaneous Approach (ICD-10-PCS; 2021-05-17)
PROC: 047Q3ZZ Dilation of Left Anterior Tibial Artery, Percutaneous Approach (ICD-10-PCS; 2021-05-17)
PROC: 047U3ZZ Dilation of Left Peroneal Artery, Percutaneous Approach (ICD-10-PCS; 2021-05-17)
PROC: 0Y6N0Z9 Detachment at Left Foot, Partial 1st Ray, Open Approach (ICD-10-PCS; principal; 2021-05-18 11:00)
DX: E11.52 Type 2 diabetes mellitus with diabetic peripheral angiopathy with gangrene (principal); E43 Unspecified severe protein-calorie malnutrition; N17.0 Acute kidney failure with tubular necrosis; I50.30 Unspecified diastolic (congestive) heart failure; L97.429 Non-pressure chronic ulcer of left heel and midfoot with unspecified severity; M86.8X8 Other osteomyelitis, other site; E11.621 Type 2 diabetes mellitus with foot ulcer; E78.5 Hyperlipidemia, unspecified; I11.0 Hypertensive heart disease with heart failure; I25.10 Atherosclerotic heart disease of native coronary artery without angina pectoris; J44.9 Chronic obstructive pulmonary disease, unspecified; K21.9 Gastro-esophageal reflux disease without esophagitis; L08.9 Local infection of the skin and subcutaneous tissue, unspecified; M10.9 Gout, unspecified; R62.7 Adult failure to thrive; Z74.01 Bed confinement status; Z82.49 Family history of ischemic heart disease and other diseases of the circulatory system; Z83.3 Family history of diabetes mellitus; Z89.422 Acquired absence of other left toe(s); Z89.511 Acquired absence of right leg below knee; Z91.19 Patient's noncompliance with other medical treatment and regimen; Z95.1 Presence of aortocoronary bypass graft; Z95.5 Presence of coronary angioplasty implant and graft; E11.65 Type 2 diabetes mellitus with hyperglycemia; Z79.4 Long term (current) use of insulin; E11.69 Type 2 diabetes mellitus with other specified complication; Z88.8 Allergy status to other drugs, medicaments and biological substances
CPT/HCPCS: 36247; 36415; 37229; 37232; 75625; 75716; 76937; 80048; 80053; 80061; 80202; 82565; 82962; 83036; 84443; 85025; 85347; 87040; 87075; 87076; 87077; 87426; 99152; 99153; A4213; A4930; A6402; A6452; C1769; C1894; J0690; J1644; J1815; J2250; J2405; J2543; J2704; J2720; J3010; J3370; J3490; J7030; J7040; J7050; J7060; J7120; Q9967; 97530-GP; 97535-GO; G0378